=== PATIENT | female | born 1965 | race Caucasian/White ===

== ENCOUNTER 2024-04-26 13:48 | Outpatient (OUT) | payer BC, SELFPAY ==
--- NOTE | 2024-04-26 08:59 | VEINCLINIC_ITS ---
Vital Signs 04/26/24 14:26 Height 5 ft 5 in Weight 87.997 kg BMI 32.3 BP 120/58 BP Location Left Brachial BP Position Sitting BP Cuff Size Adult BP Source Manual Cuff Respiration 16 Pulse 58 L Pulse Source Monitor Pulse Oximetry (%) 99 Oxygen Delivery Method Room Air Comment The patient's blood pressure is elevated. Varicose Veins Patient is a 59 year old female in this day with c/o pain/achiness and edema. Achiness most notable to right leg and edema most noted to left leg. 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 . Brett Washington MD personally performed the services described in this docum entation, as scribed by Henri Higgins RN in my presence and it is both accurate and complete. I, Henri Higgins RN, am scribing for, and in the presence of, Dr. Brett Ocasio and in the presence of the patient. . knee: bilateral (most notable to right leg), calf: bilateral, ankle: bilateral and dobbs: bilateral aching, cramping and tender 7 10 years Worsened in recent months: Yes standing, sitting and walking analgesics (Ibuprofen), elevating extremities, compression stockings and exercise Reports fatigue, heaviness, limb pain and edema History of lower extremity trauma: No Superficial thrombophlebitis: No Family history of varicose veins: yes (mother) Has patient had previous lower extremity venous surgery: No Patient has previously received the following treatment(s) for lower extremity varicose veins: Reports none Does patient have a history of : yes Does patient intend to have future pregnancies: no Has patient had lower extremity venous scan with relux testing: No Support hose used: Yes Problems walking or doing physical activity: Yes How does it affect you: often has to sit and elevate bilateral legs/feet Do you walk much: Yes Do you stand much: No Review of Systems ROS Narrative Brett Washington MD personally performed the services described in this documentation, as scribed by Henri Higgins RN in my presence and it is both accurate and complete. Henri Washington RN, am scribing for, and in the presence of, Dr. Brett Ocasio and in the presence of the patient. Status of ROS 10 or more systems reviewed and unremark able except as noted in history and below Cardiovascular Reports: edema Integumentary/Breast Reports: redness, skin pain, skin tenderness and changes in skin color Hematologic/Lymphatic Reports: easy bruising and easy bleeding PFSH PFSH Medical History (Updated 04/26/24 @ 14:39 by Henri Higgins) Diverticulosis ?K57.90 - Diverticulosis of intestine, part unspecified, without perforation or abscess without bleeding (ICD-10) 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 - Primary osteoarthritis, unspecified hand (ICD-10) Varicose veins of bilateral lower extremities with pain ?I83.813 - Varicose veins of bilateral lower extremities with pain (ICD-10) Arthritis ?M19.90 - Unspecified osteoarthritis, unspecified site (ICD-10) Spinal stenosis ?M48.00 - Spinal stenosis, site unspecified (ICD-10) Atrial fibrillation ?I48.91 - Unspecified atrial fibrillation (ICD-10) Obesity ?E66.9 - Obesity, unspecified (ICD-10) Fibromyalgia ?M79.7 - Fibromyalgia (ICD-10) Surgical History (Updated 04/26/24 @ 14:39 by Henri Higgins) H/O colectomy ?Z90.49 - Acquired absence of other specified parts of digestive tract (ICD- 10) Hx of breast reduction, elective ?Z98.890 - Other specified postprocedural states (ICD-10) H/O abdominoplasty ?Z98.890 - Other specified postprocedural states (ICD-10) History of cholecystectomy ?Z90.49 - Acquired absence of other specified parts of digestive tract (ICD- 10) H/O: hysterectomy ?Z90.710 - Acquired absence of both cervix and uterus (ICD-10) Family History (Updated 04/26/24 @ 14:42 by Henri Higgins) Mother Varicose veins of bilateral lower extremities with pain Heart disease Age related osteoporosis Sister Age related osteoporosis Other Family history of cancer Family history of diabetes mellitus Family history of hypertension Pulmonary hypertension Social History (Updated 04/26/24 @ 14:43 by Henri Higgins) Within the past year, how often did you have six or more drinks on one occasion: less than monthly Smoking status: Never smoker Non-prescribed substance use: denies use Meds Home Medications and Allergies Home Medications ?Medication ?Instructions ?Recorded ?Confirmed ?Type aspirin 81 mg capsule 81 mg PO DAILY 04/26/24 04/26/24 History diltiazem HCl PO 04/26/24 History duloxetine PO 04/26/24 History montelukast 10 mg tablet 10 mg PO QPM 04/26/24 04/26/24 History (Singulair) pantoprazole 40 mg granules 40 mg PO DAILY 04/26/24 04/26/24 History delayed-release for susp in packet (Protonix) tramadol .ROUTE 04/26/24 History Allergies Allergy/AdvReac Type Severity Reaction Status Date / Time codeine Allergy Mild Agitated Verified 04/26/24 15:32 dermaplast glue Allergy Intermediate Rash Uncoded 04/26/24 15:32 Exam Narrative Exam Narrative: Brett Washington MD personally performed the services described in this documentation, as scribed by Henri Higgins RN in my presence and it is both accurate and complete. IHenri RN, am scribing for, and in the presence of, Dr. Brett Ocasio and in the presence of the patient. Results Additional Findings Additional findings: Bilateral leg reflux u/s reveals mild right and moderate left great saphenous vein and bilateral anterior accessory saphenous vein venous insufficiency with associated dilation along with bilateral leg branch saphenous truncal varicose veins and lastly bilateral leg perforating veins. Brett Washington MD personally performed the services described in this documentation, as scribed by Henri Higgins RN in my presence and it is both accurate and complete. IHenri RN, am scribing for, and in the presence of, Dr. Brett Ocasio and in the presence of the patient. Assessment and Plan Assessment and Plan (1) Varicose veins of bilateral lower extremities with pain: Plan Plan is for patient to return for EVLT of left GSV followed by right GSV followed by left AASV. Once EVLT's complete, move forward with microfoam chemical ablation bilateral leg branch saphenous truncal varicosities. Lastly, sclerotherapy bilateral leg pre-hemorrhagic reticular spider veins.
--- NOTE | 2024-04-26 13:26 | P.DS_ITS ---
Discharge Plan Discharge Disposition: Home, Self-Care Outpatient Diagnostics: VC Endovenous Ablation 1VeinLT (Routine) Timeframe: 2 Weeks Facility: [facility] - Location: [facility] Ordered By: Brett Ocasio VC Facility NEW Comprehensive (Routine) Timeframe: 2 Weeks Facility: [facility] - Location: Vein Center Ordered By: Brett Ocasio VC EXT Venous Reflux MYCHAL LMTD (Routine) Timeframe: 2 Weeks Facility: [facility] - Location: Vein Center Ordered By: Brett Ocasio Follow Up Appointments: patient to be notified once insurance approved Plan of Treatment: Patient to return for EVLT's of Print Language: Setswana Discharge Date/Time: 04/26/24 15:53
--- NOTE | 2024-04-26 14:06 | VEIN_ITS ---
Patient Name: JACQUES RIVERA MR#: [id number] : 1965 Exam Date: 04/26/2024 Ordering Doctor: DR BRETT PINEDO M.D. RADIOLOGY REPORT PROCEDURE: [facility] [place] - OFFICE VISIT INITIAL COMPARISON: None. PROGRESS NOTES: 59-year-old female who presents with a 10 year history of lower extremity pain swelling and varicose veins. The patient's symptoms have significantly progressed in the past year. 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 The patient rates the pain as a 7 on a scale of 1-10 with crampy achy and heaviness. The patient's symptoms are exacerbated by prolonged sitting and standing and are partially relieved by rest, leg elevation, exercise and compression stockings which she has worn for many years. The patient does take ibuprofen for the pain with partial relief. The patient denies any signs and symptoms to suggest arterial ischemia. The patient describes a family history significant for varicose veins in her mother. Osteoporosis in a mother and sister. Family history of cancer in diabetes and hypertension. Past medical history significant for diverticulosis, arthritis, spinal stenosis, atrial fibrillation in the past, obesity and fibromyalgia. Past surgical history significant for colectomy, breast reduction, abdominal plasty, cholecystectomy, hysterectomy. The patient has lost 112 pounds in the past 4 years secondary to obesity. Social alcohol. The patient has never smoked. No illicit drug use. No history of deep venous thrombus or pulmonary embolus. See separate history and physical for medication list. No prior treatment for varicose or spider veins. Nursing notes were reviewed. After history and physical exam I discussed at length the pathophysiology of venous hypertension and possible treatments, therapies and strategies available. We discussed at length the importance of elevating the lower extremities above the level of the heart, increased physical activity and compression stocking use. We discussed at length alternatives including compression stocking use for conservative therapy. Surgical interventions including ligation stripping and phlebectomy. We discussed intravenous laser ablation, micro foam chemical ablation and injection sclerotherapy lymph. Risk benefits and alternatives were discussed patient's questions were answered Ultrasound venous reflux study performed the same day was discussed at length with the patient. The report demonstrates mild right and moderate left great saphenous vein venous insufficiency. Moderate bilateral anterior accessory saphenous vein venous insufficiency. Bilateral incompetent varicose and perforating veins PHYSICAL EXAM: The right leg demonstrates mild scattered varicose reticular and spider veins. No subcutaneous edema, active ulceration or hemosiderin staining The left leg demonstrates moderate scattered varicose reticular and spider veins. Mild subcutaneous edema below the knee. No active ulceration or hemosiderin staining Both thighs, legs and feet were symmetrically warm to the touch. Good posterior tibial and dorsalis pedis pulses were present bilaterally. VEIN/VC Facility NEW Comprehensive IMPRESSION: 1. Mild right moderate left great saphenous, bilateral anterior accessory saphenous vein venous insufficiency with dilatation and saphenofemoral junction reflux 2. Bilateral lower extremity in com varicose veins 3. Mild left lower extremity subcutaneous edema 4. No definite flow significant arterial disease 5. CEAP: C3, Ep, As, Pr PLAN: 1. Endovenous laser ablation of the left great saphenous vein followed by right great saphenous vein followed by left anterior accessory saphenous vein 2. Micro foam chemical ablation bilateral incompetent varicose veins 3. Bilateral injection sclerotherapy reticular and spider veins 4. Long-term use of bilateral knee or thigh-high 20 30 mm compression stockings 5. Continue physical activity and weight loss for symptomatic relief Nurse notes, history and physical were reviewed and confirmed, see attached forms. The nurse was present throughout the physical exam and consultation Dictated by: Brett Pinedo MD on 04/26/2024 at 15:47 Approved by: Brett Pinedo MD on 04/26/2024 at 15:52
--- NOTE | 2024-04-26 14:06 | VEIN_ITS ---
Patient Name: JACQUES RIVERA MR#: [id number] : 1965 Exam Date: 04/26/2024 Ordering Doctor: DR BRETT PINEDO M.D. RADIOLOGY REPORT PROCEDURE: VC EXT VENOUS REFLUX MYCHAL LMTD COMPARISON: None. INDICATIONS: I83.813 Bilateral painful varicose veins TECHNIQUE: Duplex imaging of the lower extremity to assess the deep and superficial venous system for the presence of deep or superficial venous incompetence and to document the location and severity of disease. The study includes evaluation of the great saphenous vein (GSV), anterior accessory saphenous vein (AASV) and small saphenous vein (SSV). Patient scanned in reverse Trendelenburg and standing. FINDINGS: RIGHT LOWER EXTREMITY: Saphenofemoral Junction Reflux: Yes 12.1mm 3.9 sec GSV: Diam (mm) Reflux/ Time (sec) Proximal Thigh 6.6 Yes 0.6 Mid Thigh 4.7 No Distal Thigh 4.1 Yes 0.2 Prox Calf 4.0 Yes 0.6 Mid Calf 4.4 Yes 1.0 Saphenopopliteal Junction Reflux: 3.0mm No SSV: Proximal Calf 4.8 No Mid Calf 3.3 Yes 1.4 AASV: Proximal Thigh 6.4 Yes 1.9 Mid Thigh 4.4 Yes 2.0 Distal Thigh Thrombi: No acute or chronic thrombus. Compressibility: Normal. Flow: Mild deep venous reflux. Preforator: Prox medial lower leg 3.3 mm with 3.0s reflux. Distal medial lower leg 3.2 mm with 2.4s reflux. Tech Note: Incompetent varicose vein popliteal fossa measures 4.1 mm with 2.8s reflux. Varicose vein mid medial thigh measures 4.0 mm with 1.0s reflux. Varicose vein off of AASV distal lateral/anterior thigh measures 6.1 mm with 1.2s reflux. LEFT LOWER EXTREMITY: Saphenofemoral Junction Reflux: Yes 11.3 mm 1.1 sec GSV: Diam (mm) Reflux/Time (sec) Proximal Thigh 7.4 Yes 0.6 Mid Thigh 4.2 Yes 1.4 Distal Thigh 4.3 Yes 1.2 Prox Calf 5.1 Yes 4.0 Mid Calf 2.9 No Saphenopopliteal Junction Relux: 1.9 mm Yes 3.2 SSV: Proximal Calf 3.7 No Mid Calf 2.6 No AASV: Proximal Thigh 5.5 Yes 3.2 Mid Thigh 4.5 Yes 2.8 Distal Thigh Thrombi: No acute or chronic thrombus. Compressibility: Normal. Flow: Minimal deep venous reflux. Relations Mgr: Distal medial lower leg measures 3.4 mm with 1.1s reflux. Tech Note: Incompetent varicose vein mid medial thigh off of AASV 4.0 mm with 0.6s reflux. Varicose vein distal lateral thigh off AASV 4.0 mm with 2.6s reflux. CONCLUSION: 1. Mild right and moderate left great saphenous vein venous insufficiency with dilatation in saphenofemoral junction reflux 2. Moderate bilateral anterior accessory saphenous vein venous insufficiency with dilatation 3. Bilateral incompetent varicose veins 4. Bilateral incompetent perforating veins Dictated by: Brett Pinedo MD on 04/26/2024 at 15:25 Approved by: Brett Pinedo MD on 04/26/2024 at 15:27
[2024-04-26 14:26] VITALS: BP 120/58; PULSE 58; O2SAT 99; BMI 32.3
--- NOTE | 2024-04-26 15:10 | V.VEINS.HP ---
Vital Signs 04/26/24 14:26 Height 5 ft 5 in Weight 87.997 kg BMI 32.3 BP 120/58 BP Location Left Brachial BP Position Sitting BP Cuff Size Adult BP Source Manual Cuff Respiration 16 Pulse 58 L Pulse Source Monitor Pulse Oximetry (%) 99 Oxygen Delivery Method Room Air Comment The patient's blood pressure is elevated. [facility] Medical History (Updated 04/26/24 @ 14:39 by Henri Higgins) Diverticulosis ?K57.90 - Diverticulosis of intestine, part unspecified, without perforation or abscess without bleeding (ICD-10) 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 - Primary osteoarthritis, unspecified hand (ICD-10) Varicose veins of bilateral lower extremities with pain ?I83.813 - Varicose veins of bilateral lower extremities with pain (ICD-10) Arthritis ?M19.90 - Unspecified osteoarthritis, unspecified site (ICD-10) Spinal stenosis ?M48.00 - Spinal stenosis, site unspecified (ICD-10) Atrial fibrillation ?I48.91 - Unspecified atrial fibrillation (ICD-10) Obesity ?E66.9 - Obesity, unspecified (ICD-10) Fibromyalgia ?M79.7 - Fibromyalgia (ICD-10) Surgical History (Updated 04/26/24 @ 14:39 by Henri Higgins) H/O colectomy ?Z90.49 - Acquired absence of other specified parts of digestive tract (ICD-10) Hx of breast reduction, elective ?Z98.890 - Other specified postprocedural states (ICD-10) H/O abdominoplasty ?Z98.890 - Other specified postprocedural states (ICD-10) History of cholecystectomy ?Z90.49 - Acquired absence of other specified parts of digestive tract (ICD-10) H/O: hysterectomy ?Z90.710 - Acquired absence of both cervix and uterus (ICD-10) Family History (Updated 04/26/24 @ 14:42 by Henri Higgins) Mother Varicose veins of bilateral lower extremities with pain Heart disease Age related osteoporosis Sister Age related osteoporosis Other Family history of cancer Family history of diabetes mellitus Family history of hypertension Pulmonary hypertension Social History (Updated 04/26/24 @ 14:43 by Henri Higgins) Within the past year, how often did you have six or more drinks on one occasion: less than monthly Smoking status: Never smoker Non-prescribed substance use: denies use Meds Home Medications and Allergies Home Medications ?Medication ?Instructions ?Recorded ?Confirmed ?Type aspirin 81 mg capsule 81 mg PO DAILY 04/26/24 04/26/24 History diltiazem HCl PO 04/26/24 History duloxetine PO 04/26/24 History montelukast 10 mg tablet 10 mg PO QPM 04/26/24 04/26/24 History (Singulair) pantoprazole 40 mg granules 40 mg PO DAILY 04/26/24 04/26/24 History delayed-release for susp in packet (Protonix) tramadol .ROUTE 04/26/24 History Exam Constitutional Vital Signs, click to edit/add: Last Vital Signs Pulse 58 L 04/26/24 14:26 Resp 16 04/26/24 14:26 BP 120/58 04/26/24 14:26 Pulse Ox 99 04/26/24 14:26 Assessment and Plan Assessment and Plan (1) Varicose veins of bilateral lower extremities with pain:
--- NOTE | 2024-04-26 15:35 | W.VEIN ---
Discharge Plan Discharge Disposition: Home, Self-Care Plan of Treatment: Patient to return for EVLT's of Print Language: Polish
--- NOTE | 2024-04-26 15:58 | V.VEINS.HP ---
Vital Signs 04/26/24 14:26 Height 5 ft 5 in Weight 87.997 kg BMI 32.3 BP 120/58 BP Location Left Brachial BP Position Sitting BP Cuff Size Adult BP Source Manual Cuff Respiration 16 Pulse 58 L Pulse Source Monitor Pulse Oximetry (%) 99 Oxygen Delivery Method Room Air Comment The patient's blood pressure is elevated. [facility] Medical History (Updated 04/26/24 @ 14:39 by Henri Higgins) Diverticulosis ?K57.90 - Diverticulosis of intestine, part unspecified, without perforation or abscess without bleeding (ICD-10) 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 - Primary osteoarthritis, unspecified hand (ICD-10) Varicose veins of bilateral lower extremities with pain ?I83.813 - Varicose veins of bilateral lower extremities with pain (ICD-10) Arthritis ?M19.90 - Unspecified osteoarthritis, unspecified site (ICD-10) Spinal stenosis ?M48.00 - Spinal stenosis, site unspecified (ICD-10) Atrial fibrillation ?I48.91 - Unspecified atrial fibrillation (ICD-10) Obesity ?E66.9 - Obesity, unspecified (ICD-10) Fibromyalgia ?M79.7 - Fibromyalgia (ICD-10) Surgical History (Updated 04/26/24 @ 14:39 by Henri Higgins) H/O colectomy ?Z90.49 - Acquired absence of other specified parts of digestive tract (ICD-10) Hx of breast reduction, elective ?Z98.890 - Other specified postprocedural states (ICD-10) H/O abdominoplasty ?Z98.890 - Other specified postprocedural states (ICD-10) History of cholecystectomy ?Z90.49 - Acquired absence of other specified parts of digestive tract (ICD-10) H/O: hysterectomy ?Z90.710 - Acquired absence of both cervix and uterus (ICD-10) Family History (Updated 04/26/24 @ 14:42 by Henri Higgins) Mother Varicose veins of bilateral lower extremities with pain Heart disease Age related osteoporosis Sister Age related osteoporosis Other Family history of cancer Family history of diabetes mellitus Family history of hypertension Pulmonary hypertension Social History (Updated 04/26/24 @ 14:43 by Henri Higgins) Within the past year, how often did you have six or more drinks on one occasion: less than monthly Smoking status: Never smoker Non-prescribed substance use: denies use Meds Home Medications and Allergies Home Medications ?Medication ?Instructions ?Recorded ?Confirmed ?Type aspirin 81 mg capsule 81 mg PO DAILY 04/26/24 04/26/24 History diltiazem HCl PO 04/26/24 History duloxetine PO 04/26/24 History montelukast 10 mg tablet 10 mg PO QPM 04/26/24 04/26/24 History (Singulair) pantoprazole 40 mg granules 40 mg PO DAILY 04/26/24 04/26/24 History delayed-release for susp in packet (Protonix) tramadol .ROUTE 04/26/24 History Allergies Allergy/AdvReac Type Severity Reaction Status Date / Time codeine Allergy Mild Agitated Verified 04/26/24 15:32 dermaplast glue Allergy Intermediate Rash Uncoded 04/26/24 15:32 Exam Constitutional Vital Signs, click to edit/add: Last Vital Signs Pulse 58 L 04/26/24 14:26 Resp 16 04/26/24 14:26 BP 120/58 04/26/24 14:26 Pulse Ox 99 04/26/24 14:26 Assessment and Plan Assessment and Plan (1) Varicose veins of bilateral lower extremities with pain: Plan Plan is for patient to return for EVLT of left GSV followed by right GSV followed by left AASV. Once EVLT's complete, move forward with microfoam chemical ablation bilateral leg branch saphenous truncal varicosities. Lastly, sclerotherapy bilateral leg pre-hemorrhagic reticular spider veins.
== END 2024-04-26 15:53 | disposition home or self-care (01) ==
LOC: VC 13:48
PROVIDERS: PCP Radiology Diagnostic Radiology; Visit Provider Radiology Diagnostic Radiology
DX: I83.813 Varicose veins of bilateral lower extremities with pain (principal)
CPT/HCPCS: 93970; G0463

== ENCOUNTER 2024-05-22 13:55 | Outpatient (OUT) | payer BC, SELFPAY ==
--- NOTE | 2024-05-19 08:56 | VEINCLINIC_ITS ---
Vital Signs 05/22/24 14:16 BP 130/74 BP Location Right Brachial BP Position Sitting BP Cuff Size Adult BP Source Manual Cuff Respiration 16 Pulse 58 L Pulse Source Monitor Pulse Oximetry (%) 99 Oxygen Delivery Method Room Air Comment The patient's blood pressure is elevated. Varicose Veins Patient in this day for EVLT Mina Washington MD personally performed the services described in this documentation, as scribed by Henri Higgins RN in my presence and it is both accurate and complete. Henri Washington RN, am scribing for, and in the presence of, Dr. Mina Huffman and in the presence of the patient. knee: bilateral (most notable to right leg), calf: bilateral, ankle: bilateral and dobbs: bilateral aching, cramping and tender 7 10 years Worsened in recent months: Yes standing, sitting and walking analgesics (Ibuprofen), elevating extremities, compression stockings and exercise Reports fatigue, heaviness, limb pain and edema History of lower extremity trauma: No Superficial thrombophlebitis: No Family history of varicose veins: yes (mother) Has patient had previous lower extremity venous surgery: No Patient has previously received the following treatment(s) for lower extremity varicose veins: Reports none Does patient have a history of : yes Does patient intend to have future pregnancies: no Has patient had lower extremity venous scan with relux testing: No Support hose used: Yes Problems walking or doing physical activity: Yes How does it affect you: often has to sit and elevate bilateral legs/feet Do you walk much: Yes Do you stand much: No Review of Systems ROS Narrative Mina Washington MD personally performed the services described in this docum entation, as scribed by Henri Higgins RN in my presence and it is both accurate and complete. Henri Washington RN, am scribing for, and in the presence of, Dr. Mina Huffman and in the presence of the patient. 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 - Primary osteoarthritis, unspecified hand (ICD-10) Varicose veins of bilateral lower extremities with pain ?I83.813 - Varicose veins of bilateral lower extremities with pain (ICD-10) Arthritis ?M19.90 - Unspecified osteoarthritis, unspecified site (ICD-10) Spinal stenosis ?M48.00 - Spinal stenosis, site unspecified (ICD-10) Atrial fibrillation ?I48.91 - Unspecified atrial fibrillation (ICD-10) Obesity ?E66.9 - Obesity, unspecified (ICD-10) Fibromyalgia ?M79.7 - Fibromyalgia (ICD-10) Surgical History (Updated 04/26/24 @ 14:39 by Henri Higgins) H/O colectomy ?Z90.49 - Acquired absence of other specified parts of digestive tract (ICD- 10) Hx of breast reduction, elective ?Z98.890 - Other specified postprocedural states (ICD-10) H/O abdominoplasty ?Z98.890 - Other specified postprocedural states (ICD-10) History of cholecystectomy ?Z90.49 - Acquired absence of other specified parts of digestive tract (ICD- 10) H/O: hysterectomy ?Z90.710 - Acquired absence of both cervix and uterus (ICD-10) Family History (Updated 04/26/24 @ 14:42 by Henri Higgins) Mother Varicose veins of bilateral lower extremities with pain Heart disease Age related osteoporosis Sister Age related osteoporosis Other Family history of cancer Family history of diabetes mellitus Family history of hypertension Pulmonary hypertension Social History (Updated 04/26/24 @ 14:43 by Henri Higgins) Within the past year, how often did you have six or more drinks on one occasion: less than monthly Smoking status: Never smoker Non-prescribed substance use: denies use Meds Home Medications and Allergies Home Medications ?Medication ?Instructions ?Recorded ?Confirmed ?Type aspirin 81 mg capsule 81 mg PO DAILY 04/26/24 04/26/24 History diltiazem HCl PO 04/26/24 History duloxetine PO 04/26/24 History montelukast 10 mg tablet 10 mg PO QPM 04/26/24 04/26/24 History (Singulair) pantoprazole 40 mg granules 40 mg PO DAILY 04/26/24 04/26/24 History delayed-release for susp in packet (Protonix) tramadol .ROUTE 04/26/24 History Allergies Allergy/AdvReac Type Severity Reaction Status Date / Time codeine Allergy Mild Agitated Verified 04/26/24 15:32 dermaplast glue Allergy Intermediate Rash Uncoded 04/26/24 15:32 Exam Narrative Exam Narrative: Mina Washington MD personally performed the services described in this docum entation, as scribed by Henri Higgins RN in my presence and it is both accurate and complete. IHenri RN, am scribing for, and in the presence of, Dr. Mina Huffman and in the presence of the patient. Constitutional Vital Signs, click to edit/add: Last Vital Signs Pulse 58 L 04/26/24 14:26 Resp 16 04/26/24 14:26 BP 120/58 04/26/24 14:26 Pulse Ox 99 04/26/24 14:26 Assessment and Plan Assessment and Plan (1) Varicose veins of bilateral lower extremities with pain: Plan f/u evaluation with physician along with limited u/s Mina Washington MD personally performed the services described in this documentation, as scribed by Henri Higgins RN in my presence and it is both accurate and complete. Henri Washington RN, am scribing for, and in the presence of, Dr. Mina Huffman and in the presence of the patient. Procedures Procedure Instructions Procedures Plan of care: Risks and benefits of the procedure were discussed at length and informed written consent was obtained.? Time-out completed for verification of correct patient, procedure and site.? Staff present during time-out: Henri Higgins RN,? Mina Huffman MD, Lucia Larsen [facility],. Time Out Time__1447 Patient prepped and procedure performed in usual sterile fashion. Risk of injury related to use of Diode laser and/or laser devices? __CR___ ? Serial number of laser used :? [id number] Control panel self test performed, electrical cords in good condition, floor is dry, basin of water available, fire extinguisher in close proximity_CR__ Polycarbonate goggles available and Laser warning signs outside of doors___CR__ Eye protection provided to patient and staff in room_CR___ Use of laser retardant drapes and dull blackened instruments as directed__CR___ Use of nonflammable prep solutions and use of saline soaked sponges to protect tissues as indicated _CR___ Length __24__ cm Laser operated by __Dr. Huffman Physician verbal confirmation laser locked in place__CR__ Laser start time (date and time) __05/22/2024@__1456 Laser stop time(date and time) _05/22/2024@__1459 Lao _8.0___ Average laser use __1098 Joules Average laser use___137 seconds Pulse continuous ___CR_? Pulse intermittent ___ Amount of Tumescent used __125cc____ Evaluated patient for signs and symptoms of electrical injury __CR___ ? Skin clear at insertion site __CR___ Patient tolerated procedure well.? Left leg Coban dressing applied to access site.? Applied Left thigh high leg compression stocking. Will return on 05/29/2024 for Left leg limited venous ultrasound and exam. IMina MD personally performed the services described in this docu mentation, as scribed by Henri Higgins RN in my presence and it is both accurate and complete. IHenri RN, am scribing for, and in the presence of, Dr. Mina Huffman and in the presence of the patient.
--- NOTE | 2024-05-19 09:04 | P.DS_ITS ---
Discharge Plan Discharge Disposition: Home, Self-Care Outpatient Diagnostics: VC Facility EST LMTD (Routine) Timeframe: 2 Weeks Facility: [facility] - Location: [facility] Ordered By: Brett Ocasio VC EXT Venous LT Limited (Routine) Timeframe: 2 Weeks Facility: [facility] - Location: [facility] Center Ordered By: Brett Ocasio Follow Up Appointments: 05/29/2024 Plan of Treatment: f/u evaluation with physician along with limited u/s Patient Instructions: Endovenous Ablation (DC) Print Language: Slovak Discharge Date/Time: 05/22/24 15:46
[2024-05-22] MEDS: LIDOCAINE HCL 1% 100 MG/10 ML MDV INJ (14:07)
[2024-05-22] MEDS: 0.9 % SODIUM CHLORIDE 500 ML, LIDOCAINE HCL 20 ML, SODIUM BICARBONATE 10 MEQ INJ (14:08)
--- NOTE | 2024-05-22 14:08 | VEIN_ITS ---
[address] [address] Patient Name: JACQUES RIVERA MRN: [id number] date: 1965 Sex: F Assigned Patient Location: Current Patient Location: Accession/Order Number: [id number] Exam Date: 05/22/2024 14:12 Report Date: 05/22/2024 16:25 At the request of: BAO PINEDO Procedure: VC Endovenous Ablation 1VeinLT EXAMINATION: VC Endovenous Ablation 1Vein, left great saphenous vein HISTORY: I83.813 - Varicose veins of bilateral lower extremities w... COMPARISON: No relevant comparison available. TECHNIQUE: The risks and benefits of the procedure had been previously discussed, and were rediscussed at length. Informed written consent was obtained. Lucia Larsen and Henri Higgins assisted. Time out procedure was performed. The left lower extremity was prepared and draped in the usual sterile fashion to allow knee flexion in the sterile field. Duplex ultrasound probe was draped in a sterile cover, sterile transmission gel was used. Venous mapping was performed with the areas of dilation and large tributaries marked. The total length was 24 cm from the entry at the knee to 3 cm below the saphenofemoral junction. The diameter of the greater saphenous vein ranged from 4-8 mm. A 30 gauge needle and 1% buffered lidocaine was used to anesthetize the entry site. A 4 mm incision was made with a scalpel and the saphenous vein was entered percutaneously under direct ultrasound guidance with a micropuncture set, a single stick was successful in gaining access. A micro-guide wire was inserted and the needle removed. A micro-set including a dilator was inserted over the microwire and the needle and dilator were removed. A 0.018 guide wire was inserted through the micro-set and threaded through the saphenous vein to the saphenofemoral junction. The dilator was removed and an introducer sheath was inserted over the wire until the end of the sheath entered the saphenofemoral junction. The dilator and wire were removed and the 600 micron fiber was introduced and placed and positioned so that it extended beyond the sheath and was 3 cm peripheral to the saphenofemoral femoral junction. Final position of the fiber was determined by ultrasound guidance and duplex imaging. Jonocent anesthetic was delivered by ultrasound guidance. 125 cc of fluid was delivered along the entire course of the saphenous vein. The solution consisted of 1000 cc of normal saline with 40 mL of 1% lidocaine and 20 mL of sodium bicarbonate. A final positioning check was made. The energy source was turned on by means of the foot pedal and the fiber and sheath were withdrawn. The total number of Joules delivered was 1098. The laser was active for 137seconds under continuous pulse, average laser use of 8 J. Laser start time 2:56 PM 05/22/2024 . Laser stop time 2:59 PM 05/22/2024 . A duplex ultrasound revealed compressibility and flow at the saphenofemoral junction immediately after the procedure. Hemostasis at the access site was achieved. The skin incision of the saphenous vein was closed with a 4 x 4. A compression stocking was applied. Postop instructions were given. A follow up appointment was recommended and scheduled. The patient tolerated the procedure well and was discharged in good condition . VEIN/VC Endovenous Ablation 1VeinLT IMPRESSION: Technically successful endovenous laser ablation of the left great saphenous vein Electronically authenticated by: BAO PINEDO Date: 05/22/2024 16:25
--- OUTSIDE RECORDS SUMMARY | 2024-05-22 14:11 | XMS_ITS | CCD ---
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 Name Role Phone NONE, XXXX Primary Care Physician Unavailab Gregg Edwards Attending Unavailable AQUILES Perez Primary Care Provider MD Livan Silver Attending Provider Self, Referral Attending Provider Unavailable MD Herbie Vila Referring Provider AQUILES Perez Referring Provider MD Ventura German Attending Provider [phone] MD Herbie Vila Attending Provider AQUILES Perez Primary Care Provider MD Livan Silver Attending Provider Herbie Vila Admitting Unavailable Herbie Vila Attending Unavailable Tameka Perez Primary Care Unavailable Livan Silver Admitting Unavai labalem Silver, Livan Holder Attending Tameka Campos Primary Care Unavailable Herbie Vila Referring Unavailable Self, Referral Admitting Unavailable Self, Referral Attending Unavailable Tameka Perez Primary Care Unavailable Livan Silver Admitting Unavai lable Korkaz, Livan Holder Attending Tameka Campos Primary Care Unavailable Livan Silver Admitting Unavai lable Koromjason, Livan Holder Attending Tameka Campos Primary Care Unavailable Ventura German Attending Unavailable Tameka Perez Primary Care Unavailable Tameka Perez Referring Unavailable Ventura German Admitting Unavailable Herbie Vila Admitting Unavailable Herbie Vila Attending Unavailable Tameka Perez Primary Care Unavailable Allergies Allergy Classification Reported Allergen(s) Allergy Type Date of Onset Reaction(s) Facility Anti-Epileptic Agents (2 sources) gabapentin Drug Allergy 4 [facility] Nitrofurantoin (2 sources) Nitrofurantoin Drug Allergy 4 Chest Pain [facility] NSAIDs (2 sources) Ketorolac Drug Allergy 4 Anaphylaxis [facility] Opioid Agonists (2 sources) Codeine Drug Allergy 4 [facility] (10 sources) Codeine; Translations: [codeine] Drug Allergy 4 [facility] (10 sources) gabapentin; Translations: [gabapentin] Drug Allergy 4 [facility] (10 sources) Ketorolac; Translations: [ketorolac] Drug Allergy 4 Anaphylaxis [facility] (10 sources) Nitrofurantoin; Translations: [nitrofurantoin] Drug Allergy 4 Chest Pain [facility] (1 source) Codeine Drug Allergy 4 [facility] Repository Medications Current Medications Medication Drug Class(es) Dates Sig (Normalized) Sig (Original) Albuterol (Eqv-ProAir HFA) 90 mcg/inh inhalation aerosol (1 source) Start: 08-23-2023 End: 08-30-2023 take 2 puff(s) by inhalation every six hours Albuterol (Eqv-ProAir HFA) 90 mcg/inh inhalation aerosol 2 puff(s), Inhalation, q6hr for 7 day(s), 6.7 gm, Refill(s) 0, [facility]/pharmacy #[id number], 165, cm, 08/23/23 9:07:00 EST, Height/Length Dosing, 88, kg, 08/23/23 9:07:00 EST, Weight Dosing Start Date: 08/23/23 Stop Date: 08/30/23 Status: Ordered aspirin 81 mg delayed release oral tablet (20 sources) Platelet Aggregation Inhibitor, Nonsteroidal Anti-inflammatory Drug Start: 11-15-2023 End: 12-29-2023 take 1 tablet by mouth once daily Aspirin (Adult Aspirin Regimen) 81 mg tablet,delayed release (DR/EC) Active 81 MG PO Daily 90 90 December 29, 2023 3:02pm dexamethasone 6 mg oral tablet (1 source) Corticosteroid Start: 08-23-2023 End: 08-30-2023 take 1 tablet by mouth once daily dexamethasone 6 mg oral tablet 6 mg = 1 tab(s), Oral, Daily, X 7 day(s), # 7 tab(s), Refills(s) 0, Pharmacy: [facility]/pharmacy #[id number], 165, cm, 08/23/23 9:07:00 EST, Height/Length Dosing, 88, kg, 08/23/23 9:07:00 EST, Weight Dosing Start Date: 08/23/23 Stop Date: 08/30/23 Status: Ordered DULoxetine 60 mg delayed release oral capsule (11 sources) Serotonin and Norepinephrine Reuptake Inhibitor Start: 11-15-2023 take 1 capsule by mouth twice daily Duloxetine (Cymbalta) 60 mg capsule,delayed release(DR/EC) Active 60 MG PO Twice daily November 15, 2023 1:00am montelukast 10 mg oral tablet (20 sources) Leukotriene Receptor Antagonist Start: 11-15-2023 End: 12-16-2023 take 1 tablet by mouth once daily in the evening Montelukast (Singulair) 10 mg tablet Active 10 MG PO Every evening December 16, 2023 4:34pm pantoprazole 40 mg delayed release oral tablet (11 sources) Proton Pump Inhibitor Start: 11-15-2023 take 1 tablet by mouth once daily in the morning Pantoprazole (Protonix) 40 mg tablet,delayed release (DR/EC) Active 40 MG PO Daily November 15, 2023 1:00am in the morning rosuvastatin calcium 20 mg oral tablet (11 sources) HMG-CoA Reductase Inhibitor Start: 11-15-2023 take 1 tablet by mouth once daily at bedtime Rosuvastatin (Crestor) 20 mg tablet Active 20 MG PO Daily at bedtime November 15, 2023 1:00am at bedtime Semaglutide Base (5 sources) Start: 02-01-2024 inject 1 mL by subcutaneous injection every week Semaglutide Base Active 0.25 ML SUBCUT every week February 01, 2024 12:00am [facility] Pre-filled Syringes using Semaglutide Base. Dispense 1 mL = (Four 0.25 mL pre-filled syringes) traMADol hydrochloride 50 mg oral tablet (17 sources) Opioid Agonist Start: 01-19-2024 take 50 mg by mouth every eight hours Tramadol Active 50 MG PO Every 8 hours 90 30 January 19, 2024 5:55pm Start: 11-15-2023 End: 01-19-2024 take 50 mg by mouth every six hours for pain Tramadol Discontinued 50 MG PO Every 6 hours November 15, 2023 1:00am January 19, 2024 5:57pm for pain Completed/Discontinued Medications Medication Drug Class(es) Dates Sig (Normalized) Sig (Original) acetaminophen 325 mg / HYDROcodone bitartrate 5 mg oral tablet (3 sources) Opioid Agonist Start: 02-24-2024 End: 03-22-2024 take 2 tablets by mouth every six hours Hydrocodone-Acetam inophen Discontinued 2 TAB PO Q6H 40 7 February 24, 2024 March 22, 2024 4:46pm butorphanol tartrate 1 mg/actuat metered dose nasal spray (11 sources) Opioid Agonist/Antagoni st Start: 11-15-2023 End: 12-29-2023 take 1 spray(s) nasal route every six hours Butorphanol Discontinued 1 SPRAY INTRANASAL Every 6 hours November 15, 2023 1:00am December 29, 2023 2:23pm administer into one nostril (only) dilTIAZem hydrochloride 120 mg oral tablet (20 sources) Calcium Channel Chandrakant Start: 11-15-2023 End: 02-10-2024 take 1 tablet by mouth once daily in the morning Diltiazem Hcl (Cardizem) 120 mg tablet Discontinued 120 MG PO Once 90 90 December 29, 2023 3:01pm February 10, 2024 7:25am once daily in the morning 1.5 ml fremanezumab-vfrm 150 mg/ml prefilled syringe (8 sources) Start: 01-13-2024 End: 03-22-2024 Fremanezumab-Vfrm (Ajovy Autoinjector) 225 mg/1.5 mL auto-injector Discontinued 225 MG SUBCUT every month January 13, 2024 12:00am March 22, 2024 4:45pm Problems Active Problems Problem Classification Problem Date Documented Date Episodic/Chronic Abdominal hernia (20 sources) Hernia of anterior abdominal wall; Translations: [Ventral hernia without obstruction or gangrene] 11-15-2023 Episodic Cardiac dysrhythmias (20 sources) Atrial fibrillation; Translations: [Unspecified atrial fibrillation] Onset: 12-29-2023 11-15-2023 Chronic Cardiac dysrhythmias (1 source) Palpitations; Translations: [Palpitations] Onset: 08-23-2023 Episodic Diabetes mellitus without complication (7 sources) Prediabetes; Translations: [Prediabetes] 02-01-2024 Episodic Disorders of lipid metabolism (20 sources) Hyperlipidemia; Translations: [Hyperlipidemia, unspecified] Onset: 01-12-2024 11-15-2023 Chronic Diverticulosis and diverticulitis (20 sources) Diverticular disease; Translations: [Diverticulosis of intestine, part unspecified, without perforation or abscess without bleeding] 11-15-2023 Chronic Esophageal disorders (11 sources) Gastroesophageal reflux disease; Translations: [Gastro-esophageal reflux disease without esophagitis] 11-15-2023 Chronic Essential hypertension (14 sources) Hypertensive disorder; Translations: [Essential (primary) hypertension] Onset: 01-18-2024 12-29-2023 Chronic Hemorrhoids (11 sources) Internal hemorrhoids; Translations: [Other hemorrhoids] 11-15-2023 Episodic Nonmalignant breast conditions (12 sources) Large breast; Translations: [Hypertrophy of breast] Onset: 02-24-2024 11-15-2023 Episodic Osteoarthritis (20 sources) Arthritis of finger of left hand; Translations: [Primary osteoarthritis, left hand] 11-15-2023 Chronic Other connective tissue disease (11 sources) Fibromyalgia; Translations: [Fibromyalgia] 11-15-2023 Episodic Other diseases of kidney and ureters (11 sources) Cyst of kidney; Translations: [Cyst of kidney, acquired] 11-15-2023 Episodic Other diseases of kidney and ureters (11 sources) Kidney lesion; Translations: [Disorder of kidney and ureter, unspecified] 12-29-2023 Episodic Other nutritional; endocrine; and metabolic disorders (2 sources) Obese class I; Translations: [Obesity, unspecified] 03-22-2024 Chronic Other nutritional; endocrine; and metabolic disorders (2 sources) Obesity, unspecified; Translations: [Obesity, unspecified] 03-22-2024 Chronic Other nutritional; endocrine; and metabolic disorders (3 sources) Abnormal weight gain; Translations: [Abnormal weight gain] 02-01-2024 Episodic Other nutritional; endocrine; and metabolic disorders (1 source) Abnormal weight gain; Translations: [Abnormal weight gain] Onset: 02-03-2024 Episodic Other upper respiratory disease (11 sources) Seasonal allergy; Translations: [Other seasonal allergic rhinitis] 11-15-2023 Chronic Other upper respiratory disease (1 source) Bronchospasm; Translations: [Acute bronchospasm] Onset: 08-23-2023 Episodic Residual codes; unclassified (11 sources) History of colectomy; Translations: [Acquired absence of other specified parts of digestive tract] 11-15-2023 Episodic Residual codes; unclassified (11 sources) Family history of breast cancer; Translations: [Family history of malignant neoplasm of breast] 11-15-2023 Episodic Spondylosis; intervertebral disc disorders; other back problems (11 sources) Lumbar spondylosis; Translations: [Spondylosis without myelopathy or radiculopathy, lumbar region] 11-15-2023 Chronic Spondylosis; intervertebral disc disorders; other back problems (11 sources) Spinal stenosis; Translations: [Spinal stenosis, site unspecified] 11-15-2023 Episodic Unclassified (11 sources) Transformed migraine; Translations: [Chronic migraine] 11-15-2023 Past or Other Problems Problem Classification Problem Date Documented Da te Episodic/Chronic Other screening for suspected conditions (not mental disorders or infectious disease) (8 sources) Encounter for screening for other metabolic disorders; Translations: [Screening for other and unspecified endocrine, nutritional, metabolic, and immunity disorders] Onset: 01-01-2024 01-19-2024 Episodic Viral infection (1 source) Disease caused by 2019-nCoV; Translations: [COVID-19] Onset: 08-23-2023 Results Test Name Value Interpretation Reference Range Facility [facility] 02-24-2024 L Specimen: [id number] Received: 02/24/24 Status: RACHEL Carlson Num: [id number] Spec Type: Surgical Subm Dr: Herbie Vila MD Tissues: A Breast Reduction - Mammoplasty (SRT) B Breast Reduction - Mammoplasty (LT) Procedures: HE/6, Gross/Micro L4/2 Age/ Patient Sex Location Account Attending Physician Etelvina Luciano 58/F [place] [id number] Herbie Vila MD SPEC NUM: [id number] RECD: 02/24/24 STATUS: RACHEL RAMÍREZJessica NUM: [id number] JESSICA: 02/24/[address]: Herbie Vila MD ENTERED: 02/24/[address] [facility] [address]: SPEC TYPE: Surgical DEPT: S ORDERED: HE/6, Gross/Micro L4/2 ORDERED: HE/6, Gross/Micro L4/2 Pathological Diagnosis A, right breast tissue with skin, mammoplasty reduction (741.5 g): -Skin with hypertrophic benign breast glandular tissue without any significant or specific histopathological changes B, left breast tissue with skin, mammoplasty reduction (685.1 g): -Skin and hypertrophic benign breast glandular tissue without any significant or specific histopathological changes, except patchy mild fibrocystic change of the mildly proliferative type, including occasional mild ductal epithelial hyperplasia of the usual type (UDH), and incidental 1 large cluster of benign apocrine adenoma with the associated microcystic glandular dilatation without atypia Clinical Information Macromastia Gross Description A. Received in formalin, labeled with the patient's name, date of and right breast tissue is a 741.5 g, 21.3 x 18.6 x 3.6 cm aggregate of lobulated fibroadipose tissue with attached and detached adams unremarkable skin. Cut sections reveal unremarkable and lobulated parenchymal surfaces comprised of 50% fibrous tissue and 50% adipose tissue. No discrete masses or lesions are present. Ribbon Blocker sections are submitted in A1 (skin); A2-A3 (parenchyma). -------- Specimen: [id number] Received: 02/24/24 Status: RACHEL Robyn Num: [id number] Spec Type: Surgical Subm Dr: Herbie Vila MD Tissues: A Breast Reduction - Mammoplasty (SRT) B Breast Reduction - Mammoplasty (LT) Procedures: ELLEPriscila/Lily L4/2 -------- Patient: Etelvina Luciano [id number] (Continued) -------- Specimen: [id number] Received: 02/24/24 (Continued) Gross Description (Continued) Signed (signature on file) Jun Benavides MD 02/28/241955 -------- Specimen: [id number] Received: 02/24/24 Status: RACHEL Carlson Num: [id number] Spec Type: Surgical Subm Dr: Herbie Vila MD Tissues: A Breast Reduction - Mammoplasty (SRT) B Breast Reduction - Mammoplasty (LT) Procedures: Priscila/Micro L4/2 -------- Patient: Etelvina Luciano [id number] (Continued) -------- Specimen: [id number] Received: 02/24/24 (Continued) Gross Description (Continued) B. Received in formalin, labeled with the patient's name, date of and left breast tissue is a 685.1 g, 19.8 x 19.1 x 2.9 cm aggregate of lobulated fibroadipose tissue with attached and detached adams unremarkable skin. Cut sections reveal unremarkable lobulated parenchymal surfaces comprised of 50% fibrous tissue and 50% adipose tissue. No discrete masses or lesions are present. Ribbon Blocker sections are submitted in B1 (skin); B2?B3 (parenchyma). TW CPT Codes 23293R8 -------- -------- Specimen: [id number] Received: 02/24/24 Status: RACHEL Carlson Num: [id number] Spec Type: Surgical Subm Dr: Herbie Vila MD Tissues: A Breast Reduction - Mammoplasty (SRT) B Breast Reduction - Mammoplasty (LT) Procedures: HE/Priscila [place]/Lily L4/2 -------- Patient: Etelvina Luciano [id number] (Continued) -------- Signed (signature on file) Jun Benavides MD 02/28/241955 Normal [facility] Alanine aminotransferase [En zymatic activity/volume] in Serum or PlasmaOrdered By: Tameka Perez on 02-03-2024 ALT [Catalytic activity/Vol] 11 U/L Normal 7-52 [facility] Comment on above: Performed By: #### C MP wRFX A1C #### [facility] [address] Albumin [Mass/volume] in Ser um or Plasma by Bromocresol green (BCG) dye binding methoOrdered By: Tameka Perez on 02-03-2024 Albumin BCG dye [Mass/Vol] 3.9 g/dL 3.5-5.7 [facility] Alkaline phosphatase [Enzyma tic activity/volume] in Serum or PlasmaOrdered By: Tameka Perez on 02-03-2024 ALP [Catalytic activity/Vol] 80 U/L Normal 34-104 [facility] Comment on above: Result Comment: PERF ORMED BY: [place] [address] PATHOLOGIST WELT WHEELER FERMIN MARTINEZ M.D. Performed By: #### C MP wRFX A1C #### [address] Aspartate aminotransferase [ Enzymatic activity/volume] in Serum or PlasmaOrdered By: Tameka Perez on 02-03-2024 AST [Catalytic activity/Vol] 14 U/L Normal 13-39 [facility] Comment on above: Performed By: #### C MP wRFX A1C #### [address] Bilirubin.total [Mass/volume ] in Serum or PlasmaOrdered By: Tameka Perez on 02-03-2024 Bilirubin [Mass/Vol] 0.3 mg/dL Normal 0.3-1.0 [facility] Comment on above: Performed By: #### C MP wRFX A1C #### [address] CMP with reflex to A1Con Albumin [Mass/Vol] 3.9 g/dL Normal 3.5-5.7 [facility] Comment on above: Performed By: #### C MP wRFX A1C #### [place] [address] [place] GFR/1.73 sq M.predicted MDRD (S/P/Bld) [Vol rate/Area] mL/min/{1.73_m2} Normal [facility] Comment on above: Performed By: #### C MP wRFX A1C #### [place] [address] [place] Calcium [Mass/volume] in Ser um or PlasmaOrdered By: Tameka Perez on 02-03-2024 Calcium [Mass/Vol] 8.8 mg/dL Normal 8.6-10.3 [facility] Comment on above: Performed By: #### C MP wRFX A1C #### [place] [address] [place] Carbon dioxide, total [Moles /volume] in Serum or PlasmaOrdered By: Tameka Perez on 02-03-2024 CO2 [Moles/Vol] 28.7 mmol/L Normal 21.0-31.0 [facility] Comment on above: Performed By: #### C MP wRFX A1C #### [facility] [address] [place] [address] [place] Chloride [Moles/volume] in S sanjay or PlasmaOrdered By: Tameka Perez on 02-03-2024 Chloride [Moles/Vol] 110 mmol/L High 98-107 [facility] Comment on above: Performed By: #### C MP wRFX A1C #### [facility] [address] [place] [address] [place] Creatinine [Mass/volume] in Serum or PlasmaOrdered By: Tameka Perez on 02-03-2024 Creatinine [Mass/Vol] 0.61 mg/dL Normal 0.60-1.20 [facility] Comment on above: Performed By: #### C MP wRFX A1C #### [facility] [address] [place] [address] [place] Glucose [Mass/volume] in Ser um or PlasmaOrdered By: Tameka Perez on 02-03-2024 Glucose [Mass/Vol] 95 mg/dL Normal 70-100 [facility] Comment on above: Performed By: #### C MP wRFX A1C #### [facility] [address] [place] [address] [place] No Panel InformationOrdered By: Tameka Perez on 02-03-2024 Estimated GFR (CKD-EPI) > 60.0 mL/Min [facility] Creatinine Clearance (Chem N/A [facility] Potassium [Moles/volume] in Serum or PlasmaOrdered By: Tameka Perez on 02-03-2024 Potassium [Moles/Vol] 4.0 mmol/L Normal 3.5-5.1 [facility] Comment on above: Performed By: #### C MP wRFX A1C #### [facility] [address] [place] [address] [place] Protein [Mass/volume] in Ser um or PlasmaOrdered By: Tameka Perez on 02-03-2024 Protein [Mass/Vol] 5.9 g/dL Low 6.4-8.9 [facility] Comment on above: Performed By: #### C MP wRFX A1C #### [address] Serum globulin measurement b y calculation (mass/volume)Ordered By: Tameka Perez on 02-03-2024 Globulin (S) [Mass/Vol] 2.0 g/dL Normal F [facility] Comment on above: Performed By: #### C MP wRFX A1C #### [address] Serum or plasma albumin/glob ulin mass ratioOrdered By: Tameka Perez on 02-03-2024 Albumin/Globulin [Mass ratio] 2.0 {ratio} Normal [facility] Comment on above: Performed By: #### C MP wRFX A1C #### [address] Serum or plasma anion gap de terminationOrdered By: Tameka Perez on 02-03-2024 Anion gap [Moles/Vol] 9.3 mmol/L Normal 6.0-15.0 [facility] Comment on above: Performed By: #### C MP wRFX A1C #### [address] Sodium [Moles/volume] in Ser um or PlasmaOrdered By: Tameka Perez on 02-03-2024 Sodium [Moles/Vol] 144 mmol/L Normal 136-145 [facility] Comment on above: Performed By: #### C MP wRFX A1C #### [address] Thyrotropin [Units/volume] i n Serum or PlasmaOrdered By: Ventura German on 02-03-2024 TSH Qn 0.97 m[IU]/L Normal 0.45-5.33 [facility] Comment on above: Result Comment: PERF ORMED BY: [place] [address] PATHOLOGIST WELT WHEELER FERMIN MARTINEZ M.D. Performed By: #### T SH3 #### [facility] [address] [place] [address] Urea nitrogen [Mass/volume] in Serum or PlasmaOrdered By: Tameka Perez on 02-03-2024 Urea nitrogen [Mass/Vol] 16 mg/dL Normal 7-25 [facility] Comment on above: Performed By: #### C MP wRFX A1C #### [facility] [address] [place] [address] MM screening mammo BI w/CADo n 01-19-2024 MM screening mammo BI w/CAD [facility] [place] [address] [place] [address] Mammography Report Signed Patient: Etelvina Luciano MR#: [id number] 5 : 1965 Acct:[id number] Age/Sex: 58 / F ADM Date: 01/01/24 Loc: [place] Room: Type: [facility] Attending Dr: Referral Self Copies to: AQUILES James MD SELF,REFERRAL Ordering Provider: SELF,REFERRAL Date of Service: 01/01/24 MM/MM screening mammo BI w/CAD: SCREENING CLINICAL DATA: Screening for malignancy. SCREENING MAMMOGRAM - FULL FIELD DIGITAL WITH TOMOSYNTHESIS AND CAD COMPARISON:None available at time of dictation. Tomosynthesis craniocaudal and mediolateral oblique views of both breasts were obtained using low- dose digital technique. This examination was reviewed with the aid of CAD. FINDINGS: The breast tissue is composed of scattered fibroglandular densities. There are no dominant masses, typically malignant calcifications or architectural distortion. There has been no significant interval change. MM/MM screening mammo BI w/CAD IMPRESSION: NO MAMMOGRAPHIC EVIDENCE OF MALIGNANCY. ROUTINE FOLLOW-UP IS RECOMMENDED IN ONE YEAR. RESULT CODE: 1 Negative DENSITY CODE: 2 (approximately 25-50% glandular) FOLLOW UP: 1YR The false-negative rate of mammography is approximately 10-percent. Management of a palpable abnormality must be based on clinical grounds. Patient was entered into a reminder system with a target due date for the next mammogram. Impression dictated by: Low Ibarra Jr., D.OSteven01/19/2024 8:48 AM Dictation Location: [facility] Transcribed By: [facility] 01/19/24847 Dictated By: Low Ibarra Jr, DO 01/19/2447 Signed By: 01/19/24847 Normal [facility] echo transthoracicon [facility] echo transthoracic [facility] [place] [address] Echocardiogram Signed Patient: Etelvina Luciano MR#: [id number] 5 : 1965 Acct:[id number] Age/Sex: 58 / F ADM Date: 01/18/24 Loc: Room: Type: [facility] Attending Dr: Livan Silver MD Ordering Provider: Livan Silver MD Date of Service: 01/18/24 [facility] transthoracic: I48.0 - Paroxysmal atrial fibrillation Copies to: Livan Silver MD Weight: 185 lb Performed By: Deidra Hylton RDCS BSA: 1.9 m2 BP: 149/90 mmHg HR: 60 Reason For Study: Paroxysmal atrial fibrillation History: Afib. Family history: Mother-Valve Replacement. Sister-Afib. Interpretation Summary Ejection Fraction = 60-65%. The left ventricular size and thickness are normal. The left ventricular wall motion is normal. A variety of Doppler measurements indicate normal left ventricular diastolic function. The left atrium appears mildly dilated. Mildly dilated ascending aorta. There is mild tricuspid regurgitation. Right ventricular systolic pressure is elevated at 30-40mmHg. There is no comparison study available. Procedure/Quality: A two-dimensional transthoracic echocardiogram with color flow and Doppler was performed. The study was technically good in quality. Left Ventricle: The left ventricular size and thickness are normal. Ejection Fraction = 60-65%. A variety of Doppler measurements indicate normal left ventricular diastolic function. The left ventricular wall motion is normal. Left Atrium: The left atrium appears mildly dilated. Right Atrium: The right atrium appears normal in size. Right Ventricle: The right ventricle is not well visualized. The right ventricle is grossly normal size. Aortic Valve: The aortic valve is trileaflet. The aortic valve is normal in structure. No hemodynamically significant valvular aortic stenosis. No aortic regurgitation is present. Mitral Valve: The mitral valve is normal in structure. No significant mitral valve stenosis. There is no mitral regurgitation noted. Tricuspid Valve: The tricuspid valve is normal in structure. There is mild tricuspid regurgitation. Right ventricular systolic pressure is elevated at 30-40mmHg. Pulmonic Valve: The pulmonic valve is not well visualized. Trace pulmonic valvular regurgitation. Arteries: The aortic root is normal size. Mildly dilated ascending aorta. Pericardium/Pleura: No pericardial effusion seen. There is no pleural effusion. IVC/Hepatic Veins: The inferior vena cava is normal in size, with a normal collapsibility index. Measurements with Normals IVSd: 0.98 cm (0.7-1.1 cm)LVIDd: 5.1 cm (3.7-5.4 cm) LVPWd: 1.0 cm (0.7-1.1 cm)LVIDs: 3.2 cm (2.3-3.6 cm) LA dimension: 4.2 cm (2.3-4.0 cm)Ao root diam: 3.2 cm(2.0-3.6 cm) asc Aorta Diam: 4.0 cm(2.1-3.4cm) Doppler with Normals RVSP(TR): 29.0 mmHg (18-35mmHg) LV V1 max: 107.2 cm/sec (0.7-1.7m/s)MV E max micah: 75.5 cm/sec(0.8-1.3m/s) MV A max micah: 84.0 cm/sec(0.0-0.0m/s) MV E/A: 0.90 (<1.5) MMode/2D Measurements Calculations TAPSE: 2.1 cm FS: 38.1 % Ao root area: LVOT diam: 2.0 cm RV S Micah: EDV(Teich): 7.9 cm2 LVOT area: 3.3 cm2 17.1 cm/sec 126.2 ml ESV(Teich): 40.5 ml EF(Teich): 67.9 % __ LVLd ap4: 7.3 cm SV(MOD-sp4): LAV(MOD-sp4): LA A2 area: 14.5 cm2 EDV(MOD-sp4): 59.7 ml 45.7 ml 92.5 ml LAV(MOD-sp2): LA A4 area: 18.0 cm2 LVLs ap4: 6.8 cm 33.9 ml LA length (vol): ESV(MOD-sp4): 5.5 cm 32.8 ml LA vol: 40.4 ml EF(MOD-sp4): 64.5 % LA vol index: 21.1 ml/m2 Doppler Measurements Calculations MV dec time: MV max PG: E/E' lat: 7.1 MV dec slope: 0.21 sec 90.0 mmHg E/E' med: 9.6 358.3 cm/sec2 __ Ao V2 max: LV V1 max PG: MR max micah: TV max P.0 mmHg 136.7 cm/sec 4.6 mmHg 474.2 cm/sec Ao max P.5 mmHgLV V1 mean PG: MR max PG: Ao mean P.2 mmHg 90.3 mmHg 3.7 mmHg LV V1 mean: Ao V2 mean: 68.7 cm/sec 91.0 cm/sec LV V1 VTI: 22.0 cm Ao V2 VTI: 27.6 cm SOUTH(I,D): 2.6 cm2 SOUTH(V,D): 2.6 cm2 __ TR max micah: 254.9 cm/sec TR max P.0 mmHg RAP systole: 3.0 mmHg Transcribed By: SCV Performed At: 01/18/24 0647 Signed By: Livan Silver MD 01/18/24 4012 Normal [facility] Cholesterol [Mass/volume] in Serum or PlasmaOrdered By: Livan Silver on 01-12-2024 Cholesterol [Mass/Vol] 144 mg/dL Normal 140-200 [facility] Comment on above: Chol less than 200 m g/dl low riskChol 201-239 mg/dl borderline riskChol 240 mg/dl and greater high risk Result Comment: Chol less than 200 mg/dl low risk Chol 201-239 mg/dl borderline risk Chol 240 mg/dl and greater high risk Performed By: #### L IPID #### [facility] [address] [place] [address] [place] Cholesterol in LDL Calc [Mas s/Vol]Ordered By: Livan Silver on 01-12-2024 Cholesterol in LDL [Mass/Vol] 59 mg/dL 0-100 [facility] Comment on above: LDL ATP III CLASSIFI CATIONLDL less than 100 mg/dL OptimalLDL 100-129 mg/dL Near or above optimalLDL 130-159 mg/dL Borderline highLDL 160-189 mg/dL HighLDL greater than 189 mg/dL Very high Cholesterol in VLDL Calc [Ma ss/Vol]Ordered By: Livan Silver on 01-12-2024 Cholesterol in VLDL [Mass/Vol] 14 mg/dL [facility] Lipid Panelon 01-12-2024 LDL Cholesterol,Calculated 59 mg/dL Normal 0-100 [facility] Comment on above: Result Comment: LDL ATP III CLASSIFICATION LDL less than 100 mg/dL Optimal LDL 100-129 mg/dL Near or above optimal LDL 130-159 mg/dL Borderline high LDL 160-189 mg/dL High LDL greater than 189 mg/dL Very high Performed By: #### L IPID #### [facility] [address] [place] [address] [place] Triglyceride w/Reflex 70 mg/dL Normal 0-149 [facility] Comment on above: Result Comment: TRIG ATP III CLASSIFICATION TRIG less than 150 mg/dL Normal TRIG 150-199 mg/dL Borderline high TRIG 200-500 mg/dL High TRIG greater than 500 mg/dL Very high Standard traceable to the Center for Disease Conrtrol and Prevention (CDC) test method. Performed By: #### L IPID #### [facility] [address] [place] [address] [facility] VLDL CHOLESTEROL 14 mg/dL Normal [facility] Comment on above: Performed By: #### L IPID #### [facility] [address] [place] [address] Serum or plasma high density lipoprotein (HDL) cholesterol measurementOrdered By: Livan Silver on 01-12-2024 Cholesterol in HDL [Mass/Vol] 71 mg/dL Normal 23-92 [facility] Comment on above: HDL CHOL ATP-III CLA SSIFICATION Cardiovascular RiskHDL > or equal to 60 mg/dL LOWHDL < 40 mg/dL HIGH Result Comment: HDL CHOL ATP-III CLASSIFICATION Cardiovascular Risk HDL > or equal to 60 mg/dL LOW HDL < 40 mg/dL HIGH Performed By: #### L IPID #### [address] Serum or plasma total choles terol/high density lipoprotein (HDL) cholesterol mass ratOrdered By: Livan Silver on 01-12-2024 Cholesterol.total/Cristina sterol in HDL [Mass ratio] 2.0 {ratio} Normal <5.0 [facility] Comment on above: Result Comment: PERF ORMED BY: [place] [address] PATHOLOGIST WELT WHEELER FERMIN MARTINEZ M.D. Performed By: #### L IPID #### [address] Triglyceride [Mass/volume] i n Serum or PlasmaOrdered By: Livan Silver on 01-12-2024 Triglyceride [Mass/Vol] 70 mg/dL 0-149 [facility] Comment on above: TRIG ATP III CLASSIF ICATIONTRIG less than 150 mg/dL NormalTRIG 150-199 mg/dL Borderline highTRIG 200-500 mg/dL High TRIG greater than 500 mg/dL Very highStandard traceable to the Center for Disease Conrtrol and Prevention (CDC) test method. FPG ECG *OFFICE ONLY*on 12-03 FPG ECG *OFFICE ONLY* [facility] [address] [place] [address] [place] [address] Electrocardiograph Report Signed Patient: Etelvina Luciano MR#: [id number] 5 : 1965 Acct:[id number] Age/Sex: 58 / F ADM Date: 12/29/23 Loc: EKGCARDIO Room: Type: [facility] Attending Dr: Livan Silver MD Ordering Provider: Livan Silver MD Date of Service: 12/29/23 ECG/FPG ECG *OFFICE ONLY*: I48.91 - Unspecified atrial fibrillation Copies to: Test Reason : Blood Pressure : / mmHG Vent. Rate : 063 BPM Atrial Rate : 063 BPM P-R Int : 160 ms QRS Dur : 072 ms QT Int : 416 ms P-R-T Axes : 021 -09 -09 degrees QTc Int : 425 ms Normal sinus rhythm Minimal voltage criteria for LVH, may be normal variant ( R in aVL ) Inferior infarct , age undetermined Anterolateral infarct , age undetermined Abnormal ECG No previous ECGs available Confirmed by Livan Silver ([id number]) on 01/12/2024 5:44:25 PM Referred By: Electronically Signed By:Livan Silver Transcribed By: MUS Signed By Livan Silver MD 01/12/24 1744 Normal [facility] Auto Diffon 08-23-2023 Basophils/100 WBC (Bld) 0.7 % Normal 0.0-2.[address] [facility] Comment on above: Order Comment: Order Added by Discern Expert. Performed By: #### 2 050764, 67365579, 71501813, 19693244, 4730067, 29866994, 1348442 #### [facility] [address] [place] [address] Basophils/Leukocytes Auto (Bld) [Pure # fraction] 0.1 E9/L Normal 0.0-0.2 [facility] Comment on above: Order Comment: Order Added by Discern Expert. Performed By: #### 2 364181, 76705127, 86885661, 18579517, 8799965, 84879372, 3491660 #### [facility] [address] [place] [address] Eosinophils/100 WBC (Bld) 1.2 % Normal 0.0-8.0 [facility] Comment on above: Order Comment: Order Added by Discern Expert. Performed By: #### 2 304142, 61852712, 10685782, 23077311, 7931434, 03108689, 2578110 #### [facility] [address] [place] [address] Eosinophils/Leukocytes Auto (Bld) [Pure # fraction] 0.1 E9/L Normal 0.0-0.5 [facility] Comment on above: Order Comment: Order Added by Discern Expert. Performed By: #### 2 136858, 98743907, 07349901, 28517789, 5258471, 32082095, 9007025 #### [facility] [address] [place] [address] Lymphocytes/100 WBC (Bld) 18.3 % Normal 14.0-50.0 [facility] Comment on above: Order Comment: Order Added by Discern Expert. Performed By: #### 2 205358, 44546733, 04977258, 58572381, 6962417, 00121768, 8757893 #### [facility] [address] [place] [address] Lymphocytes/Leukocytes Auto (Bld) [Pure # fraction] 1.3 E9/L Normal 1.0-4.0 [facility] Comment on above: Order Comment: Order Added by Discern Expert. Performed By: #### 2 953084, 20740977, 74279963, 55415218, 7390535, 68711722, 7830947 #### [facility] [address] [place] [address] Monocytes/100 WBC (Bld) 11.9 % Normal 4.0-14.[address] [facility] Comment on above: Order Comment: Order Added by Discern Expert. Performed By: #### 2 146597, 76050061, 97241299, 29737031, 0353551, 18051058, 5291403 #### [facility] [address] [place] [address] Monocytes/Leukocytes Auto (Bld) [Pure # fraction] 0.9 E9/L Normal 0.2-1.0 [facility] Comment on above: Order Comment: Order Added by Discern Expert. Performed By: #### 2 251760, 14165292, 24776809, 28204981, 3588403, 49379056, 7396534 #### [facility] [address] [place] [address] Neutrophils/100 WBC (Bld) 67.9 % Normal 36.0-75.0 [facility] Comment on above: Order Comment: Order Added by Discern Expert. Performed By: #### 2 516037, 74990713, 56846896, 67632167, 1900530, 45262269, 0789170 #### [facility] [address] [place] [address] Neutrophils/Leukocytes Auto (Bld) [Pure # fraction] 4.9 E9/L Normal 2.0-7.5 [facility] Comment on above: Order Comment: Order Added by Discern Expert. Performed By: #### 2 996876, 56278624, 13577475, 62301767, 1507146, 66489446, 1924495 #### [facility] [address] [place] [address] BMPon 08-23-2023 Creatinine [Mass/Vol] 0.7 mg/dL Normal 0.5-1.3 [facility] Comment on above: Performed By: #### 2 022528, 48104576, 93496042, 62771680, 9040987, 67222555, 6993092 #### [facility] [address] [place] [address] Urea nitrogen [Mass/Vol] 12 mg/dL Normal 5-21 [facility] Comment on above: Performed By: #### 2 833799, 36638869, 22009630, 56641034, 5707846, 73272185, 9809937 #### [facility] [address] [place] [address] Urea nitrogen/Creatinine [Mass ratio] 17 No Units Normal 10-20 [facility] Comment on above: Performed By: #### 2 843224, 32715263, 62980890, 94630966, 0529766, 89980318, 5727206 #### [facility] [address] [place] [address] Anion gap [Moles/Vol] 12 mmol/L Normal 6-16 [facility] Comment on above: Performed By: #### 2 668736, 10905291, 54301297, 93081623, 3780264, 84539816, 6783605 #### [facility] [address] [place] [address] Calcium [Mass/Vol] 9.1 mg/dL Normal 8.9-11.1 [facility] Comment on above: Performed By: #### 2 406773, 90219493, 57527318, 87295152, 9990530, 82437253, 9661889 #### [facility] [address] [place] [address] Chloride [Moles/Vol] 108 mmol/L Normal 101-111 [facility] Comment on above: Performed By: #### 2 100721, 16969109, 56115536, 27143009, 3792470, 53016120, 7014209 #### [facility] [address] [place] [address] CO2 [Moles/Vol] 24 mmol/L Normal 21-31 [facility] Comment on above: Performed By: #### 2 637994, 50778256, 79516036, 36903878, 8290664, 03954455, 2737446 #### [facility] [address] [place] [address] Glucose [Mass/Vol] 103 mg/dL Normal 55-199 [facility] Comment on above: Result Comment: If t his glucose result represents a fasting glucose, interpretation should refer to the following reference range: 55-99 mg/dL Performed By: #### 2 808047, 19120335, 41094058, 04027214, 7678719, 05860903, 8358317 #### [facility] [address] [place] [address] Potassium [Moles/Vol] 3.6 mmol/L Normal 3.5-5.3 [facility] Comment on above: Performed By: #### 2 891941, 15338048, 75571220, 22088969, 6649950, 74649842, 6162434 #### [facility] [address] [place] [address] Sodium [Moles/Vol] 140 mmol/L Normal 135-145 [facility] Comment on above: Performed By: #### 2 699120, 57708846, 67951168, 69259512, 5074348, 06569580, 8952100 #### [facility] [address] [place] 1708357 BNPon 08-23-2023 Int Ctr BNP Pass Normal [facility] Comment on above: Performed By: #### 2 758904, 21680296, 15886227, 96113240, 7243239, 88523241, 0039110 #### [facility] [address] [place] [address]08357 Natriuretic peptide B (Bld) [Mass/Vol] 72 pg/mL Normal 5-80 [facility] Comment on above: Performed By: #### 2 191802, 26169055, 09498086, 24149412, 9047828, 88674908, 5005262 #### [facility] [address] [place] [address] CBC w/ Auto Diffon Erythrocyte distribution width (RBC) [Ratio] 13.0 % Normal 10.9-14.2 [facility] Comment on above: Performed By: #### 2 271023, 24036579, 54022738, 31489742, 5374794, 41813507, 5411572 #### [facility] [address] [place] [address] Hematocrit (Bld) [Volume fraction] 42.4 % Normal 34.0-46.0 [facility] Comment on above: Performed By: #### 2 206415, 87124577, 08436768, 71845889, 2258887, 72895944, 1210260 #### [facility] [address] [place] [address] Hemoglobin (Bld) [Mass/Vol] 14.3 g/dL Normal 12.0-16.0 [facility] Comment on above: Performed By: #### 2 577553, 49547893, 61917294, 24356926, 6466490, 91684109, 7703159 #### [facility] [address] [place] [address] MCH (RBC) [Entitic mass] 29.5 pg Normal 27.0-34.0 [facility] Comment on above: Performed By: #### 2 731513, 11395943, 41191603, 90725042, 0812549, 21268075, 5652745 #### [facility] [address] [place] [address] MCHC (RBC) [Mass/Vol] 33.6 g/dL Normal 31.4-36.0 [facility] Comment on above: Performed By: #### 2 092145, 11638251, 33052054, 12657379, 8989779, 01743890, 8496083 #### [facility] [address] [place] [address] MCV (RBC) [Entitic vol] 87.8 fL Normal 80.0-100.[address] [facility] Comment on above: Performed By: #### 2 564303, 59724047, 76616872, 05188183, 7410639, 76326977, 9687893 #### [facility] [address] [place] [address] Platelet mean volume (Bld) [Entitic vol] 8.5 fL Normal 6.4-10.8 [facility] Comment on above: Performed By: #### 2 141998, 10210178, 46667659, 70525384, 8050382, 10716231, 6433162 #### [facility] [address] [place] [address] Platelets (Bld) [#/Vol] 245.0 E9/L Normal 150.0-500.0 [facility] Comment on above: Performed By: #### 2 445861, 49859135, 82869695, 31011903, 9796211, 67069344, 2515913 #### [facility] [address] [place] [address] RBC (Bld) [#/Vol] 4.8 E12/L Normal 4.3-5.9 [facility] Comment on above: Performed By: #### 2 863418, 96183044, 59252894, 39939753, 2054978, 90202099, 4401867 #### [facility] [address] [place] [address] WBC corrected for nucl RBC Auto (Bld) [#/Vol] 7.2 E9/L Normal 4.0-11.0 [facility] Comment on above: Performed By: #### 2 526659, 71687684, 81756124, 05727724, 4517787, 24829226, 4027431 #### [facility] [address] [place] [address] CHEMISTRYOrdered By: SYSTEM SYSTEM on 08-23-2023 Anion gap [Moles/Vol] 12 mmol/L Normal 6 - 16 mEq/L F [facility] Remisol Calcium [Mass/Vol] 9.1 mg/dL Normal 8.9 - 11. 1 mg/dL [facility] Remisol Chloride [Moles/Vol] 108 mmol/L Normal 101 - 1 11 mmol/L [facility] Remisol CO2 [Moles/Vol] 24 mmol/L Normal 21 - 31 mmol/L [facility] Remisol Creatinine [Mass/Vol] 0.7 mg/dL Normal 0.5 - 1.3 mg/dL [facility] Remisol GFR/1.73 sq M.predicted among non-blacks MDRD (S/P/Bld) [Vol rate/Area] 100 mL/min/1.73 m2 Normal >=59mL/min/1 .73 m2 [facility] Chem S Comment on above: Interpretive Data: C hronic kidney disease could be indicated at eGFR's of less than 60 mL/min/1.73m2. Kidney failure is indicated at less than 15 mL/min/1.73m2. Glucose [Mass/Vol] 103 mg/dL Normal 55 - 199 mg/dL [facility] Remisol Comment on above: Interpretive Data: I f this glucose result represents a fasting glucose, interpretation should refer to the following reference range: 55-99 mg/dL Potassium [Moles/Vol] 3.6 mmol/L Normal 3.5 - 5.3 mmol/L [facility] Remisol Sodium [Moles/Vol] 140 mmol/L Normal 135 - 145 mmol/L [facility] Trop[facility] I.cardiac [Mass/Vol] 6.00 pg/mL Low 10.10 - 27.10 pg/mL [facility] Comment on above: Interpretive Data: T elle 95% CI (Confidence Interval) PPV (Positive Predictive Value) for myocardial infarction in females is 38 pg/mL, in males 51 pg/mL. The results should be used in conjunction with clinical conditions of myocardial infarction. (Access High Sensitivity Troponin I Instructions For Use, Julian [place], May 2018) Urea nitrogen [Mass/Vol] 12 mg/dL Normal 5 - 21 mg/dL [facility] Remisol Urea nitrogen/Creatinine [Mass ratio] 17 mg/mg Normal 10 - 20 [facility] Remisol CHEMISTRYOrdered By: Kerry shannon on 08-23-2023 Natriuretic peptide B (Bld) [Mass/Vol] 72 pg/mL Normal 5 - 80 pg/mL [facility] COAGULATIONOrdered By: Juana Aggarwal on 08-23-2023 aPTT Coag (PPP) [Time] 28.9 s Normal 25.1 - 36.5 second(s) [facility] Auto Coag Comment on above: Interpretive Data: Chrissy austin 15 days - 4 weeks 1 - 5 months 6 - 11 months 1 - 5 years 6 - 10 years 11 - 17 years PTT Mean: 35.4 (27.6-45.6) Mean: 33.5 (24.8-40.7) Mean: 32.4 (25.1-40.7) Mean: 31.6 (24.0-39.2) Mean: 31.6 (26.9-38.7) Mean: 31.0 (24.6-38.4) Pediatric Reference ranges were obtained from a study by deric Bonner al. prepared from 1437 samples obtained at 7 different centers using the same coagulation reagent and instrumentation as [facility]. Currently there are no coagulation studies available worldwide for children to 14 days, and no normal ranges. Heparin therapeutic range (represented by Anti-Factor Xa activity of 0.2 - 0.4 U/mL) corresponds to PTT of 56.6 - 109.0 sec. INR Coag (PPP) [Relative time] 1.2 {INR} Invalid Interpretation Code [facility] Auto Coag Comment on above: Interpretive Data: I NR results are specifically intended to assess patients stabilized on long-term Anticoagulation therapy suggested INR s Less Intensive Anticoagulation 2.0 3.0 Conventional Range 3.0 4.5 PT Coag (PPP) [Time] 12.8 s High 9.4 - 1 2.5 second(s) [facility] Auto Coag Comment on above: Interpretive Data: 1 5 days - 4 weeks 1 - 5 months 6 -11 months 1 5 years 6 10 years 11 -17 years Mean: 11.2 (9.5 12.6) Mean: 11.0 (9.7 12.8) Mean: 11.0 (9.8 13.0) Mean: 11.3 (9.9 13.4) Mean: 11.7 (10.0 14.6) Mean: 11.8 (10.0 - 14.1) Pediatric Reference ranges were obtained from a study by deric Bonner alSteven prepared from 1437 samples obtained at 7 different centers using the same coagulation reagent and instrumentation as [facility]. Currently there are no coagulation studies available worldwide for children to 14 days, and no normal ranges. Consent for Treatmenton 08-05 Consent for Treatment [id number] .00TIFF Normal [facility] Discharge Instructionson Discharge Instructions [id number] 1.00TIFF Normal [facility] ED Clinical Summaryon 2022 ED Clinical Summary [place] [address] ED Clinical Summary Person Information Name: ETELVINA LUCIANO [facility] Age: 58 Years : 1965 Sex: Female Language: Yi PCP: NONE, XXXX Marital Status: Phone: [phone] Visit Id: Visit Reason: Palpitations; Throat pain - Adult; Shortness of breath; AFIB, STUFFY NOSE, SORE THROAT Speciality: Acuity: 2 Enc Type: Emergency Med Service: Emergency Arrival: 08/23/2023 08:48:24 Discharge: 08/23/2023 10:42:50 LOS: 000 01:54 Checkin: 08/23/2023 08:48:24 Checkout: 08/23/2023 10:42:50 Dispo Type: Home (Routine DC) EVENTS: Event Name Event Status Request Date/Time Start Date/Time Complete Date/Time Arrive Complete 08/23/2023 08:48:24 08/23/2023 08:48:24 08/23/2023 08:48:24 Document Home Meds Request 08/23/2023 08:48:24 Triage Complete 08/23/2023 08:48:24 08/23/2023 09:07:11 08/23/2023 09:07:11 Registration Complete 08/23/2023 08:56:06 08/23/2023 08:56:06 08/23/2023 08:56:06 Reg Complete Request 08/23/2023 08:56:06 Reg Bed Request Complete 08/23/2023 08:56:06 08/23/2023 08:56:06 08/23/2023 08:56:06 Bed Assign Complete 08/23/2023 08:57:50 08/23/2023 08:57:50 08/23/2023 08:57:50 Dr Exam Complete 08/23/2023 08:57:50 08/23/2023 09:00:57 08/23/2023 09:00:57 RN Exam Complete 08/23/2023 08:57:50 08/23/2023 09:17:24 08/23/2023 09:17:24 Registration Request 08/23/2023 09:00:57 EKG Complete 08/23/2023 09:04:19 08/23/2023 09:15:55 Pending Labs Request 08/23/2023 09:06:25 Lab Complete 08/23/2023 09:06:25 08/23/2023 09:59:50 Patient Care Request 08/23/2023 09:06:25 RT Request 08/23/2023 09:06:25 X-Ray Complete 08/23/2023 09:06:25 08/23/2023 09:17:13 08/23/2023 09:38:11 Pending Labs Complete 08/23/2023 09:22:37 08/23/2023 09:22:37 08/23/2023 09:47:44 Lab Complete 08/23/2023 09:22:37 08/23/2023 09:22:37 08/23/2023 09:47:44 Pending Labs Complete 08/23/2023 09:22:59 08/23/2023 09:22:59 08/23/2023 09:22:59 Pending Labs Complete 08/23/2023 09:28:09 08/23/2023 09:28:09 08/23/2023 09:28:15 Lab Complete 08/23/2023 09:28:09 08/23/2023 09:28:09 08/23/2023 09:28:15 Wet Read Complete 08/23/2023 09:38:11 08/23/2023 09:51:20 08/23/2023 09:51:20 Meds Admin Complete 08/23/2023 09:45:09 08/23/2023 09:50:06 Discharge Complete 08/23/2023 10:33:07 08/23/2023 10:42:57 08/23/2023 10:42:57 Transfer Complete 08/23/2023 10:42:57 08/23/2023 10:42:57 08/23/2023 10:42:57 ADDRESS: [address] [place] [address] [address] [facility] [id number] PHYS DOC NOTES: MEDICAL INFORMATION: Prescriptions Given: New Medications [id number], [address] [place] [id number], [phone] albuterol (Albuterol (Eqv-ProAir HFA) 90 mcg/inh inhalation aerosol) 2 Puffs Inhalation every 6 hours for 7 Days. Refills: 0. dexamethasone (dexamethasone 6 mg oral tablet) 1 Tablets By Mouth every day for 7 Days. Refills: 0. PATIENT EDUCATION INFORMATION: Instructions: Follow up: With: Address: When: Jessica Carbajal [address] [place] [address] Business (1) In 3 days 08/26/2023 With: Address: When: XXXX NONE , [place] In 3 days DIAGNOSIS: Bronchospasm; COVID; Palpitations Normal [facility] ED Note-Physicianon 08-23-20 ED Note-Physician Basic Information Time Seen: Gregg Baxter DO 08/23/2023 09:00 History of Present Illness 58 female presents with COVID and shortness of breath. Patient states that she has been sick now for about the last week just yesterday she took a test that was positive for COVID. She does complain of rhinorrhea chest congestion and fevers with some difficulty breathing. Patient does state that she believes that she may have gone into atrial fibrillation because she has had this in the past for which she takes Cardizem. She is not on any blood thinners. She states that last night she felt some palpitations was not sure if she was just stressed or if this was related to the COVID or her A-fib. She denies any nausea vomiting diarrhea no urinary symptoms other than she is urinating less because she is not eating or drinking as much. No pain or swelling into her abdomen or legs. Patient states that she normally resides in sinus rhythm but she does occasionally go into what sounds like paroxysmal A-fib. She is not having any chest pain with this. She also stated incidentally that she has a swollen lymph node to the left upper neck region she just noticed this this morning. No other aggravating or relieving factors no other associated symptoms no other prior treatments or complaints. Family: Reviewed and noncontributory Social: lives at home Review of systems negative unless otherwise specified in the HPI. Physical Exam General: The patient appears well and in no apparent distress. Patient is resting comfortably on cart. Skin: Warm, dry, no pallor noted. Head: Normocephalic, atraumatic Neck: No JVD patient does have anterior cervical lymphadenopathy and lymph node on the left upper anterior chain is slightly enlarged and more tender to palpation Eye: PERRLA, EOMI ENT: Moist mucus membranes Cardiovascular: Regular rate normal peripheral perfusion Respiratory: No respiratory distress no accessory muscle use no obvious audible wheezing Chest Wall: no deformity Musculoskeletal: normal ROM, no deformity, no swelling negative bilateral Homans' sign GI: Soft no obvious distention. No rebound or rigidity. No guarding. No tenderness. Neurological: A&O moves all extremities equal strength and symmetry Psychiatric: Cooperative and appropriate Medical Decision Making Work-up in the ER has been reviewed and noted. Work-up here is essentially benign. There is no evidence of atrial fibrillation x-rays are benign vital signs are stable. Patient is discharged home to follow-up we will put her on albuterol and Decadron as she is likely experiencing some shortness of breath from her COVID-19. We did talk about the risks of the inhaler as this may increase her likelihood of flipping into atrial fibrillation so she is to use caution and to return if she does flip into atrial fibrillation and is having persistent symptoms. Assessment/Plan Bronchospasm (J98.01: Acute bronchospasm) COVID (U07.1: COVID-19) Palpitations (R00.2: Palpitations) Orders: albuterol, 2 puff(s), Inhalation, q6hr for 7 day(s), 6.7 gm, Refill(s) 0, [facility]/pharmacy #[id number], 165, cm, 08/23/23 9:07:00 EST, Height/Length Dosing, 88, kg, 08/23/23 9:07:00 EST, Weight Dosing dexamethasone, 6 mg = 1 tab(s), Oral, Daily, X 7 day(s), # 7 tab(s), Refills(s) 0, Pharmacy: [facility]/pharmacy #[id number], 165, cm, 08/23/23 9:07:00 EST, Height/Length Dosing, 88, kg, 08/23/23 9:07:00 EST, Weight Dosing ketorolac, 60 mg = 2 mL, Injection, IntraMuscular, Once, Stop date 08/23/23 9:44:00 EST, STAT, Start date 08/23/23 9:44:00 EST, 08/23/23 9:44:00 EST Automated Diff B-Type Natriuretic Peptide Basic Metabolic Panel CBC w/ Auto Diff ED Cardiac Monitoring eGFR Extra SST Tube Oxygen Saturation Oxygen Therapy PT & PTT Saline Lock Insert Troponin 0 Hr. Troponin 3 Hr. Troponin 6 Hr. Troponin 9 Hr. XR Chest Single View Medications Administered Given ketorolac 60 mg/2 mL Injection, 60 mg, IntraMuscular Disposition Plan Discharge Prescription List Prescriptions Albuterol (Eqv-ProAir HFA) 90 mcg/inh inhalation aerosol, 2 puff(s), Inhalation, q6hr dexamethasone 6 mg oral tablet, 6 mg= 1 tab(s), Oral, Daily Follow-up With When Contact Information Jessica Carbajal In 3 days 08/26/2023 EST [address] [place] [address]- [place] (1) Additional Instructions: XXXX NONE In 3 days [place] Additional Instructions: Problem List/Past Medical History Ongoing No qualifying data Historical No qualifying data Medications Inpatient No active inpatient medications Home No active home medications Allergies codeine (Hyper) Lab Results WBC: 7.2 E9/L (08/23/23 09:19:00) RBC: 4.8 E12/L (08/23/23 09:19:00) HGB: 14.3 gm/dL (08/23/23 09:19:00) Hct: 42.4 % (08/23/23 09:19:00) MCV: 87.8 fL (08/23/23 09:19:00) MCH: 29.5 pg (08/23/23 09:19:00) MCHC: 33.6 gm/dL (08/23/23 09:19:00) RDW: 13 % (08/23/23 09:19:00) Platelet: 245 E9/L (08/23/23 09:19:00) MPV: 8.5 fL (11 (more content not included)... Normal [facility] Comment on above: Result Comment: Elec tronically Signed By: Gregg Baxter DO\.br\Date and Time Signed: 08/23/23 10:37 EST ED Patient Education Noteon 08-23-2023 ED Patient Education Note Normal [facility] ED Patient Summaryon 023 ED Patient Summary [address] [address] Patient Discharge Instructions Person Information Name: ETELVINA LUCIANO Age: 58 Years Arrival Date: 08/23/2023 08:48:24 Discharge Diagnosis: Bronchospasm; COVID; Palpitations Primary Care Physician: NONE, XXXX Provider Information Primary Provider: Gregg Baxter DO Advanced Client Relations Representative:None The exam and treatment you received in the Emergency Department were for an urgent problem and are not intended as complete care. It is important that you follow up with a doctor, nurse practitioner, or physician?s diploma medical assistant for ongoing care. If your symptoms become worse or you do not improve as expected and you are unable to reach your usual health care provider, you should return to the Emergency Department. We are available 24 hours a day. ETELVINA LUCIANO has been given the following list of patient education materials, prescriptions and follow-up instructions: Follow-up Instructions: With: Address: When: Jessica Carbajal [address] [place] [address], [address] [address] [facility] () In 3 days 08/26/2023 With: Address: When: XXXX [facility] [place] In 3 days In the event that this physician does not participate in your insurance network, please consult with your insurance company to find a nearby participating provider. Patient Education Materials: A MESSAGE TO ALL PATIENTS REGARDING OPIOIDS PRESCRIPTION OPIOIDS: WHAT YOU NEED TO KNOW Prescription opioids can be used to help relieve qyyxhuip-zu-cufpgg pain and are often prescribed following a surgery or injury, or for certain health conditions. These medications can be an important part of the treatment but also come with serious risks. It is important to work with your healthcare provider to make sure you are getting the safest, most effective care. WHAT ARE THE RISKS AND SIDE EFFECTS OF OPIOID USE? Prescription opioids carry serious risks of addiction and overdose, especially with prolonged use. An opioid overdose, often marked by slowed breathing, can cause sudden . The use of prescription opioids can have a number of side effects as well, even when taken as directed: ? Tolerance?meaning you might need to take more of the medication for the same pain relief ? Physical dependence?meaning you have symptoms of withdrawal when a medication is stopped ? Increased sensitivity to pain ? Constipation ? Nausea, vomiting, and dry mouth ? Sleepiness and dizziness ? Confusion ? Depression ? Low levels of testosterone that can result in lower sex drive, energy, and strength ? Itching and sweating RISKS ARE GREATER WITH: ? History of drug misuse, substance use disorder, or overdose ? Mental health conditions (such as depression or anxiety) ? Sleep apnea ? Older age (65 years and older) ? Avoid alcohol while taking prescription opioids. Also, unless specifically advised by your health care provider, medications to avoid include: ? Benzodiazepines (such as Xanax or Valium) ? Muscle relaxants (such as Soma or Flexeril) ? Hypnotics (such as Ambien or Lunesta) ? Other prescription opioids KNOW YOUR OPTIONS Talk to your health care provider about ways to manage your pain that don?t involve prescription opioids. Some of these options may actually work better and have fewer risks and side effects. Options may include: ? Pain relievers such as acetaminophen, ibuprofen, and naproxen ? Some medication that are also used for depression or seizures ? Physical therapy and exercise ? Cognitive behavioral therapy, a psychological, goal-directed approach, in which patients learn how to modify physical, behavioral, and emotional triggers of pain and stress. IF YOU ARE PRESCRIBED OPIOIDS FOR PAIN: ? Never take opioids in greater amounts or more often than prescribed. ? Follow up with your primary health care provider. o Work together to create a plan on how to manage your pain. o Talk about ways to help manage your pain that don?t involve prescription opioids. o Talk about any and all concerns and side effects. ? Help prevent misuse and abuse o Never sell or share prescription opioids. o Never use another person?s prescription opioids. ? Store prescription opioids in a secure place and out of reach of others (this may include visitors, children, friends, and family). ? Safely dispose of unused prescription opioids: Find your community drug take-back program or your pharmacy mail-back program, or flush them down the toilet, following guidance from the Food and Drug Administration (www.fda.gov/Drugs/Re sourcesForYou). ? Visit www.cdc.gov/drugoverd ose to learn about the risks of opioids abuse and overdose. ? If you believe you may be struggling with addiction, tell your health healthcare insurance sales agent and ask for guidance or call SAMHSA?S National Helpline at 5-659-118-MUIT. (more content not included)... Normal [facility] HEMATOLOGYOrdered By: SYSTEM SYSTEM on 08-23-2023 Basophils/100 WBC (Bld) 0.7 % Normal 0.0 - 2.0 % [facility] Basophils/Leukocytes Auto (Bld) [Pure # fraction] 0.1 E9/L Normal 0.0 - 0.2 E9/L [facility] Eosinophils/100 WBC (Bld) 1.2 % Normal 0.0 - 8.0 % [facility] Eosinophils/Leukocytes Auto (Bld) [Pure # fraction] 0.1 E9/L Normal 0.0 - 0.5 E9/L [facility] Lymphocytes/100 WBC (Bld) 18.3 % Normal 14.0 - 50.0 % [facility] Lymphocytes/Leukocytes Auto (Bld) [Pure # fraction] 1.3 E9/L Normal 1.0 - 4.0 E9/L [facility] Monocytes/100 WBC (Bld) 11.9 % Normal 4.0 - 14.0 % [facility] Monocytes/Leukocytes Auto (Bld) [Pure # fraction] 0.9 E9/L Normal 0.2 - 1.0 E9/L [facility] Neutrophils/100 WBC (Bld) 67.9 % Normal 36.0 - 75.0 % [facility] Neutrophils/Leukocytes Auto (Bld) [Pure # fraction] 4.9 E9/L Normal 2.0 - 7.5 E9/L [facility] HEMATOLOGYOrdered By: Kerry norton on 08-23-2023 Erythrocyte distribution width (RBC) [Ratio] 13.0 % Normal 10.9 - 14.2 % [facility] Hematocrit (Bld) [Volume fraction] 42.4 % Normal 34.0 - 46.0 % [facility] Hemoglobin (Bld) [Mass/Vol] 14.3 g/dL Normal 12.0 - 16.0 gm/dL [facility] MCH (RBC) [Entitic mass] 29.5 pg Normal 27.0 - 34.0 pg [facility] MCHC (RBC) [Mass/Vol] 33.6 g/dL Normal 31.4 - 36.0 gm/dL [facility] MCV (RBC) [Entitic vol] 87.8 fL Normal 80.0 - 100.0 fL [facility] Platelet mean volume (Bld) [Entitic vol] 8.5 fL Normal 6.4 - 10.8 fL [facility] Platelets (Bld) [#/Vol] 245.0 E9/L Normal 150. 0 - 500.0 E9/L [facility] RBC (Bld) [#/Vol] 4.8 E12/L Normal 4.3 - 5.9 E12/L [facility] WBC corrected for nucl RBC Auto (Bld) [#/Vol] 7.2 E9/L Normal 4.0 - 11.0 E9/L [facility] Monitor Recordon 08-23-2023 Monitor Record [id number]# 1.00TIFF Normal [facility] PT & PTTon 08-23-2023 aPTT Coag (PPP) [Time] 28.9 second(s) Normal 25.1-36.5 [facility] Comment on above: Result Comment: Para meter 15 days - 4 weeks 1 - 5 months 6 - 11 months 1 - 5 years 6 - 10 years 11 - 17 years PTT Mean: 35.4 (27.6-45.6) Mean: 33.5 (24.8-40.7) Mean: 32.4 (25.1-40.7) Mean: 31.6 (24.0-39.2) Mean: 31.6 (26.9-38.7) Mean: 31.0 (24.6-38.4) Pediatric Reference ranges were obtained from a study by Irvin Amaya et al. prepared from 1437 samples obtained at 7 different centers using the same coagulation reagent and instrumentation as [facility]. Currently there are no coagulation studies available worldwide for children to 14 days, and no normal ranges. Heparin therapeutic range (represented by Anti-Factor Xa activity of 0.2 - 0.4 U/mL) corresponds to PTT of 56.6 - 109.0 sec. Performed By: #### 2 [id number], [id number], [id number], [id number], [id number], [id number] #### [facility] [address] [place] [address] INR Coag (PPP) [Relative time] 1.2 {INR} Invalid Interpretation Code [facility] Comment on above: Result Comment: INR results are specifically intended to assess patients stabilized on long-term Anticoagulation therapy suggested INR?s ?Less Intensive Anticoagulation? 2.0 ? 3.0 Conventional Range 3.0 ? 4.5 Performed By: #### 2 [id number], [id number], [id number], [id number], [id number] #### [facility] [address] [place] [address] PT Coag (PPP) [Time] 12.8 second(s) High 9.4-12.5 [facility] Comment on above: Result Comment: 15 d ays - 4 weeks 1 - 5 months 6 -11 months 1 ? 5 years 6 ? 10 years 11 -17 years Mean: 11.2 (9.5 ? 12.6) Mean: 11.0 (9.7 ? 12.8) Mean: 11.0 (9.8 ? 13.0) Mean: 11.3 (9.9 ? 13.4) Mean: 11.7 (10.0 ? 14.6) Mean: 11.8 (10.0 - 14.1) Pediatric Reference ranges were obtained from a study by Irvin Amaya et al. prepared from 1437 samples obtained at 7 different centers using the same coagulation reagent and instrumentation as [facility]. Currently there are no coagulation studies available worldwide for children to 14 days, and no normal ranges. Performed By: #### 2 [id number], [id number], [id number], [id number], [id number], [id number], [id number] #### [facility] [address] [place] [address] Troponin 0 Hr.on 08-23-2023 Troponin I.cardiac [Mass/Vol] 6.00 pg/mL Low 10.10-27.10 [facility] Comment on above: Result Comment: The 95% CI (Confidence Interval) PPV (Positive Predictive Value) for myocardial infarction in females is 38 pg/mL, in males 51 pg/mL. The results should be used in conjunction with clinical conditions of myocardial infarction. (Access High Sensitivity Troponin I Instructions For Use, Julian [place], May 2018) Performed By: #### 2 [id number], [id number], [id number], [id number], [id number], [id number], [id number] #### [facility] [address] [place] [address] XR Chest Single Viewon 08-23 XR Chest Single View Exam Date/Time: 08/23/2023 09:38 EST Reason for Exam: Chest pain Report IMPRESSION: NO ACUTE CARDIAC PULMONARY DISEASE. CLINICAL HISTORY: Chest pain COMPARISON: NONE. FINDINGS: Osseous structures intact. Cardiopericardial silhouette normal. Pulmonary vasculature normal. Lungs clear. Ordering Provider: Gregg Baxter FINAL REPORT Dictated: 08/23/2023 10:08 am Kalyan Anaya MD Signed (Electronic Signature): 08/23/2023 10:08 am Signed by: Kalyan Anaya MD Transcribed by: NORMA Technologist: NELSON Technical Comments Radiation Dose: Ka,r in mGy = na DAP = na Normal [facility] eGFRon 08-23-2023 GFR/1.73 sq M.predicted among non-blacks MDRD (S/P/Bld) [Vol rate/Area] 100 mL/min/1.73 m2 Normal >=59 [facility] Comment on above: Order Comment: Order added by Discern Expert. Result Comment: Mortgage Or Loan Underwriter crow kidney disease could be indicated at eGFR's of less than 60 mL/min/1.73m2. Kidney failure is indicated at less than 15 mL/min/1.73m2. Performed By: #### 2 [id number], [id number], [id number], [id number], [id number], [id number], [id number] #### [facility] [address] [place] [address] KNEE CMPLT, 4 OR MORE VIEWSo n 05-20-2020 KNEE CMPLT, 4 OR MORE VIEWS Patient Name: ETELVINA LUCIANO STUDY: KNEE; COMPLT, 4 OR MORE VIEWS; Left; 05/20/2020 6:33 pm INDICATION: pain, (L) anterior knee s/p plant and twist injury. COMPARISON: None. ACCESSION NUMBER(S): [id number] ORDERING CLINICIAN: CAMILA CHERRY FINDINGS: No displaced fracture or rosario dislocation. Mild degenerative change-left knee with mild medial compartment narrowing/mild chondromalacia patella and mild elongation tibial eminences. Suprapatellar effusion-present. IMPRESSION: Mild osseous degenerative changes with suprapatellar effusion. Electronically signed by: DALLIN MENDOZA [facility] RADIOLOGIST [facility] Provider Note - ED v2on 05-04 Provider Note - ED v2 Provider Note - ED v2: Chart Review HISTORY OF PRESENTING ILLNESS ETELVINA is a 55 year old Female and was seen by me at 20-May-2020 17:36 for a chief complaint of (Left knee pain). Other complaints include: Patient presents for evaluation and treatment of left knee pain. Patient states that 3 days ago while playing basketball, there was a plant and twist injury suffered by the left knee. Patient reports immediate pain and mild to moderate swelling. No trauma or fall reported. Patient denies any attempt at conservative management. Patient denies prior similar incidents. No other injuries reported. Pain is exacerbated by ambulation and alleviated by rest. No other complaints.. Triage Information: Most recent Vital Sign Value Date PAST MEDICAL HISTORY ATTESTATION: I have reviewed and confirmed nurse's/medic's notes for patient's medications, allergies, medical history, and surgical history ALLERGIES/INTOLERANCE S: Allergy Allergen: gabapentin Type: Drug Reaction: Rash Allergen: Toradol Type: Drug Reaction: Resp Distress HEALTH HISTORY: No documented data. OUTPATIENT MEDICATIONS: Home Medications Review Status for Reconciliation: Complete Med Status: Patient Currently Takes Medications Drug Name: Cymbalta 60 mg oral delayed release capsule Instructions: 1 cap(s) orally once a day Drug Name: Low Dose ASA 81 mg oral tablet Instructions: null Drug Name: traMADol 100 mg oral tablet Instructions: 1 tab(s) orally every 6 hours SIGNIFICANT EVENTS: Past Surgical History Description:Cholecyst ectomy Description:Hysterect carlotta BANDER AND CELLOPHANER MACHINE: Is : no Is : no REVIEW OF SYSTEMS REVIEW OF SYSTEMS: Comments Review of Systems Musculoskeletal: See HPI Integumentary: No rash. Neurologic: Alert and oriented X4, No numbness, No tingling. All other systems are negative PHYSICAL EXAM CONSTITUTIONAL: Well appearing, well nourished, awake, alert, oriented to person, place, time/situation and in no apparent distress. EYES: Clear bilaterally, pupils equal, round and reactive to light. MUSCULOSKELETAL: Left knee is tender to palpation anteriorly; there is mild to moderate grossly visible swelling; no erythema or ecchymosis; no warmth; pain with external and internal rotation; there is laxity noted on anterior drawer test which also caused pain NEUROLOGICAL: Alert and oriented, no focal deficits, no motor or sensory deficits. SKIN: Skin normal color for race, warm, dry and intact. No evidence of trauma. MEDICAL DECISION MAKING/ED COURSE MDM/ED COURSE: Nemesio is consistent with injury of the left knee. X-ray knee. Knee brace provided. Patient will obtain a cane and she declined crutches at this time. [place] of [place] and plans to return home in 2 days. Patient advised to obtain CD of the x-rays and follow-up with primary care orthopedics upon returning home. Ice and rest otherwise. Patient's clinical presentation is otherwise unremarkable at this time. Patient is discharged with instructions to follow-up with primary care or seek emergency medical attention for worsening symptoms or any new concerns. CLINICAL IMPRESSION Diagnosis/Annotation: ED Dx Name:Injury of left knee Code:S89.92XA Dispostion: discharged Type: home ATTESTATION CRITICAL CARE TIME Is this a critically ill patient: no Electronic Signatures for Addendum Section: Camila Cherry (RENETTA) (Signed Addendum 21-May-2020 09:26) XR showed some degeneration and effusion, bony structures intact. called pt with results and course recommendations. Electronic Signatures: Camila Cherry (RENETTA) (Signed 21-May-2020 09:23) Authored: Provider Note - ED v2 Last Updated: 21-May-2020 09:26 by Camila Cherry (RENETTA) Normal [facility] Vital Signs Date Time Vital Sign Value Performing Clinician Facility 04-05-2024 16:29-0400 Body height 165.1 cm AQUILES Perez Work Phone: [facility] 04-05-2024 16:29-0400 Body mass index (BMI) [Ratio] 32.4 kg/m2 AQUILES Jimenezsparks Work Phone: [facility] 04-05-2024 16:29-0400 Body temperature 97.4 [degF] SPECIAL EDUCATION TEACHER Tameka Easterwood Work Phone: [facility] 04-05-2024 16:29-0400 Body weight 88.45 kg SPECIAL EDUCATION TEACHER Tameka Easterwood Work Phone: [facility] 04-05-2024 16:29-0400 Diastolic blood pressure 82 mm[Hg] SPECIAL EDUCATION TEACHER Tameka Easterwood Work Phone: [facility] 04-05-2024 16:29-0400 Heart rate 71 /min SPECIAL EDUCATION TEACHER Tameka Easterwood Work Phone: [facility] 04-05-2024 16:29-0400 Respiratory rate 20 /min SPECIAL EDUCATION TEACHER Tameka Easterwood Work Phone: [facility] 04-05-2024 16:29-0400 SaO2% (BldA) [Mass fraction] 99 % SPECIAL EDUCATION TEACHER Tameka Easterwood Work Phone: [facility] 04-05-2024 16:29-0400 Systolic blood pressure 120 mm[Hg] SPECIAL EDUCATION TEACHER Tameka Easterwood Work Phone: [facility] 03-22-2024 16:40-0400 Body height 165.1 cm SPECIAL EDUCATION TEACHER Tameka Easterwood Work Phone: [facility] 03-22-2024 16:40-0400 Body mass index (BMI) [Ratio] 32.3 kg/m2 SPECIAL EDUCATION TEACHER Tameka Easterwood Work Phone: [facility] 03-22-2024 16:40-0400 Body weight 88.11 kg SPECIAL EDUCATION TEACHER Tameka Easterwood Work Phone: [facility] 03-22-2024 16:40-0400 Diastolic blood pressure 75 mm[Hg] SPECIAL EDUCATION TEACHER Tameka Easterwood Work Phone: [facility] 03-22-2024 16:40-0400 Heart rate 61 /min SPECIAL EDUCATION TEACHER Tameka Easterwood Work Phone: [facility] 03-22-2024 16:40-0400 Respiratory rate 18 /min SPECIAL EDUCATION TEACHER Tameka Easterwood Work Phone: [facility] 03-22-2024 16:40-0400 SaO2% (BldA) [Mass fraction] 93 % SPECIAL EDUCATION TEACHER Tameka Easterwood Work Phone: [facility] 03-22-2024 16:40-0400 Systolic blood pressure 134 mm[Hg] SPECIAL EDUCATION TEACHER Tameka Easterwood Work Phone: [facility] 02-24-2024 12:20-0400 Diastolic blood pressure 87 mm[Hg] SPECIAL EDUCATION TEACHER Tameka Easterwood Work Phone: [facility] 02-24-2024 12:20-0400 Heart rate 86 /min SPECIAL EDUCATION TEACHER Tameka Easterwood Work Phone: [facility] 02-24-2024 12:20-0400 Respiratory rate 16 /min SPECIAL EDUCATION TEACHER Tameka Easterwood Work Phone: [facility] 02-24-2024 12:20-0400 SaO2% (BldA) [Mass fraction] 94 % SPECIAL EDUCATION TEACHER Tameka Easterwood Work Phone: [facility] 02-24-2024 12:20-0400 Systolic blood pressure 144 mm[Hg] SPECIAL EDUCATION TEACHER Tameka Easterwood Work Phone: [facility] 02-24-2024 11:25-0400 Body temperature 97.4 [degF] SPECIAL EDUCATION TEACHER Tameka Easterwood Work Phone: [facility] 02-24-2024 10:55-0400 Inhaled oxygen flow rate 8 L/min SPECIAL EDUCATION TEACHER Tameka Easterwood Work Phone: [facility] 02-24-2024 09:26-0400 Body height 165.1 cm SPECIAL EDUCATION TEACHER Tameka Easterwood Work Phone: [facility] 02-24-2024 09:26-0400 Body mass index (BMI) [Ratio] 33 kg/m2 SPECIAL EDUCATION TEACHER Tameka Easterwood Work Phone: [facility] 02-24-2024 09:26-0400 Body weight 90 kg SPECIAL EDUCATION TEACHER Tameka Easterwood Work Phone: [facility] 02-01-2024 08:43-0400 Body height 165.1 cm SPECIAL EDUCATION TEACHER Tameka Easterwood Work Phone: [facility] 02-01-2024 08:43-0400 Body mass index (BMI) [Ratio] 32.8 kg/m2 SPECIAL EDUCATION TEACHER Tameka Easterwood Work Phone: [facility] 02-01-2024 08:43-0400 Body weight 89.55 kg SPECIAL EDUCATION TEACHER Tameka Easterirene Work Phone: [facility] 02-01-2024 08:43-0400 Diastolic blood pressure 71 mm[Hg] SPECIAL EDUCATION TEACHER Tameka Easterwood Work Phone: [facility] 02-01-2024 08:43-0400 Heart rate 57 /min SPECIAL EDUCATION TEACHER Tameka Easterwood Work Phone: [facility] 02-01-2024 08:43-0400 Respiratory rate 16 /min SPECIAL EDUCATION TEACHER Tameka Easterwood Work Phone: [facility] 02-01-2024 08:43-0400 SaO2% (BldA) [Mass fraction] 98 % SPECIAL EDUCATION TEACHER Tameka Easterwood Work Phone: [facility] 02-01-2024 08:43-0400 Systolic blood pressure 121 mm[Hg] SPECIAL EDUCATION TEACHER Tameka Easterwood Work Phone: [facility] 01-19-2024 16:37-0400 Body height 165.1 cm SPECIAL EDUCATION TEACHER Tameka Easterwood Work Phone: [facility] 01-19-2024 16:37-0400 Body mass index (BMI) [Ratio] 32.1 kg/m2 SPECIAL EDUCATION TEACHER Tameka Easterwood Work Phone: [facility] 01-19-2024 16:37-0400 Body temperature 97.9 [degF] SPECIAL EDUCATION TEACHER Tameka Easterwood Work Phone: [facility] 01-19-2024 16:37-0400 Body weight 87.54 kg SPECIAL EDUCATION TEACHER Tameka Easterwood Work Phone: [facility] 01-19-2024 16:37-0400 Diastolic blood pressure 88 mm[Hg] SPECIAL EDUCATION TEACHER Tameka Easterwood Work Phone: [facility] 01-19-2024 16:37-0400 Heart rate 72 /min SPECIAL EDUCATION TEACHER Tameka Easterwood Work Phone: [facility] 01-19-2024 16:37-0400 Respiratory rate 20 /min SPECIAL EDUCATION TEACHER Tameka Easterwood Work Phone: [facility] 01-19-2024 16:37-0400 SaO2% (BldA) [Mass fraction] 95 % SPECIAL EDUCATION TEACHER Tameka Easterwood Work Phone: [facility] 01-19-2024 16:37-0400 Systolic blood pressure 130 mm[Hg] SPECIAL EDUCATION TEACHER Tameka Easterwood Work Phone: [facility] 12-29-2023 14:33-0400 Body height 165.1 cm SPECIAL EDUCATION TEACHER Tameka Easterwood Work Phone: [facility] 12-29-2023 14:33-0400 Body mass index (BMI) [Ratio] 31.4 kg/m2 SPECIAL EDUCATION TEACHER Tameka Easterwood Work Phone: [facility] 12-29-2023 14:33-0400 Body weight 85.72 kg SPECIAL EDUCATION TEACHER Tameka Easterwood Work Phone: [facility] 12-29-2023 14:33-0400 Diastolic blood pressure 80 mm[Hg] AQUILES Sapperirene Work Phone: [facility] 12-29-2023 14:33-0400 Heart rate 63 /min SPECIAL EDUCATION TEACHERLive Sapperirene Work Phone: [facility] 12-29-2023 14:33-0400 Respiratory rate 18 /min SPECIAL EDUCATION TEACHERLive Perez Work Phone: [facility] 12-29-2023 14:33-0400 SaO2% (BldA) [Mass fraction] 96 % SPECIAL EDUCATION TEACHERLive Perez Work Phone: [facility] 12-29-2023 14:33-0400 Systolic blood pressure 124 mm[Hg] AQUILES Sapperirene Work Phone: [facility] 08-23-2023 10:00-0500 Diastolic blood pressure 80 mm[Hg] Gregg Baxter [facility] 08-23-2023 10:00-0500 Heart rate 69 /min Gregg Baxter [facility] 08-23-2023 10:00-0500 SaO2% (BldA) [Mass fraction] 95 % Gregg Baxter [facility] 08-23-2023 10:00-0500 Systolic blood pressure 136 mm[Hg] Gregg Turnere [facility] 08-23-2023 08:59-0500 Body temperature 98.06 [degF] Gregg Sahil [facility] 08-23-2023 08:59-0500 Diastolic blood pressure 74 mm[Hg] Gregg Sahil [facility] 08-23-2023 08:59-0500 Heart rate 71 /min Gregg Turnere [facility] 08-23-2023 08:59-0500 Respiratory rate 18 /min Gregg Baxter [facility] 08-23-2023 08:59-0500 SaO2% (BldA) [Mass fraction] 96 % Gregg Baxter [facility] 08-23-2023 08:59-0500 Systolic blood pressure 122 mm[Hg] Gregg Baxter [facility] Encounters Encounter Date Encounter Type Care Provider Facility Start: 04-05-2024 End: 04-05-2024 ambulatory SPECIAL EDUCATION TEACHERLive English Rosendo Sapperwood Work Phone: [facility] Work Phone: Start: 04-05-2024 End: 04-05-2024 Patient encounter procedure SPECIAL EDUCATION TEACHERLive English Sekouerwood Work Phone: [facility] Phys[facility] Work Phone: Start: 03-22-2024 End: 03-22-2024 ambulatory SPECIAL EDUCATION TEACHER Tameka Sapperwood Work Phone: [facility] Work Phone: Start: 03-22-2024 End: 03-22-2024 Patient encounter procedure SPECIAL EDUCATION TEACHER Tameka Sapperwood Work Phone: [facility] Physician [facility] Work Phone: Start: 02-24-2024 End: 02-24-2024 Admission to same day surgery center SPECIAL EDUCATION TEACHERLive Escamillaalexsandra Sapperwood Work Phone: [facility] [place] Start: 02-24-2024 End: 02-24-2024 ambulatory SPECIAL EDUCATION TEACHERLive Robbins Sekouerwood Work Phone: [facility] Work Phone: Start: 02-15-2024 End: 02-15-2024 Patient encounter procedure SPECIAL EDUCATION TEACHERLive English Sekouerwood Work Phone: [facility] Work Phone: Start: 02-10-2024 End: 02-10-2024 Departed Referred AQUILES Perez Work Phone: [facility] Work Phone: Start: 02-10-2024 End: 02-10-2024 Patient encounter procedure SPECIAL EDUCATION TEACHERLive Perez Work Phone: [facility] Work Phone: Start: 02-10-2024 End: 02-10-2024 ambulatory SPECIAL EDUCATION TEACHER Tameka Sapperwood Work Phone: [facility] Work Phone: Start: 02-03-2024 End: 02-03-2024 Patient encounter procedure SPECIAL EDUCATION TEACHERLive Sapperwood Work Phone: [facility] [place] Work Phone: Start: 02-03-2024 End: 02-03-2024 ambulatory SPECIAL EDUCATION TEACHERLive Sapperirene Work Phone: [facility] Work Phone: Start: 02-01-2024 End: 02-01-2024 ambulatory SPECIAL EDUCATION TEACHER Tameka Sapperirene Work Phone: [facility] Work Phone: Start: 02-01-2024 End: 02-01-2024 Patient encounter procedure AQUILES Perez Work Phone: [facility] Physician [facility] Work Phone: Start: 01-19-2024 End: 01-19-2024 ambulatory SPECIAL EDUCATION TEACHER Tameka Sapperwood Work Phone: [facility] Work Phone: Start: 01-19-2024 End: 01-19-2024 Encounter for general adult medical examination without abnormal findings SPECIAL EDUCATION TEACHERLive Sapperwood Work Phone: [facility] Start: 01-19-2024 End: 01-19-2024 Patient encounter procedure SPECIAL EDUCATION TEACHER Tameka Sapperwood Work Phone: [facility] Work Phone: Start: 01-18-2024 End: 01-18-2024 Patient encounter procedure SPECIAL EDUCATION TEACHER Tameka Sapperwood Work Phone: [facility] Work Phone: Start: 01-18-2024 End: 01-18-2024 ambulatory SPECIAL EDUCATION TEACHER Tameka Sapperwood Work Phone: [facility] Work Phone: Start: 01-18-2024 Non-patient / Non-visit SPECIAL EDUCATION TEACHER Chelsea Sapperirene Work Phone: [facility] Work Phone: Start: 01-13-2024 Non-patient / Non-visit SPECIAL EDUCATION TEACHER D tylor Sapperirene Work Phone: [facility] [place] Work Phone: Start: 01-12-2024 End: 01-12-2024 Patient encounter procedure SPECIAL EDUCATION TEACHER Tameka Sapperwood Work Phone: [facility] [place] Work Phone: Start: 01-12-2024 End: 01-12-2024 ambulatory SPECIAL EDUCATION TEACHER Tameka Sapperwood Work Phone: [facility] Work Phone: Start: 01-01-2024 End: 01-01-2024 Patient encounter procedure SPECIAL EDUCATION TEACHER Tameka Sapperwood Work Phone: [facility] Work Phone: Start: 01-01-2024 End: 01-01-2024 ambulatory SPECIAL EDUCATION TEACHER Tameka Robbins Easterwood Work Phone: [facility] Work Phone: Start: 12-29-2023 End: 12-29-2023 ambulatory SPECIAL EDUCATION TEACHERLive Perez Work Phone: [facility] Work Phone: Start: 12-29-2023 End: 12-29-2023 Patient encounter procedure AQUILES Perez Work Phone: [facility] Work Phone: Start: 12-16-2023 Non-patient / Non-visit SPECIAL EDUCATION TEACHER Chelsea Perez Work Phone: [facility] Physician [facility] Work Phone: Start: 11-29-2023 Non-patient / Non-visit SPECIAL EDUCATION TEACHER Chelsea Perez Work Phone: [facility] Physician [facility] Work Phone: Start: 11-04-2023 Patient encounter procedure AQUILES Perez Work Phone: [facility] Physician [facility]- Start: 08-23-2023 End: 08-23-2023 Emergency department patient visit Gregg Baxter Facility:[facility] Start: 08-23-2023 End: 08-23-2023 Emergency department patient visit Gregg Baxter [facility] Procedures Date Procedure Procedure Detail Performing Clinician Start: 02-24-2024 Reduction mammoplast y, bilateral AQUILES Perez Work Phone: Start: 01-01-2024 Screening mammograph y of bilateral breasts AQUILES Perez Work Phone: Plan of Treatment Date Care Activity Detail Author Start: 02-24-2024 [facility] Start: 02-24-2024 [facility] Start: 01-01-2024 MG Breast - bilatera l Screening [facility] Start: 01-01-2024 Screening mammograph y of bilateral breasts MM screening mammo BI w/CAD [facility] Start: 12-29-2023 [facility] Patient Education Know your Meds [facility] Work Phone: Patient referral [facility] Work Phone: [facility] Payers Date Payer Category Payer Self-pay 2023 Unknown [id number] 2023 Private Health Insurance [id number] 1965 Unknown [id number] [id number] Unknown [id number] [id number] [id number] Unknown [id number] 2.16.8 [id number] Unknown [id number] 2.16.8 [id number] Unknown [id number] 2.16.8 [id number] Unknown [id number] 2.16.8 [id number] Unknown [id number] 2.16.8 [id number] Unknown [id number] 2.16.8 [id number] Social History Date Type Detail Facility Tobacco smoking status [facility] Sex Assigned At Female [facility] Start: 12-29-2023 End: 04-05-2024 Tobacco smoking status NHIS Never smoked tobacco (finding) [facility] Start: 1965 Sex Assigned At Female F [facility] Goals Date Patient Goal Desired Activity /State Functional Status Date Assessment Result Facility 08-23-2023 Functional Status N/A [facility] Clinical Notes 08-23-2023 to 03-22-2024 Note Date & Type Note Facility 03-22-2024 Evaluation note Authored March 22, 2024 5:06pm Highest weight: 299+ lbs. Braydon shaw is down 10.4 lbs. Start weight: 197.7 lbs she is down 3.3 lbs. today with a weight of 194.4 lbs. last visit on . Starting Date: 02/01/2024. Semaglutide start date 02/01/2024. Semaglutide start weight 197.7 pounds. she is down 3.3 lbs. 1. Abnormal weight gain. She has a strong family history of obesity she notes her older sister and a younger sister required bariatric surgery. Her older sister was a type II diabetic. Also obesity and her aunts. 2. Obesity-Improved. Continue compounded semaglutide along with trying to avoid evening addictive foods such as cake and candy bars and eat more healthy Whole Foods. She will try not to skip breakfast and at least have a protein shake. She felt she was addicted to sweets. She has been successful in a 12-step program for alcoholism 17 years ago. She had been over 300 pounds at 1 time. She had been able to successfully lose a lot of weight down to about 187 pounds with avoiding added sugars, walking, not eating after supper. She lives alone. She moved back here recently from [place]. She had a remote history of paroxysmal A-fib so cannot consider phentermine. She is currently in sinus rhythm. She has taken Topamax in the past for migraines. She feels she is now addicted to sugar/sweets. She had taken fen-phen many years ago. After her significant weight loss of over 100 pounds she ended up having a skin removal and tummy tuck. She is hypercholesterolemia which is controlled with Crestor. She is chronic low back pain and does take tramadol so could not consider naltrexone. She does tend to have some diarrhea and constipation after a partial colectomy for diverticulitis. The patient has a number of weight related health issues Depression, Heart Burn, High Cholesterol,Atrial Fibrillation, Loud Snorer, Chronic low back pain that limits activity. Behavioral: The patient's previous eating habits prior to starting our program fair. Before starting the program the biggest reasons for weight struggles include Unhealthy snacks, Skip Breakfast, Depression, Stress Eating, Health issues, Poor Sleep, Family weight issues- sisters, aunts, Boredom eater. Exercise before starting the program: Walking. The patient will treat with long-term lifestyle changes of improved nutrition, increased exercise and activity, stress reduction, adequate sleep and behavioral modification versus short-term dieting.. 3. History of paroxysmal atrial fib-currently in normal sinus rhythm and followed by cardiology. Cannot consider phentermine. 4. History of depression-her PHQ-9 was 9 with starting the program. She did feel like she had many days of decreased interest and pleasure. Monitor with following a healthy lifestyle with our program. We could consider Wellbutrin. 5. Hypertension-Controlled. She will continue to treat with a low-salt diet, decreased processed and restaurant foods, healthy lifestyle changes and achieve long-term weight loss. Monitor outside the office. 6. Hypercholesterolemia-treat with decreasing the bad fats, added fats, increase activity and exercise and achieve long-term weight loss. LDL controlled at 59 on Crestor. 7. Chronic low back pain/spinal stenosis-is in chronic pain and does take tramadol. Continue to follow-up with her PCP and pain management. 8. Uwpfahwmszz-rtykj-jwdd treatment with long-term healthy lifestyle change, decreased simple sweets and refined starches, increased exercise and activity and long-term weight loss. Consider metformin. Treat with GLP-1 agonist. She needs close long-term follow-up for this condition to prevent diabetes. She had a past A1c of 5.7. Monitor with treatment. 9. Snorer/[place] of 3-doubt sleep apnea. Treat with good sleep hygiene and weight loss. 10. Remote history of alcoholism-sober for 17 years with 12-step program. She will continue to avoid alcohol. 11. GERD-now controlled with PPI. Treat with antireflux diet and weight loss. 12. Status post partial colectomy secondary to past bout of diverticulitis. She does get some constipation. Monitor with adding a GLP-1. Follow up with me in 6 weeks. New labs needed: Up-to-date with labs 02/2024. Continue regular metabolic blood work with her PCP. Author Ventura German [facility] Authored February 01, 2024 11: 04am Assessment: Highest weight: 299+ lbs Start weight: 197.7 lbs. Starting Date: 02/01/2024. Semaglutide start date 02/01/2024. Semaglutide start weight 197.7 pounds. 1. Abnormal weight gain. She has a strong family history of obesity she notes her older sister and a younger sister required bariatric surgery. Her older sister was a type II diabetic. Also obesity and her aunts. 2. Obesity-begin compounded semaglutide along with trying to avoid evening addictive foods such as cake and candy bars and eat more healthy Whole Foods. She feels she is addicted to sweets and will start reading the book food triggers. She is been successful in a 12-step program for alcoholism 17 years ago. She had been over 300 pounds at 1 time. She had been able to successfully lose a lot of weight down to about 187 pounds with avoiding added sugars, walking, not eating after supper. She lives alone. She moved back here recently from [place]. She had a remote history of paroxysmal A-fib so cannot consider phentermine. She is currently in sinus rhythm. She has taken Topamax in the past for migraines. She feels she is now addicted to sugar/sweets. She had taken fen-phen many years ago. After her significant weight loss of over 100 pounds she ended up having a skin removal and tummy tuck. She is hypercholesterolemia which is controlled with Crestor. She is chronic low back pain and does take tramadol so could not consider naltrexone. She does tend to have some diarrhea and constipation after a partial colectomy for diverticulitis. The patient has a number of weight related health issues Depression, Heart Burn, High Cholesterol,Atrial Fibrillation, Loud Snorer, Chronic low back pain that limits activity. Behavioral: The patient's previous eating habits prior to starting our program fair. Before starting the program the biggest reasons for weight struggles include Unhealthy snacks, Skip Breakfast, Depression, Stress Eating, Health issues, Poor Sleep, Family weight issues- sisters, aunts, Boredom eater. Exercise before starting the program: Walking. The patient will treat with long-term lifestyle changes of improved nutrition, increased exercise and activity, stress reduction, adequate sleep and behavioral modification versus short-term dieting. The patient has no contraindications to semaglutide. The patient does not feel that she can afford the branded version and not covered by insurance. She would like to try compounded semaglutide. The patient will begin compounded semaglutide to help with both glycemic control and satiety. The risks, benefits and side effects were discussed; including but not limited to the risk of nausea, vomiting, increased heartburn, abdominal discomfort, constipation diarrhea and risk of hypoglycemia. The patient was also counseled on the slight increase risk of acute pancreatitis and symptomatic choledocholithiasis. The patient denies any previous history of pancreatitis, gallbladder disease or personal or family history of medullary thyroid cancer or MEN syndrome. -Begin 0.3 mg weekly. The patient will stop compounded semaglutide any significant nausea, vomiting, abdominal pain or other side effects. 3. History of paroxysmal atrial fib-currently in normal sinus rhythm and followed by cardiology. Cannot consider phentermine. 4. History of depression-her PHQ-9 was 9 with starting the program. She did feel like she had many days of decreased interest and pleasure. Monitor with following a healthy lifestyle with our program. We could consider Wellbutrin. 5. Hypertension-treat with a low-salt diet, decreased processed and restaurant foods, healthy lifestyle changes and achieve long-term weight loss. Monitor outside the office. 6. Hypercholesterolemia-treat with decreasing the bad fats, added fats, increase activity and exercise and achieve long-term weight loss. LDL controlled at 59 on Crestor. 7. Chronic low back pain/spinal stenosis-is in chronic pain and does take tramadol. Continue to follow-up with her PCP and pain management. 8. Eakqrbgizkh-egxks-mxeq treatment with long-term healthy lifestyle change, decreased simple sweets and refined starches, increased exercise and activity and long-term weight loss. Consider metformin. Treat with GLP-1 agonist. She needs close long-term follow-up for this condition to prevent diabetes. She notes she had a past A1c of 5.7. Monitor with treatment. 9. Snorer/[place] of 3-doubt sleep apnea. Treat with good sleep hygiene and weight loss. 10. Remote history of alcoholism-sober for 17 years with 12-step program. She will continue to avoid alcohol. 11. GERD-now controlled with PPI. Treat with antireflux diet and weight loss. 12. Status post partial colectomy secondary to past bout of diverticulitis. She does get some constipation and diarrhea. Monitor with adding a GLP-1. Follow up with me in 6 weeks. New labs needed: Up-to-date. TSH and A1c ordered. Fasting CMP to be done soon by her PCP. The patient was instructed to consider logging all foods and caloric beverages. I highly recommended minimizing or stopping caloric beverages including alcohol. The importance of preplanning, shopping at the edge of the store, decreasing unhealthy food cues and environmental control stressed. I recommend packing snacks and meals when out of the home. Remove trigger/unhealthy foods if possible from the home. No macronutrient is completely restricted. We discussed the addictive nature and unhealthy biological changes that occur with ultra processed food. We discussed the brain and peripheral biological changes with obesity that make it a chronic disease. Importance of cooking most food items from scratch discussed. No skipping any meals. Avoid added sugar, refined starches, and added fats. I highly recommended preference for whole foods/real foods. Foods from the farm, not from the factory. The plate method discussed and handout given. Lean unprocessed protein with each meal and each snack to help control appetite, decrease cravings and lessen muscle loss with weight loss advised. Consider use of a protein shake or protein bar instead of missing a meal. The patient will try to get at least 5 or more servings of low carbohydrate veggies/salads daily. Recommend regular follow-up with our registered dietitian. Benefits of regular exercise including cardio and resistance training discussed and recommended as appropriate for the patient. Slowly increase activity. Our exercise program was recommended with our hearing care practitioner/obesity exercise group. Handout given. Our free weekly group support/food triggers program was highly recommended to help with long-term behavioral change and support. Handout given. The patient must start healthy behavioral changes. The patient was instructed on good sleep hygiene and on the importance of adequate sleep. Circadian rhythm and the importance of mealtime discussed. I recommended stress reduction. Medication addition and subtraction options discussed. Risks and benefits of prescribed meds discussed. Initial mjcp-se-oeyo interview/evaluation. The patient was counseled in detail on the options for weight loss in an individual setting. 55 minutes was spent caring for the patient, counseling/educating patient on the options for the treatment of obesity and related healthcare issues. The program's treatment goals were reviewed with the patient. Each aspect of the program was discussed with the patient. [facility] Work Phone: [phone]) 341-368204-30-2024 Evaluation note* Author Ventura German [facility] Authored February 01, 2024 11: 04am Assessment: Highest weight: 299+ lbs Start weight: 197.7 lbs. Starting Date: 02/01/2024. Semaglutide start date 02/01/2024. Semaglutide start weight 197.7 pounds. 1. Abnormal weight gain. She has a strong family history of obesity she notes her older sister and a younger sister required bariatric surgery. Her older sister was a type II diabetic. Also obesity and her aunts. 2. Obesity-begin compounded semaglutide along with trying to avoid evening addictive foods such as cake and candy bars and eat more healthy Whole Foods. She feels she is addicted to sweets and will start reading the book food triggers. She is been successful in a 12-step program for alcoholism 17 years ago. She had been over 300 pounds at 1 time. She had been able to successfully lose a lot of weight down to about 187 pounds with avoiding added sugars, walking, not eating after supper. She lives alone. She moved back here recently from [place]. She had a remote history of paroxysmal A-fib so cannot consider phentermine. She is currently in sinus rhythm. She has taken Topamax in the past for migraines. She feels she is now addicted to sugar/sweets. She had taken fen-phen many years ago. After her significant weight loss of over 100 pounds she ended up having a skin removal and tummy tuck. She is hypercholesterolemia which is controlled with Crestor. She is chronic low back pain and does take tramadol so could not consider naltrexone. She does tend to have some diarrhea and constipation after a partial colectomy for diverticulitis. The patient has a number of weight related health issues Depression, Heart Burn, High Cholesterol,Atrial Fibrillation, Loud Snorer, Chronic low back pain that limits activity. Behavioral: The patient's previous eating habits prior to starting our program fair. Before starting the program the biggest reasons for weight struggles include Unhealthy snacks, Skip Breakfast, Depression, Stress Eating, Health issues, Poor Sleep, Family weight issues- sisters, aunts, Boredom eater. Exercise before starting the program: Walking. The patient will treat with long-term lifestyle changes of improved nutrition, increased exercise and activity, stress reduction, adequate sleep and behavioral modification versus short-term dieting. The patient has no contraindications to semaglutide. The patient does not feel that she can afford the branded version and not covered by insurance. She would like to try compounded semaglutide. The patient will begin compounded semaglutide to help with both glycemic control and satiety. The risks, benefits and side effects were discussed; including but not limited to the risk of nausea, vomiting, increased heartburn, abdominal discomfort, constipation diarrhea and risk of hypoglycemia. The patient was also counseled on the slight increase risk of acute pancreatitis and symptomatic choledocholithiasis. The patient denies any previous history of pancreatitis, gallbladder disease or personal or family history of medullary thyroid cancer or MEN syndrome. -Begin 0.3 mg weekly. The patient will stop compounded semaglutide any significant nausea, vomiting, abdominal pain or other side effects. 3. History of paroxysmal atrial fib-currently in normal sinus rhythm and followed by cardiology. Cannot consider phentermine. 4. History of depression-her PHQ-9 was 9 with starting the program. She did feel like she had many days of decreased interest and pleasure. Monitor with following a healthy lifestyle with our program. We could consider Wellbutrin. 5. Hypertension-treat with a low-salt diet, decreased processed and restaurant foods, healthy lifestyle changes and achieve long-term weight loss. Monitor outside the office. 6. Hypercholesterolemia-treat with decreasing the bad fats, added fats, increase activity and exercise and achieve long-term weight loss. LDL controlled at 58 on Crestor. 7. Chronic low back pain/spinal stenosis-is in chronic pain and does take tramadol. Continue to follow-up with her PCP and pain management. 8. Efxrcuflfoe-gsdup-qtwz treatment with long-term healthy lifestyle change, decreased simple sweets and refined starches, increased exercise and activity and long-term weight loss. Consider metformin. Treat with GLP-1 agonist. She needs close long-term follow-up for this condition to prevent diabetes. She notes she had a past A1c of 5.7. Monitor with treatment. 9. Snorer/[place] of 3-doubt sleep apnea. Treat with good sleep hygiene and weight loss. 10. Remote history of alcoholism-sober for 17 years with 12-step program. She will continue to avoid alcohol. 11. GERD-now controlled with PPI. Treat with antireflux diet and weight loss. 12. Status post partial colectomy secondary to past bout of diverticulitis. She does get some constipation and diarrhea. Monitor with adding a GLP-1. Follow up with me in 6 weeks. New labs needed: Up-to-date. TSH and A1c ordered. Fasting CMP to be done soon by her PCP. The patient was instructed to consider logging all foods and caloric beverages. I highly recommended minimizing or stopping caloric beverages including alcohol. The importance of preplanning, shopping at the edge of the store, decreasing unhealthy food cues and environmental control stressed. I recommend packing snacks and meals when out of the home. Remove trigger/unhealthy foods if possible from the home. No macronutrient is completely restricted. We discussed the addictive nature and unhealthy biological changes that occur with ultra processed food. We discussed the brain and peripheral biological changes with obesity that make it a chronic disease. Importance of cooking most food items from scratch discussed. No skipping any meals. Avoid added sugar, refined starches, and added fats. I highly recommended preference for whole foods/real foods. Foods from the farm, not from the factory. The plate method discussed and handout given. Lean unprocessed protein with each meal and each snack to help control appetite, decrease cravings and lessen muscle loss with weight loss advised. Consider use of a protein shake or protein bar instead of missing a meal. The patient will try to get at least 5 or more servings of low carbohydrate veggies/salads daily. Recommend regular follow-up with our registered dietitian. Benefits of regular exercise including cardio and resistance training discussed and recommended as appropriate for the patient. Slowly increase activity. Our exercise program was recommended with our hearing care practitioner/obesity exercise group. Handout given. Our free weekly group support/food triggers program was highly recommended to help with long-term behavioral change and support. Handout given. The patient must start healthy behavioral changes. The patient was instructed on good sleep hygiene and on the importance of adequate sleep. Circadian rhythm and the importance of mealtime discussed. I recommended stress reduction. Medication addition and subtraction options discussed. Risks and benefits of prescribed meds discussed. Initial bzvk-xa-bonq interview/evaluation. The patient was counseled in detail on the options for weight loss in an individual setting. 55 minutes was spent caring for the patient, counseling/educating patient on the options for the treatment of obesity and related healthcare issues. The program's treatment goals were reviewed with the patient. Each aspect of the program was discussed with the patient. [facility] Work Phone: [phone]) 613-207211-20-2023 Evaluation + Plan noteExtracted from: Title:ED Note Author:SahilGregg shaw DO Date: Bronchospasm (J98.01: Acute bronchospasm) COVID (U07.1: COVID-19) Palpitations (R00.2: Palpitations) Orders: albuterol, 2 puff(s), Inhalation, q6hr for 7 day(s), 6.7 gm, Refill(s) 0, [id number], 165, cm, 08/23/23 9:07:00 EST, Height/Length Dosing, 88, kg, 08/23/23 9:07:00 EST, Weight Dosing dexamethasone, 6 mg = 1 tab(s), Oral, Daily, X 7 day(s), # 7 tab(s), Refills(s) 0, Pharmacy: [id number], 165, cm, 08/23/23 9:07:00 EST, Height/Length Dosing, 88, kg, 08/23/23 9:07:00 EST, Weight Dosing ketorolac, 60 mg = 2 mL, Injection, IntraMuscular, Once, Stop date 08/23/23 9:44:00 EST, STAT, Start date 08/23/23 9:44:00 EST, 08/23/23 9:44:00 EST Automated Diff B-Type Natriuretic Peptide Basic Metabolic Panel CBC w/ Auto Diff ED Cardiac Monitoring eGFR Extra SST Tube Oxygen Saturation Oxygen Therapy PT & PTT Saline Lock Insert Troponin 0 Hr. Troponin 3 Hr. Troponin 6 Hr. Troponin 9 Hr. XR Chest Single View [facility]11[facility]2023 Hospital Discharge instructions Follow Up Care 08/23/2023 08:50:48 With:Jessica Carbajal Address: [address] [place] [address]- Business (1) When:08/26/2023 10:33:24 With:XXXX NONE Address: [place] When:Within 3 Day(s) [facility]Reason for visit Narrative* Chief Complaint Amb Documentation Amb Documentation chronic a-fib medication management, no acute Reason for Visit HLD (hyperlipidemia) Paroxysmal atrial fibrillation [facility] Work Phone: chief complaint+Reason for visit Narrative* Chief Complaint Amb Documentation Amb Documentation chronic a-fib medication management, no acute Screening Reason for Visit HLD (hyperlipidemia) Paroxysmal atrial fibrillation [facility] Work Phone: chief complaint+Reason for visit Narrative* Chief Complaint Amb Documentation Amb Documentation chronic a-fib medication management, no acute Screening E78.5 I48.0 Reason for Visit HLD (hyperlipidemia) Paroxysmal atrial fibrillation [facility] Work Phone: chief complaint+Reason for visit Narrative* Chief Complaint Amb Documentation Amb Documentation chronic a-fib medication management, no acute Screening E78.5 I48.0 Amb Documentation I48.0 Reason for Visit HLD (hyperlipidemia) Paroxysmal atrial fibrillation [facility] Work Phone: chief complaint+Reason for visit Narrative* Chief Complaint Amb Documentation Amb Documentation chronic a-fib medication management, no acute Screening E78.5 I48.0 Amb Documentation I48.0 Wellness visit Reason for Visit HLD (hyperlipidemia) Paroxysmal atrial fibrillation Screening for metabolic disorder Well adult exam [facility] Work Phone: chief complaint+Reason for visit Narrative* Chief Complaint Amb Documentation Amb Documentation chronic a-fib medication management, no acute Screening E78.5 I48.0 Amb Documentation I48.0 Wellness visit [facility] Reason for Visit HLD (hyperlipidemia) Paroxysmal atrial fibrillation Screening for metabolic disorder Well adult exam [facility] Work Phone: chief complaint+Reason for visit Narrative* Chief Complaint Amb Documentation Amb Documentation chronic a-fib medication management, no acute Screening E78.5 I48.0 Amb Documentation I48.0 Wellness visit [facility] R73.03;R63.5 Reason for Visit HLD (hyperlipidemia) Paroxysmal atrial fibrillation Screening for metabolic disorder Well adult exam [facility] Work Phone: chief complaint+Reason for visit Narrative* Chief Complaint Amb Documentation Amb Documentation chronic a-fib medication management, no acute Screening E78.5 I48.0 Amb Documentation I48.0 Wellness visit [facility] R73.03;R63.5 Macromastia Reason for Visit HLD (hyperlipidemia) Paroxysmal atrial fibrillation Screening for metabolic disorder Well adult exam [facility] Work Phone: Chief complaint+Reason for visit Narrative* Chief Complaint Amb Documentation Amb Documentation chronic a-fib medication management, no acute Screening E78.5 I48.0 Amb Documentation I48.0 Wellness visit [facility] R73.03;R63.5 Macromastia Macromastia Reason for Visit HLD (hyperlipidemia) Paroxysmal atrial fibrillation Screening for metabolic disorder Well adult exam [facility] Work Phone: Chifw complaint+Reason for visit Narrative* Chief Complaint chronic a-fib medica tion management, no acute Screening E78.5 I48.0 Amb Documentation I48.0 Wellness visit [facility] R73.03;R63.5 Macromastia Macromastia Reason for Visit HLD (hyperlipidemia) Paroxysmal atrial fibrillation Screening for metabolic disorder Well adult exam HLD (hyperlipidemia) HTN (hypertension) Obesity (BMI 30.0-34.9) Pre-diabetes [facility] Work Phone: Evaluation note* Diagnosis Onset Date Resolution Status HLD (hyperlipidemia) acute Paroxysmal atrial fibrillation acute [facility] Work Phone: Evaluation note* Diagnosis Onset Date Resolution Status HLD (hyperlipidemia) acute Paroxysmal atrial fibrillation acute Screening for metabolic disorder noneactive Well adult exam noneactive [facility] Work Phone: Evaluation note* Author Katelyn Can [facility] Authored February 01, 2024 9:1 8am Assessment: Highest weight: 299+ lbs Start weight: 197.7 lbs. Starting Date: 02/01/2024. 1. Abnormal weight gain 2. Obesity-the patient will treat with long-term lifestyle changes of improved nutrition, increased exercise and activity, stress reduction, adequate sleep and behavioral modification versus short-term dieting. [ ] 3. [ ] 4. [ ] 5. [ ] 6. [ ] 7. [ ] 8. [ ] 9. [ ] 10. [ ] 11. [ ] Follow up with me in 6 weeks. New labs needed: [TSH, cholesterol profile, and CMP] The patient was instructed to consider logging all foods and caloric beverages. I highly recommended minimizing or stopping caloric beverages including alcohol. The importance of preplanning, shopping at the edge of the store, decreasing unhealthy food cues and environmental control stressed. I recommend packing snacks and meals when out of the home. Remove trigger/unhealthy foods if possible from the home. No macronutrient is completely restricted. We discussed the addictive nature and unhealthy biological changes that occur with ultra processed food. We discussed the brain and peripheral biological changes with obesity that make it a chronic disease. Importance of cooking most food items from scratch discussed. No skipping any meals. Avoid added sugar, refined starches, and added fats. I highly recommended preference for whole foods/real foods. Foods from the farm, not from the factory. The plate method discussed and handout given. Lean unprocessed protein with each meal and each snack to help control appetite, decrease cravings and lessen muscle loss with weight loss advised. Consider use of a protein shake or protein bar instead of missing a meal. The patient will try to get at least 5 or more servings of low carbohydrate veggies/salads daily. Recommend regular follow-up with our registered dietitian. Benefits of regular exercise including cardio and resistance training discussed and recommended as appropriate for the patient. Slowly increase activity. Our exercise program was recommended with our hearing care practitioner/obesity exercise group. Handout given. Our free weekly group support/food triggers program was highly recommended to help with long-term behavioral change and support. Handout given. The patient must start healthy behavioral changes. The patient was instructed on good sleep hygiene and on the importance of adequate sleep. Circadian rhythm and the importance of mealtime discussed. I recommended stress reduction. Medication addition and subtraction options discussed. Risks and benefits of prescribed meds discussed. Initial uuyb-lx-spbe interview/evaluation. The patient was counseled in detail on the options for weight loss in an individual setting. [ ] minutes was spent caring for the patient, counseling/educating patient on the options for the treatment of obesity and related healthcare issues. The program's treatment goals were reviewed with the patient. Each aspect of the program was discussed with the patient. [facility] Work Phone: Hospital course Narrative No data available for this section [facility] Additional Instructions DISCHARGE INSTRUCTIONS FOR PLASTIC/RECONSTRUCTIVE SURGERY YOUR ACTIVITY MAY INCLUDE -Going up and down stairs slowly. -Walking around the house or outside if the weather is satisfactory. -No driving until you are seen in our office and cleared for driving. -No lifting more than 10 pounds for 2 weeks from the date of surgery. WOUND CARE -NO smoking as it may compromise your wound healing. -Do not remove dressing until your post-operative appointment. -Keep your incision dry for 48 hours then, you may shower (no tub baths) and allow water to flow over your incision. -It is common to feel pulling or sharp sticking sensations in the area of the incision. PLEASE NOTIFY OUR OFFICE at [phone] if you: -Develop a fever of 101 degrees Fahrenheit, or higher. -Have increasing pain. -See redness or swelling around the incision. MEDICATION -Medications per Medication Reconciliation List. -Over the counter medications such as Acetaminophen and others may be used as directed for pain unless prescription was provided. Do NOT exceed 4 grams of Acetaminophen in a 24 hour period. -DO NOT use ibuprofen or NSAIDs unless directed by physician, as they may increase risk of bleeding. OTHER INSTRUCTIONS -No smoking as this increases post-operative complication rate. FOLLOW UP -Call the office at [phone] for a follow up appointment 1 week. * AFTER HOURS PHONE NUMBER [phone] *[facility] Work Phone: Progress note No data available for this section [facility] Summary Purpose Family History No Family History Records Found Relationship Condition Age at Onset Recorded Date/T alexandro family member Family history of other condition Unknow n Not Specified Myocardial infarction Unknown father Non-Hodgkin's lymphoma Unknown brother Heart disease Unknown sister Pulmonary hypertension Unknown Relationship Condition Age at Onset Recorded Date/T alexandro Not Specified Myocardial infarction Unknown father Non-Hodgkin's lymphoma Unknown brother Heart disease Unknown sister Pulmonary hypertension Unknown Leaky heart valve Unknown Relationship Condition Age at Onset Recorded Date/T alexandro Not Specified Malignant neoplasm of breast Unknown Not Specified Myocardial infarction Unknown father Non-Hodgkin's lymphoma Unknown brother Heart disease Unknown sister Pulmonary hypertension Unknown Leaky heart valve Unknown Relationship Condition Age at Onset Recorded Date/T alexandro Not Specified Malignant neoplasm of breast Unknown mother Myocardial infarction Unknown father Non-Hodgkin's lymphoma Unknown brother Heart disease Unknown sister Pulmonary hypertension Unknown Leaky heart valve Unknown Advance Directives No Advanced Directives Records Found Advance Directive Response Recorded Date/ Time Advance Directives No November 03, 2023 4:39pm Chief Complaint and Reason for Visit Chief Complaint E78.5 I48.0 Amb Documentation I48.0 Wellness visit [place] R73.03;R63.5 Macromastia Macromastia left ankle and foot swelling Reason for Visit Screening for metabo lic disorder Well adult exam HLD (hyperlipidemia) HTN (hypertension) Obesity (BMI 30.0-34.9) Pre-diabetes Additional Source Comments INFORMATION SOURCE (unrecogn ized section and content) DATE CREATED AUTHOR 05/27/2020 [facility] DATE CREATED AUTHOR AUTHOR'S ORGANIZ ATION 08/24/2023 [facility] DATE CREATED AUTHOR AUTHOR'S ORGANIZ ATION 04/10/2024 [facility] Care Teams (unrecognized sec tion and content) Team Status: Active Member Role Status Dates Nathan Mahmood DO Specialist Active Livan Silver MD Specialist Active Tameka Perez APRN Primary Care Provider Active Team Status: Active Member Role Status Dates Provider Conversion Attending Provider Active St art: November 04, 2023 Team Status: Active Member Role Status Dates Tameka Perez APRN Primary Care Provider Active Start: November 29, 2023 NEVIN Gifford Attending Provider Active St art: November 29, 2023 Team Status: Active Member Role Status Dates Tameka Perez APRN Primary Care Provider Active Start: December 16, 2023 Heather Mccann LPN Attending Provider Active S tart: December 16, 2023 Team Status: Inactive Member Role Status Dates Tameka Perez APRN Primary Care Provider Active Start: December 29, 2023 End: December 29, 2023 Livan Silver MD Attending Provider Activ e Start: December 29, 2023 End: December 29, 2023 Team Status: Inactive Member Role Status Dates Tameka Perez APRN Primary Care Provider Active Start: January 01, 2024 End: January 01, 2024 Referral Self Attending Provider Active Start: Fernando loja 2023 End: January 01, 2024 Herbie Vila MD Referring Provider Active Start: January 01, 2024 End: January 01, 2024 Team Status: Inactive Member Role Status Dates Tameka Perez APRN Primary Care Provider Active Start: January 12, 2024 End: January 12, 2024 Livan Silver MD Attending Provider Activ e Start: January 12, 2024 End: January 12, 2024 Team Status: Active Member Role Status Dates Tameka Perez APRN Primary Care Pr ovider, Attending Provider Active Start: January 13, 2024 Team Status: Inactive Member Role Status Dates Tameka Perez APRN Primary Care Provider Active Start: January 18, 2024 End: January 18, 2024 Livan Silver MD Attending Provider Activ e Start: January 18, 2024 End: January 18, 2024 Team Status: Active Member Role Status Dates Tameka Perez APRN Primary Care Provider Active Team Status: Active Member Role Status Dates Provider Conversion Attending Provider Active St art: November 04, 2023 Team Status: Active Member Role Status Dates Tameka Perez APRN Primary Care Provider Active Start: November 29, 2023 NEVIN Gifford Attending Provider Active St art: November 29, 2023 Team Status: Active Member Role Status Dates Tameka Perez APRN Primary Care Provider Active Start: December 16, 2023 Heather Mccann LPN Attending Provider Active S tart: December 16, 2023 Team Status: Inactive Member Role Status Dates Tameka Perez APRN Primary Care Provider Active Start: December 29, 2023 End: December 29, 2023 Livan Silver MD Attending Provider Activ e Start: December 29, 2023 End: December 29, 2023 Goals (unrecognized section and content) Goals may be documented in a n alternate section FOR RECORDS PERTAINING TO PATIENTS WHO ARE OR HAVE BEEN ENROLLED IN A CHEMICAL DEPENDENCY/SUBSTANCEABUSE PROGRAM, SOME INFORMATION MAY BE OMITTED. This clinical summary was aggregated from multiple sources. Caution should be exercised in using it in the provision of clinical care. This summary normalizes information from multiple sources, and as a consequence, information in this document may materially change the coding, format and clinical context of patient data. In addition, data may be omitted in some cases. CLINICAL DECISIONS SHOULD BE BASED ON THE PRIMARY CLINICAL RECORDS. [facility] [facility]. provides no warranty or guarantee of the accuracy or completeness of information in this document.
[2024-05-22 14:16] VITALS: BP 130/74; PULSE 58; O2SAT 99
== END 2024-05-22 15:46 | disposition home or self-care (01) ==
LOC: VC 13:55
PROVIDERS: PCP Radiology Diagnostic Radiology; Visit Provider Radiology Diagnostic Radiology
DX: I83.813 Varicose veins of bilateral lower extremities with pain (principal)
CPT/HCPCS: 36478

== ENCOUNTER 2024-05-29 07:28 | Outpatient (OUT) | payer BC, SELFPAY ==
--- NOTE | 2024-05-29 07:29 | VEIN_ITS ---
Patient Name: JACQUES RIVERA MR#: [id number] : 1965 Exam Date: 05/29/2024 Ordering Doctor: DR BRETT PINEDO M.D. RADIOLOGY REPORT PROCEDURE: [facility] EST [facility] VEIN CENTER - OFFICE VISIT FOLLOW UP COMPARISON: None. PROGRESS NOTES: The patient reports no significant problems following intravenous laser ablation of the left great saphenous vein. The patient has worn compression stocking as directed per the patient's exercise daily per the patient require oral analgesics. Physical exam demonstrates 2 small areas of mild bruising in the medial left thigh likely related to tumescence injection measuring 4 cm in diameter. The incision is sealed. No erythema warmth or ulceration to suggest cellulitis or thrombophlebitis . A thrombosed left great vein cannot be palpated. Review of the ultrasound performed the same day demonstrates occlusive thrombus extending throughout the treated left great saphenous vein with heat induced thrombus 2.0 cm from the saphenofemoral junction. No deep vein thrombus. The patient expressed a desire to proceed with treatment of incompetent right great saphenous vein. VEIN/[facility] EST TD IMPRESSION: 1. Successful ablation of the left great saphenous vein. 2. Persistent incompetent right great saphenous vein. PLAN: Intravenous laser ablation right great saphenous vein Nurse notes, history and physical were reviewed and confirmed, see attached forms. The nurse was present throughout the physical exam and consultation Dictated by: Brett Pinedo MD on 05/29/2024 at 08:53 Approved by: Brett Pinedo MD on 05/29/2024 at 08:55
--- NOTE | 2024-05-29 07:29 | VEIN_ITS ---
Patient Name: JACQUES RIVERA MR#: [id number] : 1965 Exam Date: 05/29/2024 Ordering Doctor: DR BRETT PINEDO M.D. RADIOLOGY REPORT PROCEDURE: VC EXT VENOUS LT LIMITED COMPARISON: None. INDICATIONS: I80.02 - Phlebitis and thrombophlebitis of superficial veins left leg TECHNIQUE: Lower extremity vargas scale and Duplex Doppler evaluation of the deep venous system from the inguinal ligament through the calf veins. FINDINGS: REGION: Left lower extremity. THROMBI: Negative for DVT. Heat induced thrombus in left GSV 2.0 cm from SFJ and extends to distal thigh. COMPRESSIBILITY: Non-compressible segments corresponding to thrombus FLOW: Areas of no flow corresponding to thrombus CONCLUSION: Post ablation occlusion of the left great saphenous vein with heat induced thrombus 2 point cm from the saphenofemoral junction Dictated by: Brett Pinedo MD on 05/29/2024 at 08:52 Approved by: Brett Pinedo MD on 05/29/2024 at 08:53
--- OUTSIDE RECORDS SUMMARY | 2024-05-29 07:30 | XMS_ITS | CCD ---
Author Organization [facility] Care Team Providers Care Publicity Consultant Name Role Phone NONE, XXXX Primary Care Physician Unavailab Gregg Edwards Attending Unavailable AQUILES Perez Primary Care Provider MD Livan Silver Attending Provider Self, Referral Attending Provider Unavailable MD Herbie Vila Referring Provider AQUILES Perez Referring Provider MD Ventura German Attending Provider MD Herbie Vila Attending Provider [phone] AQUILES Perez Primary Care Provider [phone] MD Livan Silver Attending Provider Herbie Vila [...] Agents (2 sources) gabapentin Drug Allergy 4 [facility] Nitrofurantoin (2 sources) Nitrofurantoin Drug Allergy 4 Chest Pain [facility] NSAIDs (2 sources) Ketorolac Drug Allergy 4 Anaphylaxis [facility] Opioid Agonists (2 sources) Codeine Drug Allergy 4 [facility] (10 sources) Codeine; Translations: [codeine] Drug Allergy 4 [facility] (10 sources) gabapentin; Translations: [gabapentin] Drug Allergy 4 [facility] (10 sources) Ketorolac; Translations: [ketorolac] Drug Allergy 4 Anaphylaxis [facility] (10 sources) Nitrofurantoin; Translations: [nitrofurantoin] Drug Allergy 4 Chest Pain [facility] (1 source) Codeine Drug Allergy 4 [facility] Repository Medications Current Medications Medication Drug Class(es) Dates Sig (Normalized) Sig (Original) Albuterol (Eqv-ProAir HFA) 90 mcg/inh inhalation aerosol (1 source) Start: 08-23-2023 End: 08-30-2023 take 2 puff(s) by inhalation every six hours Albuterol (Eqv-ProAir HFA) 90 mcg/inh inhalation aerosol 2 puff(s), Inhalation, q6hr for 7 day(s), 6.7 gm, Refill(s) 0, [facility]/pharmacy #[id number], 165, cm, 08/23/23 9:07:00 EST, Height/Length [...] day(s), # 7 tab(s), Refills(s) 0, Pharmacy: [facility]/pharmacy #[id number], 165, cm, 08/23/23 9:07:00 EST, Height/Length [...] Test Name Value Interpretation Reference Range Facility [facility] 02-24-2024 L Specimen: [id number] Received: 02/24/24 Status: RACHEL Carlson Num: [id number] Spec Type: Surgical Subm Dr: Herbie Vila MD Tissues: A Breast Reduction - Mammoplasty (SRT) B Breast Reduction - Mammoplasty (LT) Procedures: HE/6, Gross/Micro L4/2 Age/ Patient Sex Location Account Attending Physician Etelvina Luciano 58/F [place] [id number] Herbie Vila MD SPEC NUM: [id number] RECD: 02/24/24 STATUS: RACHEL RAMÍREZJessica NUM: [id number] JESSICA: 02/24/[address]: Herbie Vila MD ENTERED: 02/24/[address] [facility] [address]: SPEC TYPE: Surgical DEPT: S [...] No discrete masses or lesions are present. [employer] [place] sections are submitted in A1 (skin); A2-A3 (parenchyma). -------- Specimen: [id number] Received: 02/24/24 Status: RACHEL Robyn Num: [id number] Spec Type: Surgical Subm Dr: Herbie Vila MD Tissues: A Breast Reduction - Mammoplasty (SRT) B Breast Reduction - Mammoplasty (LT) Procedures: ELLEPriscila/Lily L4/2 -------- Patient: Etelvina Luciano [id number] (Continued) -------- Specimen: [id number] Received: 02/24/24 (Continued) Gross Description (Continued) Signed (signature on file) Jun Benavides MD 02/28/241955 -------- Specimen: [id number] Received: 02/24/24 Status: RACHEL Carlson Num: [id number] Spec Type: Surgical Subm Dr: Herbie Vila MD Tissues: A Breast Reduction - Mammoplasty (SRT) B Breast Reduction - Mammoplasty (LT) Procedures: Priscila/Micro L4/2 -------- Patient: Etelvina Luciano [id number] (Continued) -------- Specimen: [id number] Received: 02/24/24 (Continued) Gross Description (Continued) B. [...] No discrete masses or lesions are present. [employer] [place] sections are submitted in B1 (skin); B2?B3 (parenchyma). TW CPT Codes 10284R0 -------- -------- Specimen: [id number] Received: 02/24/24 Status: RACHEL Carlson Num: [id number] Spec Type: Surgical Subm Dr: Herbie Vila MD Tissues: A Breast Reduction - Mammoplasty (SRT) B Breast Reduction - Mammoplasty (LT) Procedures: HE/Priscila [place]/Lily L4/2 -------- Patient: Etelvina Luciano [id number] (Continued) -------- Signed (signature on file) Jun Benavides MD 02/28/241955 Normal [facility] Alanine aminotransferase [En zymatic activity/volume] in Serum or PlasmaOrdered By: Tameka Perez on 02-03-2024 ALT [Catalytic activity/Vol] 11 U/L Normal 7-52 [facility] Comment on above: Performed By: #### C MP wRFX A1C #### [facility] [address] Albumin [Mass/volume] in Ser um or Plasma by Bromocresol green (BCG) dye binding methoOrdered By: Tameka Perez on 02-03-2024 Albumin BCG dye [Mass/Vol] 3.9 g/dL 3.5-5.7 [facility] Alkaline phosphatase [Enzyma tic activity/volume] in Serum or PlasmaOrdered By: Tameka Perez on 02-03-2024 ALP [Catalytic activity/Vol] 80 U/L Normal 34-104 [facility] Comment on above: Result Comment: PERF ORMED BY: [place] [address] PATHOLOGIST SURVEILLANCE SENSOR OPERATOR FERMIN MARTINEZ M.D. Performed By: #### C MP wRFX A1C #### [address] Aspartate aminotransferase [ Enzymatic activity/volume] in Serum or PlasmaOrdered By: Tameka Perez on 02-03-2024 AST [Catalytic activity/Vol] 14 U/L Normal 13-39 [facility] Comment on above: Performed By: #### C MP wRFX A1C #### [address] Bilirubin.total [Mass/volume ] in Serum or PlasmaOrdered By: Tameka Perez on 02-03-2024 Bilirubin [Mass/Vol] 0.3 mg/dL Normal 0.3-1.0 [facility] Comment on above: Performed By: #### C MP wRFX A1C #### [address] CMP with reflex to A1Con Albumin [Mass/Vol] 3.9 g/dL Normal 3.5-5.7 [facility] Comment on above: Performed By: #### C MP wRFX A1C #### [place] [address] [place] GFR/1.73 sq M.predicted MDRD (S/P/Bld) [Vol rate/Area] mL/min/{1.73_m2} Normal [facility] Comment on above: Performed By: #### C MP wRFX A1C #### [place] [address] [place] Calcium [Mass/volume] in Ser um or PlasmaOrdered By: Tameka Perez on 02-03-2024 Calcium [Mass/Vol] 8.8 mg/dL Normal 8.6-10.3 [facility] Comment on above: Performed By: #### C MP wRFX A1C #### [place] [address] [place] Carbon dioxide, total [Moles /volume] in Serum or PlasmaOrdered By: Tameka Perez on 02-03-2024 CO2 [Moles/Vol] 28.7 mmol/L Normal 21.0-31.0 [facility] Comment on above: Performed By: #### C MP wRFX A1C #### [facility] [address] [place] [address] [place] Chloride [Moles/volume] in S sanjay or PlasmaOrdered By: Tameka Perez on 02-03-2024 Chloride [Moles/Vol] 110 mmol/L High 98-107 [facility] Comment on above: Performed By: #### C MP wRFX A1C #### [facility] [address] [place] [address] [place] Creatinine [Mass/volume] in Serum or PlasmaOrdered By: Tameka Perez on 02-03-2024 Creatinine [Mass/Vol] 0.61 mg/dL Normal 0.60-1.20 [facility] Comment on above: Performed By: #### C MP wRFX A1C #### [facility] [address] [place] [address] [place] Glucose [Mass/volume] in Ser um or PlasmaOrdered By: Tameka Perez on 02-03-2024 Glucose [Mass/Vol] 95 mg/dL Normal 70-100 [facility] Comment on above: Performed By: #### C MP wRFX A1C #### [facility] [address] [place] [address] [place] No Panel InformationOrdered By: Tameka Perez on 02-03-2024 Estimated GFR (CKD-EPI) > 60.0 mL/Min [facility] Creatinine Clearance (Chem N/A [facility] Potassium [Moles/volume] in Serum or PlasmaOrdered By: Tameka Perez on 02-03-2024 Potassium [Moles/Vol] 4.0 mmol/L Normal 3.5-5.1 [facility] Comment on above: Performed By: #### C MP wRFX A1C #### [facility] [address] [place] [address] [place] Protein [Mass/volume] in Ser um or PlasmaOrdered By: Tameka Perez on 02-03-2024 Protein [Mass/Vol] 5.9 g/dL Low 6.4-8.9 [facility] Comment on above: Performed By: #### C MP wRFX A1C #### [address] Serum globulin measurement b y calculation (mass/volume)Ordered By: Tameka Perez on 02-03-2024 Globulin (S) [Mass/Vol] 2.0 g/dL Normal F [facility] Comment on above: Performed By: #### C MP wRFX A1C #### [address] Serum or plasma albumin/glob ulin mass ratioOrdered By: Tameka Perez on 02-03-2024 Albumin/Globulin [Mass ratio] 2.0 {ratio} Normal [facility] Comment on above: Performed By: #### C MP wRFX A1C #### [address] Serum or plasma anion gap de terminationOrdered By: Tameka Perez on 02-03-2024 Anion gap [Moles/Vol] 9.3 mmol/L Normal 6.0-15.0 [facility] Comment on above: Performed By: #### C MP wRFX A1C #### [address] Sodium [Moles/volume] in Ser um or PlasmaOrdered By: Tameka Perez on 02-03-2024 Sodium [Moles/Vol] 144 mmol/L Normal 136-145 [facility] Comment on above: Performed By: #### C MP wRFX A1C #### [address] Thyrotropin [Units/volume] i n Serum or PlasmaOrdered By: Ventura German on 02-03-2024 TSH Qn 0.97 m[IU]/L Normal 0.45-5.33 [facility] Comment on above: Result Comment: PERF ORMED BY: [place] [address] PATHOLOGIST SURVEILLANCE SENSOR OPERATOR FERMIN MARTINEZ M.D. Performed By: #### T SH3 #### [facility] [address] [place] [address] Urea nitrogen [Mass/volume] in Serum or PlasmaOrdered By: Tameka Perez on 02-03-2024 Urea nitrogen [Mass/Vol] 16 mg/dL Normal 7-25 [facility] Comment on above: Performed By: #### C MP wRFX A1C #### [facility] [address] [place] [address] MM screening mammo BI w/CADo n 01-19-2024 MM screening mammo BI w/CAD [facility] [place] [address] [place] [address] Mammography Report Signed Patient: Etelvina Luciano MR#: [id number] 5 : 1965 Acct:[id number] Age/Sex: 58 / F ADM Date: 01/01/24 Loc: IN Room: Type: [facility] Attending Dr: Referral Self Copies to: [...] Ibarra Jr., D.OSteven01/19/2024 8:48 AM Dictation Location: [facility] Transcribed By: [facility] 01/19/24847 Dictated By: Low Ibarra Jr, DO 01/19/2447 Signed By: 01/19/24847 Normal [facility] echo transthoracicon [facility] echo transthoracic [facility] [place] [address] Echocardiogram Signed Patient: Etelvina Luciano MR#: [id number] 5 : 1965 Acct:[id number] Age/Sex: 58 / F ADM Date: 01/18/24 Loc: Room: Type: [facility] Attending Dr: Livan Silver MD Ordering Provider: Livan Silver MD Date of Service: 01/18/24 [facility] transthoracic: I48.0 - Paroxysmal atrial [...] mmHg Transcribed By: SCV Performed At: 01/18/24 1347 Signed By: Livan Silver MD 01/18/24 6097 Normal [facility] Cholesterol [Mass/volume] in Serum or PlasmaOrdered By: Livan Silver on 01-12-2024 Cholesterol [Mass/Vol] 144 mg/dL Normal 140-200 [facility] Comment on above: Chol less than 200 m g/dl low riskChol 201-239 mg/dl borderline riskChol 240 mg/dl and greater high risk Result Comment: Chol less than 200 mg/dl low risk Chol 201-239 mg/dl borderline risk Chol 240 mg/dl and greater high risk Performed By: #### L IPID #### [facility] [address] [place] [address] [place] Cholesterol in LDL Calc [Mas s/Vol]Ordered By: Livan Silver on 01-12-2024 Cholesterol in LDL [Mass/Vol] 59 mg/dL 0-100 [facility] Comment on above: LDL ATP III CLASSIFI CATIONLDL less than 100 mg/dL OptimalLDL 100-129 mg/dL Near or above optimalLDL 130-159 mg/dL Borderline highLDL 160-189 mg/dL HighLDL greater than 189 mg/dL Very high Cholesterol in VLDL Calc [Ma ss/Vol]Ordered By: Livan Silver on 01-12-2024 Cholesterol in VLDL [Mass/Vol] 14 mg/dL [facility] Lipid Panelon 01-12-2024 LDL Cholesterol,Calculated 59 mg/dL Normal 0-100 [facility] Comment on above: Result Comment: LDL ATP III CLASSIFICATION LDL less than 100 mg/dL Optimal LDL 100-129 mg/dL Near or above optimal LDL 130-159 mg/dL Borderline high LDL 160-189 mg/dL High LDL greater than 189 mg/dL Very high Performed By: #### L IPID #### [facility] [address] [place] [address] [place] Triglyceride w/Reflex 70 mg/dL Normal 0-149 [facility] Comment on above: Result Comment: TRIG ATP III CLASSIFICATION TRIG less than 150 mg/dL Normal TRIG 150-199 mg/dL Borderline high TRIG 200-500 mg/dL High TRIG greater than 500 mg/dL Very high Standard traceable to the Center for Disease Conrtrol and Prevention (CDC) test method. Performed By: #### L IPID #### [facility] [address] [place] [address] [facility] VLDL CHOLESTEROL 14 mg/dL Normal [facility] Comment on above: Performed By: #### L IPID #### [facility] [address] [place] [address] Serum or plasma high density lipoprotein (HDL) cholesterol measurementOrdered By: Livan Silver on 01-12-2024 Cholesterol in HDL [Mass/Vol] 71 mg/dL Normal 23-92 [facility] Comment on above: HDL CHOL ATP-III CLA SSIFICATION Cardiovascular RiskHDL > or equal to 60 mg/dL LOWHDL < 40 mg/dL HIGH Result Comment: HDL CHOL ATP-III CLASSIFICATION Cardiovascular Risk HDL > or equal to 60 mg/dL LOW HDL < 40 mg/dL HIGH Performed By: #### L IPID #### [address] Serum or plasma total choles terol/high density lipoprotein (HDL) cholesterol mass ratOrdered By: Livan Silver on 01-12-2024 Cholesterol.total/Cristina sterol in HDL [Mass ratio] 2.0 {ratio} Normal <5.0 [facility] Comment on above: Result Comment: PERF ORMED BY: [place] [address] PATHOLOGIST SURVEILLANCE SENSOR OPERATOR FERMIN MARTINEZ M.D. Performed By: #### L IPID #### [address] Triglyceride [Mass/volume] i n Serum or PlasmaOrdered By: Livan Silver on 01-12-2024 Triglyceride [Mass/Vol] 70 mg/dL 0-149 [facility] Comment on above: TRIG ATP III CLASSIF ICATIONTRIG less than 150 mg/dL NormalTRIG 150-199 mg/dL Borderline highTRIG 200-500 mg/dL High TRIG greater than 500 mg/dL Very highStandard traceable to the Center for Disease Conrtrol and Prevention (CDC) test method. [facility] ECG *OFFICE ONLY*on 12-03 [facility] ECG *OFFICE ONLY* [facility] [place] [address] [place] [address] Electrocardiograph Report Signed Patient: Etelvina Luciano MR#: [id number] 5 : 1965 Acct:[id number] Age/Sex: 58 / F ADM Date: 12/29/23 Loc: EKGCARDIO Room: Type: [facility] Attending Dr: Livan Silver MD Ordering [...] previous ECGs available Confirmed by Livan Silver ([id number]) on 01/12/2024 5:44:25 PM Referred By: Electronically Signed By:Livan Silver Transcribed By: MUS Signed By Livan Silver MD 01/12/24 1744 Normal [facility] Auto Diffon 08-23-2023 Basophils/100 WBC (Bld) 0.7 % Normal 0.0-2.0 [facility] Comment on above: Order Comment: Order Added by Discern Expert. Performed By: #### 2 892813, 17608585, 73529858, 84797460, 7915077, 98361950, 3609353 #### [facility] [address] [place] [address] Basophils/Leukocytes Auto (Bld) [Pure # fraction] 0.1 E9/L Normal 0.0-0.2 [facility] Comment on above: Order Comment: Order Added by Discern Expert. Performed By: #### 2 061037, 66226948, 51875153, 28664938, 9752589, 06165619, 4708099 #### [facility] [address] [place] [address] Eosinophils/100 WBC (Bld) 1.2 % Normal 0.0-8.0 [facility] Comment on above: Order Comment: Order Added by Discern Expert. Performed By: #### 2 054005, 78024069, 00813135, 23445813, 9337459, 09704690, 5611941 #### [facility] [address] [place] [address] Eosinophils/Leukocytes Auto (Bld) [Pure # fraction] 0.1 E9/L Normal 0.0-0.5 [facility] Comment on above: Order Comment: Order Added by Discern Expert. Performed By: #### 2 908499, 49257682, 22763183, 85863571, 6007851, 89483894, 9878431 #### [facility] [address] [place] [address] Lymphocytes/100 WBC (Bld) 18.3 % Normal 14.0-50.0 [facility] Comment on above: Order Comment: Order Added by Discern Expert. Performed By: #### 2 974098, 50762028, 24778346, 70535035, 2296860, 56248953, 2575056 #### [facility] [address] [place] [address] Lymphocytes/Leukocytes Auto (Bld) [Pure # fraction] 1.3 E9/L Normal 1.0-4.0 [facility] Comment on above: Order Comment: Order Added by Discern Expert. Performed By: #### 2 768065, 33349276, 31516260, 65392890, 7325103, 91207542, 0281721 #### [facility] [address] [place] [address] Monocytes/100 WBC (Bld) 11.9 % Normal 4.0-14.0 [facility] Comment on above: Order Comment: Order Added by Discern Expert. Performed By: #### 2 887931, 94197112, 81587225, 79734393, 9366271, 58359324, 7522119 #### [facility] [address] [place] [address] Monocytes/Leukocytes Auto (Bld) [Pure # fraction] 0.9 E9/L Normal 0.2-1.0 [facility] Comment on above: Order Comment: Order Added by Discern Expert. Performed By: #### 2 307679, 14832498, 62998221, 31762528, 3818649, 52885600, 8217162 #### [facility] [address] [place] [address] Neutrophils/100 WBC (Bld) 67.9 % Normal 36.0-75.0 [facility] Comment on above: Order Comment: Order Added by Discern Expert. Performed By: #### 2 334065, 73458085, 07094949, 10677000, 0852673, 45579226, 1865427 #### [facility] [address] [place] [address] Neutrophils/Leukocytes Auto (Bld) [Pure # fraction] 4.9 E9/L Normal 2.0-7.5 [facility] Comment on above: Order Comment: Order Added by Discern Expert. Performed By: #### 2 924921, 58878440, 45042080, 70170524, 5779105, 06682041, 5547838 #### [facility] [address] [place] [address] BMPon 08-23-2023 Creatinine [Mass/Vol] 0.7 mg/dL Normal 0.5-1.3 [facility] Comment on above: Performed By: #### 2 430728, 08928471, 85637709, 00591071, 2607673, 60338365, 8280499 #### [facility] [address] [place] [address] Urea nitrogen [Mass/Vol] 12 mg/dL Normal 5-21 [facility] Comment on above: Performed By: #### 2 093683, 84077783, 13242008, 98509772, 6150472, 97690914, 1477041 #### [facility] [address] [place] [address] Urea nitrogen/Creatinine [Mass ratio] 17 No Units Normal 10-20 [facility] Comment on above: Performed By: #### 2 409919, 34126018, 15826423, 89250615, 4120085, 11038761, 4411541 #### [facility] [address] [place] [address] Anion gap [Moles/Vol] 12 mmol/L Normal 6-16 [facility] Comment on above: Performed By: #### 2 147459, 80968454, 46190564, 16892670, 8807608, 18768110, 3126516 #### [facility] [address] [place] [address] Calcium [Mass/Vol] 9.1 mg/dL Normal 8.9-11.1 [facility] Comment on above: Performed By: #### 2 330299, 78128303, 57252645, 04517798, 1883979, 91666541, 5390963 #### [facility] [address] [place] [address] Chloride [Moles/Vol] 108 mmol/L Normal 101-111 [facility] Comment on above: Performed By: #### 2 524799, 93376138, 03261801, 62644805, 6372187, 36779537, 7585097 #### [facility] [address] [place] [address] CO2 [Moles/Vol] 24 mmol/L Normal 21-31 [facility] Comment on above: Performed By: #### 2 782960, 86737424, 42459753, 31332102, 7120732, 53853756, 5401991 #### [facility] [address] [place] [address] Glucose [Mass/Vol] 103 mg/dL Normal 55-199 [facility] Comment on above: Result Comment: If t his glucose result represents a fasting glucose, interpretation should refer to the following reference range: 55-99 mg/dL Performed By: #### 2 282795, 79441301, 56880684, 37489805, 6871352, 72580998, 5717473 #### [facility] [address] [place] [address] Potassium [Moles/Vol] 3.6 mmol/L Normal 3.5-5.3 [facility] Comment on above: Performed By: #### 2 292083, 62730281, 18909585, 80462096, 5404576, 15726953, 2469633 #### [facility] [address] [place] [address] Sodium [Moles/Vol] 140 mmol/L Normal 135-145 [facility] Comment on above: Performed By: #### 2 992641, 35921618, 34247472, 97499912, 6496132, 71647941, 0396170 #### [facility] [address] [place] [id number] BNPon 08-23-2023 Int Ctr BNP Pass Normal [facility] Comment on above: Performed By: #### 2 996821, 40661286, 79463701, 23481974, 5710142, 94453986, 4802713 #### [facility] [address] [place] [id number] Natriuretic peptide B (Bld) [Mass/Vol] 72 pg/mL Normal 5-80 [facility] Comment on above: Performed By: #### 2 218310, 56605089, 24010970, 93758333, 5406008, 45994908, 1192891 #### [facility] [address] [place] [address] CBC w/ Auto Diffon Erythrocyte distribution width (RBC) [Ratio] 13.0 % Normal 10.9-14.2 [facility] Comment on above: Performed By: #### 2 967961, 55303774, 06302405, 13078406, 5457971, 58489008, 1894899 #### [facility] [address] [place] [address] Hematocrit (Bld) [Volume fraction] 42.4 % Normal 34.0-46.0 [facility] Comment on above: Performed By: #### 2 563940, 97154724, 79045231, 72409666, 6224626, 69295135, 8513570 #### [facility] [address] [place] [address] Hemoglobin (Bld) [Mass/Vol] 14.3 g/dL Normal 12.0-16.0 [facility] Comment on above: Performed By: #### 2 734618, 43897395, 04177013, 35366479, 7555246, 64174166, 3653431 #### [facility] [address] [place] [address] MCH (RBC) [Entitic mass] 29.5 pg Normal 27.0-34.0 [facility] Comment on above: Performed By: #### 2 689037, 60875233, 42663869, 23277939, 2560408, 57991167, 8641583 #### [facility] [address] [place] [address] MCHC (RBC) [Mass/Vol] 33.6 g/dL Normal 31.4-36.0 [facility] Comment on above: Performed By: #### 2 136600, 31850519, 53377427, 38441686, 0688614, 99026167, 3900340 #### [facility] [address] [place] [address] MCV (RBC) [Entitic vol] 87.8 fL Normal 80.0-100.0 [facility] Comment on above: Performed By: #### 2 500773, 61740698, 10533929, 00420472, 4939671, 32988718, 5483044 #### [facility] [address] [place] [address] Platelet mean volume (Bld) [Entitic vol] 8.5 fL Normal 6.4-10.8 [facility] Comment on above: Performed By: #### 2 426239, 21799317, 62148669, 83703811, 5258978, 21892492, 6213976 #### [facility] [address] [place] [address] Platelets (Bld) [#/Vol] 245.0 E9/L Normal 150.0-500.0 [facility] Comment on above: Performed By: #### 2 071466, 09106137, 27878813, 62071183, 4806762, 18131688, 1699951 #### [facility] [address] [place] [address] RBC (Bld) [#/Vol] 4.8 E12/L Normal 4.3-5.9 [facility] Comment on above: Performed By: #### 2 875177, [id number], [id number], [id number], [id number], [id number], [id number] #### [facility] [address] [place] [address] WBC corrected for nucl RBC Auto (Bld) [#/Vol] 7.2 E9/L Normal 4.0-11.0 [facility] Comment on above: Performed By: #### 2 [id number], [id number], [id number], [id number], [id number], [id number], [id number] #### [facility] [address] [place] [address] CHEMISTRYOrdered By: SYSTEM SYSTEM on 08-23-2023 Anion gap [Moles/Vol] 12 mmol/L Normal 6 - 16 mEq/L [facility] Remisol Calcium [Mass/Vol] 9.1 mg/dL Normal 8.9 - 11. 1 mg/dL [facility] Remisol Chloride [Moles/Vol] 108 mmol/L Normal 101 - 1 11 mmol/L [facility] Remisol CO2 [Moles/Vol] 24 mmol/L Normal 21 - 31 mmol/L [facility] Remisol Creatinine [Mass/Vol] 0.7 mg/dL Normal 0.5 - 1.3 mg/dL [facility] Remisol GFR/1.73 sq M.predicted among non-blacks MDRD (S/P/Bld) [Vol rate/Area] 100 mL/min/1.73 m2 Normal >=59mL/min/1 .73 m2 [facility] Chem S Comment on above: Interpretive Data: C hronic kidney disease could be indicated at eGFR's of less than 60 mL/min/1.73m2. Kidney failure is indicated at less than 15 mL/min/1.73m2. Glucose [Mass/Vol] 103 mg/dL Normal 55 - 199 mg/dL [facility] Remisol Comment on above: Interpretive Data: I f this glucose result represents a fasting glucose, interpretation should refer to the following reference range: 55-99 mg/dL Potassium [Moles/Vol] 3.6 mmol/L Normal 3.5 - 5.3 mmol/L [facility] Remisol Sodium [Moles/Vol] 140 mmol/L Normal 135 - 145 mmol/L [facility] I.cardiac [Mass/Vol] 6.00 pg/mL Low 10.10 - 27.10 pg/mL [facility] Comment on above: Interpretive Data: T elle 95% CI (Confidence Interval) PPV (Positive Predictive Value) for myocardial infarction in females is 38 pg/mL, in males 51 pg/mL. The results should be used in conjunction with clinical conditions of myocardial infarction. (Access High Sensitivity Troponin I Instructions For Use, [place], May 2018) Urea nitrogen [Mass/Vol] 12 mg/dL Normal 5 - 21 mg/dL [facility] Remisol Urea nitrogen/Creatinine [Mass ratio] 17 mg/mg Normal 10 - 20 [facility] Remisol CHEMISTRYOrdered By: Kerry shannon on 08-23-2023 Natriuretic peptide B (Bld) [Mass/Vol] 72 pg/mL Normal 5 - 80 pg/mL [facility] COAGULATIONOrdered By: Juana Aggarwal on 08-23-2023 aPTT Coag (PPP) [Time] 28.9 s Normal 25.1 - 36.5 second(s) [facility] Auto Coag Comment on above: Interpretive Data: [...] the same coagulation reagent and instrumentation as [facility]. Currently there are no coagulation studies available worldwide for children to 14 days, and no normal ranges. Heparin therapeutic range (represented by Anti-Factor Xa activity of 0.2 - 0.4 U/mL) corresponds to PTT of 56.6 - 109.0 sec. INR Coag (PPP) [Relative time] 1.2 {INR} Invalid Interpretation Code [facility] Auto Coag Comment on above: Interpretive Data: I NR results are specifically intended to assess patients stabilized on long-term Anticoagulation therapy suggested INR s Less Intensive Anticoagulation 2.0 3.0 Conventional Range 3.0 4.5 PT Coag (PPP) [Time] 12.8 s High 9.4 - 1 2.5 second(s) [facility] Auto Coag Comment on above: Interpretive Data: [...] the same coagulation reagent and instrumentation as [facility]. Currently there are no coagulation studies available worldwide for children to 14 days, and no normal ranges. Consent for Treatmenton 08-05 Consent for Treatment [id number] .00TIFF Normal [facility] Discharge Instructionson Discharge Instructions [id number]# 1.00TIFF Normal [facility] ED Clinical Summaryon 2022 ED Clinical Summary [place] [address] ED Clinical Summary Person Information Name: ETELVINA LUCIANO [facility] Age: 58 Years : 1965 Sex: Female Language: Portuguese PCP: NONE, XXXX Marital Status: Phone: [phone] Visit Id: Visit Reason: Palpitations; Throat pain [...] 08/23/2023 10:42:57 08/23/2023 10:42:57 08/23/2023 10:42:57 ADDRESS: [address] [place] [address] [address] [facility] [id number] PHYS DOC NOTES: MEDICAL INFORMATION: Prescriptions Given: New Medications [id number], [address] [place] [id number], [phone] albuterol (Albuterol (Eqv-ProAir HFA) 90 mcg/inh inhalation aerosol) 2 Puffs Inhalation every 6 hours for 7 Days. Refills: 0. dexamethasone (dexamethasone 6 mg oral tablet) 1 Tablets By Mouth every day for 7 Days. Refills: 0. PATIENT EDUCATION INFORMATION: Instructions: Follow up: With: Address: When: Jessica Carbajal [address] [place] [address] Business (1) In 3 days 08/26/2023 With: Address: When: XXXX NONE , [place] In 3 days DIAGNOSIS: Bronchospasm; COVID; Palpitations Normal [facility] ED Note-Physicianon 08-23-20 ED Note-Physician Basic Information [...] for 7 day(s), 6.7 gm, Refill(s) 0, [id number], 165, cm, 08/23/23 9:07:00 EST, Height/Length Dosing, 88, kg, 08/23/23 9:07:00 EST, Weight Dosing dexamethasone, 6 mg = 1 tab(s), Oral, Daily, X 7 day(s), # 7 tab(s), Refills(s) 0, Pharmacy: [facility]/pharmacy #[id number], 165, cm, 08/23/23 9:07:00 EST, Height/Length [...] [address] [place] [address]- [employer] (1) Additional Instructions: XXXX NONE In 3 [...] fL (11 (more content not included)... Normal [facility] Comment on above: Result Comment: Elec tronically Signed By: Gregg Baxter DO\.br\Date and Time Signed: 08/23/23 10:37 EST ED Patient Education Noteon 08-23-2023 ED Patient Education Note Normal [facility] ED Patient Summaryon 023 ED Patient Summary [address] [address] Patient Discharge Instructions Person Information Name: ETELVINA LUCIANO Age: 58 Years Arrival Date: 08/23/2023 08:48:24 Discharge Diagnosis: Bronchospasm; COVID; Palpitations Primary Care Physician: NONE, XXXX Provider Information Primary Provider: Gregg Baxter DO Advanced Deboner:None The exam and treatment you received in the Emergency Department were for an urgent problem and are not intended as complete care. It is important that you follow up with a doctor, nurse practitioner, or physician?s metal forger's assistant for ongoing care. If your symptoms [...] Follow-up Instructions: With: Address: When: Jessica Carbajal [address] [place] [address], [address] [address] [facility] () In 3 days 08/26/2023 With: Address: When: XXXX [facility] [place] [facility] [place] In 3 days In the event that this physician does not participate in your insurance network, please consult with your insurance company to find a nearby participating provider. Patient Education Materials: A MESSAGE TO ALL PATIENTS REGARDING OPIOIDS PRESCRIPTION OPIOIDS: WHAT YOU NEED TO KNOW Prescription opioids can be used to help relieve zjrtdgaq-nr-jtmxye pain and are often prescribed following a [...] be struggling with addiction, tell your health furnace caretaker and ask for guidance or call [employer]?S National Helpline at [phone]-QQFB. (more content not included)... Normal [facility] HEMATOLOGYOrdered By: SYSTEM SYSTEM on 08-23-2023 Basophils/100 [...] 33.6 g/dL Normal 31.4 - 36.0 gm/dL [facility] HemeAutoSS MCV (RBC) [Entitic vol] 87.8 fL Normal 80.0 - 100.0 fL [facility] HemeAutoSS Platelet mean volume (Bld) [Entitic vol] 8.5 fL Normal 6.4 - 10.8 fL [facility] HemeAutoSS Platelets (Bld) [#/Vol] 245.0 E9/L Normal 150. 0 - 500.0 E9/L [facility] HemeAutoSS RBC (Bld) [#/Vol] 4.8 E12/L Normal 4.3 - 5.9 E12/L [facility] HemeAutoSS WBC corrected for nucl RBC Auto (Bld) [#/Vol] 7.2 E9/L Normal 4.0 - 11.0 E9/L [facility] HemeAutoSS Monitor Recordon 08-23-2023 Monitor Record [id number]# 1.00TIFF Normal [facility] PT & PTTon 08-23-2023 aPTT Coag (PPP) [Time] 28.9 second(s) Normal 25.1-36.5 [facility] Comment on above: Result Comment: Para meter [...] the same coagulation reagent and instrumentation as [facility]. Currently there are no coagulation studies available worldwide for children to 14 days, and no normal ranges. Heparin therapeutic range (represented by Anti-Factor Xa activity of 0.2 - 0.4 U/mL) corresponds to PTT of 56.6 - 109.0 sec. Performed By: #### 2 [id number], [id number], [id number], [id number], [id number], [id number], [id number] #### [facility] [address] [place] [address] INR Coag (PPP) [Relative time] 1.2 {INR} Invalid Interpretation Code [facility] Comment on above: Result Comment: INR results are specifically intended to assess patients stabilized on long-term Anticoagulation therapy suggested INR?s ?Less Intensive Anticoagulation? 2.0 ? 3.0 Conventional Range 3.0 ? 4.5 Performed By: #### 2 [id number], [id number], [id number], [id number], [id number], [id number], [id number] #### [facility] [address] [place] [address] PT Coag (PPP) [Time] 12.8 second(s) High 9.4-12.5 [facility] Comment on above: Result Comment: 15 d [...] the same coagulation reagent and instrumentation as [facility]. Currently there are no coagulation studies available worldwide for children to 14 days, and no normal ranges. Performed By: #### 2 [id number], [id number], [id number], [id number], [id number], [id number], [id number] #### [facility] [address] [place] [address] Troponin 0 Hr.on 08-23-2023 Troponin I.cardiac [Mass/Vol] 6.00 pg/mL Low 10.10-27.10 [facility] Comment on above: Result Comment: The 95% CI (Confidence Interval) PPV (Positive Predictive Value) for myocardial infarction in females is 38 pg/mL, in males 51 pg/mL. The results should be used in conjunction with clinical conditions of myocardial infarction. (Access High Sensitivity Troponin I Instructions For Use, [place], May 2018) Performed By: #### 2 [id number], [id number], [id number], [id number], [id number], [id number], [id number] #### [facility] [address] [place] [address] XR Chest Single Viewon 08-23 XR Chest [...] mGy = na DAP = na Normal [facility] eGFRon 08-23-2023 GFR/1.73 sq M.predicted among non-blacks MDRD (S/P/Bld) [Vol rate/Area] 100 mL/min/1.73 m2 Normal >=59 [facility] Comment on above: Order Comment: Order added by Discern Expert. Result Comment: Produce Manager crow kidney disease could be indicated at eGFR's of less than 60 mL/min/1.73m2. Kidney failure is indicated at less than 15 mL/min/1.73m2. Performed By: #### 2 [id number], [id number], [id number], [id number], [id number], [id number], [id number] #### [facility] [address] [place] [address] KNEE CMPLT, 4 OR MORE VIEWSo n 05-20-2020 KNEE CMPLT, 4 OR MORE VIEWS Patient Name: ETELVINA LUCIANO STUDY: KNEE; COMPLT, 4 OR MORE VIEWS; Left; 05/20/2020 6:33 pm INDICATION: pain, (L) anterior knee s/p plant and twist injury. COMPARISON: None. ACCESSION NUMBER(S): [id number] ORDERING CLINICIAN: CAMILA CHERRY FINDINGS: No displaced fracture or rosario dislocation. Mild degenerative change-left knee with mild medial compartment narrowing/mild chondromalacia patella and mild elongation tibial eminences. Suprapatellar effusion-present. IMPRESSION: Mild osseous degenerative changes with suprapatellar effusion. 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 ATTACHER: Is : no Is : no REVIEW [...] 21-May-2020 09:26 by Camila Cherry (RENETTA) Normal [facility] Vital Signs Date Time Vital Sign Value Performing Clinician Facility 04-05-2024 16:29-0400 Body height 165.1 cm AQUILES Perez Work Phone: [facility] 04-05-2024 16:29-0400 Body mass index (BMI) [Ratio] 32.4 kg/m2 AQUILES Jimenezluning Work Phone: [facility] 04-05-2024 16:29-0400 Body temperature 97.4 [degF] INTERNET RESEARCHER Tameka Easterwood Work Phone: [facility] 04-05-2024 16:29-0400 Body weight 88.45 kg INTERNET RESEARCHER Tameka Easterwood Work Phone: [facility] 04-05-2024 16:29-0400 Diastolic blood pressure 82 mm[Hg] INTERNET RESEARCHER Tameka Easterwood Work Phone: [facility] 04-05-2024 16:29-0400 Heart rate 71 /min INTERNET RESEARCHER Tameka Easterwood Work Phone: [facility] 04-05-2024 16:29-0400 Respiratory rate 20 /min INTERNET RESEARCHER Tameka Easterwood Work Phone: [facility] 04-05-2024 16:29-0400 SaO2% (BldA) [Mass fraction] 99 % INTERNET RESEARCHER Tameka Easterwood Work Phone: [facility] 04-05-2024 16:29-0400 Systolic blood pressure 120 mm[Hg] INTERNET RESEARCHER Tameka Easterwood Work Phone: [facility] 03-22-2024 16:40-0400 Body height 165.1 cm INTERNET RESEARCHER Tameka Easterwood Work Phone: [facility] 03-22-2024 16:40-0400 Body mass index (BMI) [Ratio] 32.3 kg/m2 INTERNET RESEARCHER Tameka Easterwood Work Phone: [facility] 03-22-2024 16:40-0400 Body weight 88.11 kg INTERNET RESEARCHER Tameka Easterwood Work Phone: [facility] 03-22-2024 16:40-0400 Diastolic blood pressure 75 mm[Hg] INTERNET RESEARCHER Tameka Easterwood Work Phone: [facility] 03-22-2024 16:40-0400 Heart rate 61 /min INTERNET RESEARCHER Tameka Easterwood Work Phone: [facility] 03-22-2024 16:40-0400 Respiratory rate 18 /min INTERNET RESEARCHER Tameka Easterwood Work Phone: [facility] 03-22-2024 16:40-0400 SaO2% (BldA) [Mass fraction] 93 % INTERNET RESEARCHER Tameka Easterwood Work Phone: [facility] 03-22-2024 16:40-0400 Systolic blood pressure 134 mm[Hg] INTERNET RESEARCHER Tameka Easterwood Work Phone: [facility] 02-24-2024 12:20-0400 Diastolic blood pressure 87 mm[Hg] INTERNET RESEARCHER Tameka Easterwood Work Phone: [facility] 02-24-2024 12:20-0400 Heart rate 86 /min INTERNET RESEARCHER Tameka Easterwood Work Phone: [facility] 02-24-2024 12:20-0400 Respiratory rate 16 /min INTERNET RESEARCHER Tameka Easterwood Work Phone: [facility] 02-24-2024 12:20-0400 SaO2% (BldA) [Mass fraction] 94 % INTERNET RESEARCHER Tameka Easterwood Work Phone: [facility] 02-24-2024 12:20-0400 Systolic blood pressure 144 mm[Hg] INTERNET RESEARCHER Tameka Easterwood Work Phone: [facility] 02-24-2024 11:25-0400 Body temperature 97.4 [degF] INTERNET RESEARCHER Tameka Easterwood Work Phone: [facility] 02-24-2024 10:55-0400 Inhaled oxygen flow rate 8 L/min INTERNET RESEARCHER Tameka Easterwood Work Phone: [facility] 02-24-2024 09:26-0400 Body height 165.1 cm INTERNET RESEARCHER Tameka Easterwood Work Phone: [facility] 02-24-2024 09:26-0400 Body mass index (BMI) [Ratio] 33 kg/m2 INTERNET RESEARCHER Tameka Easterwood Work Phone: [facility] 02-24-2024 09:26-0400 Body weight 90 kg INTERNET RESEARCHER Tameka Easterwood Work Phone: [facility] 02-01-2024 08:43-0400 Body height 165.1 cm INTERNET RESEARCHER Tameka Easterwood Work Phone: [facility] 02-01-2024 08:43-0400 Body mass index (BMI) [Ratio] 32.8 kg/m2 INTERNET RESEARCHER Tameka Easterwood Work Phone: [facility] 02-01-2024 08:43-0400 Body weight 89.55 kg INTERNET RESEARCHER Tameka Easterirene Work Phone: [facility] 02-01-2024 08:43-0400 Diastolic blood pressure 71 mm[Hg] INTERNET RESEARCHER Tameka Easterwood Work Phone: [facility] 02-01-2024 08:43-0400 Heart rate 57 /min INTERNET RESEARCHER Tameka Easterwood Work Phone: [facility] 02-01-2024 08:43-0400 Respiratory rate 16 /min INTERNET RESEARCHER Tameka Easterwood Work Phone: [facility] 02-01-2024 08:43-0400 SaO2% (BldA) [Mass fraction] 98 % INTERNET RESEARCHER Tameka Easterwood Work Phone: [facility] 02-01-2024 08:43-0400 Systolic blood pressure 121 mm[Hg] INTERNET RESEARCHER Tameka Easterwood Work Phone: [facility] 01-19-2024 16:37-0400 Body height 165.1 cm INTERNET RESEARCHER Tameka Easterwood Work Phone: [facility] 01-19-2024 16:37-0400 Body mass index (BMI) [Ratio] 32.1 kg/m2 INTERNET RESEARCHER Tameka Easterwood Work Phone: [facility] 01-19-2024 16:37-0400 Body temperature 97.9 [degF] INTERNET RESEARCHER Tameka Easterwood Work Phone: [facility] 01-19-2024 16:37-0400 Body weight 87.54 kg INTERNET RESEARCHER Tameka Easterwood Work Phone: [facility] 01-19-2024 16:37-0400 Diastolic blood pressure 88 mm[Hg] INTERNET RESEARCHER Tameka Easterwood Work Phone: [facility] 01-19-2024 16:37-0400 Heart rate 72 /min INTERNET RESEARCHER Tameka Easterwood Work Phone: [facility] 01-19-2024 16:37-0400 Respiratory rate 20 /min INTERNET RESEARCHER Tameka Easterwood Work Phone: [facility] 01-19-2024 16:37-0400 SaO2% (BldA) [Mass fraction] 95 % INTERNET RESEARCHER Tameka Easterwood Work Phone: [facility] 01-19-2024 16:37-0400 Systolic blood pressure 130 mm[Hg] INTERNET RESEARCHER Tameka Easterwood Work Phone: [facility] 12-29-2023 14:33-0400 Body height 165.1 cm INTERNET RESEARCHER Tameka Easterwood Work Phone: [facility] 12-29-2023 14:33-0400 Body mass index (BMI) [Ratio] 31.4 kg/m2 INTERNET RESEARCHER Tameka Easterwood Work Phone: [facility] 12-29-2023 14:33-0400 Body weight 85.72 kg INTERNET RESEARCHER Tameka Easterwood Work Phone: [facility] 12-29-2023 14:33-0400 Diastolic blood pressure 80 mm[Hg] AQUILES Sapperirene Work Phone: [facility] 12-29-2023 14:33-0400 Heart rate 63 /min INTERNET RESEARCHERLive Sapperirene Work Phone: [facility] 12-29-2023 14:33-0400 Respiratory rate 18 /min INTERNET RESEARCHERLive Perez Work Phone: [facility] 12-29-2023 14:33-0400 SaO2% (BldA) [Mass fraction] 96 % INTERNET RESEARCHERLive Perez Work Phone: [facility] 12-29-2023 14:33-0400 Systolic blood pressure 124 mm[Hg] AQUILES Sapperirene Work Phone: [facility] 08-23-2023 10:00-0500 Diastolic blood pressure 80 mm[Hg] Gregg Baxter [facility] 08-23-2023 10:00-0500 Heart rate 69 /min Gregg Baxter [facility] 08-23-2023 10:00-0500 SaO2% (BldA) [Mass fraction] 95 % Gregg Baxter [facility] 08-23-2023 10:00-0500 Systolic blood pressure 136 mm[Hg] Gregg Turnere [facility] 08-23-2023 08:59-0500 Body temperature 98.06 [degF] Gregg Sahil [facility] 08-23-2023 08:59-0500 Diastolic blood pressure 74 mm[Hg] Gregg Sahil [facility] 08-23-2023 08:59-0500 Heart rate 71 /min Gregg Turnere [facility] 08-23-2023 08:59-0500 Respiratory rate 18 /min Gregg Baxter [facility] 08-23-2023 08:59-0500 SaO2% (BldA) [Mass fraction] 96 % Gregg Baxter [facility] 08-23-2023 08:59-0500 Systolic blood pressure 122 mm[Hg] Gregg Baxter [facility] Encounters Encounter Date Encounter Type Care Provider Facility Start: 04-05-2024 End: 04-05-2024 ambulatory INTERNET RESEARCHERLive English Rosendo Sapperwood Work Phone: [facility] Work Phone: Start: 04-05-2024 End: 04-05-2024 Patient encounter procedure INTERNET RESEARCHERLive English Sekouerwood Work Phone: [facility] Physician [facility] Work Phone: Start: 03-22-2024 End: 03-22-2024 ambulatory INTERNET RESEARCHER Tameka Sapperwood Work Phone: [facility] Work Phone: Start: 03-22-2024 End: 03-22-2024 Patient encounter procedure INTERNET RESEARCHER Tameka Sapperwood Work Phone: [facility] Physician [facility] Work Phone: Start: 02-24-2024 End: 02-24-2024 Admission to same day surgery center INTERNET RESEARCHERLvie Escamillaalexsandra Sapperwood Work Phone: [facility] [place] Start: 02-24-2024 End: 02-24-2024 ambulatory INTERNET RESEARCHERLive Robbins Sekouerwood Work Phone: [facility] Work Phone: Start: 02-15-2024 End: 02-15-2024 Patient encounter procedure INTERNET RESEARCHERLive English Sekouerwood Work Phone: [facility] Work Phone: Start: 02-10-2024 End: 02-10-2024 Departed Referred AQUILES Perez Work Phone: [facility] Work Phone: Start: 02-10-2024 End: 02-10-2024 Patient encounter procedure INTERNET RESEARCHERLive Perez Work Phone: [facility] Work Phone: Start: 02-10-2024 End: 02-10-2024 ambulatory INTERNET RESEARCHER Tameka Sapperwood Work Phone: [facility] Work Phone: Start: 02-03-2024 End: 02-03-2024 Patient encounter procedure INTERNET RESEARCHERLive Sapperwood Work Phone: [facility] [place] Work Phone: Start: 02-03-2024 End: 02-03-2024 ambulatory INTERNET RESEARCHERLive Sapperirene Work Phone: [facility] Work Phone: Start: 02-01-2024 End: 02-01-2024 ambulatory INTERNET RESEARCHER Tameka Sapperirene Work Phone: [facility] Work Phone: Start: 02-01-2024 End: 02-01-2024 Patient encounter procedure AQUILES Perez Work Phone: [facility] Physician [facility] Work Phone: Start: 01-19-2024 End: 01-19-2024 ambulatory INTERNET RESEARCHER Tameka Sapperwood Work Phone: [facility] Work Phone: Start: 01-19-2024 End: 01-19-2024 Encounter for general adult medical examination without abnormal findings INTERNET RESEARCHERLive Sapperwood Work Phone: [facility] Start: 01-19-2024 End: 01-19-2024 Patient encounter procedure INTERNET RESEARCHER Tameka Sapperwood Work Phone: [facility] [place] Work Phone: Start: 01-18-2024 End: 01-18-2024 Patient encounter procedure INTERNET RESEARCHER Tameka Sapperwood Work Phone: [facility]-Electrodiagnostics Work Phone: Start: 01-18-2024 End: 01-18-2024 ambulatory INTERNET RESEARCHER Tameka Sapperwood Work Phone: [facility] Work Phone: Start: 01-18-2024 Non-patient / Non-visit INTERNET RESEARCHER Chelsea Sapperirene Work Phone: [facility]ician [facility] Work Phone: Start: 01-13-2024 Non-patient / Non-visit INTERNET RESEARCHER D tylor Sapperirene Work Phone: [facility] [place] Work Phone: Start: 01-12-2024 End: 01-12-2024 Patient encounter procedure INTERNET RESEARCHER Tameka Sapperwood Work Phone: [facility] [place] Work Phone: Start: 01-12-2024 End: 01-12-2024 ambulatory INTERNET RESEARCHER Tameka Sapperwood Work Phone: [facility] Work Phone: Start: 01-01-2024 End: 01-01-2024 Patient encounter procedure INTERNET RESEARCHER Tameka Sapperwood Work Phone: [facility] Work Phone: Start: 01-01-2024 End: 01-01-2024 ambulatory INTERNET RESEARCHER Tameka Robbins [place] Work Phone: [facility] Work Phone: Start: 12-29-2023 End: 12-29-2023 ambulatory INTERNET RESEARCHERLive Perez Work Phone: [facility] Work Phone: Start: 12-29-2023 End: 12-29-2023 Patient encounter procedure AQUILES Perez Work Phone: [facility] Work Phone: Start: 12-16-2023 Non-patient / Non-visit INTERNET RESEARCHER Chelsea Perez Work Phone: [facility] Work Phone: Start: 11-29-2023 Non-patient / Non-visit INTERNET RESEARCHER Chelsea Perez Work Phone: [facility] Work Phone: Start: 11-04-2023 Patient encounter procedure AQUILES Perez Work Phone: [facility] Physician [facility]- Start: 08-23-2023 End: 08-23-2023 Emergency department patient visit Gregg Baxter Facility:[facility] Start: 08-23-2023 End: 08-23-2023 Emergency department patient visit Gregg Baxter [facility] Procedures Date Procedure Procedure Detail Performing Clinician Start: 02-24-2024 Reduction mammoplast y, bilateral AQUILES Perez Work Phone: Start: 01-01-2024 Screening mammograph y of bilateral breasts AQUILES Perez Work Phone: Plan of Treatment Date Care Activity Detail Author Start: 02-24-2024 [facility] Start: 02-24-2024 [facility] Start: 01-01-2024 MG Breast - bilatera l Screening [facility] Start: 01-01-2024 Screening mammograph y of bilateral breasts MM screening mammo BI w/CAD [facility] Start: 12-29-2023 [facility] Patient Education Know your Meds [facility] Work Phone: Patient referral [facility] Work Phone: [facility] Payers Date Payer Category Payer Self-pay 2023 Unknown [id number] 2023 Private Health Insurance [id number] 1965 Unknown [id number] 2.16.8 [id number] Unknown [id number] 2.16.8 [id number] Unknown [id number] 2.16.8 [id number] Unknown [id number] 2.16.8 [id number] Unknown [id number] 2.16.8 [id number] Unknown [id number] 2.16.8 [id number] Unknown [id number] 2.16.8 [id number] Unknown [id number] 2.16.8 [id number] Social History Date Type Detail Facility Tobacco smoking status [facility] Sex Assigned At Female [facility] Start: 12-29-2023 End: 04-05-2024 Tobacco smoking status NHIS Never smoked tobacco (finding) [facility] Start: 1965 Sex Assigned At Female F [facility] Goals Date Patient Goal Desired Activity /State Functional Status Date Assessment Result Facility 08-23-2023 Functional Status N/A [facility] Clinical Notes 08-23-2023 to 03-22-2024 [...] alone. She moved back here recently from [place]. She had a remote history of paroxysmal [...] with her PCP and pain management. 8. Uhxlyhycaap-ymygq-nbqf treatment with long-term healthy lifestyle change, decreased simple sweets and refined starches, increased exercise and activity and long-term weight loss. Consider metformin. Treat with GLP-1 agonist. She needs close long-term follow-up for this condition to prevent diabetes. She had a past A1c of 5.7. Monitor with treatment. 9. Snorer/[place] of 3-doubt sleep apnea. Treat with good [...] work with her PCP. Author Ventura German [facility] Authored February 01, 2024 11: 04am [...] alone. She moved back here recently from [place]. She had a remote history of paroxysmal [...] with her PCP and pain management. 8. Kqxujmbgvrp-jyrhj-vopa treatment with long-term healthy lifestyle change, decreased simple sweets and refined starches, increased exercise and activity and long-term weight loss. Consider metformin. Treat with GLP-1 agonist. She needs close long-term follow-up for this condition to prevent diabetes. She notes she had a past A1c of 5.7. Monitor with treatment. 9. Snorer/[place] of 3-doubt sleep apnea. Treat with good [...] Our exercise program was recommended with our housecleaner/obesity exercise group. Handout given. Our free weekly [...] and benefits of prescribed meds discussed. Initial bwqe-az-xpmz interview/evaluation. The patient was counseled in detail on the options for weight loss in an individual setting. 55 minutes was spent caring for the patient, counseling/educating patient on the options for the treatment of obesity and related healthcare issues. The program's treatment goals were reviewed with the patient. Each aspect of the program was discussed with the patient. [facility] Work Phone: 1(773) 737-254804-30-2024 Evaluation note* Author Ventura German [facility] Authored February 01, 2024 11: 04am [...] alone. She moved back here recently from [place]. She had a remote history of paroxysmal [...] with her PCP and pain management. 8. Rbwsomahndo-lreph-piud treatment with long-term healthy lifestyle change, decreased simple sweets and refined starches, increased exercise and activity and long-term weight loss. Consider metformin. Treat with GLP-1 agonist. She needs close long-term follow-up for this condition to prevent diabetes. She notes she had a past A1c of 5.7. Monitor with treatment. 9. Snorer/[place] of 3-doubt sleep apnea. Treat with good [...] Our exercise program was recommended with our housecleaner/obesity exercise group. Handout given. Our free weekly [...] and benefits of prescribed meds discussed. Initial ewia-ph-mswe interview/evaluation. The patient was counseled in detail on the options for weight loss in an individual setting. 55 minutes was spent caring for the patient, counseling/educating patient on the options for the treatment of obesity and related healthcare issues. The program's treatment goals were reviewed with the patient. Each aspect of the program was discussed with the patient. [facility] Work Phone: 1(846) 525-758511-20-2023 Evaluation + Plan noteExtracted from: Title:ED Note [...] Troponin 9 Hr. XR Chest Single View [facility]11-20-2023 Hospital Discharge instructions Follow Up Care 08/23/2023 08:50:48 With:Jessica Carbajal Address: [address] [place] [address]- Business (1) When:08/26/2023 10:33:24 With:XXXX NONE Address: [place] When:Within 3 Day(s) [facility]Reason for visit Narrative* Chief Complaint Amb Documentation Amb Documentation chronic a-fib medication management, no acute Reason for Visit HLD (hyperlipidemia) Paroxysmal atrial fibrillation [facility] Work Phone: chief complaint+Reason for visit Narrative* Chief Complaint Amb Documentation Amb Documentation chronic a-fib medication management, no acute Screening Reason for Visit HLD (hyperlipidemia) Paroxysmal atrial fibrillation [facility] Work Phone: chief complaint+Reason for visit Narrative* Chief Complaint Amb Documentation Amb Documentation chronic a-fib medication management, no acute Screening E78.5 I48.0 Reason for Visit HLD (hyperlipidemia) Paroxysmal atrial fibrillation [facility] Work Phone: chief complaint+Reason for visit Narrative* Chief Complaint Amb Documentation Amb Documentation chronic a-fib medication management, no acute Screening E78.5 I48.0 Amb Documentation I48.0 Reason for Visit HLD (hyperlipidemia) Paroxysmal atrial fibrillation [facility] Work Phone: chief complaint+Reason for visit Narrative* Chief Complaint Amb Documentation Amb Documentation chronic a-fib medication management, no acute Screening E78.5 I48.0 Amb Documentation I48.0 Wellness visit Reason for Visit HLD (hyperlipidemia) Paroxysmal atrial fibrillation Screening for metabolic disorder Well adult exam [facility] Work Phone: chief complaint+Reason for visit Narrative* Chief Complaint Amb Documentation Amb Documentation chronic a-fib medication management, no acute Screening E78.5 I48.0 Amb Documentation I48.0 Wellness visit [facility] Reason for Visit HLD (hyperlipidemia) Paroxysmal atrial fibrillation Screening for metabolic disorder Well adult exam [facility] Work Phone: chief complaint+Reason for visit Narrative* Chief Complaint Amb Documentation Amb Documentation chronic a-fib medication management, no acute Screening E78.5 I48.0 Amb Documentation I48.0 Wellness visit [facility] R73.03;R63.5 Reason for Visit HLD (hyperlipidemia) Paroxysmal atrial fibrillation Screening for metabolic disorder Well adult exam [facility] Work Phone: chief complaint+Reason for visit Narrative* Chief Complaint Amb Documentation Amb Documentation chronic a-fib medication management, no acute Screening E78.5 I48.0 Amb Documentation I48.0 Wellness visit [facility] R73.03;R63.5 Macromastia Reason for Visit HLD (hyperlipidemia) Paroxysmal atrial fibrillation Screening for metabolic disorder Well adult exam [facility] Work Phone: Chief complaint+Reason for visit Narrative* Chief Complaint Amb Documentation Amb Documentation chronic a-fib medication management, no acute Screening E78.5 I48.0 Amb Documentation I48.0 Wellness visit [facility] R73.03;R63.5 Macromastia Macromastia Reason for Visit HLD (hyperlipidemia) Paroxysmal atrial fibrillation Screening for metabolic disorder Well adult exam [facility] Work Phone: Chirr complaint+Reason for visit Narrative* Chief Complaint chronic a-fib medica tion management, no acute Screening E78.5 I48.0 Amb Documentation I48.0 Wellness visit [facility] R73.03;R63.5 Macromastia Macromastia Reason for Visit HLD (hyperlipidemia) Paroxysmal atrial fibrillation Screening for metabolic disorder Well adult exam HLD (hyperlipidemia) HTN (hypertension) Obesity (BMI 30.0-34.9) Pre-diabetes [facility] Work Phone: Evaluation note* Diagnosis Onset Date Resolution Status HLD (hyperlipidemia) acute Paroxysmal atrial fibrillation acute [facility] Work Phone: Evaluation note* Diagnosis Onset Date Resolution Status HLD (hyperlipidemia) acute Paroxysmal atrial fibrillation acute Screening for metabolic disorder noneactive Well adult exam noneactive [facility] Work Phone: Evaluation note* Author Katleyn Can [facility] Authored February 01, 2024 9:1 8am [...] Our exercise program was recommended with our housecleaner/obesity exercise group. Handout given. Our free weekly [...] and benefits of prescribed meds discussed. Initial ptgf-bq-kubf interview/evaluation. The patient was counseled in detail on the options for weight loss in an individual setting. [ ] minutes was spent caring for the patient, counseling/educating patient on the options for the treatment of obesity and related healthcare issues. The program's treatment goals were reviewed with the patient. Each aspect of the program was discussed with the patient. [facility] Work Phone: Hospital course Narrative No data available for this section [facility] Additional Instructions DISCHARGE INSTRUCTIONS FOR [...] the incision. PLEASE NOTIFY OUR OFFICE at [phone] if you: -Develop a fever of 101 [...] rate. FOLLOW UP -Call the office at [phone] for a follow up appointment 1 week. * AFTER HOURS PHONE NUMBER [phone] *[facility] Work Phone: Progress note No data available for this section [facility] Summary Purpose Family History No Family History [...] I48.0 Amb Documentation I48.0 Wellness visit [place] R73.03;R63.5 Macromastia Macromastia left ankle and foot swelling Reason for Visit Screening for metabo lic disorder Well adult exam HLD (hyperlipidemia) HTN (hypertension) Obesity (BMI 30.0-34.9) Pre-diabetes Additional Source Comments INFORMATION SOURCE (unrecogn ized section and content) DATE CREATED AUTHOR 05/27/2020 [facility] DATE CREATED AUTHOR AUTHOR'S ORGANIZ ATION 08/24/2023 [facility] DATE CREATED AUTHOR AUTHOR'S ORGANIZ ATION 04/10/2024 [facility] ysician Group Care Teams (unrecognized sec tion [...] Team Status: Active Member Role Status Dates Tmaeka Perez APRN Primary Care Provider Active Start: [...] BE BASED ON THE PRIMARY CLINICAL RECORDS. [employer] [facility]. provides no warranty or guarantee of the accuracy or completeness of information in this document.
[2024-05-29 07:56] VITALS: BMI 32.3
--- NOTE | 2024-05-29 07:56 | V.VEINS.HP ---
Vital Signs 05/29/24 07:56 Height 5 ft 5 in Weight 88 kg BMI 32.3 Varicose Veins Patient in today for follow up ultrasound of left lower extremity following EVLT of left GSV completed on 05/22/24. Brett Washington MD personally performed the services described in this documentation, as scribed by Lucia Larsen RDMS in my presence and it is both accurate and complete. Lucia Washington RDMS, am scribing for, and in the presence of, Dr. Brett Ocasio and in the presence of the patient. knee: bilateral (most notable to right leg), calf: bilateral, ankle: bilateral and dobbs: bilateral aching, cramping and tender 7 10 years Worsened in recent months: Yes standing, sitting and walking analgesics (Ibuprofen), elevating extremities, compression stockings and exercise Reports fatigue, heaviness, limb pain and edema History of lower extremity trauma: No Superficial thrombophlebitis: No Family history of varicose veins: yes (mother) Has patient had previous lower extremity venous surgery: No Patient has previously received the following treatment(s) for lower extremity varicose veins: Reports none Does patient have a history of : yes Does patient intend to have future pregnancies: no Has patient had lower extremity venous scan with relux testing: No Support hose used: Yes Problems walking or doing physical activity: Yes How does it affect you: often has to sit and elevate bilateral legs/feet Do you walk much: Yes Do you stand much: No Review of Systems ROS Narrative Brett Washington MD personally performed the services described in this documentation, as scribed by Lucia Larsen RDMS in my presence and it is both accurate and complete. Lucia Washington RDMS, am scribing for, and in the presence of, Dr. Brett Ocasio and in the presence of the patient. Status of ROS 10 or more systems reviewed and unremarkable except as noted in history and below Cardiovascular Reports: edema Integumentary/Breast Reports: redness, skin pain, skin tenderness and changes in skin color Hematologic/Lymphatic Reports: easy bruising and easy bleeding [facility] Medical History (Updated 05/29/24 @ 07:57 by Lucia Larsen) Phlebitis and thrombophlebitis of superficial vessels of left lower extremity ?I80.02 - Phlebitis and thrombophlebitis of superficial vessels of left lower extremity (ICD-10) Diverticulosis ?K57.90 - Diverticulosis of intestine, part unspecified, without perforation or abscess without bleeding (ICD-10) 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 - Primary osteoarthritis, unspecified hand (ICD-10) Varicose veins of bilateral lower extremities with pain ?I83.813 - Varicose veins of bilateral lower extremities with pain (ICD-10) Arthritis ?M19.90 - Unspecified osteoarthritis, unspecified site (ICD-10) Spinal stenosis ?M48.00 - Spinal stenosis, site unspecified (ICD-10) Atrial fibrillation ?I48.91 - Unspecified atrial fibrillation (ICD-10) Obesity ?E66.9 - Obesity, unspecified (ICD-10) Fibromyalgia ?M79.7 - Fibromyalgia (ICD-10) Surgical History (Updated 04/26/24 @ 14:39 by Henri Higgins) H/O colectomy ?Z90.49 - Acquired absence of other specified parts of digestive tract (ICD-10) Hx of breast reduction, elective ?Z98.890 - Other specified postprocedural states (ICD-10) H/O abdominoplasty ?Z98.890 - Other specified postprocedural states (ICD-10) History of cholecystectomy ?Z90.49 - Acquired absence of other specified parts of digestive tract (ICD-10) H/O: hysterectomy ?Z90.710 - Acquired absence of both cervix and uterus (ICD-10) Family History (Updated 04/26/24 @ 14:42 by Henri Higgins) Mother Varicose veins of bilateral lower extremities with pain Heart disease Age related osteoporosis Sister Age related osteoporosis Other Family history of cancer Family history of diabetes mellitus Family history of hypertension Pulmonary hypertension Social History (Updated 04/26/24 @ 14:43 by Henri Higgins) Within the past year, how often did you have six or more drinks on one occasion: less than monthly Smoking status: Never smoker Non-prescribed substance use: denies use Meds Home Medications and Allergies Home Medications ?Medication ?Instructions ?Recorded ?Confirmed ?Type aspirin 81 mg capsule 81 mg PO DAILY 04/26/24 04/26/24 History diltiazem HCl PO 04/26/24 History duloxetine PO 04/26/24 History montelukast 10 mg tablet 10 mg PO QPM 04/26/24 04/26/24 History (Singulair) pantoprazole 40 mg granules 40 mg PO DAILY 04/26/24 04/26/24 History delayed-release for susp in packet (Protonix) tramadol .ROUTE 04/26/24 History Allergies Allergy/AdvReac Type Severity Reaction Status Date / Time codeine Allergy Mild Agitated Verified 04/26/24 15:32 dermaplast glue Allergy Intermediate Rash Uncoded 04/26/24 15:32 Exam Narrative Exam Narrative: Patient has no complaints today. Brett Washington MD personally performed the services described in this documentation, as scribed by Lucia Larsen RDMS in my presence and it is both accurate and complete. Lucia Washington RDMS, am scribing for, and in the presence of, Dr. Brett Ocasio and in the presence of the patient. Constitutional Vital Signs, click to edit/add: Last Vital Signs Pulse 58 L 04/26/24 14:26 Resp 16 04/26/24 14:26 BP 120/58 04/26/24 14:26 Pulse Ox 99 04/26/24 14:26 Results Imaging Venous US: Radiologist's impression: Heat induced thrombus in left GSV 2.0 cm from SFJ and extends to distal thigh. Brett Washington MD personally performed the services described in this documentation, as scribed by Lucia Larsen RDMS in my presence and it is both accurate and complete. Lucia Washington RDMS am scribing for, and in the presence of, Dr. Brett Ocasio and in the presence of the patient. Assessment and Plan Assessment and Plan (1) Phlebitis and thrombophlebitis of superficial vessels of left lower extremity: Plan Plan is for patient to return for EVLT of right GSV on 06/20/24. Brett Washington MD personally performed the services described in this documentation, as scribed by Lucia Larsen RDMS in my presence and it is both accurate and complete. Lucia Washington RDMS, am scribing for, and in the presence of, Dr. Brett Ocasio and in the presence of the patient.
--- NOTE | 2024-05-29 08:00 | P.DS_ITS ---
Discharge Plan Discharge Disposition: Home, Self-Care Outpatient Diagnostics: VC Endovenous Ablation 1VeinRT (Routine) Timeframe: 2 Weeks Facility: [facility] - Location: [facility] Ordered By: Brett Ocasio Follow Up Appointments: 06/20/24 Plan of Treatment: EVLT right GSV EVLT Tumescent Anesthesia: 500 mL 0.9% NS with 20 mL 1% Lidocaine and 10 mL 8.4% NAHCO3 Buffered Local Anesthesia: 10 mL of 1% Lidocaine Buffered Print Language: Portuguese Discharge Date/Time: 05/29/24 08:03
== END 2024-05-29 08:03 | disposition home or self-care (01) ==
PROVIDERS: PCP Radiology Diagnostic Radiology; Visit Provider Radiology Diagnostic Radiology
DX: I80.02 Phlebitis and thrombophlebitis of superficial vessels of left lower extremity (principal)
CPT/HCPCS: 93971; G0463

== ENCOUNTER 2024-06-20 13:52 | Outpatient (OUT) | payer BC, SELFPAY ==
--- NOTE | 2024-06-19 09:11 | V.VEINS.HP ---
Vital Signs 06/20/24 14:05 06/20/24 14:51 Height 5 ft 5 in Weight 87 kg BP 148/78 H BP Location Left Brachial BP Position Standing BP Cuff Size Adult BP Source Manual Cuff Respiration 18 Pulse 63 Pulse Source Monitor Pulse Oximetry (%) 97 Oxygen Delivery Method Room Air Comment The patient's blood pressure is elevated. Varicose Veins Patient in today for EVLT of right GSV Brett Washington MD personally performed the services described in this documentation, as scribed by Henri Higgins RN in my presence and it is both accurate and complete. IHenri RN, am scribing for, and in the presence of, Dr. Brett Ocasio and in the presence of the patient. knee: bilateral (most notable to right leg), calf: bilateral, ankle: bilateral and dobbs: bilateral aching, cramping and tender 7 10 years Worsened in recent months: Yes standing, sitting and walking analgesics (Ibuprofen), elevating extremities, compression stockings and exercise Reports fatigue, heaviness, limb pain and edema History of lower extremity trauma: No Superficial thrombophlebitis: No Family history of varicose veins: yes (mother) Has patient had previous lower extremity venous surgery: No Patient has previously received the following treatment(s) for lower extremity varicose veins: Reports none Does patient have a history of : yes Does patient intend to have future pregnancies: no Has patient had lower extremity venous scan with relux testing: No Support hose used: Yes Problems walking or doing physical activity: Yes How does it affect you: often has to sit and elevate bilateral legs/feet Do you walk much: Yes Do you stand much: No Review of Systems ROS Narrative Brett Washington MD personally performed the services described in this documentation, as scribed by Henri Higgins RN in my presence and it is both accurate and complete. Henri Washington RN, am scribing for, and in the presence of, Dr. Brett Ocasio and in the presence of the patient. Status of ROS 10 or more systems reviewed and unremarkable except as noted in history and below Cardiovascular Reports: edema Integumentary/Breast Reports: redness, skin pain, skin tenderness and changes in skin color Hematologic/Lymphatic Reports: easy bruising and easy bleeding [facility] Medical History (Updated 06/20/24 @ 14:52 by Henri Higgins) Phlebitis of superficial vein of right lower extremity ?I80.01 - Phlebitis and thrombophlebitis of superficial vessels of right lower extremity (ICD-10) Phlebitis and thrombophlebitis of superficial vessels of left lower extremity ?I80.02 - Phlebitis and thrombophlebitis of superficial vessels of left lower extremity (ICD-10) Diverticulosis ?K57.90 - Diverticulosis of intestine, part unspecified, without perforation or abscess without bleeding (ICD-10) 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 - Primary osteoarthritis, unspecified hand (ICD-10) Varicose veins of bilateral lower extremities with pain ?I83.813 - Varicose veins of bilateral lower extremities with pain (ICD-10) Arthritis ?M19.90 - Unspecified osteoarthritis, unspecified site (ICD-10) Spinal stenosis ?M48.00 - Spinal stenosis, site unspecified (ICD-10) Atrial fibrillation ?I48.91 - Unspecified atrial fibrillation (ICD-10) Obesity ?E66.9 - Obesity, unspecified (ICD-10) Fibromyalgia ?M79.7 - Fibromyalgia (ICD-10) Surgical History (Updated 06/20/24 @ 15:07 by Henri Higgins) Status post laser ablation of incompetent vein ?Z98.890 - Other specified postprocedural states (ICD-10) H/O colectomy ?Z90.49 - Acquired absence of other specified parts of digestive tract (ICD-10) Hx of breast reduction, elective ?Z98.890 - Other specified postprocedural states (ICD-10) H/O abdominoplasty ?Z98.890 - Other specified postprocedural states (ICD-10) History of cholecystectomy ?Z90.49 - Acquired absence of other specified parts of digestive tract (ICD-10) H/O: hysterectomy ?Z90.710 - Acquired absence of both cervix and uterus (ICD-10) Family History (Updated 04/26/24 @ 14:42 by Henri Higgins) Mother Varicose veins of bilateral lower extremities with pain Heart disease Age related osteoporosis Sister Age related osteoporosis Other Family history of cancer Family history of diabetes mellitus Family history of hypertension Pulmonary hypertension Social History (Updated 04/26/24 @ 14:43 by Henri Higgins) Within the past year, how often did you have six or more drinks on one occasion: less than monthly Smoking status: Never smoker Non-prescribed substance use: denies use Meds Home Medications and Allergies Home Medications ?Medication ?Instructions ?Recorded ?Confirmed ?Type aspirin 81 mg capsule 81 mg PO DAILY 04/26/24 04/26/24 History diltiazem HCl PO 04/26/24 History duloxetine PO 04/26/24 History montelukast 10 mg tablet 10 mg PO QPM 04/26/24 04/26/24 History (Singulair) pantoprazole 40 mg granules 40 mg PO DAILY 04/26/24 04/26/24 History delayed-release for susp in packet (Protonix) tramadol .ROUTE 04/26/24 History Allergies Allergy/AdvReac Type Severity Reaction Status Date / Time codeine Allergy Mild Agitated Verified 04/26/24 15:32 dermaplast glue Allergy Intermediate Rash Uncoded 04/26/24 15:32 Exam Narrative Exam Narrative: Brett Washington MD personally performed the services described in this documentation, as scribed by Henri Higgins RN in my presence and it is both accurate and complete. IHenri RN, am scribing for, and in the presence of, Dr. Brett Ocasio and in the presence of the patient. Constitutional Vital Signs, click to edit/add: Last Vital Signs Pulse 58 L 04/26/24 14:26 Resp 16 04/26/24 14:26 BP 120/58 04/26/24 14:26 Pulse Ox 99 04/26/24 14:26 Assessment and Plan Assessment and Plan (1) Varicose veins of bilateral lower extremities with pain: Plan f/u evaluation with physician along with right leg limited u/s Brett Washington MD personally performed the services described in this documentation, as scribed by Henri Higgins RN in my presence and it is both accurate and complete. Henri Washington RN, am scribing for, and in the presence of, Dr. Brett Ocasio and in the presence of the patient. Procedures Procedure Instructions Procedures Plan of care: Risks and benefits of the procedure were discussed at length and informed written consent was obtained.? Time-out completed for verification of correct patient, procedure and site.? Staff present during time-out: Henri Higgins RN,? Brett Ocasio MD, [facility] EATONNV,RVT. Time Out Time__1443 Patient prepped and procedure performed in usual sterile fashion. Risk of injury related to use of Diode laser and/or laser devices__CR___ ? Serial number of laser used :? [id number] Control panel self test performed, electrical cords in good condition, floor is dry, basin of water available, fire extinguisher in close proximity_CR__ Polycarbonate goggles available and Laser warning signs outside of doors___CR__ Eye protection provided to patient and staff in room_CR___ Use of laser retardant drapes and dull blackened instruments as directed__CR___ Use of nonflammable prep solutions and use of saline soaked sponges to protect tissues as indicated _CR___ Length __27 cm Laser operated by _Dr. Ocasio Physician verbal confirmation laser locked in place__CR__ Laser start time (date and time) __06/19/2024@_1455 Laser stop time(date and time) __06/19/2024@_1457 Lao _8.0___ Average laser use ___796____Joules Average laser use____99____seconds Pulse continuous ___CR_? Pulse intermittent ___ Amount of Tumescent used _200cc Evaluated patient for signs and symptoms of electrical injury __CR___ ? Skin clear at insertion site __CR___ Patient tolerated procedure well.? Left leg Coban dressing applied to access site.? Applied Left thigh high leg compression stocking. Will return on 06/28/2024 for Left leg limited venous ultrasound and exam. IBrett MD personally performed the services described in this documentation, as scribed by Henri Higgins RN in my presence and it is both accurate and complete. I, Henri Higgins RN, am scribing for, and in the presence of, Dr. Brett Ocasio and in the presence of the patient.
--- NOTE | 2024-06-19 09:14 | W.VEIN ---
Discharge Plan Discharge Disposition: Home, Self-Care Outpatient Diagnostics: VC Facility EST LMTD (Routine) Timeframe: 2 Weeks Facility: [facility] - Location: Vein Center Ordered By: Brett Ocasio VC EXT Venous Reflux RT LMTD (Routine) Timeframe: 2 Weeks Facility: [facility] - Location: Vein Center Ordered By: Brett Ocasio Follow Up Appointments: 06/28/2024 Plan of Treatment: fu/ evaluation with physician along with left leg limited u/s Patient Instructions: Endovenous Ablation (DC) Print Language: Armenian Discharge Date/Time: 06/20/24 14:53
[2024-06-20] MEDS: LIDOCAINE HCL 1% 100 MG/10 ML MDV INJ (13:52)
[2024-06-20] MEDS: 0.9 % SODIUM CHLORIDE 500 ML, LIDOCAINE HCL 20 ML, SODIUM BICARBONATE 10 MEQ INJ (13:53)
--- NOTE | 2024-06-20 13:55 | VEIN_ITS ---
[address] [address] Patient Name: JACQUES RIVERA MRN: [id number] date: 1965 Sex: F Assigned Patient Location: Current Patient Location: Accession/Order Number: [id number] Exam Date: 06/20/2024 13:58 Report Date: 06/20/2024 15:26 At the request of: BAO PINEDO Procedure: VC Endovenous Ablation 1VeinRT EXAMINATION: VC Endovenous Ablation 1VeinRT HISTORY: I83.813 Bilateral leg painful varicose veins COMPARISON: No relevant comparison available. TECHNIQUE: The risks and benefits of the procedure had been previously discussed, and were rediscussed at length. Informed written consent was obtained. Kristi Bragg and Henri Higgins assisted. Time out procedure was performed. The right lower extremity was prepared and draped in the usual sterile fashion to allow knee flexion in the sterile field. Duplex ultrasound probe was draped in a sterile cover, sterile transmission gel was used. Venous mapping was performed with the areas of dilation and large tributaries marked. The total length was 27 cm from the entry upper calf to 3 cm below the saphenofemoral junction. The diameter of the greater saphenous vein ranged from 5-7 mm. A 30 gauge needle and 1% buffered lidocaine was used to anesthetize the entry site. A 4 mm incision was made with a scalpel and the saphenous vein was entered percutaneously under direct ultrasound guidance with a micropuncture set, a single stick was successful in gaining access. A micro-guide wire was inserted and the needle removed. A micro-set including a dilator was inserted over the microwire and the needle and dilator were removed. A 0.018 guide wire was inserted through the micro-set and threaded through the saphenous vein to the saphenofemoral junction. The dilator was removed and an introducer sheath was inserted over the wire until the end of the sheath entered the saphenofemoral junction. The dilator and wire were removed and the 600 micron fiber was introduced and placed and positioned so that it extended beyond the sheath and was 3 cm peripheral to the saphenofemoral femoral junction. Final position of the fiber was determined by ultrasound guidance and duplex imaging. Tumescent anesthetic was delivered by ultrasound guidance. 200 cc of fluid was delivered along the entire course of the saphenous vein. The solution consisted of 1000 cc of normal saline with 40 mL of 1% lidocaine and 20 mL of sodium bicarbonate. A final positioning check was made. The energy source was turned on by means of the foot pedal and the fiber and sheath were withdrawn. The total number of Joules delivered was 796. The laser was active for 99seconds under continuous pulse, average laser use of 8 J. Laser start time 1455, 06/20/2024 . Laser stop time 1457, 06/20/2024 . A duplex ultrasound revealed compressibility and flow at the saphenofemoral junction immediately after the procedure. Hemostasis at the access site was achieved. The skin incision of the saphenous vein was closed with a 4 x 4. A compression stocking was applied. Postop instructions were given. A follow up appointment was recommended and scheduled. The patient tolerated the procedure well and was discharged in good condition . VEIN/VC Endovenous Ablation 1VeinRT IMPRESSION: Technically successful endovenous laser ablation of the right great saphenous vein Electronically authenticated by: BAO PINEDO Date: 06/20/2024 15:26
[2024-06-20 14:05] VITALS: BP 148/78; PULSE 63; O2SAT 97
== END 2024-06-20 14:53 | disposition home or self-care (01) ==
LOC: VC 13:52
PROVIDERS: PCP Radiology Diagnostic Radiology; Visit Provider Radiology Diagnostic Radiology
DX: I83.813 Varicose veins of bilateral lower extremities with pain (principal)
CPT/HCPCS: 36478

== ENCOUNTER 2024-06-28 14:25 | Outpatient (OUT) | payer BC, SELFPAY ==
--- NOTE | 2024-06-28 14:08 | VEINCLINIC_ITS ---
Vital Signs 06/28/24 14:50 Height 5 ft 5 in Weight 87 kg BMI 31.9 Varicose Veins Patient in today for follow up ultrasound of right lower extremity following EVLT of right GSV completed on 06/20/24. Mina Washington MD personally performed the services described in this documentation, as scribed by Lucia Larsen RDMS in my presence and it is both accurate and complete. Lucia Washington RDMS, am scribing for, and in the presence of, Dr. Stephanie Huffman and in the presence of the patient. knee: bilateral (most notable to right leg), calf: bilateral, ankle: bilateral and dobbs: bilateral aching, cramping and tender 7 10 years Worsened in recent months: Yes standing, sitting and walking analgesics (Ibuprofen), elevating extremities, compression stockings and exercise Reports fatigue, heaviness, limb pain and edema History of lower extremity trauma: No Superficial thrombophlebitis: No Family history of varicose veins: yes (mother) Has patient had previous lower extremity venous surgery: No Patient has previously received the following treatment(s) for lower extremity varicose veins: Reports none Does patient have a history of : yes Does patient intend to have future pregnancies: no Has patient had lower extremity venous scan with relux testing: No Support hose used: Yes Problems walking or doing physical activity: Yes How does it affect you: often has to sit and elevate bilateral legs/feet Do you walk much: Yes Do you stand much: No Review of Systems ROS Narrative Mina Washington MD personally performed the services described in this documentation, as scribed by Lucia Larsen RDMS in my presence and it is both accurate and complete. Lucia Washington RDMS, am scribing for, and in the presence of, Dr. Stephanie Huffman and in the presence of the patient. Status of ROS 10 or more systems reviewed and unremark able except as noted in history and below Cardiovascular Reports: edema Integumentary/Breast Reports: redness, skin pain, skin tenderness and changes in skin color Hematologic/Lymphatic Reports: easy bruising and easy bleeding [facility] Medical History (Updated 06/28/24 @ 14:09 by Lucia Larsen) Phlebitis and thrombophlebitis of superficial vessels of right lower extremity ?I80.01 - Phlebitis and thrombophlebitis of superficial vessels of right lower extremity (ICD-10) Phlebitis of superficial vein of right lower extremity ?I80.01 - Phlebitis and thrombophlebitis of superficial vessels of right lower extremity (ICD-10) Phlebitis and thrombophlebitis of superficial vessels of left lower extremity ?I80.02 - Phlebitis and thrombophlebitis of superficial vessels of left lower extremity (ICD-10) Diverticulosis ?K57.90 - Diverticulosis of intestine, part unspecified, without perforation or abscess without bleeding (ICD-10) 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 - Primary osteoarthritis, unspecified hand (ICD-10) Varicose veins of bilateral lower extremities with pain ?I83.813 - Varicose veins of bilateral lower extremities with pain (ICD-10) Arthritis ?M19.90 - Unspecified osteoarthritis, unspecified site (ICD-10) Spinal stenosis ?M48.00 - Spinal stenosis, site unspecified (ICD-10) Atrial fibrillation ?I48.91 - Unspecified atrial fibrillation (ICD-10) Obesity ?E66.9 - Obesity, unspecified (ICD-10) Fibromyalgia ?M79.7 - Fibromyalgia (ICD-10) Surgical History (Updated 06/20/24 @ 15:07 by Henri Higgins) Status post laser ablation of incompetent vein ?Z98.890 - Other specified postprocedural states (ICD-10) H/O colectomy ?Z90.49 - Acquired absence of other specified parts of digestive tract (ICD- 10) Hx of breast reduction, elective ?Z98.890 - Other specified postprocedural states (ICD-10) H/O abdominoplasty ?Z98.890 - Other specified postprocedural states (ICD-10) History of cholecystectomy ?Z90.49 - Acquired absence of other specified parts of digestive tract (ICD- 10) H/O: hysterectomy ?Z90.710 - Acquired absence of both cervix and uterus (ICD-10) Family History (Updated 04/26/24 @ 14:42 by Henri Higgins) Mother Varicose veins of bilateral lower extremities with pain Heart disease Age related osteoporosis Sister Age related osteoporosis Other Family history of cancer Family history of diabetes mellitus Family history of hypertension Pulmonary hypertension Social History (Updated 04/26/24 @ 14:43 by Henri Higgins) Within the past year, how often did you have six or more drinks on one occasion: less than monthly Smoking status: Never smoker Non-prescribed substance use: denies use Meds Home Medications and Allergies Home Medications ?Medication ?Instructions ?Recorded ?Confirmed ?Type aspirin 81 mg capsule 81 mg PO DAILY 04/26/24 04/26/24 History diltiazem HCl PO 04/26/24 History duloxetine PO 04/26/24 History montelukast 10 mg tablet 10 mg PO QPM 04/26/24 04/26/24 History (Singulair) pantoprazole 40 mg granules 40 mg PO DAILY 04/26/24 04/26/24 History delayed-release for susp in packet (Protonix) tramadol .ROUTE 04/26/24 History Allergies Allergy/AdvReac Type Severity Reaction Status Date / Time codeine Allergy Mild Agitated Verified 04/26/24 15:32 dermaplast glue Allergy Intermediate Rash Uncoded 04/26/24 15:32 Exam Narrative Exam Narrative: Patient has mild tenderness medial right thigh. Mina Washington MD personally performed the services described in this documentation, as scribed by Lucia Larsen RDMS in my presence and it is both accurate and complete. Lucia Washington RDMS, am scribing for, and in the presence of, Dr. Stephanie Huffman and in the presence of the patient. Results Imaging Venous US: Radiologist's impression: Heat induced thrombus in right GSV 2.8 cm from SFJ and extends to mid thigh. Mina Washington MD personally performed the services described in this documentation, as scribed by Lucia Larsen RDMS in my presence and it is both accurate and complete. Lucia Washington RDMS, am scribing for, and in the presence of, Dr. Stephanie Huffman and in the presence of the patient. Assessment and Plan Assessment and Plan (1) Phlebitis and thrombophlebitis of superficial vessels of right lower extremity: Plan Plan is for patient to return for EVLT of left leg AASV on 07/13/24. Mina Washington MD personally performed the services described in this documentation, as scribed by Lucia Larsen RDMS in my presence and it is both accurate and complete. I, Lucia Larsen RDMS, am scribing for, and in the presence of, Dr. Stephanie Huffman and in the presence of the patient.
--- NOTE | 2024-06-28 14:11 | P.DS_ITS ---
Discharge Plan Discharge Disposition: Home, Self-Care Outpatient Diagnostics: VC Endovenous Ablation 1VeinLT (Routine) Timeframe: 1 Month Facility: [facility] - Location: Vein Center Ordered By: Mina Huffman Follow Up Appointments: 07/13/24 Print Language: Slovak
--- NOTE | 2024-06-28 14:26 | VEIN_ITS ---
Patient Name: JACQUES RIVERA MR#: [id number] : 1965 Exam Date: 06/28/2024 Ordering Doctor: DR BAO PINEDO M.D. RADIOLOGY REPORT PROCEDURE: [facility] EST LMTD VEIN CENTER - OFFICE VISIT FOLLOW [facility] PROGRESS NOTES: The patient reports improvement in leg symptoms. There has been interval reduction in varicosities. The patient has followed our recommendations to walk 20-30 minutes once or twice per day since the procedure. Physical exam demonstrates decrease in varicosities of the leg. Persistent varicosities are identified along the legs bilaterally. Review of the ultrasound performed the same day demonstrates occlusive thrombus extending throughout the treated vein(s), see separate report, consistent with a successful ablation. No thrombus extending into or beyond the saphenofemoral junction. The patient expressed a desire to proceed with treatment of remaining incompetent varicosities. The patient was informed that treatment was a process and would require several procedures/sessions. VEIN/[facility] EST LMTD IMPRESSION: 1. Successful ablation of the right great saphenous vein(s). 2. Persistent varicose veins and lower extremity symptoms. PLAN: 1. Endovenous laser ablation of the left anterior accessory saphenous vein. Nurse notes, history and physical were reviewed and confirmed, see attached forms. The nurse was present throughout the physical exam and consultation Dictated by: Mina Huffman M.D. on 06/28/2024 at 14:55 Approved by: Mina Huffman M.D. on 06/28/2024 at 15:01
--- NOTE | 2024-06-28 14:28 | VEIN_ITS ---
Patient Name: JACQUES RIVERA MR#: [id number] : 1965 Exam Date: 06/28/2024 Ordering Doctor: DR BAO PINEDO M.D. RADIOLOGY REPORT PROCEDURE: VC EXT VENOUS RT LMTD COMPARISON: None. INDICATIONS: I80.01 Phlebitis of superficial veins of rt lower extremity TECHNIQUE: Lower extremity vargas scale and Duplex Doppler evaluation of the deep venous system from the inguinal ligament through the calf veins. FINDINGS: REGION: Right lower extremity. THROMBI: Negative for DVT. Heat induced thrombus in right GSV 2.8 cm from SFJ and extends to mid thigh. COMPRESSIBILITY: Non-compressible segments corresponding to thrombus FLOW: Areas of no flow corresponding to thrombus OTHER: CONCLUSION: 1. Successful post ablation occlusion of right great saphenous vein. Dictated by: Mina Huffman M.D. on 06/28/2024 at 14:51 Approved by: Mina Huffman M.D. on 06/28/2024 at 14:54
--- OUTSIDE RECORDS SUMMARY | 2024-06-28 14:40 | XMS_ITS | CCD ---
Author Organization [facility] Care Team Providers Care Machine Gunner Name Role Phone NONE, XXXX Primary Care Physician Unavailab Gregg Edwards Attending Unavailable AQUILES Perez Primary Care Provider [phone]( [phone] MD Livan Silver Attending Provider Self, Referral Attending Provider Unavailable MD Herbie Vila Referring Provider AQUILES Perez Referring Provider MD Ventura German Attending Provider MD Herbie Vila Attending Provider AQUILES Perez Primary Care Provider [phone]( [phone] MD Livan Silver Attending Provider Hrebie Vila Admitting Unavailable Herbie Vlia Attending Unavailable Tameka Perez Primary Care Unavailable Livan Silver Admitting Unavai labalem Silver, Livan Holder Attending Tameka Campos Primary Care Unavailable Herbie Vila Referring Unavailable Self, Referral Admitting Unavailable Self, Referral Attending Unavailable Tameka Perez Primary Care Unavailable Livan Silver Admitting Unavai lable Korkaz, Livan Holder Attending Tameka Campos Primary Care Unavailable Livan Silver Admitting Unavai lable Koromjason, Livan Holder Attending Taemka Campos Primary Care Unavailable Ventura German Attending Unavailable Tameka Perez Primary Care Unavailable Tameka Perez Referring Unavailable Ventura German Admitting Unavailable Herbie Vila Admitting Unavailable Herbie Vila Attending Unavailable Tameka Perez Primary Care Unavailable Allergies Allergy Classification Reported Allergen(s) Allergy Type Date of Onset Reaction(s) Facility Anti-Epileptic Agents (2 sources) gabapentin Drug Allergy 4 [facility] Nitrofurantoin (2 sources) Nitrofurantoin Drug Allergy 4 Chest Pain [facility] NSAIDs (2 sources) Ketorolac Drug Allergy 4 Anaphylaxis [facility] Opioid Agonists (2 sources) Codeine Drug Allergy 4 [facility] (10 sources) Codeine; Translations: [codeine] Drug Allergy 4 [facility] (10 sources) gabapentin; Translations: [gabapentin] Drug Allergy 4 [facility] (10 sources) Ketorolac; Translations: [ketorolac] Drug Allergy 4 Anaphylaxis [facility] (10 sources) Nitrofurantoin; Translations: [nitrofurantoin] Drug Allergy 4 Chest Pain [facility] (1 source) Codeine Drug Allergy 4 [facility] Repository Medications Current Medications Medication Drug Class(es) Dates Sig (Normalized) Sig (Original) Albuterol (Eqv-ProAir HFA) 90 mcg/inh inhalation aerosol (1 source) Start: 08-23-2023 End: 08-30-2023 take 2 puff(s) by inhalation every six hours Albuterol (Eqv-ProAir HFA) 90 mcg/inh inhalation aerosol 2 puff(s), Inhalation, q6hr for 7 day(s), 6.7 gm, Refill(s) 0, [facility]/pharmacy #[id number], 165, cm, 08/23/23 9:07:00 EST, Height/Length [...] day(s), # 7 tab(s), Refills(s) 0, Pharmacy: [facility]/pharmacy #[id number], 165, cm, 08/23/23 9:07:00 EST, Height/Length [...] Test Name Value Interpretation Reference Range Facility [facility] 02-24-2024 L Specimen: [id number] Received: 02/24/24 Status: RACHEL Carlson Num: [id number] Spec Type: Surgical Subm Dr: Herbie Vila MD Tissues: A Breast Reduction - Mammoplasty (SRT) B Breast Reduction - Mammoplasty (LT) Procedures: HE/6, Gross/Micro L4/2 Age/ Patient Sex Location Account Attending Physician Etelvina Luciano 58/F [place] [id number] Herbie Vila MD SPEC NUM: [id number] RECD: 02/24/24 STATUS: RACHEL RAMÍREZJessica NUM: [id number] JESSICA: 02/24/[address]: Herbie Vila MD ENTERED: 02/24/[address] [facility] [address]: SPEC TYPE: Surgical DEPT: S [...] No discrete masses or lesions are present. [place] Barrel Ribs sections are submitted in A1 (skin); A2-A3 (parenchyma). -------- Specimen: [id number] Received: 02/24/24 Status: RACHEL Robyn Num: [id number] Spec Type: Surgical Subm Dr: Herbie Vila MD Tissues: A Breast Reduction - Mammoplasty (SRT) B Breast Reduction - Mammoplasty (LT) Procedures: ELLEPriscila/Lily L4/2 -------- Patient: Etelvina Luciano [id number] (Continued) -------- Specimen: [id number] Received: 02/24/24 (Continued) Gross Description (Continued) Signed (signature on file) Jun Benavides MD 02/28/241955 -------- Specimen: [id number] Received: 02/24/24 Status: RACHEL Carlson Num: [id number] Spec Type: Surgical Subm Dr: Herbie Vila MD Tissues: A Breast Reduction - Mammoplasty (SRT) B Breast Reduction - Mammoplasty (LT) Procedures: Priscila/Micro L4/2 -------- Patient: Etelvina Luciano [id number] (Continued) -------- Specimen: [id number] Received: 02/24/24 (Continued) Gross Description (Continued) B. [...] No discrete masses or lesions are present. [place] Barrel Ribs sections are submitted in B1 (skin); B2?B3 (parenchyma). TW CPT Codes 32620O0 -------- -------- Specimen: [id number] Received: 02/24/24 Status: RACHEL Carlson Num: [id number] Spec Type: Surgical Subm Dr: Herbie Vila MD Tissues: A Breast Reduction - Mammoplasty (SRT) B Breast Reduction - Mammoplasty (LT) Procedures: HE/Priscila [place]/Lily L4/2 -------- Patient: Etelvina Luciano [id number] (Continued) -------- Signed (signature on file) Jun Benavides MD 02/28/241955 Normal [facility] Alanine aminotransferase [En zymatic activity/volume] in Serum or PlasmaOrdered By: Tameka Perez on 02-03-2024 ALT [Catalytic activity/Vol] 11 U/L Normal 7-52 [facility] Comment on above: Performed By: #### C MP wRFX A1C #### [facility] [address] Albumin [Mass/volume] in Ser um or Plasma by Bromocresol green (BCG) dye binding methoOrdered By: Tameka Perez on 02-03-2024 Albumin BCG dye [Mass/Vol] 3.9 g/dL 3.5-5.7 [facility] Alkaline phosphatase [Enzyma tic activity/volume] in Serum or PlasmaOrdered By: Tameka Perez on 02-03-2024 ALP [Catalytic activity/Vol] 80 U/L Normal 34-104 [facility] Comment on above: Result Comment: PERF ORMED BY: [place] [address] PATHOLOGIST CARRY ALL DRIVER FERMIN MARTINEZ M.D. Performed By: #### C MP wRFX A1C #### [address] Aspartate aminotransferase [ Enzymatic activity/volume] in Serum or PlasmaOrdered By: Tameka Perez on 02-03-2024 AST [Catalytic activity/Vol] 14 U/L Normal 13-39 [facility] Comment on above: Performed By: #### C MP wRFX A1C #### [address] Bilirubin.total [Mass/volume ] in Serum or PlasmaOrdered By: Tameka Perez on 02-03-2024 Bilirubin [Mass/Vol] 0.3 mg/dL Normal 0.3-1.0 [facility] Comment on above: Performed By: #### C MP wRFX A1C #### [address] CMP with reflex to A1Con Albumin [Mass/Vol] 3.9 g/dL Normal 3.5-5.7 [facility] Comment on above: Performed By: #### C MP wRFX A1C #### [place] [address] [place] GFR/1.73 sq M.predicted MDRD (S/P/Bld) [Vol rate/Area] mL/min/{1.73_m2} Normal [facility] Comment on above: Performed By: #### C MP wRFX A1C #### [place] [address] [place] Calcium [Mass/volume] in Ser um or PlasmaOrdered By: Tameka Perez on 02-03-2024 Calcium [Mass/Vol] 8.8 mg/dL Normal 8.6-10.[address] [facility] Comment on above: Performed By: #### C MP wRFX A1C #### [place] [address] [place] Carbon dioxide, total [Moles /volume] in Serum or PlasmaOrdered By: Tameka Perez on 02-03-2024 CO2 [Moles/Vol] 28.7 mmol/L Normal 21.0-31.0 [facility] Comment on above: Performed By: #### C MP wRFX A1C #### [facility] [address] [place] [address] [place] Chloride [Moles/volume] in S sanjay or PlasmaOrdered By: Tameka Perez on 02-03-2024 Chloride [Moles/Vol] 110 mmol/L High 98-107 [facility] Comment on above: Performed By: #### C MP wRFX A1C #### [facility] [address] [place] [address] [place] Creatinine [Mass/volume] in Serum or PlasmaOrdered By: Tameka Perez on 02-03-2024 Creatinine [Mass/Vol] 0.61 mg/dL Normal 0.60-1.20 [facility] Comment on above: Performed By: #### C MP wRFX A1C #### [facility] [address] [place] [address] [place] Glucose [Mass/volume] in Ser um or PlasmaOrdered By: Tameka Perez on 02-03-2024 Glucose [Mass/Vol] 95 mg/dL Normal 70-[address] [facility] Comment on above: Performed By: #### C MP wRFX A1C #### [facility] [address] [place] [address] [place] No Panel InformationOrdered By: Tameka Perez on 02-03-2024 Estimated GFR (CKD-EPI) > 60.0 mL/Min [facility] Creatinine Clearance (Chem N/A [facility] Potassium [Moles/volume] in Serum or PlasmaOrdered By: Tameka Perez on 02-03-2024 Potassium [Moles/Vol] 4.0 mmol/L Normal 3.5-5.1 [facility] Comment on above: Performed By: #### C MP wRFX A1C #### [facility] [address] [place] [address] [place] Protein [Mass/volume] in Ser um or PlasmaOrdered By: Tameka Perez on 02-03-2024 Protein [Mass/Vol] 5.9 g/dL Low 6.4-8.[address] [facility] Comment on above: Performed By: #### C MP wRFX A1C #### [address] Serum globulin measurement b y calculation (mass/volume)Ordered By: Tameka Perez on 02-03-2024 Globulin (S) [Mass/Vol] 2.0 g/dL Normal [facility] Comment on above: Performed By: #### C MP wRFX A1C #### [address] Serum or plasma albumin/glob ulin mass ratioOrdered By: Tameka Perez on 02-03-2024 Albumin/Globulin [Mass ratio] 2.0 {ratio} Normal [facility] Comment on above: Performed By: #### C MP wRFX A1C #### [address] Serum or plasma anion gap de terminationOrdered By: Tameka Perez on 02-03-2024 Anion gap [Moles/Vol] 9.3 mmol/L Normal 6.0-15.0 [facility] Comment on above: Performed By: #### C MP wRFX A1C #### [address] Sodium [Moles/volume] in Ser um or PlasmaOrdered By: Tameka Perez on 02-03-2024 Sodium [Moles/Vol] 144 mmol/L Normal 136-[address] [facility] Comment on above: Performed By: #### C MP wRFX A1C #### [address] Thyrotropin [Units/volume] i n Serum or PlasmaOrdered By: Ventura German on 02-03-2024 TSH Qn 0.97 m[IU]/L Normal 0.45-5.33 [facility] Comment on above: Result Comment: PERF ORMED BY: [place] [address] PATHOLOGIST CARRY [employer] DRIVER FERMIN MARTINEZ M.D. Performed By: #### T SH3 #### [facility] [address] [place] [address] Urea nitrogen [Mass/volume] in Serum or PlasmaOrdered By: Tameka Perez on 02-03-2024 Urea nitrogen [Mass/Vol] 16 mg/dL Normal 7-25 [facility] Comment on above: Performed By: #### C MP wRFX A1C #### [facility] [address] [place] [address] MM screening mammo BI w/CADo n 01-19-2024 MM screening mammo BI w/CAD [facility] [place] [address] [place] [address] Mammography Report Signed Patient: Etelvina Luciano MR#: [id number] 5 : 1965 Acct:[id number] Age/Sex: 58 / F ADM Date: 01/01/24 Loc: [place] Room: Type: [facility] Attending Dr: Referral Self Copies to: AQUILES [...] Ibarra Jr., D.OSteven01/19/2024 8:48 AM Dictation Location: [facility] Transcribed By: [facility] 01/19/24847 Dictated By: Low Ibarra Jr, DO 01/19/2447 Signed By: 01/19/24847 Normal [facility] echo transthoracicon [facility] echo transthoracic [facility] [place] [address] Echocardiogram Signed Patient: Etelvina Luciano MR#: [id number] 5 : 1965 Acct:[id number] Age/Sex: 58 / F ADM Date: 01/18/24 Loc: Room: Type: [facility] Attending Dr: Livan Silver MD Ordering Provider: Livan Silver MD Date of Service: 01/18/24 [facility] echo transthoracic: I48.0 - Paroxysmal atrial fibrillation [...] mmHg Transcribed By: SCV Performed At: 01/18/24 0157 Signed By: Livan Silver MD 01/18/24 0313 Normal [facility] Cholesterol [Mass/volume] in Serum or PlasmaOrdered By: Livan Silver on 01-12-2024 Cholesterol [Mass/Vol] 144 mg/dL Normal 140-200 [facility] Comment on above: Chol less than 200 m g/dl low riskChol 201-239 mg/dl borderline riskChol 240 mg/dl and greater high risk Result Comment: Chol less than 200 mg/dl low risk Chol 201-239 mg/dl borderline risk Chol 240 mg/dl and greater high risk Performed By: #### L IPID #### [facility] [address] [place] [address] [place] Cholesterol in LDL Calc [Mas s/Vol]Ordered By: Livan Silver on 01-12-2024 Cholesterol in LDL [Mass/Vol] 59 mg/dL 0-100 [facility] Comment on above: LDL ATP III CLASSIFI CATIONLDL less than 100 mg/dL OptimalLDL 100-129 mg/dL Near or above optimalLDL 130-159 mg/dL Borderline highLDL 160-189 mg/dL HighLDL greater than 189 mg/dL Very high Cholesterol in VLDL Calc [Ma ss/Vol]Ordered By: Livan Silver on 01-12-2024 Cholesterol in VLDL [Mass/Vol] 14 mg/dL [facility] Lipid Panelon 01-12-2024 LDL Cholesterol,Calculated 59 mg/dL Normal 0-100 [facility] Comment on above: Result Comment: LDL ATP III CLASSIFICATION LDL less than 100 mg/dL Optimal LDL 100-129 mg/dL Near or above optimal LDL 130-159 mg/dL Borderline high LDL 160-189 mg/dL High LDL greater than 189 mg/dL Very high Performed By: #### L IPID #### [facility] [address] [place] [address] [place] Triglyceride w/Reflex 70 mg/dL Normal 0-149 [facility] Comment on above: Result Comment: TRIG ATP III CLASSIFICATION TRIG less than 150 mg/dL Normal TRIG 150-199 mg/dL Borderline high TRIG 200-500 mg/dL High TRIG greater than 500 mg/dL Very high Standard traceable to the Center for Disease Conrtrol and Prevention (CDC) test method. Performed By: #### L IPID #### [facility] [address] [place] [address] [facility] VLDL CHOLESTEROL 14 mg/dL Normal [facility] Comment on above: Performed By: #### L IPID #### [facility] [address] [place] [address] Serum or plasma high density lipoprotein (HDL) cholesterol measurementOrdered By: Livan Silver on 01-12-2024 Cholesterol in HDL [Mass/Vol] 71 mg/dL Normal 23-92 [facility] Comment on above: HDL CHOL ATP-III CLA SSIFICATION Cardiovascular RiskHDL > or equal to 60 mg/dL LOWHDL < 40 mg/dL HIGH Result Comment: HDL CHOL ATP-III CLASSIFICATION Cardiovascular Risk HDL > or equal to 60 mg/dL LOW HDL < 40 mg/dL HIGH Performed By: #### L IPID #### [address] Serum or plasma total choles terol/high density lipoprotein (HDL) cholesterol mass ratOrdered By: Livan Silver on 01-12-2024 Cholesterol.total/Cristina sterol in HDL [Mass ratio] 2.0 {ratio} Normal <5.0 [facility] Comment on above: Result Comment: PERF ORMED BY: [place] [address] PATHOLOGIST CARRY ALL DRIVER FERMIN MARTINEZ M.D. Performed By: #### L IPID #### [address] Triglyceride [Mass/volume] i n Serum or PlasmaOrdered By: Livan Silver on 01-12-2024 Triglyceride [Mass/Vol] 70 mg/dL 0-149 [facility] Comment on above: TRIG ATP III CLASSIF ICATIONTRIG less than 150 mg/dL NormalTRIG 150-199 mg/dL Borderline highTRIG 200-500 mg/dL High TRIG greater than 500 mg/dL Very highStandard traceable to the Center for Disease Conrtrol and Prevention (CDC) test method. [facility] ECG *OFFICE ONLY*on 12-03 [facility] ECG *OFFICE ONLY* [facility] [place] [address] [place] [address] Electrocardiograph Report Signed Patient: Etelvina Luciano MR#: [id number] 5 : 1965 Acct:[id number] Age/Sex: 58 / F ADM Date: 12/29/23 Loc: [facility]KGCARDIO Room: Type: [facility] Attending Dr: Livan Silver MD Ordering Provider: [...] previous ECGs available Confirmed by Livan Silver ([id number]) on 01/12/2024 5:44:25 PM Referred By: Electronically Signed By:Livan Silver Transcribed By: MUS Signed By Livan Silver MD 01/12/24 1744 Normal [facility] Auto Diffon 08-23-2023 Basophils/100 WBC (Bld) 0.7 % Normal 0.0-2.0 [facility] Comment on above: Order Comment: Order Added by Discern Expert. Performed By: #### 2 283327, 12660084, 82717636, 65581021, 6762695, 77822085, 2462255 #### [facility] [address] [place] [address] Basophils/Leukocytes Auto (Bld) [Pure # fraction] 0.1 E9/L Normal 0.0-0.2 [facility] Comment on above: Order Comment: Order Added by Discern Expert. Performed By: #### 2 060030, 59570518, 02414255, 74143154, 8448148, 12557928, 4239567 #### [facility] [address] [place] [address] Eosinophils/100 WBC (Bld) 1.2 % Normal 0.0-8.0 [facility] Comment on above: Order Comment: Order Added by Discern Expert. Performed By: #### 2 798365, 75639194, 21838059, 05620246, 2936276, 90006787, 6284563 #### [facility] [address] [place] [address] Eosinophils/Leukocytes Auto (Bld) [Pure # fraction] 0.1 E9/L Normal 0.0-0.5 [facility] Comment on above: Order Comment: Order Added by Discern Expert. Performed By: #### 2 380011, 00100492, 64206647, 32449665, 9287613, 84040042, 4246897 #### [facility] [address] [place] [address] Lymphocytes/100 WBC (Bld) 18.3 % Normal 14.0-50.0 [facility] Comment on above: Order Comment: Order Added by Discern Expert. Performed By: #### 2 453233, 42529202, 04438197, 16923636, 5328569, 59957631, 8362950 #### [facility] [address] [place] [address] Lymphocytes/Leukocytes Auto (Bld) [Pure # fraction] 1.3 E9/L Normal 1.0-4.0 [facility] Comment on above: Order Comment: Order Added by Discern Expert. Performed By: #### 2 853842, 03392152, 10854262, 91131459, 4055940, 56522865, 3550799 #### [facility] [address] [place] [address] Monocytes/100 WBC (Bld) 11.9 % Normal 4.0-14.0 [facility] Comment on above: Order Comment: Order Added by Discern Expert. Performed By: #### 2 260196, 10186081, 14116159, 18998915, 8920658, 79525479, 6801347 #### [facility] [address] [place] [address] Monocytes/Leukocytes Auto (Bld) [Pure # fraction] 0.9 E9/L Normal 0.2-1.0 [facility] Comment on above: Order Comment: Order Added by Discern Expert. Performed By: #### 2 209075, 81191562, 23866515, 89291113, 4728875, 60539860, 0691639 #### [facility] [address] [place] [address] Neutrophils/100 WBC (Bld) 67.9 % Normal 36.0-75.0 [facility] Comment on above: Order Comment: Order Added by Discern Expert. Performed By: #### 2 952315, 31012060, 21245855, 63496853, 6728049, 57327185, 6135157 #### [facility] [address] [place] [address] Neutrophils/Leukocytes Auto (Bld) [Pure # fraction] 4.9 E9/L Normal 2.0-7.5 [facility] Comment on above: Order Comment: Order Added by Discern Expert. Performed By: #### 2 453602, 02266162, 82453835, 04240913, 0804689, 47651574, 1760837 #### [facility] [address] [place] [address] BMPon 08-23-2023 Creatinine [Mass/Vol] 0.7 mg/dL Normal 0.5-1.3 [facility] Comment on above: Performed By: #### 2 380938, 59694188, 75459006, 77888381, 0223047, 55731853, 4025105 #### [facility] [address] [place] [address] Urea nitrogen [Mass/Vol] 12 mg/dL Normal 5-21 [facility] Comment on above: Performed By: #### 2 332164, 68989066, 09123509, 90176367, 6902881, 80431078, 2981417 #### [facility] [address] [place] [address] Urea nitrogen/Creatinine [Mass ratio] 17 No Units Normal 10-20 [facility] Comment on above: Performed By: #### 2 829655, 18443094, 76542829, 03904697, 3394035, 53568698, 7575238 #### [facility] [address] [place] [address] Anion gap [Moles/Vol] 12 mmol/L Normal 6-16 [facility] Comment on above: Performed By: #### 2 938991, 57002970, 02895775, 75629331, 0973053, 77292011, 7120913 #### [facility] [address] [place] [address] Calcium [Mass/Vol] 9.1 mg/dL Normal 8.9-11.1 [facility] Comment on above: Performed By: #### 2 563529, 96149305, 90232138, 28850943, 4887261, 79749521, 8605434 #### [facility] [address] [place] [address] Chloride [Moles/Vol] 108 mmol/L Normal 101-111 [facility] Comment on above: Performed By: #### 2 752016, 83970285, 11467121, 20221679, 0598838, 86741875, 1032324 #### [facility] [address] [place] [address] CO2 [Moles/Vol] 24 mmol/L Normal 21-31 [facility] Comment on above: Performed By: #### 2 041855, 11279356, 50291975, 54075705, 1280524, 75076760, 5677998 #### [facility] [address] [place] [address] Glucose [Mass/Vol] 103 mg/dL Normal 55-199 [facility] Comment on above: Result Comment: If t his glucose result represents a fasting glucose, interpretation should refer to the following reference range: 55-99 mg/dL Performed By: #### 2 251900, 55453951, 65361083, 81432238, 5739843, 64292993, 0746475 #### [facility] [address] [place] [address] Potassium [Moles/Vol] 3.6 mmol/L Normal 3.5-5.3 [facility] Comment on above: Performed By: #### 2 716197, 53664811, 79289371, 39445610, 7788033, 84531676, 9759705 #### [facility] [address] [place] [address] Sodium [Moles/Vol] 140 mmol/L Normal 135-145 [facility] Comment on above: Performed By: #### 2 864206, 89968453, 83365401, 97367932, 9249770, 37926877, 1885226 #### [facility] [address] [place] [id number] BNPon 08-23-2023 Int Ctr BNP Pass Normal [facility] Comment on above: Performed By: #### 2 018449, 85988273, 02507589, 87833142, 0759277, 00792419, 0388291 #### [facility] [address] [place] [id number] Natriuretic peptide B (Bld) [Mass/Vol] 72 pg/mL Normal 5-80 [facility] Comment on above: Performed By: #### 2 558413, 64920166, 02777205, 59837455, 7123860, 03444720, 3780515 #### [facility] [address] [place] [address] CBC w/ Auto Diffon Erythrocyte distribution width (RBC) [Ratio] 13.0 % Normal 10.9-14.2 [facility] Comment on above: Performed By: #### 2 919548, 62783569, 13610555, 73391101, 4413358, 31436509, 6022788 #### [facility] [address] [place] [address] Hematocrit (Bld) [Volume fraction] 42.4 % Normal 34.0-46.0 [facility] Comment on above: Performed By: #### 2 648770, 14152893, 28612966, 03702813, 4790370, 57059300, 6313149 #### [facility] [address] [place] [address] Hemoglobin (Bld) [Mass/Vol] 14.3 g/dL Normal 12.0-16.0 [facility] Comment on above: Performed By: #### 2 162605, 42193003, 83234796, 94644331, 5132354, 01818901, 0544308 #### [facility] [address] [place] [address] MCH (RBC) [Entitic mass] 29.5 pg Normal 27.0-34.0 [facility] Comment on above: Performed By: #### 2 702121, 42264632, 61580039, 71007434, 5653734, 64418172, 5222098 #### [facility] [address] [place] [address] MCHC (RBC) [Mass/Vol] 33.6 g/dL Normal 31.4-36.0 [facility] Comment on above: Performed By: #### 2 250075, 53557341, 91977218, 14343284, 4286372, 00923863, 8825590 #### [facility] [address] [place] [address] MCV (RBC) [Entitic vol] 87.8 fL Normal 80.0-100.0 [facility] Comment on above: Performed By: #### 2 503119, 48487013, 40668665, 56294960, 3603160, [id number], [id number] #### [facility] [address] [place] [address] Platelet mean volume (Bld) [Entitic vol] 8.5 fL Normal 6.4-10.8 [facility] Comment on above: Performed By: #### 2 [id number], [id number], [id number], [id number], [id number], [id number], [id number] #### [facility] [address] [place] [address] Platelets (Bld) [#/Vol] 245.0 E9/L Normal 150.0-500.0 [facility] Comment on above: Performed By: #### 2 [id number], [id number], [id number], [id number], [id number], [id number], [id number] #### [facility] [address] [place] [address] RBC (Bld) [#/Vol] 4.8 E12/L Normal 4.3-5.9 [facility] Comment on above: Performed By: #### 2 [id number], [id number], [id number], [id number], [id number], [id number], [id number] #### [facility] [address] [place] [address] WBC corrected for nucl RBC Auto (Bld) [#/Vol] 7.2 E9/L Normal 4.0-11.0 [facility] Comment on above: Performed By: #### 2 [id number], [id number], 84124527, 87846844, [id number], [id number], [id number] #### [facility] [address] [place] [address] CHEMISTRYOrdered By: SYSTEM SYSTEM on 08-23-2023 Anion gap [Moles/Vol] 12 mmol/L Normal 6 - 16 mEq/L F [facility] Remisol Calcium [Mass/Vol] 9.1 mg/dL Normal 8.9 - 11. 1 mg/dL [facility] Remisol Chloride [Moles/Vol] 108 mmol/L Normal 101 - 1 11 mmol/L [facility] Remisol CO2 [Moles/Vol] 24 mmol/L Normal 21 - 31 mmol/L [facility] Remisol Creatinine [Mass/Vol] 0.7 mg/dL Normal 0.5 - 1.3 mg/dL [facility] Remisol GFR/1.73 sq M.predicted among non-blacks MDRD (S/P/Bld) [Vol rate/Area] 100 mL/min/1.73 m2 Normal >=59mL/min/1 .73 m2 [facility] Chem S Comment on above: Interpretive Data: C hronic kidney disease could be indicated at eGFR's of less than 60 mL/min/1.73m2. Kidney failure is indicated at less than 15 mL/min/1.73m2. Glucose [Mass/Vol] 103 mg/dL Normal 55 - 199 mg/dL [facility] Remisol Comment on above: Interpretive Data: I f this glucose result represents a fasting glucose, interpretation should refer to the following reference range: 55-99 mg/dL Potassium [Moles/Vol] 3.6 mmol/L Normal 3.5 - 5.3 mmol/L [facility] Remisol Sodium [Moles/Vol] 140 mmol/L Normal 135 - 145 mmol/L [facility] Troponin I.cardiac [Mass/Vol] 6.00 pg/mL Low 10.10 - 27.10 pg/mL [facility] Comment on above: Interpretive Data: T elle 95% CI (Confidence Interval) PPV (Positive Predictive Value) for myocardial infarction in females is 38 pg/mL, in males 51 pg/mL. The results should be used in conjunction with clinical conditions of myocardial infarction. (Access High Sensitivity Troponin I Instructions For Use, Julian Sotero, May 2018) Urea nitrogen [Mass/Vol] 12 mg/dL Normal 5 - 21 mg/dL [facility] Remisol Urea nitrogen/Creatinine [Mass ratio] 17 mg/mg Normal 10 - 20 [facility] Remisol CHEMISTRYOrdered By: Kerry shannon on 08-23-2023 Natriuretic peptide B (Bld) [Mass/Vol] 72 pg/mL Normal 5 - 80 pg/mL [facility] COAGULATIONOrdered By: Juana Aggarwal on 08-23-2023 aPTT Coag (PPP) [Time] 28.9 s Normal 25.1 - 36.5 second(s) [facility] Auto Coag Comment on above: Interpretive Data: [...] the same coagulation reagent and instrumentation as [facility]. Currently there are no coagulation studies available worldwide for children to 14 days, and no normal ranges. Heparin therapeutic range (represented by Anti-Factor Xa activity of 0.2 - 0.4 U/mL) corresponds to PTT of 56.6 - 109.0 sec. INR Coag (PPP) [Relative time] 1.2 {INR} Invalid Interpretation Code [facility] Auto Coag Comment on above: Interpretive Data: I NR results are specifically intended to assess patients stabilized on long-term Anticoagulation therapy suggested INR s Less Intensive Anticoagulation 2.0 3.0 Conventional Range 3.0 4.5 PT Coag (PPP) [Time] 12.8 s High 9.4 - 1 2.5 second(s) [facility] Auto Coag Comment on above: Interpretive Data: [...] the same coagulation reagent and instrumentation as [facility]. Currently there are no coagulation studies available worldwide for children to 14 days, and no normal ranges. Consent for Treatmenton 08-05 Consent for Treatment [id number] .00TIFF Normal [facility] Discharge Instructionson Discharge Instructions [id number]# 1.00TIFF Normal [facility] ED Clinical Summaryon 2022 ED Clinical Summary [place] [address] ED Clinical Summary Person Information Name: ETELVINA LUCIANO [facility] Age: 58 Years : 1965 Sex: Female Language: Swedish PCP: NONE, XXXX Marital Status: Phone: [phone] Visit Id: Visit Reason: Palpitations; Throat pain [...] 08/23/2023 10:42:57 08/23/2023 10:42:57 08/23/2023 10:42:57 ADDRESS: [address] [place] [address] [address] [facility] [id number] PHYS DOC NOTES: MEDICAL INFORMATION: Prescriptions Given: New Medications [id number], [address] [place] [id number], [phone] albuterol (Albuterol (Eqv-ProAir HFA) 90 mcg/inh inhalation aerosol) 2 Puffs Inhalation every 6 hours for 7 Days. Refills: 0. dexamethasone (dexamethasone 6 mg oral tablet) 1 Tablets By Mouth every day for 7 Days. Refills: 0. PATIENT EDUCATION INFORMATION: Instructions: Follow up: With: Address: When: Jessica Carbajal [address] [place] [address] Business (1) In 3 days 08/26/2023 With: Address: When: XXXX NONE , [place] In 3 days DIAGNOSIS: Bronchospasm; COVID; Palpitations Normal [facility] ED Note-Physicianon 08-23-20 ED Note-Physician Basic Information [...] for 7 day(s), 6.7 gm, Refill(s) 0, [id number], 165, cm, 08/23/23 9:07:00 EST, Height/Length Dosing, 88, kg, 08/23/23 9:07:00 EST, Weight Dosing dexamethasone, 6 mg = 1 tab(s), Oral, Daily, X 7 day(s), # 7 tab(s), Refills(s) 0, Pharmacy: [facility]/pharmacy #[id number], 165, cm, 08/23/23 9:07:00 EST, Height/Length [...] [address] [place] [address]- [employer] (1) Additional Instructions: XXXX NONE In 3 [...] fL (11 (more content not included)... Normal [facility] Comment on above: Result Comment: Elec tronically Signed By: Gregg Baxter DO\.br\Date and Time Signed: 08/23/23 10:37 EST ED Patient Education Noteon 08-23-2023 ED Patient Education Note Normal [facility] ED Patient Summaryon 023 ED Patient Summary [address] [address] Patient Discharge Instructions Person Information Name: ETELVINA LUCIANO Age: 58 Years Arrival Date: 08/23/2023 08:48:24 Discharge Diagnosis: Bronchospasm; COVID; Palpitations Primary Care Physician: NONE, XXXX Provider Information Primary Provider: Gregg Baxter DO [employer] Intern:None The exam and treatment you received in the Emergency Department were for an urgent problem and are not intended as complete care. It is important that you follow up with a doctor, nurse practitioner, or physician?s surgical first assistant for ongoing care. If your symptoms [...] Follow-up Instructions: With: Address: When: Jessica Carbajal [address] [place] [address], [address] [address] [facility] () In 3 days 08/26/2023 With: Address: When: XXXX [facility] , [place] In 3 days In the event that this physician does not participate in your insurance network, please consult with your insurance company to find a nearby participating provider. Patient Education Materials: A MESSAGE TO ALL PATIENTS REGARDING OPIOIDS PRESCRIPTION OPIOIDS: WHAT YOU NEED TO KNOW Prescription opioids can be used to help relieve bknewltv-pw-jfodij pain and are often prescribed following a [...] be struggling with addiction, tell your health managed care liaison and ask for guidance or call [employer]?S National Helpline at [phone]. (more content not included)... Normal [facility] HEMATOLOGYOrdered By: SYSTEM SYSTEM on 08-23-2023 Basophils/100 [...] 33.6 g/dL Normal 31.4 - 36.0 gm/dL [facility] HemeAutoSS MCV (RBC) [Entitic vol] 87.8 fL Normal 80.0 - 100.0 fL [facility] HemeAutoSS Platelet mean volume (Bld) [Entitic vol] 8.5 fL Normal 6.4 - 10.8 fL [facility] HemeAutoSS Platelets (Bld) [#/Vol] 245.0 E9/L Normal 150. 0 - 500.0 E9/L [facility] HemeAutoSS RBC (Bld) [#/Vol] 4.8 E12/L Normal 4.3 - 5.9 E12/L [facility] HemeAutoSS WBC corrected for nucl RBC Auto (Bld) [#/Vol] 7.2 E9/L Normal 4.0 - 11.0 E9/L [facility] HemeAutoSS Monitor Recordon 08-23-2023 Monitor Record [id number]# 1.00TIFF Normal [facility] PT & PTTon 08-23-2023 aPTT Coag (PPP) [Time] 28.9 second(s) Normal 25.1-36.5 [facility] Comment on above: Result Comment: Para meter [...] the same coagulation reagent and instrumentation as [facility]. Currently there are no coagulation studies available worldwide for children to 14 days, and no normal ranges. Heparin therapeutic range (represented by Anti-Factor Xa activity of 0.2 - 0.4 U/mL) corresponds to PTT of 56.6 - 109.0 sec. Performed By: #### 2 [id number], [id number], [id number], [id number], 9978187, 49036020, [id number] #### [facility] [address] [place] [address] INR Coag (PPP) [Relative time] 1.2 {INR} Invalid Interpretation Code [facility] Comment on above: Result Comment: INR results are specifically intended to assess patients stabilized on long-term Anticoagulation therapy suggested INR?s ?Less Intensive Anticoagulation? 2.0 ? 3.0 Conventional Range 3.0 ? 4.5 Performed By: #### 2 [id number], [id number], 93632852, 21464828, 2001402, 98595415, 4402608 #### [facility] [address] [place] [address] PT Coag (PPP) [Time] 12.8 second(s) High 9.4-12.5 [facility] Comment on above: Result Comment: 15 d [...] the same coagulation reagent and instrumentation as [facility]. Currently there are no coagulation studies available worldwide for children to 14 days, and no normal ranges. Performed By: #### 2 674641, 99349602, 72982809, 89828530, 3274063, 87455695, 6247120 #### [facility] [address] [place] [address] Troponin 0 Hr.on 08-23-2023 Troponin I.cardiac [Mass/Vol] 6.00 pg/mL Low 10.10-27.10 [facility] Comment on above: Result Comment: The 95% CI (Confidence Interval) PPV (Positive Predictive Value) for myocardial infarction in females is 38 pg/mL, in males 51 pg/mL. The results should be used in conjunction with clinical conditions of myocardial infarction. (Access High Sensitivity Troponin I Instructions For Use, Julian Sotero, May 2018) Performed By: #### 2 [id number], [id number], [id number], 22788154, 6502204, 96836186, 5754025 #### [facility] [address] [place] [address] XR Chest Single Viewon 08-23 XR Chest [...] mGy = na DAP = na Normal [facility] eGFRon 08-23-2023 GFR/1.73 sq M.predicted among non-blacks MDRD (S/P/Bld) [Vol rate/Area] 100 mL/min/1.73 m2 Normal >=59 [facility] Comment on above: Order Comment: Order added by Discern Expert. Result Comment: Analytic Manager crow kidney disease could be indicated at eGFR's of less than 60 mL/min/1.73m2. Kidney failure is indicated at less than 15 mL/min/1.73m2. Performed By: #### 2 583949, [id number], 87539351, 84176081, 9166864, [id number], [id number] #### [facility] [address] [place] [address] KNEE CMPLT, 4 OR MORE VIEWSo n 05-20-2020 KNEE CMPLT, 4 OR MORE VIEWS Patient Name: ETELVINA LUCIANO STUDY: KNEE; COMPLT, 4 OR MORE VIEWS; Left; 05/20/2020 6:33 pm INDICATION: pain, (L) anterior knee s/p plant and twist injury. COMPARISON: None. ACCESSION NUMBER(S): [id number] ORDERING CLINICIAN: CAMILA CHERRY FINDINGS: No displaced fracture or rosario dislocation. Mild degenerative change-left knee with mild medial compartment narrowing/mild chondromalacia patella and mild elongation tibial eminences. Suprapatellar effusion-present. IMPRESSION: Mild osseous degenerative changes with suprapatellar effusion. 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: Is : no Is : no REVIEW [...] 21-May-2020 09:26 by Camila Cherry (RENETTA) Normal [facility] Vital Signs Date Time Vital Sign Value Performing Clinician Facility 04-05-2024 16:29-0400 Body height 165.1 cm AQUILES Perez Work Phone: [facility] 04-05-2024 16:29-0400 Body mass index (BMI) [Ratio] 32.4 kg/m2 [place] Work Phone: [facility] 04-05-2024 16:29-0400 Body temperature 97.4 [degF] POT WASHER Tameka Easterwood Work Phone: [facility] 04-05-2024 16:29-0400 Body weight 88.45 kg POT WASHER Tameka Easterwood Work Phone: [facility] 04-05-2024 16:29-0400 Diastolic blood pressure 82 mm[Hg] POT WASHER Tameka Easterwood Work Phone: [facility] 04-05-2024 16:29-0400 Heart rate 71 /min POT WASHER Tameka Easterwood Work Phone: [facility] 04-05-2024 16:29-0400 Respiratory rate 20 /min POT WASHER Tameka Easterwood Work Phone: [facility] 04-05-2024 16:29-0400 SaO2% (BldA) [Mass fraction] 99 % POT WASHER Tameka Easterwood Work Phone: [facility] 04-05-2024 16:29-0400 Systolic blood pressure 120 mm[Hg] POT WASHER Tameka Easterwood Work Phone: [facility] 03-22-2024 16:40-0400 Body height 165.1 cm POT WASHER Tameka Easterwood Work Phone: [facility] 03-22-2024 16:40-0400 Body mass index (BMI) [Ratio] 32.3 kg/m2 POT WASHER Tameka Easterwood Work Phone: [facility] 03-22-2024 16:40-0400 Body weight 88.11 kg POT WASHER Tameka Easterwood Work Phone: [facility] 03-22-2024 16:40-0400 Diastolic blood pressure 75 mm[Hg] POT WASHER Tameka Easterwood Work Phone: [facility] 03-22-2024 16:40-0400 Heart rate 61 /min POT WASHER Tameka Easterwood Work Phone: [facility] 03-22-2024 16:40-0400 Respiratory rate 18 /min POT WASHER Tameka Easterwood Work Phone: [facility] 03-22-2024 16:40-0400 SaO2% (BldA) [Mass fraction] 93 % POT WASHER Tameka Easterwood Work Phone: [facility] 03-22-2024 16:40-0400 Systolic blood pressure 134 mm[Hg] POT WASHER Tameka Easterwood Work Phone: [facility] 02-24-2024 12:20-0400 Diastolic blood pressure 87 mm[Hg] POT WASHER Tameka Easterwood Work Phone: [facility] 02-24-2024 12:20-0400 Heart rate 86 /min POT WASHER Tameka Easterwood Work Phone: [facility] 02-24-2024 12:20-0400 Respiratory rate 16 /min POT WASHER Tameka Easterwood Work Phone: [facility] 02-24-2024 12:20-0400 SaO2% (BldA) [Mass fraction] 94 % POT WASHER Tameka Easterwood Work Phone: [facility] 02-24-2024 12:20-0400 Systolic blood pressure 144 mm[Hg] POT WASHER Tameka Easterwood Work Phone: [facility] 02-24-2024 11:25-0400 Body temperature 97.4 [degF] POT WASHER Tameka Easterwood Work Phone: [facility] 02-24-2024 10:55-0400 Inhaled oxygen flow rate 8 L/min POT WASHER Tameka Easterwood Work Phone: [facility] 02-24-2024 09:26-0400 Body height 165.1 cm POT WASHER Tameka Easterwood Work Phone: [facility] 02-24-2024 09:26-0400 Body mass index (BMI) [Ratio] 33 kg/m2 POT WASHER Tameka Easterwood Work Phone: [facility] 02-24-2024 09:26-0400 Body weight 90 kg POT WASHER Tameka Easterwood Work Phone: [facility] 02-01-2024 08:43-0400 Body height 165.1 cm POT WASHER Tameka Easterwood Work Phone: [facility] 02-01-2024 08:43-0400 Body mass index (BMI) [Ratio] 32.8 kg/m2 POT WASHER Tameka Easterwood Work Phone: [facility] 02-01-2024 08:43-0400 Body weight 89.55 kg POT WASHER Tameka Easterirene Work Phone: [facility] 02-01-2024 08:43-0400 Diastolic blood pressure 71 mm[Hg] POT WASHER Tameka Easterwood Work Phone: [facility] 02-01-2024 08:43-0400 Heart rate 57 /min POT WASHER Tameka Easterwood Work Phone: [facility] 02-01-2024 08:43-0400 Respiratory rate 16 /min POT WASHER Tameka Easterwood Work Phone: [facility] 02-01-2024 08:43-0400 SaO2% (BldA) [Mass fraction] 98 % POT WASHER Tameka Easterwood Work Phone: [facility] 02-01-2024 08:43-0400 Systolic blood pressure 121 mm[Hg] POT WASHER Tameka Easterwood Work Phone: [facility] 01-19-2024 16:37-0400 Body height 165.1 cm POT WASHER Tameka Easterwood Work Phone: [facility] 01-19-2024 16:37-0400 Body mass index (BMI) [Ratio] 32.1 kg/m2 POT WASHER Tameka Easterwood Work Phone: [facility] 01-19-2024 16:37-0400 Body temperature 97.9 [degF] POT WASHER Tameka Easterwood Work Phone: [facility] 01-19-2024 16:37-0400 Body weight 87.54 kg POT WASHER Tameka Easterwood Work Phone: [facility] 01-19-2024 16:37-0400 Diastolic blood pressure 88 mm[Hg] POT WASHER Tameka Easterwood Work Phone: [facility] 01-19-2024 16:37-0400 Heart rate 72 /min POT WASHER Tameka Easterwood Work Phone: [facility] 01-19-2024 16:37-0400 Respiratory rate 20 /min POT WASHER Tameka Easterwood Work Phone: [facility] 01-19-2024 16:37-0400 SaO2% (BldA) [Mass fraction] 95 % POT WASHER Tameka Easterwood Work Phone: [facility] 01-19-2024 16:37-0400 Systolic blood pressure 130 mm[Hg] POT WASHER Tameka Easterwood Work Phone: [facility] 12-29-2023 14:33-0400 Body height 165.1 cm POT WASHER Tameka Easterwood Work Phone: [facility] 12-29-2023 14:33-0400 Body mass index (BMI) [Ratio] 31.4 kg/m2 POT WASHER Tameka Easterwood Work Phone: [facility] 12-29-2023 14:33-0400 Body weight 85.72 kg POT WASHER Tameka Easterwood Work Phone: [facility] 12-29-2023 14:33-0400 Diastolic blood pressure 80 mm[Hg] AQUILES Sapperirene Work Phone: [facility] 12-29-2023 14:33-0400 Heart rate 63 /min POT WASHERLive Sapperirene Work Phone: [facility] 12-29-2023 14:33-0400 Respiratory rate 18 /min POT WASHERLive Perez Work Phone: [facility] 12-29-2023 14:33-0400 SaO2% (BldA) [Mass fraction] 96 % POT WASHERLive Perez Work Phone: [facility] 12-29-2023 14:33-0400 Systolic blood pressure 124 mm[Hg] AQUILES Sapperirene Work Phone: [facility] 08-23-2023 10:00-0500 Diastolic blood pressure 80 mm[Hg] Gregg Baxter [facility] 08-23-2023 10:00-0500 Heart rate 69 /min Gregg Baxter [facility] 08-23-2023 10:00-0500 SaO2% (BldA) [Mass fraction] 95 % Gregg Baxter [facility] 08-23-2023 10:00-0500 Systolic blood pressure 136 mm[Hg] Gregg Turnere [facility] 08-23-2023 08:59-0500 Body temperature 98.06 [degF] Gregg Sahil [facility] 08-23-2023 08:59-0500 Diastolic blood pressure 74 mm[Hg] Gregg Sahil [facility] 08-23-2023 08:59-0500 Heart rate 71 /min Gregg Turnere [facility] 08-23-2023 08:59-0500 Respiratory rate 18 /min Gregg Baxter [facility] 08-23-2023 08:59-0500 SaO2% (BldA) [Mass fraction] 96 % Gregg Baxter [facility] 08-23-2023 08:59-0500 Systolic blood pressure 122 mm[Hg] Gregg Baxter [facility] Encounters Encounter Date Encounter Type Care Provider Facility Start: 04-05-2024 End: 04-05-2024 ambulatory POT WASHERLive English Rosendo Sapperwood Work Phone: [facility] Work Phone: Start: 04-05-2024 End: 04-05-2024 Patient encounter procedure POT WASHERLive English Se[place]ou[place] Work Phone: [facility] Work Phone: Start: 03-22-2024 End: 03-22-2024 ambulatory POT WASHER Tameka Sapperwood Work Phone: [facility] Work Phone: Start: 03-22-2024 End: 03-22-2024 Patient encounter procedure POT WASHER Tameka Sapperwood Work Phone: [facility] Work Phone: Start: 02-24-2024 End: 02-24-2024 Admission to same day surgery center POT WASHERLive Escamillaalexsandra [place] Work Phone: [facility] [place] Start: 02-24-2024 End: 02-24-2024 ambulatory POT WASHERLive Robbins [place] Work Phone: [facility] Work Phone: Start: 02-15-2024 End: 02-15-2024 Patient encounter procedure POT WASHERLive English [place] [facility] Work Phone: Start: 02-10-2024 End: 02-10-2024 Departed Referred AQUILES Perez Work Phone: [facility] Work Phone: Start: 02-10-2024 End: 02-10-2024 Patient encounter procedure POT WASHERLive Perez Work Phone: [facility] Koy[facility] Work Phone: Start: 02-10-2024 End: 02-10-2024 ambulatory POT WASHER Tameka Sapperwood Work Phone: [facility] Work Phone: Start: 02-03-2024 End: 02-03-2024 Patient encounter procedure POT WASHERLive [place] Work Phone: [facility] [place] Work Phone: Start: 02-03-2024 End: 02-03-2024 ambulatory POT WASHERLive Sapperirene Work Phone: [facility] Work Phone: Start: 02-01-2024 End: 02-01-2024 ambulatory POT WASHER Tameka Sapperirene Work Phone: [facility] Work Phone: Start: 02-01-2024 End: 02-01-2024 Patient encounter procedure AQUILES Perez Work Phone: [facility] Work Phone: Start: 01-19-2024 End: 01-19-2024 ambulatory POT WASHER Tameka Sapperwood Work Phone: [facility] Work Phone: Start: 01-19-2024 End: 01-19-2024 Encounter for general adult medical examination without abnormal findings POT WASHERLive [place] Work Phone: [facility] Start: 01-19-2024 End: 01-19-2024 Patient encounter procedure POT WASHER Tameka Sapperwood Work Phone: [facility] [place] Work Phone: Start: 01-18-2024 End: 01-18-2024 Patient encounter procedure POT WASHER Tameka Sapperwood Work Phone: [facility]Electro[facility] Work Phone: Start: 01-18-2024 End: 01-18-2024 ambulatory POT WASHER Tameka Sapperwood Work Phone: [facility] Work Phone: Start: 01-18-2024 Non-patient / Non-visit POT WASHER Chelsea Sapperirene Work Phone: [facility] Work Phone: Start: 01-13-2024 Non-patient / Non-visit POT WASHER D tylor Sapperirene Work Phone: [facility] [facility] Work Phone: Start: 01-12-2024 End: 01-12-2024 Patient encounter procedure POT WASHER Tameka Sapperwood Work Phone: [facility] [place] Work Phone: Start: 01-12-2024 End: 01-12-2024 ambulatory POT WASHER Tameka Sapperwood Work Phone: [facility] Work Phone: Start: 01-01-2024 End: 01-01-2024 Patient encounter procedure POT WASHER Tameka Sapperwood Work Phone: [facility] Work Phone: Start: 01-01-2024 End: 01-01-2024 ambulatory POT WASHER Tameka Robbins Easter[place] Work Phone: [facility] Work Phone: Start: 12-29-2023 End: 12-29-2023 ambulatory POT WASHERLive Perez Work Phone: [facility] Work Phone: Start: 12-29-2023 End: 12-29-2023 Patient encounter procedure AQUILES Perez Work Phone: [facility] Card[facility] Work Phone: Start: 12-16-2023 Non-patient / Non-visit POT WASHER Chelsea Perez Work Phone: [facility] Work Phone: Start: 11-29-2023 Non-patient / Non-visit POT WASHER Chelsea Perez Work Phone: [facility] Work Phone: Start: 11-04-2023 Patient encounter procedure AQUILES Perez Work Phone: [facility] Start: 08-23-2023 End: 08-23-2023 Emergency department patient visit Gregg Baxter Facility:[facility] Start: 08-23-2023 End: 08-23-2023 Emergency department patient visit Gregg Baxter [facility] Procedures Date Procedure Procedure Detail Performing Clinician Start: 02-24-2024 Reduction mammoplast y, bilateral AQUILES Perez Work Phone: Start: 01-01-2024 Screening mammograph y of bilateral breasts AQUILES Perez Work Phone: Plan of Treatment Date Care Activity Detail Author Start: 02-24-2024 [facility] Start: 02-24-2024 [facility] Start: 01-01-2024 MG Breast - bilatera l Screening [facility] Start: 01-01-2024 Screening mammograph y of bilateral breasts MM screening mammo BI w/CAD [facility] Start: 12-29-2023 [facility] Patient Education Know your Meds [facility] Work Phone: Patient referral [facility] Work Phone: [facility] Payers Date Payer Category Payer Self-pay 2023 Unknown [id number] 2023 Private Health Insurance [id number] 1965 Unknown [id number] 2.16.8 [id number] Unknown [id number] 2.16.8 [id number] Unknown [id number] 2.16.8 [id number] Unknown [id number] 2.16.8 [id number] Unknown [id number] 2.16.8 [id number] Unknown [id number] 2.16.8 [id number] Unknown [id number] 2.16.8 [id number] Unknown [id number] 2.16.8 [id number] Social History Date Type Detail Facility Tobacco smoking status [facility] Sex Assigned At Female [facility] Start: 12-29-2023 End: 04-05-2024 Tobacco smoking status NHIS Never smoked tobacco (finding) [facility] Start: 1965 Sex Assigned At Female F [facility] Goals Date Patient Goal Desired Activity /State Functional Status Date Assessment Result Facility 08-23-2023 Functional Status N/A [facility] Clinical Notes 08-23-2023 to 03-22-2024 Note Date [...] alone. She moved back here recently from [place]. She had a remote history of paroxysmal [...] with her PCP and pain management. 8. Wrpqfyidjip-otuwb-trub treatment with long-term healthy lifestyle change, decreased simple sweets and refined starches, increased exercise and activity and long-term weight loss. Consider metformin. Treat with GLP-1 agonist. She needs close long-term follow-up for this condition to prevent diabetes. She had a past A1c of 5.7. Monitor with treatment. 9. Snorer/[place] of 3-doubt sleep apnea. Treat with good [...] work with her PCP. Author Ventura German [facility] Authored February 01, 2024 11: 04am [...] alone. She moved back here recently from [place]. She had a remote history of paroxysmal [...] with her PCP and pain management. 8. Ibyevdosnxm-mhypo-nqsu treatment with long-term healthy lifestyle change, decreased simple sweets and refined starches, increased exercise and activity and long-term weight loss. Consider metformin. Treat with GLP-1 agonist. She needs close long-term follow-up for this condition to prevent diabetes. She notes she had a past A1c of 5.7. Monitor with treatment. 9. Snorer/[place] of 3-doubt sleep apnea. Treat with good [...] Our exercise program was recommended with our medical information officer/obesity exercise group. Handout given. Our free weekly [...] and benefits of prescribed meds discussed. Initial ilik-jo-tdbz interview/evaluation. The patient was counseled in detail on the options for weight loss in an individual setting. 55 minutes was spent caring for the patient, counseling/educating patient on the options for the treatment of obesity and related healthcare issues. The program's treatment goals were reviewed with the patient. Each aspect of the program was discussed with the patient. [facility] Work Phone: 1(564) 954-909604-30-2024 Evaluation note* Author Ventura German [facility] Authored February 01, 2024 11: 04am [...] alone. She moved back here recently from [place]. She had a remote history of paroxysmal [...] with her PCP and pain management. 8. Jlcpqfxjhwf-pobkz-ogbs treatment with long-term healthy lifestyle change, decreased simple sweets and refined starches, increased exercise and activity and long-term weight loss. Consider metformin. Treat with GLP-1 agonist. She needs close long-term follow-up for this condition to prevent diabetes. She notes she had a past A1c of 5.7. Monitor with treatment. 9. Snorer/[place] of 3-doubt sleep apnea. Treat with good [...] Our exercise program was recommended with our medical information officer/obesity exercise group. Handout given. Our free weekly [...] and benefits of prescribed meds discussed. Initial bvwi-mu-sgnq interview/evaluation. The patient was counseled in detail on the options for weight loss in an individual setting. 55 minutes was spent caring for the patient, counseling/educating patient on the options for the treatment of obesity and related healthcare issues. The program's treatment goals were reviewed with the patient. Each aspect of the program was discussed with the patient. [facility] Work Phone: 1(255) 509-303911-20-2023 Evaluation + Plan noteExtracted from: Title:ED Note [...] Troponin 9 Hr. XR Chest Single View [facility]11-20-2023 Hospital Discharge instructions Follow Up Care 08/23/2023 08:50:48 With:Jessica Carbajal Address: [address] [place] [address]- Business (1) When:08/26/2023 10:33:24 With:XXXX NONE Address: [place] When:Within 3 Day(s) [facility] Narrative* Chief Complaint Amb Documentation Amb Documentation chronic a-fib medication management, no acute Reason for Visit HLD (hyperlipidemia) Paroxysmal atrial fibrillation [facility] Work Phone: chief complaint+Reason for visit Narrative* Chief Complaint Amb Documentation Amb Documentation chronic a-fib medication management, no acute Screening Reason for Visit HLD (hyperlipidemia) Paroxysmal atrial fibrillation [facility] Work Phone: chief complaint+Reason for visit Narrative* Chief Complaint Amb Documentation Amb Documentation chronic a-fib medication management, no acute Screening E78.5 I48.0 Reason for Visit HLD (hyperlipidemia) Paroxysmal atrial fibrillation [facility] Work Phone: chief complaint+Reason for visit Narrative* Chief Complaint Amb Documentation Amb Documentation chronic a-fib medication management, no acute Screening E78.5 I48.0 Amb Documentation I48.0 Reason for Visit HLD (hyperlipidemia) Paroxysmal atrial fibrillation [facility] Work Phone: chief complaint+Reason for visit Narrative* Chief Complaint Amb Documentation Amb Documentation chronic a-fib medication management, no acute Screening E78.5 I48.0 Amb Documentation I48.0 Wellness visit Reason for Visit HLD (hyperlipidemia) Paroxysmal atrial fibrillation Screening for metabolic disorder Well adult exam [facility] Work Phone: chief complaint+Reason for visit Narrative* Chief Complaint Amb Documentation Amb Documentation chronic a-fib medication management, no acute Screening E78.5 I48.0 Amb Documentation I48.0 Wellness visit [facility] Reason for Visit HLD (hyperlipidemia) Paroxysmal atrial fibrillation Screening for metabolic disorder Well adult exam [facility] Work Phone: chief complaint+Reason for visit Narrative* Chief Complaint Amb Documentation Amb Documentation chronic a-fib medication management, no acute Screening E78.5 I48.0 Amb Documentation I48.0 Wellness visit [facility] R73.03;R63.5 Reason for Visit HLD (hyperlipidemia) Paroxysmal atrial fibrillation Screening for metabolic disorder Well adult exam [facility] Work Phone: chief complaint+Reason for visit Narrative* Chief Complaint Amb Documentation Amb Documentation chronic a-fib medication management, no acute Screening E78.5 I48.0 Amb Documentation I48.0 Wellness visit [facility] R73.03;R63.5 Macromastia Reason for Visit HLD (hyperlipidemia) Paroxysmal atrial fibrillation Screening for metabolic disorder Well adult exam [facility] Work Phone: Chief complaint+Reason for visit Narrative* Chief Complaint Amb Documentation Amb Documentation chronic a-fib medication management, no acute Screening E78.5 I48.0 Amb Documentation I48.0 Wellness visit [facility] R73.03;R63.5 Macromastia Macromastia Reason for Visit HLD (hyperlipidemia) Paroxysmal atrial fibrillation Screening for metabolic disorder Well adult exam [facility] Work Phone: Chisj complaint+Reason for visit Narrative* Chief Complaint chronic a-fib medica tion management, no acute Screening E78.5 I48.0 Amb Documentation I48.0 Wellness visit [facility] R73.03;R63.5 Macromastia Macromastia Reason for Visit HLD (hyperlipidemia) Paroxysmal atrial fibrillation Screening for metabolic disorder Well adult exam HLD (hyperlipidemia) HTN (hypertension) Obesity (BMI 30.0-34.9) Pre-diabetes [facility] Work Phone: Evaluation note* Diagnosis Onset Date Resolution Status HLD (hyperlipidemia) acute Paroxysmal atrial fibrillation acute [facility] Work Phone: Evaluation note* Diagnosis Onset Date Resolution Status HLD (hyperlipidemia) acute Paroxysmal atrial fibrillation acute Screening for metabolic disorder noneactive Well adult exam noneactive [facility] Work Phone: Evaluation note* Author Katelyn Can [facility] Authored February 01, 2024 9:1 8am [...] Our exercise program was recommended with our medical information officer/obesity exercise group. Handout given. Our free weekly [...] and benefits of prescribed meds discussed. Initial mxrd-rh-lhpn interview/evaluation. The patient was counseled in detail on the options for weight loss in an individual setting. [ ] minutes was spent caring for the patient, counseling/educating patient on the options for the treatment of obesity and related healthcare issues. The program's treatment goals were reviewed with the patient. Each aspect of the program was discussed with the patient. [facility] Work Phone: Hospital course Narrative No data available for this section [facility] Additional Instructions DISCHARGE INSTRUCTIONS FOR [...] the incision. PLEASE NOTIFY OUR OFFICE at [phone] if you: -Develop a fever of 101 [...] rate. FOLLOW UP -Call the office at [phone] for a follow up appointment 1 week. * AFTER HOURS PHONE NUMBER [phone] *[facility] Work Phone: Progress note No data available for this section [facility] Summary Purpose Family History No Family History [...] I48.0 Amb Documentation I48.0 Wellness visit [place] R73.03;R63.5 Macromastia Macromastia left ankle and foot swelling Reason for Visit Screening for metabo lic disorder Well adult exam HLD (hyperlipidemia) HTN (hypertension) Obesity (BMI 30.0-34.9) Pre-diabetes Additional Source Comments INFORMATION SOURCE (unrecogn ized section and content) DATE CREATED AUTHOR 05/27/2020 [facility] DATE CREATED AUTHOR AUTHOR'S ORGANIZ ATION 08/24/[address] [facility] DATE CREATED AUTHOR AUTHOR'S ORGANIZ ATION 04/10/2024 [facility] Care Teams (unrecognized sec [...] BE BASED ON THE PRIMARY CLINICAL RECORDS. [employer] [facility]. provides no warranty or guarantee of the accuracy or completeness of information in this document.
[2024-06-28 14:50] VITALS: BMI 31.9
== END 2024-06-28 14:53 | disposition home or self-care (01) ==
LOC: VC 14:25
PROVIDERS: PCP Radiology Diagnostic Radiology; Visit Provider Radiology Diagnostic Radiology
DX: I80.01 Phlebitis and thrombophlebitis of superficial vessels of right lower extremity (principal)
CPT/HCPCS: 93971; G0463

== ENCOUNTER 2024-07-13 14:52 | Outpatient (OUT) | payer BC, SELFPAY ==
--- NOTE | 2024-07-13 12:06 | VEINCLINIC_ITS ---
Vital Signs 07/13/24 15:05 BP 106/54 BP Location Left Brachial BP Position Sitting BP Cuff Size Adult BP Source Manual Cuff Respiration 18 Pulse 62 Pulse Source Monitor Pulse Oximetry (%) 96 Oxygen Delivery Method Room Air Varicose Veins Patient in today for EVLT of left AASV. Mina Washington MD personally performed the services described in this documentation, as scribed by Elena Hinton RN in my presence and it is both accurate and complete. Elena Washington RN, am scribing for, and in the presence of, Dr. Mina Huffman and in the presence of the patient. knee: bilateral (most notable to right leg), calf: bilateral, ankle: bilateral and dobbs: bilateral aching, cramping and tender 7 10 years Worsened in recent months: Yes standing, sitting and walking analgesics (Ibuprofen), elevating extremities, compression stockings and exercise Reports fatigue, heaviness, limb pain and edema History of lower extremity trauma: No Superficial thrombophlebitis: No Family history of varicose veins: yes (mother) Has patient had previous lower extremity venous surgery: No Patient has previously received the following treatment(s) for lower extremity varicose veins: Reports none Does patient have a history of : yes Does patient intend to have future pregnancies: no Has patient had lower extremity venous scan with relux testing: No Support hose used: Yes Problems walking or doing physical activity: Yes How does it affect you: often has to sit and elevate bilateral legs/feet Do you walk much: Yes Do you stand much: No Review of Systems ROS Narrative Mina Washington MD personally performed the services described in this documentation, as scribed by Elena Hinton RN in my presence and it is both accurate and complete. Elena Washington RN, am scribing for, and in the presence of, Dr. Mina Huffman and in the presence of the patient. Status of ROS 10 or more systems reviewed and unremark able except as noted in history and below Cardiovascular Reports: edema Integumentary/Breast Reports: redness, skin pain, skin tenderness and changes in skin color Hematologic/Lymphatic Reports: easy bruising and easy bleeding [facility] Medical History (Updated 06/28/24 @ 14:09 by Lucia Larsen) Phlebitis and thrombophlebitis of superficial vessels of right lower extremity ?I80.01 - Phlebitis and thrombophlebitis of superficial vessels of right lower extremity (ICD-10) Phlebitis of superficial vein of right lower extremity ?I80.01 - Phlebitis and thrombophlebitis of superficial vessels of right lower extremity (ICD-10) Phlebitis and thrombophlebitis of superficial vessels of left lower extremity ?I80.02 - Phlebitis and thrombophlebitis of superficial vessels of left lower extremity (ICD-10) Diverticulosis ?K57.90 - Diverticulosis of intestine, part unspecified, without perforation or abscess without bleeding (ICD-10) 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 - Primary osteoarthritis, unspecified hand (ICD-10) Varicose veins of bilateral lower extremities with pain ?I83.813 - Varicose veins of bilateral lower extremities with pain (ICD-10) Arthritis ?M19.90 - Unspecified osteoarthritis, unspecified site (ICD-10) Spinal stenosis ?M48.00 - Spinal stenosis, site unspecified (ICD-10) Atrial fibrillation ?I48.91 - Unspecified atrial fibrillation (ICD-10) Obesity ?E66.9 - Obesity, unspecified (ICD-10) Fibromyalgia ?M79.7 - Fibromyalgia (ICD-10) Surgical History (Updated 06/20/24 @ 15:07 by Henri Higgins) Status post laser ablation of incompetent vein ?Z98.890 - Other specified postprocedural states (ICD-10) H/O colectomy ?Z90.49 - Acquired absence of other specified parts of digestive tract (ICD- 10) Hx of breast reduction, elective ?Z98.890 - Other specified postprocedural states (ICD-10) H/O abdominoplasty ?Z98.890 - Other specified postprocedural states (ICD-10) History of cholecystectomy ?Z90.49 - Acquired absence of other specified parts of digestive tract (ICD- 10) H/O: hysterectomy ?Z90.710 - Acquired absence of both cervix and uterus (ICD-10) Family History (Updated 04/26/24 @ 14:42 by Henri Higgins) Mother Varicose veins of bilateral lower extremities with pain Heart disease Age related osteoporosis Sister Age related osteoporosis Other Family history of cancer Family history of diabetes mellitus Family history of hypertension Pulmonary hypertension Social History (Updated 04/26/24 @ 14:43 by Henri Higgins) Within the past year, how often did you have six or more drinks on one occasion: less than monthly Smoking status: Never smoker Non-prescribed substance use: denies use Meds Home Medications and Allergies Home Medications ?Medication ?Instructions ?Recorded ?Confirmed ?Type aspirin 81 mg capsule 81 mg PO DAILY 04/26/24 04/26/24 History diltiazem HCl PO 04/26/24 History duloxetine PO 04/26/24 History montelukast 10 mg tablet 10 mg PO QPM 04/26/24 04/26/24 History (Singulair) pantoprazole 40 mg granules 40 mg PO DAILY 04/26/24 04/26/24 History delayed-release for susp in packet (Protonix) tramadol .ROUTE 04/26/24 History Allergies Allergy/AdvReac Type Severity Reaction Status Date / Time codeine Allergy Mild Agitated Verified 04/26/24 15:32 dermaplast glue Allergy Intermediate Rash Uncoded 04/26/24 15:32 Exam Narrative Exam Narrative: IMina MD personally performed the services described in this documentation, as scribed by Elena Hinton RN in my presence and it is both accurate and complete. I, Elena Hinton RN, am scribing for, and in the presence of, Dr. Mina Huffman and in the presence of the patient. Assessment and Plan Assessment and Plan (1) Varicose veins of bilateral lower extremities with pain: Plan Plan of care: Risks and benefits of the procedure were discussed at length and informed written consent was obtained.? Time-out completed for verification of correct patient, procedure and site.? Staff present during time-out: Elena Hinton RN,? Mina Huffman MD, Lucia Larsen RDMS. Time Out Time___1519____ Patient prepped and procedure performed in usual sterile fashion. Risk of injury related to use of Diode laser and/or laser devices? __AG___ ? Serial number of laser used :? [id number] Control panel self test performed, electrical cords in good condition, floor is dry, basin of water available, fire extinguisher in close proximity_AG__ Polycarbonate goggles available and Laser warning signs outside of doors___AG___ Eye protection provided to patient and staff in room_AG___ Use of laser retardant drapes and dull blackened instruments as directed__AG___ Use of nonflammable prep solutions and use of saline soaked sponges to protect tissues as indicated _AG___ Length ____9____ cm Laser operated by ___Dr. Huffman Physician verbal confirmation laser locked in place__AG__ Laser start time (date and time) __07/13/24@1531 Laser stop time(date and time) __07/13/24@1532 Lao _8.0___ Average laser use ____428___Joules Average laser use____53____seconds Pulse continuous ___AG_? Pulse intermittent ___ Amount of Tumescent used _100 Evaluated patient for signs and symptoms of electrical injury __AG___ ? Skin clear at insertion site __AG___ Patient tolerated procedure well.? Left leg Coban dressing applied to access site.? Applied Left thigh high leg compression stocking. Will return on 07/18/24 for Left leg limited venous ultrasound and exam. IMina MD personally performed the services described in this documentation, as scribed by Elena Hinton RN in my presence and it is both accurate and complete. I, Elena Hinton RN, am scribing for, and in the presence of, Dr. Mina Huffman and in the presence of the patient.
--- NOTE | 2024-07-13 12:09 | P.DS_ITS ---
Discharge Plan Discharge Disposition: Home, Self-Care Outpatient Diagnostics: VC Facility EST LMTD (Routine) Timeframe: 2 Weeks Facility: [facility] - Location: [facility] Ordered By: Mina Huffman VC EXT Venous LT Limited (Routine) Timeframe: 2 Weeks Facility: [facility] - Location: Vein Center Ordered By: Mina Huffman Follow Up Appointments: 07/18/24 Plan of Treatment: U/S f/u from evlt of left AASV Patient Instructions: Endovenous Ablation (DC) Print Language: Arabic Discharge Date/Time: 07/13/24 15:40
--- NOTE | 2024-07-13 14:59 | VEIN_ITS ---
[address] [address] Patient Name: JACQUES RIVERA MRN: [id number] date: 1965 Sex: F Assigned Patient Location: Current Patient Location: Accession/Order Number: [id number] Exam Date: 07/13/2024 15:05 Report Date: 07/14/2024 04:26 At the request of: ALYSIA COOL Procedure: VC Endovenous Ablation 1VeinLT EXAMINATION: VC Endovenous Ablation 1VeinLT HISTORY: I83.813 - Varicose veins of bilateral lower extremities w... The risks and benefits of the procedure had been previously discussed, and were rediscussed at length. Informed written consent was obtained. Elena Hinton RN and Lucia Florian RDMS assisted. Time out procedure was performed. The left lower extremity was prepared and draped in the usual sterile fashion to allow knee flexion in the sterile field. Duplex ultrasound probe was draped in a sterile cover, sterile transmission gel was used. Venous mapping was performed with the areas of dilation and large tributaries marked. The total length was 9 cm from the entry mid upper left thigh to 3 cm below the Saphenofemoral junction. The diameter of the left anterior accessory saphenous vein ranged from 5.5 mm. A 30 gauge needle and 1% buffered lidocaine was used to anesthetize the entry site. A 4 mm incision was made with a scalpel and the saphenous vein was entered percutaneously under direct ultrasound guidance with a micropuncture set, a single stick was successful in gaining access. A micro-guide wire was inserted and the needle removed. A micro-set including a dilator was inserted over the microwire and the needle and dilator were removed. A guide wire was inserted through the micro-set and guided through the saphenous vein to the saphenofemoral junction. The dilator was removed and an introducer sheath was inserted over the wire until the end of the sheath entered the saphenofemoral junction. The dilator and wire were removed and the 600 micron fiber was introduced and placed and positioned so that it extended beyond the sheath and was 3 cm distal to the saphenofemoral or saphenopopliteal junction. Final position of the fiber was determined by ultrasound guidance and duplex imaging. Tumescent anesthetic was delivered by ultrasound guidance. 100 cc of fluid was delivered along the entire course of the saphenous vein. The solution consisted of 1000 cc of normal saline with 40 mL of 1% lidocaine and 20 mL of sodium bicarbonate. A final positioning check was made. The energy source was turned on by means of the foot pedal and the fiber and sheath were withdrawn. The total number of Joules delivered was 428. The laser was active for 53 seconds under continuous pulse, average laser use of 8 J. Laser start time: 3:31 PM Laser stop time: 3:32 PM Date: 07/13/2024. A duplex ultrasound revealed compressibility and flow at the saphenofemoral junction immediately after the procedure. Hemostasis at the access site was achieved. The skin incision of the saphenous vein was closed with a 4 x 4. A compression stocking was applied. Postop instructions were given. A follow up appointment was recommended and scheduled. The patient tolerated the procedure well. Electronically authenticated by: ALYSIA COOL Date: 07/14/2024 04:26
[2024-07-13] MEDS: LIDOCAINE HCL 1% 100 MG/10 ML MDV INJ (15:04)
[2024-07-13 15:05] VITALS: BP 106/54; PULSE 62; O2SAT 96
[2024-07-13] MEDS: 0.9 % SODIUM CHLORIDE 500 ML, LIDOCAINE HCL 20 ML, SODIUM BICARBONATE 10 MEQ INJ (15:05)
--- OUTSIDE RECORDS SUMMARY | 2024-07-13 15:20 | XMS_ITS | CCD ---
Author Organization [facility] Care Team Providers Care Hr Director Name Role Phone NONE, XXXX Primary Care Physician Unavailab Gregg Edwards Attending Unavailable AQUILES Perez Primary Care Provider MD Livan Silver Attending Provider Self, Referral Attending Provider Unavailable MD Herbie Vila Referring Provider AQUILES Perez Referring Provider [phone] MD Ventura German Attending Provider MD Herbie Vila Attending Provider AQUILES Perez Primary Care Provider [phone] MD Livan Silver Attending Provider Herbie Vila [...] Agents (2 sources) gabapentin Drug Allergy 4 [facility] Nitrofurantoin (2 sources) Nitrofurantoin Drug Allergy 4 Chest Pain NSAIDs (2 sources) Ketorolac Drug Allergy 4 Anaphylaxis Opioid Agonists (2 sources) Codeine Drug Allergy 4 [facility] (12 sources) Codeine; Translations: [codeine] Drug Allergy 4 [facility] (12 sources) gabapentin; Translations: [gabapentin] Drug Allergy 4 [facility] (12 sources) Ketorolac; Translations: [ketorolac] Drug Allergy 4 Anaphylaxis (12 sources) Nitrofurantoin; Translations: [nitrofurantoin] Drug Allergy 4 Chest Pain (1 source) Codeine Drug Allergy 4 Repository Medications Current Medications Medication Drug Class(es) Dates Sig (Normalized) Sig (Original) Albuterol (Eqv-ProAir HFA) 90 mcg/inh inhalation aerosol (1 source) Start: 08-23-2023 End: 08-30-2023 take 2 puff(s) by inhalation every six hours Albuterol (Eqv-ProAir HFA) 90 mcg/inh inhalation aerosol 2 puff(s), Inhalation, q6hr for 7 day(s), 6.7 gm, Refill(s) 0, [facility]/pharmacy #[id number], 165, cm, 08/23/23 9:07:00 EST, Height/Length [...] (DR/EC) Active 81 MG PO Daily 90 December 29, 2023 3:02pm butorphanol tartrate 1 mg/actuat metered dose nasal spray (14 sources) Opioid Agonist/Antagonist Start: 06-29-2024 take 1 spray(s) nasal route every six hours Butorphanol Active 1 SPRAY INTRANASAL Every 6 hours 2.5 5 June 29, 2024 12:00am administer into one nostril (only) Start: 11-15-2023 End: 12-29-2023 take 1 spray(s) nasal route every six hours Butorphanol Discontinued 1 SPRAY INTRANASAL Every 6 hours November 15, 2023 1:00am December 29, 2023 2:23pm administer into one nostril (only) dexamethasone 6 mg oral tablet (1 source) Corticosteroid Start: 08-23-2023 End: 08-30-2023 take 1 tablet by mouth once daily dexamethasone 6 mg oral tablet 6 mg = 1 tab(s), Oral, Daily, X 7 day(s), # 7 tab(s), Refills(s) 0, Pharmacy: [facility]/pharmacy #[id number], 165, cm, 08/23/23 9:07:00 EST, Height/Length Dosing, 88, kg, 08/23/23 9:07:00 EST, Weight Dosing Start Date: 08/23/23 Stop Date: 08/30/23 Status: Ordered DULoxetine 60 mg delayed release oral capsule (13 sources) Serotonin and Norepinephrine Reuptake Inhibitor Start: 11-15-2023 take 1 capsule by mouth twice daily Duloxetine (Cymbalta) 60 mg capsule,delayed release(DR/EC) Active 60 MG PO Twice daily November 15, 2023 1:00am pantoprazole 40 mg delayed release oral tablet (15 sources) Proton Pump Inhibitor Start: 11-15-2023 End: 06-12-2024 take 1 tablet by mouth once daily in the morning Pantoprazole (Protonix) 40 mg tablet,delayed release (DR/EC) Active 40 MG PO Daily 90 June 12, 2024 8:25am in the morning pregabalin 50 mg oral capsule (1 source) Start: 06-29-2024 take 1 capsule by mouth twice daily Pregabalin (Lyrica) 50 mg capsule Active 50 MG PO Twice daily 28 June 29, 2024 12:00am rosuvastatin calcium 20 mg oral tablet (15 sources) HMG-CoA Reductase Inhibitor Start: 11-15-2023 End: 05-11-2024 take 20 mg by mouth once daily at bedtime Rosuvastatin Active 20 MG PO Daily at bedtime 90 90 May 11, 2024 5:22pm at bedtime traMADol hydrochloride 50 mg oral tablet (20 sources) Opioid Agonist Start: 01-19-2024 End: 06-27-2024 take 50 mg by mouth every eight hours Tramadol Active 50 MG PO Every 8 hours 90 30 June 27, 2024 9:22am Start: 11-15-2023 End: 01-19-2024 take 50 mg by mouth every six hours for pain Tramadol Discontinued 50 MG PO Every 6 hours November 15, 2023 1:00am January 19, 2024 5:57pm for pain Completed/Discontinued Medications Medication Drug Class(es) Dates Sig (Normalized) Sig (Original) acetaminophen 325 mg / HYDROcodone bitartrate 5 mg oral tablet (5 sources) Opioid Agonist Start: 02-24-2024 End: 03-22-2024 take 2 tablets by mouth every six hours Hydrocodone-Acetam inophen Discontinued 2 TAB PO Q6H 40 7 February 24, 2024 March 22, 2024 4:46pm dilTIAZem hydrochloride 120 mg oral tablet (20 sources) Calcium Channel Chandrakant Start: 11-15-2023 End: 04-21-2024 take 1 tablet by mouth once daily in the morning Diltiazem Hcl (Cardizem) 120 mg tablet Discontinued 120 MG PO Once 90 December 29, 2023 3:01pm February 10, 2024 7:25am once daily in the morning 1.5 ml fremanezumab-vfrm 150 mg/ml prefilled syringe (10 sources) Start: 01-13-2024 End: 03-22-2024 Fremanezumab-Vfrm (Ajovy Autoinjector) 225 mg/1.5 mL auto-injector Discontinued 225 MG SUBCUT every month January 13, 2024 12:00am March 22, 2024 4:45pm montelukast 10 mg oral tablet (20 sources) Leukotriene Receptor Antagonist Start: 11-15-2023 End: 06-27-2024 take 1 tablet by mouth once daily in the evening Montelukast (Singulair) 10 mg tablet Discontinued 10 MG PO Every evening 90 90 December 16, 2023 4:34pm June 27, 2024 9:21am Semaglutide Base (7 sources) Start: 02-01-2024 End: 06-29-2024 inject 1 mL by subcutaneous injection every week Semaglutide Base Discontinued 0.25 ML SUBCUT every week February 01, 2024 12:00am June 29, 2024 4:34pm [facility] Pre-filled Syringes using Semaglutide Base. Dispense 1 mL = (Four 0.25 mL pre-filled syringes) Start: 02-01-2024 inject 1 mL by subcu taneous injection every week Semaglutide Base Active 0.25 ML SUBCUT every week February 01, 2024 12:00am [facility] Pre-filled Syringes using Semaglutide Base. Dispense 1 mL = (Four 0.25 mL pre-filled syringes) Problems Active Problems Problem Classification Problem Date Documented Date Episodic/Chronic Abdominal hernia (20 sources) Hernia of anterior abdominal wall; Translations: [Ventral hernia without obstruction or gangrene] 11-15-2023 Episodic Cardiac dysrhythmias (20 sources) Atrial fibrillation; Translations: [Unspecified atrial fibrillation] Onset: 12-29-2023 11-15-2023 Chronic Cardiac dysrhythmias (1 source) Palpitations; Translations: [Palpitations] Onset: 08-23-2023 Episodic Diabetes mellitus without complication (9 sources) Prediabetes; Translations: [Prediabetes] 02-01-2024 Episodic Disorders of lipid metabolism (20 sources) Hyperlipidemia; Translations: [Hyperlipidemia, unspecified] Onset: 01-12-2024 11-15-2023 Chronic Diverticulosis and diverticulitis (20 sources) Diverticular disease; Translations: [Diverticulosis of intestine, part unspecified, without perforation or abscess without bleeding] 11-15-2023 Chronic Esophageal disorders (13 sources) Gastroesophageal reflux disease; Translations: [Gastro-esophageal reflux disease without esophagitis] 11-15-2023 Chronic Essential hypertension (16 sources) Hypertensive disorder; Translations: [Essential (primary) hypertension] Onset: 01-18-2024 12-29-2023 Chronic Headache; including migraine (1 source) Transformed migraine; 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] 06-29-2024 Chronic Hemorrhoids (13 sources) Internal hemorrhoids; Translations: [Other hemorrhoids] 11-15-2023 Episodic Nonmalignant breast conditions (14 sources) Large breast; Translations: [Hypertrophy of breast] Onset: 02-24-2024 11-15-2023 Episodic Osteoarthritis (20 sources) Arthritis of finger of left hand; Translations: [Primary osteoarthritis, left hand] 11-15-2023 Chronic Other connective tissue disease (13 sources) Fibromyalgia; Translations: [Fibromyalgia] 11-15-2023 Episodic Other connective tissue disease (1 source) Fibromyalgia; Translations: [Myalgia and myositis, unspecified] 06-29-2024 Episodic Other diseases of kidney and ureters (13 sources) Cyst of kidney; Translations: [Cyst of kidney, acquired] 11-15-2023 Episodic Other diseases of kidney and ureters (13 sources) Kidney lesion; Translations: [Disorder of kidney and ureter, unspecified] 12-29-2023 Episodic Other non-traumatic joint disorders (2 sources) Ankle edema; Translations: [Effusion, left ankle] 04-10-2024 Episodic Other non-traumatic joint disorders (2 sources) Swelling of ankle joint; Translations: [Effusion, left ankle] 04-10-2024 Episodic Other non-traumatic joint disorders (2 sources) Effusion, left ankle; Translations: [Effusion of joint, ankle and foot] 04-05-2024 Episodic Other nutritional; endocrine; and metabolic disorders (4 sources) Obese class I; Translations: [Obesity, unspecified] 03-22-2024 Chronic Other nutritional; endocrine; and metabolic disorders (2 sources) Obesity, unspecified; Translations: [Obesity, unspecified] 03-22-2024 Chronic Other nutritional; endocrine; and metabolic disorders (3 sources) Abnormal weight gain; Translations: [Abnormal weight gain] 02-01-2024 Episodic Other nutritional; endocrine; and metabolic disorders (1 source) Abnormal weight gain; Translations: [Abnormal weight gain] Onset: 02-03-2024 Episodic Other upper respiratory disease (13 sources) Seasonal allergy; Translations: [Other seasonal allergic rhinitis] 11-15-2023 Chronic Other upper respiratory disease (1 source) Bronchospasm; Translations: [Acute bronchospasm] Onset: 08-23-2023 Episodic Residual codes; unclassified (13 sources) History of colectomy; Translations: [Acquired absence of other specified parts of digestive tract] 11-15-2023 Episodic Residual codes; unclassified (13 sources) Family history of breast cancer; Translations: [Family history of malignant neoplasm of breast] 11-15-2023 Episodic Spondylosis; intervertebral disc disorders; other back problems (13 sources) Lumbar spondylosis; Translations: [Spondylosis without myelopathy or radiculopathy, lumbar region] 11-15-2023 Chronic Spondylosis; intervertebral disc disorders; other back problems (13 sources) Spinal stenosis; Translations: [Spinal stenosis, site unspecified] 11-15-2023 Episodic Unclassified (14 sources) Transformed migraine; Translations: [Chronic migraine] 11-15-2023 Varicose veins of lower extremity (4 sources) Varicose veins of lower extremity; Translations: [Asymptomatic varicose veins of unspecified lower extremity] 04-10-2024 Episodic Past or Other Problems Problem Classification Problem Date Documented Da te Episodic/Chronic Other screening for suspected conditions (not mental disorders or infectious disease) (8 sources) Encounter for screening for other metabolic disorders; Translations: [Screening for other and unspecified endocrine, nutritional, metabolic, and immunity disorders] Onset: 01-01-2024 01-19-2024 Episodic Unclassified (2 sources) *Progress note was completed with the assistance of voice recognition software for dictation purposes. Please excuse any grammatical errors that were not corrected during review process. 04-10-2024 Viral infection (1 source) Disease caused by 2019-nCoV; Translations: [COVID-19] Onset: 08-23-2023 Results Test Name Value Interpretation Reference Range Facility [facility] 02-24-2024 L Specimen: [id number] Received: 02/24/24 Status: SOU Re Num: [id number] Spec Type: Surgical Subm Dr: Herbie Vila MD Tissues: A Breast Reduction - Mammoplasty (SRT) B Breast Reduction - Mammoplasty (LT) Procedures: HE/6, Gross/Micro L4/2 Age/ Patient Sex Location Account Attending Physician Etelvina Luciano 58/F [place] [id number] Herbie Vila MD SPEC NUM: [id number] RECD: 02/24/24 STATUS: RACHEL RAMÍREZJessica NUM: [id number] JESSICA: 02/24/[address]: Herbie Vila MD ENTERED: 02/24/24 [facility] DR: SPEC TYPE: Surgical [...] No discrete masses or lesions are present. Administrative Director sections are submitted in A1 (skin); A2-A3 (parenchyma). -------- Specimen: [id number] Received: 02/24/24 Status: PAOLABeti Carlson Num: [id number] Spec Type: Surgical Subm Dr: Herbie Vila MD Tissues: A Breast Reduction - Mammoplasty (SRT) B Breast Reduction - Mammoplasty (LT) Procedures: HE/6, Gross/Micro L4/2 -------- Patient: Etelvina Luciano [id number] (Continued) -------- Specimen: [id number] Received: 02/24/24 (Continued) Gross Description (Continued) Signed (signature on file) Jun Benavides MD 02/28/241955 -------- Specimen: [id number] Received: 02/24/24 Status: RACHEL Carlson Num: [id number] Spec Type: Surgical Subm Dr: Herbie Vila MD Tissues: A Breast Reduction - Mammoplasty (SRT) B Breast Reduction - Mammoplasty (LT) Procedures: ELLE/Priscila [place]/Lily L4/2 -------- Patient: Etelvina Luciano [id number] (Continued) -------- Specimen: [id number] Received: 02/24/24 (Continued) Gross Description (Continued) B. [...] No discrete masses or lesions are present. Administrative Director sections are submitted in B1 (skin); B2?B3 (parenchyma). CPT Codes 93269H9 -------- -------- Specimen: [id number] Received: 02/24/24 Status: RACHEL Carlson Num: [id number] Spec Type: Surgical Subm Dr: Herbie Vila MD Tissues: A Breast Reduction - Mammoplasty (SRT) B Breast Reduction - Mammoplasty (LT) Procedures: HE/6, Gross/Micro L4/2 -------- Patient: Etelvina Luciano [id number] (Continued) -------- Signed (signature on file) Chin-Audi Benavides MD 02/28/241955 Normal [facility] Alanine aminotransferase [En zymatic activity/volume] in Serum or PlasmaOrdered By: Tameka Perez on 02-03-2024 ALT [Catalytic activity/Vol] 11 U/L Normal 7-52 Comment on above: Performed By: #### C MP wRFX A1C #### [facility] [address] Albumin [Mass/volume] in Ser um or Plasma by Bromocresol green (BCG) dye binding methoOrdered By: Tameka Perez on 02-03-2024 Albumin BCG dye [Mass/Vol] 3.9 g/dL 3.5-5.7 Alkaline phosphatase [Enzyma tic activity/volume] in Serum or PlasmaOrdered By: Tameka Perez on 02-03-2024 ALP [Catalytic activity/Vol] 80 U/L Normal 34-104 Comment on above: Result Comment: PERF ORMED BY: [facility] [address] [place] [id number] PATHOLOGIST OVERSEER KOSHER KITCHEN FERMIN MARTINEZ M.D. Performed By: #### C MP wRFX A1C #### [address] Aspartate aminotransferase [ Enzymatic activity/volume] in Serum or PlasmaOrdered By: Tameka Perez on 02-03-2024 AST [Catalytic activity/Vol] 14 U/L Normal 13-39 Comment on above: Performed By: #### C MP wRFX A1C #### [address] Bilirubin.total [Mass/volume ] in Serum or PlasmaOrdered By: Tameka Perez on 02-03-2024 Bilirubin [Mass/Vol] 0.3 mg/dL Normal 0.3-1.[address] [facility] Comment on above: Performed By: #### C MP wRFX A1C #### [address] CMP with reflex to A1Con Albumin [Mass/Vol] 3.9 g/dL Normal 3.5-5.7 [facility] Comment on above: Performed By: #### C MP wRFX A1C #### [address] GFR/1.73 sq M.predicted MDRD (S/P/Bld) [Vol rate/Area] mL/min/{1.73_m2} Normal [facility] Comment on above: Performed By: #### C MP wRFX A1C #### [address] Calcium [Mass/volume] in Ser um or PlasmaOrdered By: Tameka Perez on 02-03-2024 Calcium [Mass/Vol] 8.8 mg/dL Normal 8.6-10.3 [facility] Comment on above: Performed By: #### C MP wRFX A1C #### [address] Carbon dioxide, total [Moles /volume] in Serum or PlasmaOrdered By: Tameka Perez on 02-03-2024 CO2 [Moles/Vol] 28.7 mmol/L Normal 21.0-31.0 [facility] Comment on above: Performed By: #### C MP wRFX A1C #### [facility] [address] [place] [address] [place] Chloride [Moles/volume] in S sanjay or PlasmaOrdered By: Tameka Perez on 02-03-2024 Chloride [Moles/Vol] 110 mmol/L High 98-[address] [facility] Comment on above: Performed By: #### C MP wRFX A1C #### [facility] [address] Creatinine [Mass/volume] in Serum or PlasmaOrdered By: Tameka Perez on 02-03-2024 Creatinine [Mass/Vol] 0.61 mg/dL Normal 0.60-1.20 [facility] Comment on above: Performed By: #### C MP wRFX A1C #### [facility] [address] [place] [address] [place] Glucose [Mass/volume] in Ser um or PlasmaOrdered By: Tameka Perez on 02-03-2024 Glucose [Mass/Vol] 95 mg/dL Normal 70-100 [facility] Comment on above: Performed By: #### C MP wRFX A1C #### [facility] [address] No Panel InformationOrdered By: Tameka Perez on 02-03-2024 Estimated GFR (CKD-EPI) > 60.0 mL/Min Pharmacy Creatinine Clearance (Chem N/A Potassium [Moles/volume] in Serum or PlasmaOrdered By: Tameka Perez on 02-03-2024 Potassium [Moles/Vol] 4.0 mmol/L Normal 3.5-5.1 [facility] Comment on above: Performed By: #### C MP wRFX A1C #### [facility] [address] [place] [address] [place] Protein [Mass/volume] in Ser um or PlasmaOrdered By: Tameka Perez on 02-03-2024 Protein [Mass/Vol] 5.9 g/dL Low 6.4-8.9 [facility] Comment on above: Performed By: #### C MP wRFX A1C #### [address] Serum globulin measurement b y calculation (mass/volume)Ordered By: Tameka Perez on 02-03-2024 Globulin (S) [Mass/Vol] 2.0 g/dL Normal [facility] Comment on above: Performed By: #### C MP wRFX A1C #### [address] Serum or plasma albumin/glob ulin mass ratioOrdered By: Tameka Perez on 02-03-2024 Albumin/Globulin [Mass ratio] 2.0 {ratio} Normal Comment on above: Performed By: #### C MP wRFX A1C #### [address] Serum or plasma anion gap de terminationOrdered By: Tameka Perez on 02-03-2024 Anion gap [Moles/Vol] 9.3 mmol/L Normal 6.0-15.0 [facility] Comment on above: Performed By: #### C MP wRFX A1C #### [address] Sodium [Moles/volume] in Ser um or PlasmaOrdered By: Tameka Perez on 02-03-2024 Sodium [Moles/Vol] 144 mmol/L Normal 136-145 [facility] Comment on above: Performed By: #### C MP wRFX A1C #### [address] Thyrotropin [Units/volume] i n Serum or PlasmaOrdered By: Ventura German on 02-03-2024 TSH Qn 0.97 m[IU]/L Normal 0.45-5.33 Comment on above: Result Comment: PERF ORMED BY: [address] [place] [address] PATHOLOGIST OVERSEER KOSHER KITCHEN FERMIN MARTINEZ M.D. Performed By: #### T SH3 #### [facility] [address] [place] [address] Urea nitrogen [Mass/volume] in Serum or PlasmaOrdered By: Tameka Perez on 02-03-2024 Urea nitrogen [Mass/Vol] 16 mg/dL Normal 7-25 Comment on above: Performed By: #### C MP wRFX A1C #### [facility] [address] [place] [id number] [facility] MM screening mammo BI w/CADo n 01-19-2024 MM screening mammo BI w/CAD [facility] [address] [place] [address] [place] [address] Mammography Report Signed Patient: Etelvina Luciano MR#: [id number] 5 : 1965 Acct:[id number] Age/Sex: 58 / F ADM Date: 01/01/24 Loc: [place] Room: Type: [facility] Attending Dr: Referral Self Copies to: [...] for the next mammogram. Impression dictated by: Chelsea Chinchilla Jr.StevenOSteven01/19/2024 8:48 AM Dictation Location: [facility] Transcribed By: [facility] 01/19/2448 Dictated By: Low Ibarra Jr, DO 01/19/2447 Signed By: 01/19/2448 Normal [facility] echo transthoracicon [facility] echo transthoracic [facility] [address] [place] [address] [place] [address] Echocardiogram Signed Patient: Etelvina Luciano MR#: [id number] 5 : 1965 Acct:[id number] Age/Sex: 58 / F ADM Date: 01/18/24 Loc: Room: Type: [facility] Attending Dr: Livan Silver MD Ordering Provider: Lvian Silver MD Date of Service: 01/18/24 [facility] transthor[facility]: I48.0 - Paroxysmal atrial [...] mmHg Transcribed By: SCV Performed At: 01/18/24 1537 Signed By: Livan Silver MD 01/18/24 1708 Normal [facility] Cholesterol [Mass/volume] in Serum or PlasmaOrdered By: Livan Silver on 01-12-2024 Cholesterol [Mass/Vol] 144 mg/dL Normal 140-200 [facility] Comment on above: Chol less than 200 m g/dl low riskChol 201-239 mg/dl borderline riskChol 240 mg/dl and greater high risk Result Comment: Chol less than 200 mg/dl low risk Chol 201-239 mg/dl borderline risk Chol 240 mg/dl and greater high risk Performed By: #### L IPID #### [facility] [address] [place] [id number] [place] Cholesterol in LDL Calc [Mas s/Vol]Ordered By: Livan Silver on 01-12-2024 Cholesterol in LDL [Mass/Vol] 59 mg/dL 0-100 Comment on above: LDL ATP III CLASSIFI CATIONLDL less than 100 mg/dL OptimalLDL 100-129 mg/dL Near or above optimalLDL 130-159 mg/dL Borderline highLDL 160-189 mg/dL HighLDL greater than 189 mg/dL Very high Cholesterol in VLDL Calc [Ma ss/Vol]Ordered By: Livan Silver on 01-12-2024 Cholesterol in VLDL [Mass/Vol] 14 mg/dL Lipid Panelon 01-12-2024 LDL Cholesterol,Calculated 59 mg/dL Normal 0-100 [facility] Comment on above: Result Comment: LDL ATP III CLASSIFICATION LDL less than 100 mg/dL Optimal LDL 100-129 mg/dL Near or above optimal LDL 130-159 mg/dL Borderline high LDL 160-189 mg/dL High LDL greater than 189 mg/dL Very high Performed By: #### L IPID #### [facility] [address] [place] [id number] [place] Triglyceride w/Reflex 70 mg/dL Normal 0-149 [facility] Comment on above: Result Comment: TRIG ATP III CLASSIFICATION TRIG less than 150 mg/dL Normal TRIG 150-199 mg/dL Borderline high TRIG 200-500 mg/dL High TRIG greater than 500 mg/dL Very high Standard traceable to the Center for Disease Conrtrol and Prevention (CDC) test method. Performed By: #### L IPID #### [facility] [address] [place] [id number] [place] VLDL CHOLESTEROL 14 mg/dL Normal [facility] Comment on above: Performed By: #### L IPID #### [facility] [address] [place] [id number] [place] Serum or plasma high density lipoprotein (HDL) cholesterol measurementOrdered By: Livan Silver on 01-12-2024 Cholesterol in HDL [Mass/Vol] 71 mg/dL Normal 23-92 Comment on above: HDL CHOL ATP-III CLA SSIFICATION Cardiovascular RiskHDL > or equal to 60 mg/dL LOWHDL < 40 mg/dL HIGH Result Comment: HDL CHOL ATP-III CLASSIFICATION Cardiovascular Risk HDL > or equal to 60 mg/dL LOW HDL < 40 mg/dL HIGH Performed By: #### L IPID #### [facility] [address] Serum or plasma total choles terol/high density lipoprotein (HDL) cholesterol mass ratOrdered By: Livan Silver on 01-12-2024 Cholesterol.total/Cristina sterol in HDL [Mass ratio] 2.0 {ratio} Normal <5.0 Comment on above: Result Comment: PERF ORMED BY: [place] [address] PATHOLOGIST OVERSE[employer] KOSHER KITCHEN FERMIN MARTINEZ M.D. Performed By: #### L IPID #### [facility] [address] [place] [address] Triglyceride [Mass/volume] i n Serum or PlasmaOrdered By: Livan Silver on 01-12-2024 Triglyceride [Mass/Vol] 70 mg/dL 0-149 [facility] Comment on above: TRIG ATP III CLASSIF ICATIONTRIG less than 150 mg/dL NormalTRIG 150-199 mg/dL Borderline highTRIG 200-500 mg/dL High TRIG greater than 500 mg/dL Very highStandard traceable to the Center for Disease Conrtrol and Prevention (CDC) test method. [facility] *OFFICE ONLY*on 12-03 [facility] ECG *OFFICE ONLY* [facility] [address] [place] [address] [place] [address] Electrocardiograph Report Signed Patient: Etelvina Luciano MR#: [id number] 5 : 1965 Acct:[id number] Age/Sex: 58 / F ADM Date: 12/29/23 Loc: EKGCARDIO Room: Type: [facility] CLI Attending Dr: Livan Silver MD Ordering Provider: [...] previous ECGs available Confirmed by Livan Silver ([id number]) on 01/12/2024 5:44:25 PM Referred By: Electronically Signed By:Livan Silver Transcribed By: MUS Signed By Livan Silver MD 01/12/24 5550 Normal [facility] Auto Diffon 08-23-2023 Basophils/100 WBC (Bld) 0.7 % Normal 0.0-2.0 [facility] Comment on above: Order Comment: Order Added by Discern Expert. Performed By: #### 2 145999, 48674704, 04350902, 37402006, 3441720, 00277944, 0734025 #### [facility] [address] [place] [address] Basophils/Leukocytes Auto (Bld) [Pure # fraction] 0.1 E9/L Normal 0.0-0.2 [facility] Comment on above: Order Comment: Order Added by Discern Expert. Performed By: #### 2 450751, 42699883, 88385537, 10058614, 3892748, 39009610, 1518319 #### [facility] [address] [place] [address] Eosinophils/100 WBC (Bld) 1.2 % Normal 0.0-8.0 [facility] Comment on above: Order Comment: Order Added by Discern Expert. Performed By: #### 2 233725, 96742605, 13940315, 27899991, 8211792, 45495691, 4397834 #### [facility] [address] [place] [address] Eosinophils/Leukocytes Auto (Bld) [Pure # fraction] 0.1 E9/L Normal 0.0-0.5 [facility] Comment on above: Order Comment: Order Added by Discern Expert. Performed By: #### 2 950707, 16224645, 93208687, 72380537, 6583511, 60817757, 3901281 #### [facility] [address] [place] [address] Lymphocytes/100 WBC (Bld) 18.3 % Normal 14.0-50.0 [facility] Comment on above: Order Comment: Order Added by Discern Expert. Performed By: #### 2 694429, 18975516, 75506018, 20441041, 7678561, 40530916, 9706928 #### [facility] [address] [place] [address] Lymphocytes/Leukocytes Auto (Bld) [Pure # fraction] 1.3 E9/L Normal 1.0-4.0 [facility] Comment on above: Order Comment: Order Added by Discern Expert. Performed By: #### 2 591474, 30919808, 83998788, 43660561, 7392570, 82639577, 1382750 #### [facility] [address] [place] [address] Monocytes/100 WBC (Bld) 11.9 % Normal 4.0-14.0 [facility] Comment on above: Order Comment: Order Added by Discern Expert. Performed By: #### 2 257117, 82145669, 11649177, 81928298, 1071833, 62414134, 8522733 #### [facility] [address] [place] [address] Monocytes/Leukocytes Auto (Bld) [Pure # fraction] 0.9 E9/L Normal 0.2-1.0 [facility] Comment on above: Order Comment: Order Added by Discern Expert. Performed By: #### 2 630496, 20010707, 46645619, 48043209, 9050980, 46202868, 1438709 #### [facility] [address] [place] [address] Neutrophils/100 WBC (Bld) 67.9 % Normal 36.0-75.0 [facility] Comment on above: Order Comment: Order Added by Discern Expert. Performed By: #### 2 673550, 88540831, 70772326, 57148294, 4858515, 81695471, 9247695 #### [facility] [address] [place] [address] Neutrophils/Leukocytes Auto (Bld) [Pure # fraction] 4.9 E9/L Normal 2.0-7.5 [facility] Comment on above: Order Comment: Order Added by Discern Expert. Performed By: #### 2 909803, 93417829, 46467365, 82534257, 7326485, 02252725, 8740627 #### [facility] [address] [place] [address] [facility] 08-23-2023 Creatinine [Mass/Vol] 0.7 mg/dL Normal 0.5-1.3 [facility] Comment on above: Performed By: #### 2 049289, 05029852, 75091501, 64363332, 5460090, 73914280, 5848099 #### [facility] [address] [place] [address] Urea nitrogen [Mass/Vol] 12 mg/dL Normal 5- [facility] Comment on above: Performed By: #### 2 037573, 11458042, 09321174, 10475675, 5578667, 40127285, 6760015 #### [facility] [address] [place] [address] Urea nitrogen/Creatinine [Mass ratio] 17 No Units Normal - [facility] Comment on above: Performed By: #### 2 729626, 22627505, 39996824, 67146009, 0660856, 47726967, 4397928 #### [facility] [address] [place] [address] Anion gap [Moles/Vol] 12 mmol/L Normal 6-16 [facility] Comment on above: Performed By: #### 2 171013, 59872306, 53875574, 29907924, 9482751, 37364988, 5311802 #### [facility] [address] [place] [address] Calcium [Mass/Vol] 9.1 mg/dL Normal 8.9-11.1 [facility] Comment on above: Performed By: #### 2 999195, 41529863, 82785243, 52608837, 2655065, 10750299, 5130785 #### [facility] [address] [place] [address] Chloride [Moles/Vol] 108 mmol/L Normal 101-111 [facility] Comment on above: Performed By: #### 2 475603, 71557669, 10038422, 57712197, 3229489, 92172491, 8631581 #### [facility] [address] [place] [address] CO2 [Moles/Vol] 24 mmol/L Normal 21-31 [facility] Comment on above: Performed By: #### 2 694237, 33622915, 72566995, 38196743, 2369294, 38943875, 4631156 #### [facility] [address] [place] [address] Glucose [Mass/Vol] 103 mg/dL Normal 55-199 [facility] Comment on above: Result Comment: If t his glucose result represents a fasting glucose, interpretation should refer to the following reference range: 55-99 mg/dL Performed By: #### 2 197818, 44975619, 50115941, 78174808, 6099956, 17159722, 3676101 #### [facility] [address] [place] [address] Potassium [Moles/Vol] 3.6 mmol/L Normal 3.5-5.3 [facility] Comment on above: Performed By: #### 2 378436, 95686883, 46411594, 27897812, 0876234, 36088510, 2634670 #### [facility] [address] [place] [address] Sodium [Moles/Vol] 140 mmol/L Normal 135-145 [facility] Comment on above: Performed By: #### 2 340349, 14785422, 88507779, 12387110, 5783737, 74930967, 3315131 #### [facility] [address] [place] [address] BNPon 08-23-2023 Int Ctr BNP Pass Normal [facility] Comment on above: Performed By: #### 2 706129, 28991134, 36823838, 87716183, 9569538, 04633993, 6554627 #### [facility] [address] [place] [address] Natriuretic peptide B (Bld) [Mass/Vol] 72 pg/mL Normal 5-80 [facility] Comment on above: Performed By: #### 2 865648, 52494181, 77032919, 60607232, 8363123, 58385331, 4150929 #### [facility] [address] [place] [address] CBC w/ Auto Diffon 3 Erythrocyte distribution width (RBC) [Ratio] 13.0 % Normal 10.9-14.2 [facility] Comment on above: Performed By: #### 2 386861, 44085137, 11839295, 24431322, 8422485, 02093588, 6711706 #### [facility] [address] [place] [address] Hematocrit (Bld) [Volume fraction] 42.4 % Normal 34.0-46.0 [facility] Comment on above: Performed By: #### 2 999644, 61782835, 73175443, 47410947, 6041405, 78761140, 4863662 #### [facility] [address] [place] [address] Hemoglobin (Bld) [Mass/Vol] 14.3 g/dL Normal 12.0-16.0 [facility] Comment on above: Performed By: #### 2 902843, 02359307, 84189738, 66440569, 9672022, 83528343, 1155388 #### [facility] [address] [place] [address] MCH (RBC) [Entitic mass] 29.5 pg Normal 27.0-34.0 [facility] Comment on above: Performed By: #### 2 029574, 60192507, 57079429, 45316874, 4649763, 26184846, 6452923 #### [facility] [address] [place] [address] MCHC (RBC) [Mass/Vol] 33.6 g/dL Normal 31.4-36.0 [facility] Comment on above: Performed By: #### 2 764238, 89212793, 29836515, 95122650, 5523806, 56093290, 7354042 #### [facility] [address] [place] [address] MCV (RBC) [Entitic vol] 87.8 fL Normal 80.0-100.0 [facility] Comment on above: Performed By: #### 2 691621, 79599094, 48155805, 72007309, 3087857, 50064935, 9839724 #### [facility] [address] [place] [address] Platelet mean volume (Bld) [Entitic vol] 8.5 fL Normal 6.4-10.8 [facility] Comment on above: Performed By: #### 2 176899, 14615975, 36712174, 52763182, 9938077, 92642242, 8329663 #### [facility] [address] [place] [address] Platelets (Bld) [#/Vol] 245.0 E9/L Normal 150.0-500.0 [facility] Comment on above: Performed By: #### 2 612119, 87751128, 62008320, 90309828, 1790471, 84066170, 4251334 #### [facility] [address] [place] [address] RBC (Bld) [#/Vol] 4.8 E12/L Normal 4.3-5.9 [facility] Comment on above: Performed By: #### 2 267531, 41873443, 43550106, 91489346, 0657295, 16304708, 0148646 #### [facility] [address] [place] [address] WBC corrected for nucl RBC Auto (Bld) [#/Vol] 7.2 E9/L Normal 4.0-11.0 [facility] Comment on above: Performed By: #### 2 991979, 69481503, 58775192, 30852484, 5092731, 49205712, 7721596 #### [facility] [address] [place] [address] CHEMISTRYOrdered By: SYSTEM SYSTEM on 08-23-2023 Anion gap [Moles/Vol] 12 mmol/L Normal 6 - 16 mEq/L [facility] Remisol Calcium [Mass/Vol] 9.1 mg/dL Normal 8.9 - 11. 1 mg/dL [facility] Remisol Chloride [Moles/Vol] 108 mmol/L Normal 101 - 1 11 mmol/L [facility] Remisol CO2 [Moles/Vol] 24 mmol/L Normal 21 - 31 mmol/L [facility] Remisol Creatinine [Mass/Vol] 0.7 mg/dL Normal 0.5 - 1.3 mg/dL [facility] Remisol GFR/1.73 sq M.predicted among non-blacks MDRD (S/P/Bld) [Vol rate/Area] 100 mL/min/1.73 m2 Normal >=59mL/min/1 .73 m2 [facility] S Comment on above: Interpretive Data: C hronic kidney disease could be indicated at eGFR's of less than 60 mL/min/1.73m2. Kidney failure is indicated at less than 15 mL/min/1.73m2. Glucose [Mass/Vol] 103 mg/dL Normal 55 - 199 mg/dL [facility] Comment on above: Interpretive Data: I f this glucose result represents a fasting glucose, interpretation should refer to the following reference range: 55-99 mg/dL Potassium [Moles/Vol] 3.6 mmol/L Normal 3.5 - 5.3 mmol/L [facility] Remisol Sodium [Moles/Vol] 140 mmol/L Normal 135 - 145 mmol/L [facility] Troponin I.cardiac [Mass/Vol] 6.00 pg/mL Low 10.10 - 27.10 pg/mL [facility] Comment on above: Interpretive Data: T he 95% CI (Confidence Interval) PPV (Positive Predictive Value) for myocardial infarction in females is 38 pg/mL, in males 51 pg/mL. The results should be used in conjunction with clinical conditions of myocardial infarction. (Access High Sensitivity Troponin I Instructions For Use, Julian [place], May 2018) Urea nitrogen [Mass/Vol] 12 mg/dL Normal 5 - 21 mg/dL [facility] Urea nitrogen/Creatinine [Mass ratio] 17 mg/mg Normal 10 - 20 [facility] CHEMISTRYOrdered By: Kerry shannon on 08-23-2023 Natriuretic peptide B (Bld) [Mass/Vol] 72 pg/mL Normal 5 - 80 pg/mL [facility] [employer] COAGULATIONOrdered By: Juana Aggarwal on 08-23-2023 aPTT Coag (PPP) [Time] 28.9 s Normal 25.1 - 36.5 second(s) [facility] Auto Coag Comment on above: Interpretive Data: [...] the same coagulation reagent and instrumentation as [facility]. Currently there are no coagulation studies available worldwide for children to 14 days, and no normal ranges. Heparin therapeutic range (represented by Anti-Factor Xa activity of 0.2 - 0.4 U/mL) corresponds to PTT of 56.6 - 109.0 sec. INR Coag (PPP) [Relative time] 1.2 {INR} Invalid Interpretation Code [facility] Auto Co[facility] Comment on above: Interpretive Data: I NR results are specifically intended to assess patients stabilized on long-term Anticoagulation therapy suggested INR s Less Intensive Anticoagulation 2.0 3.0 Conventional Range 3.0 4.5 PT Coag (PPP) [Time] 12.8 s High 9.4 - 1 2.5 second(s) [facility] Comment on above: Interpretive Data: 1 5 days - 4 weeks 1 - 5 months 6 -11 months 1 5 years 6 10 years 11 -17 years Mean: 11.2 (9.5 12.6) Mean: 11.0 (9.7 12.8) Mean: 11.0 (9.8 13.0) Mean: 11.3 (9.9 13.4) Mean: 11.7 (10.0 14.6) Mean: 11.8 (10.0 - 14.1) Pediatric Reference ranges were obtained from a study by aubree Bonner prepared from 1437 samples obtained at 7 different centers using the same coagulation reagent and instrumentation as [facility]. Currently there are no coagulation studies available worldwide for children to 14 days, and no normal ranges. Consent for Treatmenton 08-05 Consent for Treatment [id number]#[address] [facility] Discharge Instructionson Discharge Instructions [id number]# 1.00TIFF Normal [facility] ED Clinical Summaryon 2022 ED Clinical Summary [address] [address] ED Clinical Summary Person Information Name: ETELVINA LUCIANO/[facility] Age: 58 Years : 1965 Sex: Female Language: British PCP: NONE, XXXX Marital Status: Phone: [phone] Visit Id: Visit Reason: Palpitations; Throat pain [...] 08/23/2023 10:42:57 08/23/2023 10:42:57 08/23/2023 10:42:57 ADDRESS: [address] [place] [address] [facility] [id number] PHYS DOC NOTES: MEDICAL INFORMATION: Prescriptions Given: New Medications [id number], [address] [place] [phone], [phone] albuterol (Albuterol (Eqv-ProAir HFA) 90 mcg/inh inhalation aerosol) 2 Puffs Inhalation every 6 hours for 7 Days. Refills: 0. dexamethasone (dexamethasone 6 mg oral tablet) 1 Tablets By Mouth every day for 7 Days. Refills: 0. PATIENT EDUCATION INFORMATION: Instructions: Follow up: With: Address: When: Jessica Carbajal [address] [place] [address] Business (1) In 3 days 08/26/2023 With: Address: When: XXXX NONE , [place] In 3 days DIAGNOSIS: Bronchospasm; COVID; Palpitations Normal [facility] ED Note-Physicianon 08-23-20 ED Note-Physician Basic Information [...] day(s), # 7 tab(s), Refills(s) 0, Pharmacy: [id number], 165, cm, 08/23/23 9:07:00 EST, Height/Length [...] Carbajal In 3 days 08/26/2023 EST [address] [place] [place] [address]- Business (1) Additional Instructions: XXXX NONE In 3 [...] fL (11 (more content not included)... Normal [facility] Comment on above: Result Comment: Elec tronically Signed By: Gregg Baxter DO\.br\Date and Time Signed: 08/23/23 10:37 EST ED Patient Education Noteon 08-23-2023 ED Patient Education Note Normal [facility] ED Patient Summaryon 023 ED Patient Summary [address] [address] Patient Discharge Instructions Person Information Name: ETELVINA LUCIANO Age: 58 Years Arrival Date: 08/23/2023 08:48:24 Discharge Diagnosis: Bronchospasm; COVID; Palpitations Primary Care Physician: NONE, XXXX Provider Information Primary Provider: Gregg Baxter DO Advanced Spice Room Worker:None The exam and treatment you received in the Emergency Department were for an urgent problem and are not intended as complete care. It is important that you follow up with a doctor, nurse practitioner, or physician?s equity sales assistant for ongoing care. If your symptoms [...] Follow-up Instructions: With: Address: When: Jessica Carbajal [address] [place] [address], [facility], [facility] [address] [place] [address] [facility] () In 3 days 08/26/2023 With: Address: When: XXXX [facility] , [place] In 3 days In the event that this physician does not participate in your insurance network, please consult with your insurance company to find a nearby participating provider. Patient Education Materials: A MESSAGE TO ALL PATIENTS REGARDING OPIOIDS PRESCRIPTION OPIOIDS: WHAT YOU NEED TO KNOW Prescription opioids can be used to help relieve ecjukape-wv-fztiyv pain and are often prescribed following a [...] be struggling with addiction, tell your health child care counselor and ask for guidance or call [employer]?S National Helpline at [phone]-QLQE. (more content not included)... [facility] HEMATOLOGYOrdered By: SYSTEM SYSTEM on [...] 33.6 g/dL Normal 31.4 - 36.0 gm/dL [facility] MCV (RBC) [Entitic vol] 87.8 fL Normal 80.0 - 100.0 fL [facility] Platelet mean volume (Bld) [Entitic vol] 8.5 fL Normal 6.4 - 10.8 fL [facility] Platelets (Bld) [#/Vol] 245.0 E9/L Normal 150. 0 - 500.0 E9/L [facility] RBC (Bld) [#/Vol] 4.8 E12/L Normal 4.3 - 5.9 E12/L [facility] WBC corrected for nucl RBC Auto (Bld) [#/Vol] 7.2 E9/L Normal 4.0 - 11.0 E9/L [facility] Monitor Recordon 08-23-2023 Monitor Record [id number]# 1.00TIFF Normal [facility] PT & PTTon 08-23-2023 aPTT Coag (PPP) [Time] 28.9 second(s) Normal 25.1-36.5 [facility] Comment on above: Result Comment: Para meter [...] the same coagulation reagent and instrumentation as [facility]. Currently there are no coagulation studies available worldwide for children to 14 days, and no normal ranges. Heparin therapeutic range (represented by Anti-Factor Xa activity of 0.2 - 0.4 U/mL) corresponds to PTT of 56.6 - 109.0 sec. Performed By: #### 2 597861, 22976116, 77291609, 37313896, 7996850, 31249861, 1244343 #### [facility] [address] [place] [address] INR Coag (PPP) [Relative time] 1.2 {INR} Invalid Interpretation Code [facility] Comment on above: Result Comment: INR results are specifically intended to assess patients stabilized on long-term Anticoagulation therapy suggested INR?s ?Less Intensive Anticoagulation? 2.0 ? 3.0 Conventional Range 3.0 ? 4.5 Performed By: #### 2 218970, 92099981, 92828877, 27606123, 3060220, 62414051, 9030250 #### [facility] [address] [place] [address] PT Coag (PPP) [Time] 12.8 second(s) High 9.4-12.5 [facility] Comment on above: Result Comment: 15 d [...] the same coagulation reagent and instrumentation as [facility]. Currently there are no coagulation studies available worldwide for children to 14 days, and no normal ranges. Performed By: #### 2 775077, 33093641, 09515212, 09361921, 2414030, 88520929, 8312582 #### [facility] [address] [place] [address] Troponin 0 Hr.on 08-23-2023 Troponin I.cardiac [Mass/Vol] 6.00 pg/mL Low 10.10-27.10 [facility] Comment on above: Result Comment: The 95% CI (Confidence Interval) PPV (Positive Predictive Value) for myocardial infarction in females is 38 pg/mL, in males 51 pg/mL. The results should be used in conjunction with clinical conditions of myocardial infarction. (Access High Sensitivity Troponin I Instructions For Use, Julian [place], May 2018) Performed By: #### 2 123556, 60196216, 63553288, 71331987, 1259567, 52569285, 3574139 #### [facility] [address] [place] [address] XR Chest Single Viewon 08-23 XR Chest [...] mGy = na DAP = na Normal [facility] eGFRon 08-23-2023 GFR/1.73 sq M.predicted among non-blacks MDRD (S/P/Bld) [Vol rate/Area] 100 mL/min/1.73 m2 Normal >=59 [facility] Comment on above: Order Comment: Order added by Discern Expert. Result Comment: Cable Weaver crow kidney disease could be indicated at eGFR's of less than 60 mL/min/1.73m2. Kidney failure is indicated at less than 15 mL/min/1.73m2. Performed By: #### 2 658737, 43847566, 36254306, 26925466, 8391831, 26573808, 8076308 #### [facility] [address] [place] [address] KNEE CMPLT, 4 OR MORE VIEWSo n 05-20-2020 KNEE CMPLT, 4 OR MORE VIEWS Patient Name: ETELVINA LUCIANO STUDY: KNEE; COMPLT, 4 OR MORE VIEWS; Left; 05/20/2020 6:33 pm INDICATION: pain, (L) anterior knee s/p plant and twist injury. COMPARISON: None. ACCESSION NUMBER(S): [id number] ORDERING CLINICIAN: CAMILA CHERRY FINDINGS: No displaced fracture or rosario dislocation. Mild degenerative change-left knee with mild medial compartment narrowing/mild chondromalacia patella and mild elongation tibial eminences. Suprapatellar effusion-present. IMPRESSION: Mild osseous degenerative changes with suprapatellar effusion. Electronically signed by: DALLIN MENDOZA [facility] RADIOLOGIST [facility] Provider Note - ED v2on 05-04 Provider [...] Past Surgical History Description:Cholecyst ectomy Description:Hysterect carlotta STEEL TESTER: Is : no Is : no REVIEW [...] Note - ED v2 Last Updated: 21-May-2020 09: by Camila Cherry (RENETTA) [facility] Vital Signs Date Time Vital Sign Value Performing Clinician Facility 06-29-2024 16:30-0400 Body height 165.1 cm [facility] 06-29-2024 16:30-0400 Body mass index (BMI) [Ratio] 32.4 kg/m2 06-29-2024 16:30-0400 Body temperature 97.8 [degF] [facility] 06-29-2024 16:30-0400 Body weight 88.45 kg [facility] 06-29-2024 16:30-0400 Diastolic blood pressure 76 mm[Hg] 06-29-2024 16:30-0400 Heart rate 60 /min [facility] 06-29-2024 16:30-0400 Respiratory rate 20 /min [facility] 06-29-2024 16:30-0400 SaO2% (BldA) [Mass fraction] 94 % 06-29-2024 16:30-0400 Systolic blood pressure 124 mm[Hg] 04-05-2024 16:29-0400 Body height 165.1 cm PRESS OPERATOR HELPER Tameka Easterwood Work Phone: 04-05-2024 16:29-0400 Body mass index (BMI) [Ratio] 32.4 kg/m2 PRESS OPERATOR HELPER Tameka Easterwood Work Phone: 04-05-2024 16:29-0400 Body temperature 97.4 [degF] PRESS OPERATOR HELPER Tameka Easterwood Work Phone: 04-05-2024 16:29-0400 Body weight 88.45 kg PRESS OPERATOR HELPER Tameka Easterwood Work Phone: 04-05-2024 16:29-0400 Diastolic blood pressure 82 mm[Hg] PRESS OPERATOR HELPER Tameka Easterwood Work Phone: 04-05-2024 16:29-0400 Heart rate 71 /min PRESS OPERATOR HELPER Tameka Easterwood Work Phone: 04-05-2024 16:29-0400 Respiratory rate 20 /min PRESS OPERATOR HELPER Tameka Easterwood Work Phone: 04-05-2024 16:29-0400 SaO2% (BldA) [Mass fraction] 99 % PRESS OPERATOR HELPER Tameka Easterwood Work Phone: 04-05-2024 16:29-0400 Systolic blood pressure 120 mm[Hg] PRESS OPERATOR HELPER Tameka Easterwood Work Phone: 03-22-2024 16:40-0400 Body height 165.1 cm PRESS OPERATOR HELPER Tameka Easterwood Work Phone: 03-22-2024 16:40-0400 Body mass index (BMI) [Ratio] 32.3 kg/m2 PRESS OPERATOR HELPER Tameka Easterwood Work Phone: 03-22-2024 16:40-0400 Body weight 88.11 kg PRESS OPERATOR HELPER Tameka Easterwood Work Phone: 03-22-2024 16:40-0400 Diastolic blood pressure 75 mm[Hg] PRESS OPERATOR HELPER Tameka Easterwood Work Phone: 03-22-2024 16:40-0400 Heart rate 61 /min PRESS OPERATOR HELPER Tameka Easterwood Work Phone: 03-22-2024 16:40-0400 Respiratory rate 18 /min PRESS OPERATOR HELPER Tameka Easterwood Work Phone: 03-22-2024 16:40-0400 SaO2% (BldA) [Mass fraction] 93 % PRESS OPERATOR HELPER Tameka Easterwood Work Phone: 03-22-2024 16:40-0400 Systolic blood pressure 134 mm[Hg] PRESS OPERATOR HELPER Tameka Easterwood Work Phone: 02-24-2024 12:20-0400 Diastolic blood pressure 87 mm[Hg] PRESS OPERATOR HELPER Tameka Easterwood Work Phone: 02-24-2024 12:20-0400 Heart rate 86 /min PRESS OPERATOR HELPER Tameka Easterwood Work Phone: 02-24-2024 12:20-0400 Respiratory rate 16 /min PRESS OPERATOR HELPER Tameka Easterwood Work Phone: 02-24-2024 12:20-0400 SaO2% (BldA) [Mass fraction] 94 % PRESS OPERATOR HELPER Tameka Easterwood Work Phone: 02-24-2024 12:20-0400 Systolic blood pressure 144 mm[Hg] PRESS OPERATOR HELPER Tameka Easterwood Work Phone: 02-24-2024 11:25-0400 Body temperature 97.4 [degF] PRESS OPERATOR HELPER Tameka Easterwood Work Phone: 02-24-2024 10:55-0400 Inhaled oxygen flow rate 8 L/min PRESS OPERATOR HELPER Tameka Easterwood Work Phone: 02-24-2024 09:26-0400 Body height 165.1 cm PRESS OPERATOR HELPER Tameka Easterwood Work Phone: 02-24-2024 09:26-0400 Body mass index (BMI) [Ratio] 33 kg/m2 PRESS OPERATOR HELPER Tameka Easterwood Work Phone: 02-24-2024 09:26-0400 Body weight 90 kg PRESS OPERATOR HELPER Tameka Easterwood Work Phone: 02-01-2024 08:43-0400 Body height 165.1 cm PRESS OPERATOR HELPER Tameka Easterwood Work Phone: 02-01-2024 08:43-0400 Body mass index (BMI) [Ratio] 32.8 kg/m2 PRESS OPERATOR HELPER Tameka Easterwood Work Phone: 02-01-2024 08:43-0400 Body weight 89.55 kg PRESS OPERATOR HELPER Tameka Easterwood Work Phone: 02-01-2024 08:43-0400 Diastolic blood pressure 71 mm[Hg] PRESS OPERATOR HELPER Tameka Easterwood Work Phone: 02-01-2024 08:43-0400 Heart rate 57 /min PRESS OPERATOR HELPERLive English Easterwood Work Phone: 02-01-2024 08:43-0400 Respiratory rate 16 /min PRESS OPERATOR HELPERLive Sapperirene Work Phone: 02-01-2024 08:43-0400 SaO2% (BldA) [Mass fraction] 98 % PRESS OPERATOR HELPERLive Sapperirene Work Phone: 02-01-2024 08:43-0400 Systolic blood pressure 121 mm[Hg] PRESS OPERATOR HELPER Tameka Easterwood Work Phone: 01-19-2024 16:37-0400 Body height 165.1 cm PRESS OPERATOR HELPERLive Sapperirene Work Phone: 01-19-2024 16:37-0400 Body mass index (BMI) [Ratio] 32.1 kg/m2 PRESS OPERATOR HELPERLive Sapperirene Work Phone: 01-19-2024 16:37-0400 Body temperature 97.9 [degF] PRESS OPERATOR HELPERLive Sapperirene Work Phone: 01-19-2024 16:37-0400 Body weight 87.54 kg PRESS OPERATOR HELPERLive Sapperirene Work Phone: 01-19-2024 16:37-0400 Diastolic blood pressure 88 mm[Hg] PRESS OPERATOR HELPER Tameka Easterwood Work Phone: 01-19-2024 16:37-0400 Heart rate 72 /min PRESS OPERATOR HELPER Tameka Easterirene Work Phone: 01-19-2024 16:37-0400 Respiratory rate 20 /min PRESS OPERATOR HELPERLive Escamillaa Easterwood Work Phone: 01-19-2024 16:37-0400 SaO2% (BldA) [Mass fraction] 95 % PRESS OPERATOR HELPERLive Escamillaa Easterwood Work Phone: 01-19-2024 16:37-0400 Systolic blood pressure 130 mm[Hg] PRESS OPERATOR HELPER Tameka Easterwood Work Phone: 12-29-2023 14:33-0400 Body height 165.1 cm PRESS OPERATOR HELPER Tameka Easterwood Work Phone: 12-29-2023 14:33-0400 Body mass index (BMI) [Ratio] 31.4 kg/m2 PRESS OPERATOR HELPER Tameka Easterwood Work Phone: 12-29-2023 14:33-0400 Body weight 85.72 kg PRESS OPERATOR HELPER Tameka Easterirene Work Phone: 12-29-2023 14:33-0400 Diastolic blood pressure 80 mm[Hg] PRESS OPERATOR HELPER Tameka Easterwood Work Phone: 12-29-2023 14:33-0400 Heart rate 63 /min PRESS OPERATOR HELPER Tameka Easterwood Work Phone: 12-29-2023 14:33-0400 Respiratory rate 18 /min PRESS OPERATOR HELPER Tameka Easterwood Work Phone: 12-29-2023 14:33-0400 SaO2% (BldA) [Mass fraction] 96 % PRESS OPERATOR HELPER Tameka Easterwood Work Phone: 12-29-2023 14:33-0400 Systolic blood pressure 124 mm[Hg] PRESS OPERATOR HELPER Tameka Easterwood Work Phone: 08-23-2023 10:00-0500 Diastolic blood pressure 80 mm[Hg] Gregg Sahil [facility] 08-23-2023 10:00-0500 Heart rate 69 /min Gregg Baxter [facility] 08-23-2023 10:00-0500 SaO2% (BldA) [Mass fraction] 95 % Gregg Baxter [facility] 08-23-2023 10:00-0500 Systolic blood pressure 136 mm[Hg] Gregg Baxter [facility] 08-23-2023 08:59-0500 Body temperature 98.06 [degF] Gregg Baxter [facility] 08-23-2023 08:59-0500 Diastolic blood pressure 74 mm[Hg] Gregg Baxter [facility] 08-23-2023 08:59-0500 Heart rate 71 /min Gregg Baxter [facility] 08-23-2023 08:59-0500 Respiratory rate 18 /min Gregg Baxter [facility] 08-23-2023 08:59-0500 SaO2% (BldA) [Mass fraction] 96 % Gregg Baxter [facility] 08-23-2023 08:59-0500 Systolic blood pressure 122 mm[Hg] Gregg Baxter [facility] Encounters Encounter Date Encounter Type Care Provider Facility Start: 06-29-2024 End: 06-29-2024 ambulatory [facility] Work Phone: Start: 06-29-2024 End: 06-29-2024 [facility] [place] Work Phone: Start: 04-05-2024 End: 04-05-2024 ambulatory PRESS OPERATOR HELPER Tameka Perez Work Phone: [facility] Work Phone: Start: 04-05-2024 End: 04-05-2024 Patient encounter procedure [facility]ES [facility] Work [facility] Start: 03-22-2024 End: 03-22-2024 ambulatory PRESS OPERATOR HELPER Tameka Sapperirene Work Phone: [facility] Work Phone: Start: 03-22-2024 End: 03-22-2024 Patient encounter procedure PRESS OPERATOR HELPER Tameka Jimenezwood Work Phone: [facility] Work Phone: Start: 02-24-2024 End: 02-24-2024 Admission to same day surgery center PRESS OPERATOR HELPERLive Perez Work Phone: [facility] [place] Start: 02-24-2024 End: 02-24-2024 ambulatory PRESS OPERATOR HELPER Tameka Sapperwood Work Phone: [facility] Work Phone: Start: 02-15-2024 End: 02-15-2024 Patient encounter procedure PRESS OPERATOR HELPER Tameka Jimenezwood Work Phone: [facility] Work Phone: Start: 02-10-2024 End: 02-10-2024 Departed Referred AQUILES Jimenezwood Work Phone: [facility] Work Phone: Start: 02-10-2024 End: 02-10-2024 Patient encounter procedure PRESS OPERATOR HELPER Tameka Perez Work Phone: [facility] Work Phone: Start: 02-10-2024 End: 02-10-2024 ambulatory PRESS OPERATOR HELPER Tameka Sapperwood Work Phone: [facility] Work Phone: Start: 02-03-2024 End: 02-03-2024 Patient encounter procedure PRESS OPERATOR HELPER Tameka Sapperwood Work Phone: [facility] Ctr-[facility] [place] Work Phone: Start: 02-03-2024 End: 02-03-2024 ambulatory PRESS OPERATOR HELPERLive Sapperirene Work Phone: [facility] Work Phone: Start: 02-01-2024 End: 02-01-2024 ambulatory PRESS OPERATOR HELPER Tameka Sapperwood Work Phone: [facility] Work Phone: Start: 02-01-2024 End: 02-01-2024 Patient encounter procedure [facility]QUILES Jimenezwood [facility] Work Phone: Start: 01-19-2024 End: 01-19-2024 ambulatory PRESS OPERATOR HELPER Tameka Sapper[place] Work Phone: [facility] Work Phone: Start: 01-19-2024 End: 01-19-2024 Encounter for general adult medical examination without abnormal findings PRESS OPERATOR HELPER Tameka Perez Work Phone: Start: 01-19-2024 End: 01-19-2024 Patient encounter procedure AQUILES Perez Work Phone: [facility] Work Phone: Start: 01-18-2024 End: 01-18-2024 Patient encounter procedure AQUILES Perez Work Phone: [facility] Ctr-Electrodiagnostics Work Phone: Start: 01-18-2024 End: 01-18-2024 ambulatory PRESS OPERATOR HELPER Tameka Sapperirene Work Phone: [facility] Work Phone: Start: 01-18-2024 Non-patient / Non-visit AQUILES snider Chris Work Phone: [facility] Cardiology Work Phone: Start: 01-13-2024 Non-patient / Non-visit PRESS OPERATOR HELPER D tylor Sapperwood Work Phone: [facility] [place] Work Phone: Start: 01-12-2024 End: 01-12-2024 Patient encounter procedure PRESS OPERATOR HELPER Tameka Sapperwood Work Phone: [facility] C[facility] [place] Work Phone: Start: 01-12-2024 End: 01-12-2024 ambulatory PRESS OPERATOR HELPER Tameka Robbins Easterwood Work Phone: [facility] Ctr Work Phone: Start: 01-01-2024 End: 01-01-2024 Patient encounter procedure PRESS OPERATOR HELPER Tameka Easterwood Work Phone: [facility] Work Phone: Start: 01-01-2024 End: 01-01-2024 ambulatory PRESS OPERATOR HELPER Tameka Robbins Easterwood Work Phone: [facility] Ctr Work Phone: Start: 12-29-2023 End: 12-29-2023 ambulatory PRESS OPERATOR HELPER Tameka Robbins Easterwood Work Phone: [facility] C[facility] Work Phone: Start: 12-29-2023 End: 12-29-2023 Patient encounter procedure PRESS OPERATOR HELPER Tameka Sapperwood Work Phone: [facility] Cardiology Work Phone: Start: 12-16-2023 Non-patient / Non-visit PRESS OPERATOR HELPER Chelsea tylor Sapperwood Work Phone: [facility] Work Phone: Start: 11-29-2023 Non-patient / Non-visit PRESS OPERATOR HELPER D tylor Sekouerwood Work Phone: [facility] Work Phone: Start: 11-04-2023 Patient encounter procedure AQUILES Perez Work Phone: [facility]- Start: 08-23-2023 End: 08-23-2023 Emergency department patient visit Gregg Baxter [place] [place] Start: 08-23-2023 End: 08-23-2023 Emergency department patient visit Gregg Baxter [facility] Procedures Date Procedure Procedure Detail Performing Clinician Start: 02-24-2024 Reduction mammoplast y, bilateral AQUILES Perez Work Phone: Start: 01-01-2024 Screening mammograph y of bilateral breasts AQUILES Perez Work Phone: Plan of Treatment Date Care Activity Detail Author Start: 06-30-2024 Patient referral [facility] Work Phone: Start: 02-24-2024 Start: 02-24-2024 Start: 01-01-2024 MG Breast - bilatera l Screening Start: 01-01-2024 Screening mammograph y of bilateral breasts MM screening mammo BI w/CAD Start: 12-29-2023 Patient Education Know your Meds [facility] Work Phone: Patient referral [facility] Work Phone: [facility] Payers Date Payer Category Payer Self-pay 2023 Unknown [id number] 2023 Private Health Insurance [id number] 1965 Unknown [id number] 2.16.8 [id number] Unknown [id number] 2.16.8 [id number] Unknown [id number] 2.16.8 [id number] Unknown [id number] 2.16.8 [id number] Unknown [id number] 2.16.8 [id number] Unknown [id number] 2.16.8 [id number] Unknown [id number] 2.16.8 [id number] Unknown [id number] 2.16.8 [id number] Social History Date Type Detail Facility Tobacco smoking status [facility] Sex Assigned At Female [facility] Start: 12-29-2023 End: 04-05-2024 Tobacco smoking status [facility] Never smoked tobacco (finding) Start: 1965 Sex Assigned At Female [facility] Goals Date Patient Goal Desired Activity /State Functional Status Date Assessment Result Facility 08-23-2023 Functional Status N/A [facility] Clinical Notes 08-23-2023 to 04-10-2024 Note Date & Type Note Facility 04-10-2024 Evaluation note Authored April 10, 2024 4:38p m Patient to call if she would like to move forward with imaging and referral. [facility] Work Phone: 1(399) 115-108606-19-2024 Evaluation note* Author Ventura German Authored March 22, 2024 5:06 pm Highest weight: 299+ lbs. Sh e is down 10.4 lbs. Start weight: 197.7 [...] alone. She moved back here recently from [place]. She had a remote history of paroxysmal [...] with her PCP and pain management. 8. Zleihbshzbd-buhvp-bsfj treatment with long-term healthy lifestyle change, decreased simple sweets and refined starches, increased exercise and activity and long-term weight loss. Consider metformin. Treat with GLP-1 agonist. She needs close long-term follow-up for this condition to prevent diabetes. She had a past A1c of 5.7. Monitor with treatment. 9. Snorer/Garrison of 3-doubt sleep apnea. Treat with good [...] work with her PCP. Author Ventura German Authored February 01, 2024 11: 04am Assessment: [...] alone. She moved back here recently from [place]. She had a remote history of paroxysmal [...] with her PCP and pain management. 8. Jfjkhlzipdx-xvlsu-llwt treatment with long-term healthy lifestyle change, decreased simple sweets and refined starches, increased exercise and activity and long-term weight loss. Consider metformin. Treat with GLP-1 agonist. She needs close long-term follow-up for this condition to prevent diabetes. She notes she had a past A1c of 5.7. Monitor with treatment. 9. Snorer/Garrison of 3-doubt sleep apnea. Treat with good [...] Our exercise program was recommended with our obstetrics tech/obesity exercise group. Handout given. Our free weekly [...] and benefits of prescribed meds discussed. Initial hssy-fl-iipp interview/evaluation. The patient was counseled in detail on the options for weight loss in an individual setting. 55 minutes was spent caring for the patient, counseling/educating patient on the options for the treatment of obesity and related healthcare issues. The program's treatment goals were reviewed with the patient. Each aspect of the program was discussed with the patient. [facility] Work Phone: 1(151) 407-458904-30-2024 Evaluation note* Author Ventura German Authored February 01, 2024 11: 04am Assessment: [...] alone. She moved back here recently from [place]. She had a remote history of paroxysmal [...] with her PCP and pain management. 8. Nquenywaqzr-syhcg-eugr treatment with long-term healthy lifestyle change, decreased simple sweets and refined starches, increased exercise and activity and long-term weight loss. Consider metformin. Treat with GLP-1 agonist. She needs close long-term follow-up for this condition to prevent diabetes. She notes she had a past A1c of 5.7. Monitor with treatment. 9. Snorer/Garrison of 3-doubt sleep apnea. Treat with good [...] Our exercise program was recommended with our obstetrics tech/obesity exercise group. Handout given. Our free weekly [...] and benefits of prescribed meds discussed. Initial vowh-mm-gjkn interview/evaluation. The patient was counseled in detail on the options for weight loss in an individual setting. 55 minutes was spent caring for the patient, counseling/educating patient on the options for the treatment of obesity and related healthcare issues. The program's treatment goals were reviewed with the patient. Each aspect of the program was discussed with the patient. [facility] Work Phone: 1(397) 349-682111-20-2023 Evaluation + Plan noteExtracted from: Title:ED Note Author:Gregg Baxter DO Date: Bronchospasm (J98.01: Acute bronchospasm) COVID (U07.1: COVID-19) Palpitations (R00.2: Palpitations) Orders: albuterol, 2 puff(s), Inhalation, q6hr for 7 day(s), 6.7 gm, Refill(s) 0, [facility]/pharmacy #[id number], 165, cm, 08/23/23 9:07:00 EST, Height/Length Dosing, 88, kg, 08/23/23 9:07:00 EST, Weight Dosing dexamethasone, 6 mg = 1 tab(s), Oral, Daily, X 7 day(s), # 7 tab(s), Refills(s) 0, Pharmacy: [facility]/pharmacy #[id number], 165, cm, 08/23/23 9:07:00 EST, Height/Length [...] Troponin 9 Hr. XR Chest Single View [facility]11-20-2023 Hospital Discharge instructions Follow Up Care 08/23/2023 08:50:48 With:Jessica Carbajal Address: [address] [place] [address], [address] [address] Business (1) When:08/26/2023 10:33:24 With:XXXX NONE Address: [place] When:Within 3 Day(s) [facility]Reason for visit Narrative* Chief Complaint Amb Documentation Amb Documentation chronic a-fib medication management, no acute Reason for Visit HLD (hyperlipidemia) Paroxysmal atrial fibrillation [facility] Work Phone: chief complaint+Reason for visit Narrative* Chief Complaint Amb Documentation Amb Documentation chronic a-fib medication management, no acute Screening Reason for Visit HLD (hyperlipidemia) Paroxysmal atrial fibrillation [facility] Work Phone: Chief complaint+Reason for visit Narrative* Chief Complaint Amb Documentation Amb Documentation chronic a-fib medication management, no acute Screening E78.5 I48.0 Reason for Visit HLD (hyperlipidemia) Paroxysmal atrial fibrillation [facility] Work Phone: chief complaint+Reason for visit Narrative* Chief Complaint Amb Documentation Amb Documentation chronic a-fib medication management, no acute Screening E78.5 I48.0 Amb Documentation I48.0 Reason for Visit HLD (hyperlipidemia) Paroxysmal atrial fibrillation [facility] Work Phone: [place] complaint+Reason for visit Narrative* Chief Complaint Amb Documentation Amb Documentation chronic a-fib medication management, no acute Screening E78.5 I48.0 Amb Documentation I48.0 Wellness visit Reason for Visit HLD (hyperlipidemia) Paroxysmal atrial fibrillation Screening for metabolic disorder Well adult exam [facility] Work Phone: chief complaint+Reason for visit Narrative* Chief Complaint Amb Documentation Amb Documentation chronic a-fib medication management, no acute Screening E78.5 I48.0 Amb Documentation I48.0 Wellness visit [facility] Reason for Visit HLD (hyperlipidemia) Paroxysmal atrial fibrillation Screening for metabolic disorder Well adult exam [facility] Work Phone: chief complaint+Reason for visit Narrative* Chief Complaint Amb Documentation Amb Documentation chronic a-fib medication management, no acute Screening E78.5 I48.0 Amb Documentation I48.0 Wellness visit [facility] R73.03;R63.5 Reason for Visit HLD (hyperlipidemia) Paroxysmal atrial fibrillation Screening for metabolic disorder Well adult exam [facility] Work Phone: [place] complaint+Reason for visit Narrative* Chief Complaint Amb Documentation Amb Documentation chronic a-fib medication management, no acute Screening E78.5 I48.0 Amb Documentation I48.0 Wellness visit [facility] [place] R73.03;R63.5 Macromastia Reason for Visit HLD (hyperlipidemia) Paroxysmal atrial fibrillation Screening for metabolic disorder Well adult exam [facility] Work Phone: chief complaint+Reason for visit Narrative* Chief Complaint Amb Documentation Amb Documentation chronic a-fib medication management, no acute Screening E78.5 I48.0 Amb Documentation I48.0 Wellness visit [facility] [place] R73.03;R63.5 Macromastia Macromastia Reason for Visit HLD (hyperlipidemia) Paroxysmal atrial fibrillation Screening for metabolic disorder Well adult exam [facility] Work Phone: Chief complaint+Reason for visit Narrative* Chief Complaint chronic a-fib medica tion management, no acute Screening E78.5 I48.0 Amb Documentation I48.0 Wellness visit [facility] [place] R73.03;R63.5 Macromastia Macromastia Reason for Visit HLD (hyperlipidemia) Paroxysmal atrial fibrillation Screening for metabolic disorder Well adult exam HLD (hyperlipidemia) HTN (hypertension) Obesity (BMI 30.0-34.9) Pre-diabetes [facility] Work Phone: Evaluation note* Diagnosis Onset Date Resolution Status HLD (hyperlipidemia) acute Paroxysmal atrial fibrillation acute [facility] Work Phone: Evaluation note* Diagnosis Onset Date Resolution Status HLD (hyperlipidemia) acute Paroxysmal atrial fibrillation acute Screening for metabolic disorder noneactive Well adult exam noneactive [facility] Work Phone: Evaluation note* Author Katelyn Can Authored February 01, 2024 9:1 8am Assessment: [...] Our exercise program was recommended with our obstetrics tech/obesity exercise group. Handout given. Our free weekly [...] and benefits of prescribed meds discussed. Initial aoff-wi-iinz interview/evaluation. The patient was counseled in detail on the options for weight loss in an individual setting. [ ] minutes was spent caring for the patient, counseling/educating patient on the options for the treatment of obesity and related healthcare issues. The program's treatment goals were reviewed with the patient. Each aspect of the program was discussed with the patient. [facility] Work Phone: Hospital course Narrative No data available for this section [facility] Additional Instructions DISCHARGE INSTRUCTIONS FOR [...] the incision. PLEASE NOTIFY OUR OFFICE at [phone] if you: -Develop a fever of 101 [...] rate. FOLLOW UP -Call the office at [phone] for a follow up appointment 1 week. * AFTER HOURS PHONE NUMBER [phone] *[facility] Work Phone: Hospital Discharge instructionsAmbulatory Orders* Referral to Neurology Location: None Selected [facility] Work Phone: Progress note No data available for this section [facility] Summary Purpose Family History Relationship Condition Age at Onset Recorded Date/T [...] of breast Unknown mother Myocardial infarction Unknown Rheumatoid arthritis Unknown father Non-Hodgkin's lymphoma Unknown brother Heart disease Unknown sister Pulmonary hypertension Unknown Leaky heart valve Unknown Osteoarthritis Unknown Advance Directives Advance Directive Response Recorded Date/ Time Advance Directives No November 03, 2023 4:39pm Chief Complaint and Reason for Visit Chief Complaint E78.5 I48.0 Amb Documentation I48.0 Wellness visit [facility] R73.03;R63.5 Macromastia Macromastia left ankle and foot swelling Reason for Visit Screening for metabo lic disorder Well adult exam HLD (hyperlipidemia) HTN (hypertension) Obesity (BMI 30.0-34.9) Pre-diabetes Chief Complaint left ankle and foot swelling Right side shoulder, neck and back pain Reason for Visit Edema of left ankle Varicose vein of leg Chief Complaint left ankle and foot swelling Right side shoulder, neck and back pain Reason for Visit Edema of left ankle Varicose vein of leg Chronic migraine Fibromyalgia Osteoarthritis Additional Source Comments INFORMATION SOURCE (unrecogn ized section and content) DATE CREATED AUTHOR 05/27/2020 [facility] DATE CREATED AUTHOR AUTHOR'S ORGANIZ ATION 08/24/2023 [facility] DATE CREATED AUTHOR AUTHOR'S ORGANIZ ATION 04/10/2024 [facility] Care Teams (unrecognized sec [...] December 29, 2023 End: December 29, 2023 Livna Silver MD Attending Provider Activ e Start: [...] BE BASED ON THE PRIMARY CLINICAL RECORDS. [facility] [employer] [facility]. provides no warranty or guarantee of the accuracy or completeness of information in this document.
== END 2024-07-13 15:40 | disposition home or self-care (01) ==
LOC: VC 14:57
PROVIDERS: PCP Radiology Diagnostic Radiology; Visit Provider Radiology Diagnostic Radiology
DX: I83.813 Varicose veins of bilateral lower extremities with pain (principal)
CPT/HCPCS: 36478

== ENCOUNTER 2024-07-18 11:10 | Outpatient (OUT) | payer BC, SELFPAY ==
[2024-07-18 10:19] VITALS: BMI 31.9
--- NOTE | 2024-07-18 10:19 | VEINCLINIC_ITS ---
Vital Signs 07/18/24 10:19 Height 5 ft 5 in Weight 87 kg BMI 31.9 Varicose Veins Patient in today for follow up ultrasound post EVLT of left AASV. Brett Washington MD personally performed the services described in this documentation, as scribed by Kasandra Bragg RVT, RDMS in my presence and it is both accurate and complete. Kasandra Washington RVT, RDMS, am scribing for, and in the presence of, Dr. Brett Ocasio and in the presence of the patient. knee: bilateral (most notable to right leg), calf: bilateral, ankle: bilateral and dobbs: bilateral aching, cramping and tender 7 10 years Worsened in recent months: Yes standing, sitting and walking analgesics (Ibuprofen), elevating extremities, compression stockings and exercise Reports fatigue, heaviness, limb pain and edema History of lower extremity trauma: No Superficial thrombophlebitis: No Family history of varicose veins: yes (mother) Has patient had previous lower extremity venous surgery: No Patient has previously received the following treatment(s) for lower extremity varicose veins: Reports none Does patient have a history of : yes Does patient intend to have future pregnancies: no Has patient had lower extremity venous scan with relux testing: No Support hose used: Yes Problems walking or doing physical activity: Yes How does it affect you: often has to sit and elevate bilateral legs/feet Do you walk much: Yes Do you stand much: No Review of Systems ROS Narrative Brett Washington MD personally performed the services described in this documentation, as scribed by Kasandra Bragg RVT, RDMS in my presence and it is both accurate and complete. I, Kasandra Bragg RVT, RDMS, am scribing for, and in the presence of, Dr. Brett Ocasio and in the presence of the patient. Status of ROS 10 or more systems reviewed and unremark able except as noted in history and below Cardiovascular Reports: edema Integumentary/Breast Reports: redness, skin pain, skin tenderness and changes in skin color Hematologic/Lymphatic Reports: easy bruising and easy bleeding [facility] Medical History (Updated 06/28/24 @ 14:09 by Lucia Larsen) Phlebitis and thrombophlebitis of superficial vessels of right lower extremity ?I80.01 - Phlebitis and thrombophlebitis of superficial vessels of right lower extremity (ICD-10) Phlebitis of superficial vein of right lower extremity ?I80.01 - Phlebitis and thrombophlebitis of superficial vessels of right lower extremity (ICD-10) Phlebitis and thrombophlebitis of superficial vessels of left lower extremity ?I80.02 - Phlebitis and thrombophlebitis of superficial vessels of left lower extremity (ICD-10) Diverticulosis ?K57.90 - Diverticulosis of intestine, part unspecified, without perforation or abscess without bleeding (ICD-10) 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 - Primary osteoarthritis, unspecified hand (ICD-10) Varicose veins of bilateral lower extremities with pain ?I83.813 - Varicose veins of bilateral lower extremities with pain (ICD-10) Arthritis ?M19.90 - Unspecified osteoarthritis, unspecified site (ICD-10) Spinal stenosis ?M48.00 - Spinal stenosis, site unspecified (ICD-10) Atrial fibrillation ?I48.91 - Unspecified atrial fibrillation (ICD-10) Obesity ?E66.9 - Obesity, unspecified (ICD-10) Fibromyalgia ?M79.7 - Fibromyalgia (ICD-10) Surgical History (Updated 06/20/24 @ 15:07 by Henri Higgins) Status post laser ablation of incompetent vein ?Z98.890 - Other specified postprocedural states (ICD-10) H/O colectomy ?Z90.49 - Acquired absence of other specified parts of digestive tract (ICD- 10) Hx of breast reduction, elective ?Z98.890 - Other specified postprocedural states (ICD-10) H/O abdominoplasty ?Z98.890 - Other specified postprocedural states (ICD-10) History of cholecystectomy ?Z90.49 - Acquired absence of other specified parts of digestive tract (ICD- 10) H/O: hysterectomy ?Z90.710 - Acquired absence of both cervix and uterus (ICD-10) Family History (Updated 04/26/24 @ 14:42 by Henri Higgins) Mother Varicose veins of bilateral lower extremities with pain Heart disease Age related osteoporosis Sister Age related osteoporosis Other Family history of cancer Family history of diabetes mellitus Family history of hypertension Pulmonary hypertension Social History (Updated 04/26/24 @ 14:43 by Henri Higgins) Within the past year, how often did you have six or more drinks on one occasion: less than monthly Smoking status: Never smoker Non-prescribed substance use: denies use Meds Home Medications and Allergies Home Medications ?Medication ?Instructions ?Recorded ?Confirmed ?Type aspirin 81 mg capsule 81 mg PO DAILY 04/26/24 04/26/24 History diltiazem HCl PO 04/26/24 History duloxetine PO 04/26/24 History montelukast 10 mg tablet 10 mg PO QPM 04/26/24 04/26/24 History (Singulair) pantoprazole 40 mg granules 40 mg PO DAILY 04/26/24 04/26/24 History delayed-release for susp in packet (Protonix) tramadol .ROUTE 04/26/24 History Allergies Allergy/AdvReac Type Severity Reaction Status Date / Time codeine Allergy Mild Agitated Verified 04/26/24 15:32 dermaplast glue Allergy Intermediate Rash Uncoded 04/26/24 15:32 Exam Narrative Exam Narrative: IBrett MD personally performed the services described in this documentation, as scribed by Kasandra Bragg RVT, RDMS in my presence and it is both accurate and complete. Kasandra Washington RVT, RDMS, am scribing for, and in the presence of, Dr. Brett Ocasio and in the presence of the patient. Results Imaging Venous US: Radiologist's impression: The ultrasound demonstrates Heat induced thrombus visualized in AASV from proximal thigh to mid thigh. Assessment and Plan Assessment and Plan (1) Phlebitis and thrombophlebitis of superficial vessels of left lower extremi ty: Plan Patient in today for follow up ultrasound of lower extremity following treatment of EVLT of left leg AASV completed on 07/13/24.
--- NOTE | 2024-07-18 11:27 | VEIN_ITS ---
Patient Name: JACQUES RIVERA MR#: [id number] : 1965 Exam Date: 07/18/2024 Ordering Doctor: DR ALYSIA COOL M.D. RADIOLOGY REPORT PROCEDURE: VC EXT VENOUS LT LIMITED COMPARISON: VC EXT VENOUS LT LIMITED, 05/29/2024. INDICATIONS: I80.02 - Phlebitis and thrombophlebitis of superficial ve... TECHNIQUE: Lower extremity vargas scale and Duplex Doppler evaluation of the deep venous system from the inguinal ligament through the calf veins. FINDINGS: REGION: Left lower extremity. THROMBI: Negative for DVT. Heat induced thrombus visualized in AASV from proximal thigh to mid thigh. COMPRESSIBILITY: Non-compressible segments corresponding to thrombus FLOW: Areas of no flow corresponding to thrombus CONCLUSION: Post ablation occlusion of the treated left anterior accessory saphenous vein Dictated by: Brett Ocasio MD on 07/18/2024 at 12:56 Approved by: Brett Ocasio MD on 07/18/2024 at 12:57
--- OUTSIDE RECORDS SUMMARY | 2024-07-18 11:40 | XMS_ITS | CCD ---
Author Organization [facility] Care Team Providers Care Coping Machine Operator Name Role Phone NONE, XXXX Primary Care Physician Unavailab Gregg Edwards Attending Unavailable AQUILES Perez Primary Care Provider MD Livan Silver Attending Provider Self, Referral Attending Provider Unavailable MD Herbie Vila Referring Provider AQUILES Perez Referring Provider [phone] MD Ventura German Attending Provider MD Herbie Vila Attending Provider AQUILES Perez Primary Care Provider [phone] MD Livan Silver Attending Provider Herbie Vila [...] Agents (2 sources) gabapentin Drug Allergy 4 [facility] Nitrofurantoin (2 sources) Nitrofurantoin Drug Allergy 4 Chest Pain [facility] NSAIDs (2 sources) Ketorolac Drug Allergy 4 Anaphylaxis [facility] Opioid Agonists (2 sources) Codeine Drug Allergy 4 [facility] (12 sources) Codeine; Translations: [codeine] Drug Allergy 4 [facility] (12 sources) gabapentin; Translations: [gabapentin] Drug Allergy 4 [facility] (12 sources) Ketorolac; Translations: [ketorolac] Drug Allergy 4 Anaphylaxis [facility] (12 sources) Nitrofurantoin; Translations: [nitrofurantoin] Drug Allergy 4 Chest Pain [facility] (1 source) Codeine Drug Allergy 4 [facility] Repository Medications Current Medications Medication Drug Class(es) Dates Sig (Normalized) Sig (Original) Albuterol (Eqv-ProAir HFA) 90 mcg/inh inhalation aerosol (1 source) Start: 08-23-2023 End: 08-30-2023 take 2 puff(s) by inhalation every six hours Albuterol (Eqv-ProAir HFA) 90 mcg/inh inhalation aerosol 2 puff(s), Inhalation, q6hr for 7 day(s), 6.7 gm, Refill(s) 0, [facility]pharmacy #[id number], 165, cm, 08/23/23 9:07:00 EST, [...] day(s), # 7 tab(s), Refills(s) 0, Pharmacy: [facility] #[id number], 165, cm, 08/23/23 9:07:00 EST, [...] Test Name Value Interpretation Reference Range Facility [facility] 02-24-2024 L Specimen: [id number] Received: 02/24/24 Status: SOU Re Num: [id number] Spec Type: Surgical Subm Dr: Herbie Vila MD Tissues: A Breast Reduction - Mammoplasty (SRT) B Breast Reduction - Mammoplasty (LT) Procedures: HE/6, Gross/Micro L4/2 Age/ Patient Sex Location Account Attending Physician Etelvina Luciano 58/F [place] [id number] Herbie Vila MD SPEC NUM: [id number] RECD: 02/24/24 STATUS: RACHEL RAMÍREZJessica NUM: [id number] JESSICA: 02/24/[address]: Herbie Vila MD ENTERED: 02/24/[address] [facility] [address]: SPEC TYPE: Surgical [...] No discrete masses or lesions are present. 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 -------- Specimen: [id number] Received: 02/24/24 Status: PAOLABeti Carlson Num: [id number] Spec Type: Surgical Subm Dr: Herbie Vila MD Tissues: A Breast Reduction - Mammoplasty (SRT) B Breast Reduction - Mammoplasty (LT) Procedures: HE/6, Gross/Micro L4/2 -------- Patient: Etelvina Luciano [id number] (Continued) -------- Specimen: [id number] Received: 02/24/24 (Continued) Gross Description (Continued) Signed (signature on file) Jun Benavides MD 02/28/241955 -------- Specimen: [id number] Received: 02/24/24 Status: RACHEL Carlson Num: [id number] Spec Type: Surgical Subm Dr: Herbie Vila MD Tissues: A Breast Reduction - Mammoplasty (SRT) B Breast Reduction - Mammoplasty (LT) Procedures: ELLE/[place]/Lily L4/2 -------- Patient: Etelvina Luciano [id number] (Continued) -------- Specimen: [id number] Received: 02/24/24 (Continued) Gross Description (Continued) B. [...] No discrete masses or lesions are present. [employer] Manager sections are submitted in B1 (skin); B2?B3 (parenchyma). CPT Codes 61297Z8 -------- -------- Specimen: [id number] Received: 02/24/24 Status: RACHEL Carlson Num: [id number] Spec Type: Surgical Subm Dr: Herbie Vila MD Tissues: A Breast Reduction - Mammoplasty (SRT) B Breast Reduction - Mammoplasty (LT) Procedures: HE/6, Gross/Micro L4/2 -------- Patient: Etelvina Luciano [id number] (Continued) -------- Signed (signature on file) Chin-Audi Benavides MD 02/28/241955 Normal [facility] Alanine aminotransferase [En zymatic activity/volume] in Serum or PlasmaOrdered By: Tameka Perez on 02-03-2024 ALT [Catalytic activity/Vol] 11 U/L Normal 7-52 [facility] Comment on above: Performed By: #### C MP wRFX A1C #### [facility] [address] Albumin [Mass/volume] in Ser um or Plasma by Bromocresol green (BCG) dye binding methoOrdered By: Tameka Perez on 02-03-2024 Albumin BCG dye [Mass/Vol] 3.9 g/dL 3.5-5.7 [facility] Alkaline phosphatase [Enzyma tic activity/volume] in Serum or PlasmaOrdered By: Tameka Perez on 02-03-2024 ALP [Catalytic activity/Vol] 80 U/L Normal 34-104 [facility] Comment on above: Result Comment: PERF ORMED BY: [facility] [address] [place] [place] [id number] PATHOLOGIST CIRCUIT MANAGER FERMIN MARTINEZ M.D. Performed By: #### C MP wRFX A1C #### [address] Aspartate aminotransferase [ Enzymatic activity/volume] in Serum or PlasmaOrdered By: Tameka Perez on 02-03-2024 AST [Catalytic activity/Vol] 14 U/L Normal 13-39 [facility] Comment on above: Performed By: #### C MP wRFX A1C #### [address] Bilirubin.total [Mass/volume ] in Serum or PlasmaOrdered By: Tameka Perez on 02-03-2024 Bilirubin [Mass/Vol] 0.3 mg/dL Normal 0.3-1.0 [facility] Comment on above: Performed By: #### C MP wRFX A1C #### [address] CMP with reflex to A1Con Albumin [Mass/Vol] 3.9 g/dL Normal 3.5-5.7 [facility] Comment on above: Performed By: #### C MP wRFX A1C #### [address] GFR/1.73 sq M.predicted MDRD (S/P/Bld) [Vol rate/Area] mL/min/{1.73_m2} Normal [facility] Comment on above: Performed By: #### C MP wRFX A1C #### [address] Calcium [Mass/volume] in Ser um or PlasmaOrdered By: Tameka Perez on 02-03-2024 Calcium [Mass/Vol] 8.8 mg/dL Normal 8.6-10.3 [facility] Comment on above: Performed By: #### C MP wRFX A1C #### [address] Carbon dioxide, total [Moles /volume] in Serum or PlasmaOrdered By: Tameka Perez on 02-03-2024 CO2 [Moles/Vol] 28.7 mmol/L Normal 21.0-31.0 [facility] Comment on above: Performed By: #### C MP wRFX A1C #### [facility] [address] [place] [address] [place] Chloride [Moles/volume] in S sanjay or PlasmaOrdered By: Tameka Perez on 02-03-2024 Chloride [Moles/Vol] 110 mmol/L High 98-107 [facility] Comment on above: Performed By: #### C MP wRFX A1C #### [facility] [address] Creatinine [Mass/volume] in Serum or PlasmaOrdered By: Tameka Perez on 02-03-2024 Creatinine [Mass/Vol] 0.61 mg/dL Normal 0.60-1.20 [facility] Comment on above: Performed By: #### C MP wRFX A1C #### [facility] [address] [place] [address] [place] Glucose [Mass/volume] in Ser um or PlasmaOrdered By: Tameka Perez on 02-03-2024 Glucose [Mass/Vol] 95 mg/dL Normal 70-100 [facility] Comment on above: Performed By: #### C MP wRFX A1C #### [facility] [address] No Panel InformationOrdered By: Tameka Perez on 02-03-2024 Estimated GFR (CKD-EPI) > 60.0 mL/Min [facility] Creatinine Clearance (Chem N/A [facility] Potassium [Moles/volume] in Serum or PlasmaOrdered By: Tameka Perez on 02-03-2024 Potassium [Moles/Vol] 4.0 mmol/L Normal 3.5-5.1 [facility] Comment on above: Performed By: #### C MP wRFX A1C #### [facility] [address] [place] [address] [place] Protein [Mass/volume] in Ser um or PlasmaOrdered By: Tameka Perez on 02-03-2024 Protein [Mass/Vol] 5.9 g/dL Low 6.4-8.9 [facility] Comment on above: Performed By: #### C MP wRFX A1C #### [address] Serum globulin measurement b y calculation (mass/volume)Ordered By: Tameka Perez on 02-03-2024 Globulin (S) [Mass/Vol] 2.0 g/dL Normal F [facility] Comment on above: Performed By: #### C MP wRFX A1C #### [address] Serum or plasma albumin/glob ulin mass ratioOrdered By: Tameka Perez on 02-03-2024 Albumin/Globulin [Mass ratio] 2.0 {ratio} Normal [facility] Comment on above: Performed By: #### C MP wRFX A1C #### [address] Serum or plasma anion gap de terminationOrdered By: Tameka Perez on 02-03-2024 Anion gap [Moles/Vol] 9.3 mmol/L Normal 6.0-15.0 [facility] Comment on above: Performed By: #### C MP wRFX A1C #### [address] Sodium [Moles/volume] in Ser um or PlasmaOrdered By: Tameka Perez on 02-03-2024 Sodium [Moles/Vol] 144 mmol/L Normal 136-145 [facility] Comment on above: Performed By: #### C MP wRFX A1C #### [address] Thyrotropin [Units/volume] i n Serum or PlasmaOrdered By: Ventura German on 02-03-2024 TSH Qn 0.97 m[IU]/L Normal 0.45-5.33 [facility] Comment on above: Result Comment: PERF ORMED BY: [address] [place] [address] PATHOLOGIST CIRCUIT MANAGER FERMIN MARTINEZ M.D. Performed By: #### T SH3 #### [facility] [address] [place] [address] Urea nitrogen [Mass/volume] in Serum or PlasmaOrdered By: Tameka Perez on 02-03-2024 Urea nitrogen [Mass/Vol] 16 mg/dL Normal 7-25 [facility] Comment on above: Performed By: #### C MP wRFX A1C #### [facility] [address] [place] [id number] [facility] MM screening mammo BI w/CADo n 01-19-2024 MM screening mammo BI w/CAD [facility] [place] [address] [place] [address] Mammography Report Signed Patient: Etelvina Luciano MR#: [id number] 5 : 1965 Acct:[id number] Age/Sex: 58 / F ADM Date: 01/01/24 Loc: [place] Room: Type: [facility] Attending Dr: Referral Self Copies [...] Chelsea Chinchilla Jr.StevenOSteven01/19/2024 8:48 AM Dictation Location: [facility] Transcribed By: [facility] 01/19/2448 Dictated By: Low Ibarra Jr, DO 01/19/2447 Signed By: 01/19/2448 Normal [facility] echo transthoracicon [facility] echo transthoracic [facility] [place] [address] [place] [address] Echocardiogram Signed Patient: Etelvina Luciano MR#: [id number] 5 : 1965 Acct:[id number] Age/Sex: 58 / F ADM Date: 01/18/24 Loc: Room: Type: [facility] Attending Dr: Livan Silver MD Ordering Provider: Livan Silver MD Date of Service: 01/18/24 [facility] echo transthoracic: I48.0 - Paroxysmal [...] Livan Silver MD 01/18/24 1708 Normal [facility] Cholesterol [Mass/volume] in Serum or PlasmaOrdered By: Livan Silver on 01-12-2024 Cholesterol [Mass/Vol] 144 mg/dL Normal 140-200 [facility] Comment on above: Chol less than 200 m g/dl low riskChol 201-239 mg/dl borderline riskChol 240 mg/dl and greater high risk Result Comment: Chol less than 200 mg/dl low risk Chol 201-239 mg/dl borderline risk Chol 240 mg/dl and greater high risk Performed By: #### L IPID #### [facility] [address] [place] [id number] [place] Cholesterol in LDL Calc [Mas s/Vol]Ordered By: Livan Silver on 01-12-2024 Cholesterol in LDL [Mass/Vol] 59 mg/dL 0-100 [facility] Comment on above: LDL ATP III CLASSIFI CATIONLDL less than 100 mg/dL OptimalLDL 100-129 mg/dL Near or above optimalLDL 130-159 mg/dL Borderline highLDL 160-189 mg/dL HighLDL greater than 189 mg/dL Very high Cholesterol in VLDL Calc [Ma ss/Vol]Ordered By: Livan Silver on 01-12-2024 Cholesterol in VLDL [Mass/Vol] 14 mg/dL [facility] Lipid Panelon 01-12-2024 LDL Cholesterol,Calculated 59 mg/dL Normal 0-100 [facility] Comment on above: Result Comment: LDL ATP III CLASSIFICATION LDL less than 100 mg/dL Optimal LDL 100-129 mg/dL Near or above optimal LDL 130-159 mg/dL Borderline high LDL 160-189 mg/dL High LDL greater than 189 mg/dL Very high Performed By: #### L IPID #### [facility] [address] [place] [id number] [place] Triglyceride w/Reflex 70 mg/dL Normal 0-149 [facility] Comment on above: Result Comment: TRIG ATP III CLASSIFICATION TRIG less than 150 mg/dL Normal TRIG 150-199 mg/dL Borderline high TRIG 200-500 mg/dL High TRIG greater than 500 mg/dL Very high Standard traceable to the Center for Disease Conrtrol and Prevention (CDC) test method. Performed By: #### L IPID #### [facility] [address] [place] [phone] [place] VLDL CHOLESTEROL 14 mg/dL Normal [facility] Comment on above: Performed By: #### L IPID #### [facility] [address] [place] [phone] [place] Serum or plasma high density lipoprotein (HDL) cholesterol measurementOrdered By: Livan Silver on 01-12-2024 Cholesterol in HDL [Mass/Vol] 71 mg/dL Normal 23-92 [facility] Comment on above: HDL CHOL ATP-III CLA SSIFICATION Cardiovascular RiskHDL > or equal to 60 mg/dL LOWHDL < 40 mg/dL HIGH Result Comment: HDL CHOL ATP-III CLASSIFICATION Cardiovascular Risk HDL > or equal to 60 mg/dL LOW HDL < 40 mg/dL HIGH Performed By: #### L IPID #### [facility] [address] Serum or plasma total choles terol/high density lipoprotein (HDL) cholesterol mass ratOrdered By: Livan Silver on 01-12-2024 Cholesterol.total/Cristina sterol in HDL [Mass ratio] 2.0 {ratio} Normal <5.0 [facility] Comment on above: Result Comment: PERF ORMED BY: [place] [address] PATHOLOGIST CIRCUIT MANAGER FERMIN MARTINEZ M.D. Performed By: #### L IPID #### [facility] [address] [place] [address] Triglyceride [Mass/volume] i n Serum or PlasmaOrdered By: Livan Silver on 01-12-2024 Triglyceride [Mass/Vol] 70 mg/dL 0-149 [facility] Comment on above: TRIG ATP III CLASSIF ICATIONTRIG less than 150 mg/dL NormalTRIG 150-199 mg/dL Borderline highTRIG 200-500 mg/dL High TRIG greater than 500 mg/dL Very highStandard traceable to the Center for Disease Conrtrol and Prevention (CDC) test method. [facility] ECG *OFFICE ONLY*on 12-03 [facility] ECG *OFFICE ONLY* [facility] [place] [address] [place] [address] Electrocardiograph Report Signed Patient: Etelvina Luciano MR#: [id number] 5 : 1965 Acct:[id number] Age/Sex: 58 / F ADM Date: 12/29/23 Loc: EKGCARDIO Room: Type: [facility] CLI Attending Dr: Livan Silver MD [...] previous ECGs available Confirmed by Livan Silver ([id number]) on 01/12/2024 5:44:25 PM Referred By: Electronically Signed By:Livan Silver Transcribed By: MUS Signed By Livan Silver MD 01/12/24 8318 Normal [facility] Auto Diffon 08-23-2023 Basophils/100 WBC (Bld) 0.7 % Normal 0.0-2.0 [facility] Comment on above: Order Comment: Order Added by Discern Expert. Performed By: #### 2 042178, 69102940, 19722494, 75357311, 9083384, 50729161, 7738837 #### [facility] [address] [place] [address] Basophils/Leukocytes Auto (Bld) [Pure # fraction] 0.1 E9/L Normal 0.0-0.2 [facility] Comment on above: Order Comment: Order Added by Discern Expert. Performed By: #### 2 693438, 98378508, 04004491, 34880311, 0979338, 78611675, 6294188 #### [facility] [address] [place] [address] Eosinophils/100 WBC (Bld) 1.2 % Normal 0.0-8.0 [facility] Comment on above: Order Comment: Order Added by Discern Expert. Performed By: #### 2 045250, 21647274, 72653967, 49350470, 9320442, 85705624, 6287434 #### [facility] [address] [place] [address] Eosinophils/Leukocytes Auto (Bld) [Pure # fraction] 0.1 E9/L Normal 0.0-0.5 [facility] Comment on above: Order Comment: Order Added by Discern Expert. Performed By: #### 2 875023, 60725821, 50887272, 83236223, 8767501, 49894620, 1804501 #### [facility] [address] [place] [address] Lymphocytes/100 WBC (Bld) 18.3 % Normal 14.0-50.0 [facility] Comment on above: Order Comment: Order Added by Discern Expert. Performed By: #### 2 289795, 21193456, 52382127, 30206850, 9127749, 95416050, 8931524 #### [facility] [address] [place] [address] Lymphocytes/Leukocytes Auto (Bld) [Pure # fraction] 1.3 E9/L Normal 1.0-4.0 [facility] Comment on above: Order Comment: Order Added by Discern Expert. Performed By: #### 2 941084, 00120925, 55493124, 46034356, 7408989, 61229257, 3404072 #### [facility] [address] [place] [address] Monocytes/100 WBC (Bld) 11.9 % Normal 4.0-14.0 [facility] Comment on above: Order Comment: Order Added by Discern Expert. Performed By: #### 2 906575, 80965183, 76493834, 31469973, 7385282, 24626874, 2534681 #### [facility] [address] [place] [address] Monocytes/Leukocytes Auto (Bld) [Pure # fraction] 0.9 E9/L Normal 0.2-1.0 [facility] Comment on above: Order Comment: Order Added by Discern Expert. Performed By: #### 2 208957, 15610330, 33439065, 06116019, 6351196, 24331680, 9685762 #### [facility] [address] [place] [address] Neutrophils/100 WBC (Bld) 67.9 % Normal 36.0-75.0 [facility] Comment on above: Order Comment: Order Added by Discern Expert. Performed By: #### 2 970019, 03418684, 95174116, 79141289, 5464919, 67312834, 3483811 #### [facility] [address] [place] [address] Neutrophils/Leukocytes Auto (Bld) [Pure # fraction] 4.9 E9/L Normal 2.0-7.5 [facility] Comment on above: Order Comment: Order Added by Discern Expert. Performed By: #### 2 971874, 80088689, 83049439, 69605369, 9804606, 04852444, 1895341 #### [facility] [address] [place] [address] [facility] 08-23-2023 Creatinine [Mass/Vol] 0.7 mg/dL Normal 0.5-1.3 [facility] Comment on above: Performed By: #### 2 687285, 37651714, 36964415, 12749158, 8721218, 64522632, 0502632 #### [facility] [address] [place] [address] Urea nitrogen [Mass/Vol] 12 mg/dL Normal 5- [facility] Comment on above: Performed By: #### 2 782656, 99005977, 09685154, 65652192, 7338489, 03809935, 6616583 #### [facility] [address] [place] [address] Urea nitrogen/Creatinine [Mass ratio] 17 No Units Normal - [facility] Comment on above: Performed By: #### 2 586971, 95403047, 37309202, 35246507, 6769357, 29343472, 7104966 #### [facility] [address] [place] [address] Anion gap [Moles/Vol] 12 mmol/L Normal 6-16 [facility] Comment on above: Performed By: #### 2 141474, 72112299, 92589140, 16267438, 6880856, 97987991, 0184918 #### [facility] [address] [place] [address] Calcium [Mass/Vol] 9.1 mg/dL Normal 8.9-11.1 [facility] Comment on above: Performed By: #### 2 458096, 02066417, 04851878, 17086124, 8155372, 59312520, 9837943 #### [facility] [address] [place] [address] Chloride [Moles/Vol] 108 mmol/L Normal 101-111 [facility] Comment on above: Performed By: #### 2 434177, 56425994, 83565372, 20592660, 9631701, 70567164, 4217523 #### [facility] [address] [place] [address] CO2 [Moles/Vol] 24 mmol/L Normal 21-31 [facility] Comment on above: Performed By: #### 2 402384, 44632437, 21147624, 05050871, 8913406, 73430769, 5025570 #### [facility] [address] [place] [address] Glucose [Mass/Vol] 103 mg/dL Normal 55-199 [facility] Comment on above: Result Comment: If t his glucose result represents a fasting glucose, interpretation should refer to the following reference range: 55-99 mg/dL Performed By: #### 2 471757, 15045496, 24139857, 07881962, 4283180, 40674687, 6462992 #### [facility] [address] [place] [address] Potassium [Moles/Vol] 3.6 mmol/L Normal 3.5-5.3 [facility] Comment on above: Performed By: #### 2 949216, 49771604, 93049780, 21592173, 6623846, 77420982, 8949305 #### [facility] [address] [place] [address] Sodium [Moles/Vol] 140 mmol/L Normal 135-145 [facility] Comment on above: Performed By: #### 2 461271, 09995428, 40270791, 53303061, 4794392, 87997063, 9394467 #### [facility] [address] [place] [address] BNPon 08-23-2023 Int Ctr BNP Pass Normal [facility] Comment on above: Performed By: #### 2 595711, 31585763, 32608669, 73123181, 0675656, 41253865, 8961747 #### [facility] [address] [place] [address] Natriuretic peptide B (Bld) [Mass/Vol] 72 pg/mL Normal 5-80 [facility] Comment on above: Performed By: #### 2 254946, 21433693, 24130171, 76103081, 3670793, 90168762, 2974610 #### [facility] [address] [place] [address] CBC w/ Auto Diffon 3 Erythrocyte distribution width (RBC) [Ratio] 13.0 % Normal 10.9-14.2 [facility] Comment on above: Performed By: #### 2 521035, 49990035, 00029333, 68452528, 7306570, 79016508, 0059507 #### [facility] [address] [place] [address] Hematocrit (Bld) [Volume fraction] 42.4 % Normal 34.0-46.0 [facility] Comment on above: Performed By: #### 2 447974, 78444272, 25155943, 57775411, 8815129, 05231480, 1829615 #### [facility] [address] [place] [address] Hemoglobin (Bld) [Mass/Vol] 14.3 g/dL Normal 12.0-16.0 [facility] Comment on above: Performed By: #### 2 213374, 17750519, 03100113, 79180187, 9190429, 38471166, 9113175 #### [facility] [address] [place] [address] MCH (RBC) [Entitic mass] 29.5 pg Normal 27.0-34.0 [facility] Comment on above: Performed By: #### 2 146450, 91228953, 70600329, 57574400, 1376170, 89202899, 6116146 #### [facility] [address] [place] [address] MCHC (RBC) [Mass/Vol] 33.6 g/dL Normal 31.4-36.0 [facility] Comment on above: Performed By: #### 2 048426, 31698268, 80586829, 13107313, 5595166, 63441906, 5543796 #### [facility] [address] [place] [address] MCV (RBC) [Entitic vol] 87.8 fL Normal 80.0-100.0 [facility] Comment on above: Performed By: #### 2 [id number], [id number], [id number], [id number], [id number], [id number], [id number] #### [facility] [address] [place] [address] Platelet mean volume (Bld) [Entitic vol] 8.5 fL Normal 6.4-10.8 [facility] Comment on above: Performed By: #### 2 [id number], [id number], [id number], [id number], 7379189, [id number], [id number] #### [facility] [address] [place] [address] Platelets (Bld) [#/Vol] 245.0 E9/L Normal 150.0-500.0 [facility] Comment on above: Performed By: #### 2 [id number], [id number], [id number], 08603495, 8464694, 82054502, 8556245 #### [facility] [address] [place] [address] RBC (Bld) [#/Vol] 4.8 E12/L Normal 4.3-5.9 [facility] Comment on above: Performed By: #### 2 [id number], [id number], [id number], 97621721, 9362021, 94247330, 8407143 #### [facility] [address] [place] [address] WBC corrected for nucl RBC Auto (Bld) [#/Vol] 7.2 E9/L Normal 4.0-11.0 [facility] Comment on above: Performed By: #### 2 955670, [id number], 34414825, 09591441, 1754234, 14634518, [id number] #### [facility] [address] [place] [address] CHEMISTRYOrdered By: SYSTEM SYSTEM on 08-23-2023 Anion gap [Moles/Vol] 12 mmol/L Normal 6 - 16 mEq/L [facility] Remisol Calcium [Mass/Vol] 9.1 mg/dL Normal 8.9 - 11. 1 mg/dL [facility] Remisol Chloride [Moles/Vol] 108 mmol/L Normal 101 - 1 11 mmol/L [facility] Remisol CO2 [Moles/Vol] 24 mmol/L Normal 21 - 31 mmol/L [facility] Remisol Creatinine [Mass/Vol] 0.7 mg/dL Normal 0.5 - 1.3 mg/dL [facility] Remisol GFR/1.73 sq M.predicted among non-blacks MDRD (S/P/Bld) [Vol rate/Area] 100 mL/min/1.73 m2 Normal >=59mL/min/1 .73 m2 [facility] Chem S Comment on above: Interpretive Data: C hronic kidney disease could be indicated at eGFR's of less than 60 mL/min/1.73m2. Kidney failure is indicated at less than 15 mL/min/1.73m2. Glucose [Mass/Vol] 103 mg/dL Normal 55 - 199 mg/dL [facility] Comment on above: Interpretive Data: I f this glucose result represents a fasting glucose, interpretation should refer to the following reference range: 55-99 mg/dL Potassium [Moles/Vol] 3.6 mmol/L Normal 3.5 - 5.3 mmol/L [facility] Remisol Sodium [Moles/Vol] 140 mmol/L Normal 135 - 145 mmol/L [facility] Troponin I.cardiac [Mass/Vol] 6.00 pg/mL Low 10.10 - 27.10 pg/mL [facility] Comment on above: Interpretive Data: T he 95% CI (Confidence Interval) PPV (Positive Predictive Value) for myocardial infarction in females is 38 pg/mL, in males 51 pg/mL. The results should be used in conjunction with clinical conditions of myocardial infarction. (Access High Sensitivity Troponin I Instructions For Use, Julian Payson, May 2018) Urea nitrogen [Mass/Vol] 12 mg/dL Normal 5 - 21 mg/dL [facility] Urea nitrogen/Creatinine [Mass ratio] 17 mg/mg Normal 10 - 20 [facility] CHEMISTRYOrdered By: Kerry shannon on 08-23-2023 Natriuretic peptide B (Bld) [Mass/Vol] 72 pg/mL Normal 5 - 80 pg/mL [facility] [employer]Man COAGULATIONOrdered By: Juana Aggarwal on 08-23-2023 aPTT Coag (PPP) [Time] 28.9 s Normal 25.1 - 36.5 second(s) [facility] Auto Coag Comment on above: Interpretive Data: [...] the same coagulation reagent and instrumentation as [facility]. Currently there are no coagulation studies available worldwide for children to 14 days, and no normal ranges. Heparin therapeutic range (represented by Anti-Factor Xa activity of 0.2 - 0.4 U/mL) corresponds to PTT of 56.6 - 109.0 sec. INR Coag (PPP) [Relative time] 1.2 {INR} Invalid Interpretation Code [facility] Auto Coag Comment on above: Interpretive Data: I NR results are specifically intended to assess patients stabilized on long-term Anticoagulation therapy suggested INR s Less Intensive Anticoagulation 2.0 3.0 Conventional Range 3.0 4.5 PT Coag (PPP) [Time] 12.8 s High 9.4 - 1 2.5 second(s) [facility] Auto Coag Comment on above: Interpretive Data: [...] the same coagulation reagent and instrumentation as [facility]. Currently there are no coagulation studies available worldwide for children to 14 days, and no normal ranges. Consent for Treatmenton 08-05 Consent for Treatment [id number] .00TIFF Normal [facility] Discharge Instructionson Discharge Instructions [id number]# 1.00TIFF Normal [facility] ED Clinical Summaryon 2022 ED Clinical Summary [address] [address] ED Clinical Summary Person Information Name: ETELVINA LUCIANO/[facility] Age: 58 Years : 1965 Sex: Female Language: Albanian PCP: NONE, XXXX Marital Status: Phone: [phone] Visit Id: Visit Reason: Palpitations; Throat pain [...] 08/23/2023 10:42:57 08/23/2023 10:42:57 08/23/2023 10:42:57 ADDRESS: [address] [place] [address] [phone] PHYS DOC NOTES: MEDICAL INFORMATION: Prescriptions Given: New Medications [id number], [address] [place] [id number], [phone] albuterol (Albuterol (Eqv-ProAir HFA) 90 mcg/inh inhalation aerosol) 2 Puffs Inhalation every 6 hours for 7 Days. Refills: 0. dexamethasone (dexamethasone 6 mg oral tablet) 1 Tablets By Mouth every day for 7 Days. Refills: 0. PATIENT EDUCATION INFORMATION: Instructions: Follow up: With: Address: When: Jessica Carbajal [address] [place] [address] Business (1) In 3 days 08/26/2023 With: Address: When: XXXX NONE , [place] In 3 days DIAGNOSIS: Bronchospasm; COVID; Palpitations Normal [facility] ED Note-Physicianon 08-23-20 ED Note-Physician [...] day(s), # 7 tab(s), Refills(s) 0, Pharmacy: [id number], 165, cm, 08/23/23 9:07:00 EST, [...] Carbajal In 3 days 08/26/2023 EST [address] [place] [address]- Business (1) Additional Instructions: XXXX NONE In [...] fL (11 (more content not included)... Normal [facility] Comment on above: Result Comment: Elec tronically Signed By: Gregg Baxter DO\.br\Date and Time Signed: 08/23/23 10:37 EST ED Patient Education Noteon 08-23-2023 ED Patient Education Note Normal [facility] ED Patient Summaryon 023 ED Patient Summary [address] [address] Patient Discharge Instructions Person Information Name: ETELVINA LUCIANO Age: 58 Years Arrival Date: 08/23/2023 08:48:24 Discharge Diagnosis: Bronchospasm; COVID; Palpitations Primary Care Physician: NONE, XXXX Provider Information Primary Provider: Gregg Baxter DO Advanced Can Capper:None The exam and treatment you received in the Emergency Department were for an urgent problem and are not intended as complete care. It is important that you follow up with a doctor, nurse practitioner, or physician?s event marketing assistant for ongoing care. If your symptoms [...] Follow-up Instructions: With: Address: When: Jessica Carbajal [address] [place] [address], [facility], [facility] [address] [place] [address] [facility] () In 3 days 08/26/2023 With: Address: When: XXXX [facility] , [place] In 3 days In the event that this physician does not participate in your insurance network, please consult with your insurance company to find a nearby participating provider. Patient Education Materials: A MESSAGE TO ALL PATIENTS REGARDING OPIOIDS PRESCRIPTION OPIOIDS: WHAT YOU NEED TO KNOW Prescription opioids can be used to help relieve cwasadbr-ux-mtupmj pain and are often prescribed following a [...] be struggling with addiction, tell your health post anesthesia care unit nurse and ask for guidance or call [employer]?S National Helpline at 2-406-861-CLYA. (more content not included)... [facility] HEMATOLOGYOrdered By: SYSTEM SYSTEM on 08-23-2023 Basophils/100 [...] 8.5 fL Normal 6.4 - 10.8 fL [facility] HemeAutoSS Platelets (Bld) [#/Vol] 245.0 E9/L Normal 150. 0 - 500.0 E9/L [facility] HemeAutoSS RBC (Bld) [#/Vol] 4.8 E12/L Normal 4.3 - 5.9 E12/L [facility] HemeAutoSS WBC corrected for nucl RBC Auto (Bld) [#/Vol] 7.2 E9/L Normal 4.0 - 11.0 E9/L [facility] HemeAutoSS Monitor Recordon 08-23-2023 Monitor Record [id number]# 1.00TIFF Normal [facility] PT & PTTon 08-23-2023 aPTT Coag (PPP) [Time] 28.9 second(s) Normal 25.1-36.5 [facility] Comment on above: Result Comment: [...] the same coagulation reagent and instrumentation as [facility]. Currently there are no coagulation studies available worldwide for children to 14 days, and no normal ranges. Heparin therapeutic range (represented by Anti-Factor Xa activity of 0.2 - 0.4 U/mL) corresponds to PTT of 56.6 - 109.0 sec. Performed By: #### 2 [id number], [id number], [id number], 89112208, 8348605, [id number], [id number] #### [facility] Laboratory [address] [place] [address] INR Coag (PPP) [Relative time] 1.2 {INR} Invalid Interpretation Code [facility] Comment on above: Result Comment: INR results are specifically intended to assess patients stabilized on long-term Anticoagulation therapy suggested INR?s ?Less Intensive Anticoagulation? 2.0 ? 3.0 Conventional Range 3.0 ? 4.5 Performed By: #### 2 285416, [id number], 94944612, 54031657, 3778138, 52717206, 4677709 #### [facility] [address] [place] [address] PT Coag (PPP) [Time] 12.8 second(s) High 9.4-12.5 [facility] Comment on above: Result Comment: [...] the same coagulation reagent and instrumentation as [facility]. Currently there are no coagulation studies available worldwide for children to 14 days, and no normal ranges. Performed By: #### 2 138518, 65039306, 41243379, 73838230, 8319326, 41759089, [id number] #### [facility] [address] [place] [address] Troponin 0 Hr.on 08-23-2023 Troponin I.cardiac [Mass/Vol] 6.00 pg/mL Low 10.10-27.10 [facility] Comment on above: Result Comment: The 95% CI (Confidence Interval) PPV (Positive Predictive Value) for myocardial infarction in females is 38 pg/mL, in males 51 pg/mL. The results should be used in conjunction with clinical conditions of myocardial infarction. (Access High Sensitivity Troponin I Instructions For Use, Julian Payson, May 2018) Performed By: #### 2 665883, [id number], 66875949, 03880114, [id number], 15851255, [id number] #### [facility] [address] [place] [address] XR Chest Single Viewon 08-23 XR Chest [...] mGy = na DAP = na Normal [facility] eGFRon 08-23-2023 GFR/1.73 sq M.predicted among non-blacks MDRD (S/P/Bld) [Vol rate/Area] 100 mL/min/1.73 m2 Normal >=59 [facility] Comment on above: Order Comment: Order added by Discern Expert. Result Comment: Monitoring Specialist crow kidney disease could be indicated at eGFR's of less than 60 mL/min/1.73m2. Kidney failure is indicated at less than 15 mL/min/1.73m2. Performed By: #### 2 968327, [id number], 82233961, [id number], 3331349, 38647074, [id number] #### [facility] [address] [place] [address] KNEE CMPLT, 4 OR MORE VIEWSo n 05-20-2020 KNEE CMPLT, 4 OR MORE VIEWS Patient Name: ETLEVINA LUCIANO STUDY: KNEE; COMPLT, 4 OR MORE VIEWS; Left; 05/20/2020 6:33 pm INDICATION: pain, (L) anterior knee s/p plant and twist injury. COMPARISON: None. ACCESSION NUMBER(S): [id number] ORDERING CLINICIAN: CAMILA CHERRY FINDINGS: No displaced fracture or rosario dislocation. Mild degenerative change-left knee with mild medial compartment narrowing/mild chondromalacia patella and mild elongation tibial eminences. Suprapatellar effusion-present. IMPRESSION: Mild osseous degenerative changes with suprapatellar effusion. Electronically signed by: DALLIN MENDOZA [facility] RADIOLOGIST [facility] Provider Note - ED v2on 05-04 Provider [...] Past Surgical History Description:Cholecyst ectomy Description:Hysterect carlotta IT TRAINER: Is : no Is : no REVIEW [...] Updated: 21-May-2020 09: by Camila Cherry (RENETTA) [facility] Vital Signs Date Time Vital Sign Value Performing Clinician Facility 06-29-2024 16:30-0400 Body height 165.1 cm [facility] 06-29-2024 16:30-0400 Body mass index (BMI) [Ratio] 32.4 kg/m2 [facility] 06-29-2024 16:30-0400 Body temperature 97.8 [degF] [facility] 06-29-2024 16:30-0400 Body weight 88.45 kg [facility] 06-29-2024 16:30-0400 Diastolic blood pressure 76 mm[Hg] [facility] 06-29-2024 16:30-0400 Heart rate 60 /min [facility] 06-29-2024 16:30-0400 Respiratory rate 20 /min [facility] 06-29-2024 16:30-0400 SaO2% (BldA) [Mass fraction] 94 % [facility] 06-29-2024 16:30-0400 Systolic blood pressure 124 mm[Hg] [facility] 04-05-2024 16:29-0400 Body height 165.1 cm [employer] Tameka Easterwood Work Phone: [facility] 04-05-2024 16:29-0400 Body mass index (BMI) [Ratio] 32.4 kg/m2 [employer] Tameka Easterwood Work Phone: [facility] 04-05-2024 16:29-0400 Body temperature 97.4 [degF] [employer] Tameka Easterwood Work Phone: [facility] 04-05-2024 16:29-0400 Body weight 88.45 kg [employer] Tameka Easterwood Work Phone: [facility] 04-05-2024 16:29-0400 Diastolic blood pressure 82 mm[Hg] [employer] Tameka Easterwood Work Phone: [facility] 04-05-2024 16:29-0400 Heart rate 71 /min [employer] Tameka Easterwood Work Phone: [facility] 04-05-2024 16:29-0400 Respiratory rate 20 /min [employer] Tameka Easterwood Work Phone: [facility] 04-05-2024 16:29-0400 SaO2% (BldA) [Mass fraction] 99 % [employer] Tameka Easterwood Work Phone: [facility] 04-05-2024 16:29-0400 Systolic blood pressure 120 mm[Hg] [employer] Tameka Easterwood Work Phone: [facility] 03-22-2024 16:40-0400 Body height 165.1 cm [employer] Tameka Easterwood Work Phone: [facility] 03-22-2024 16:40-0400 Body mass index (BMI) [Ratio] 32.3 kg/m2 [employer] Tameka Easterwood Work Phone: [facility] 03-22-2024 16:40-0400 Body weight 88.11 kg [employer] Tameka Easterwood Work Phone: [facility] 03-22-2024 16:40-0400 Diastolic blood pressure 75 mm[Hg] [employer] Tameka Easterwood Work Phone: [facility] 03-22-2024 16:40-0400 Heart rate 61 /min [employer] Tameka Easterwood Work Phone: [facility] 03-22-2024 16:40-0400 Respiratory rate 18 /min [employer] Tameka Easterwood Work Phone: [facility] 03-22-2024 16:40-0400 SaO2% (BldA) [Mass fraction] 93 % [employer] Tameka Easterwood Work Phone: [facility] 03-22-2024 16:40-0400 Systolic blood pressure 134 mm[Hg] [employer] Tameka Easterwood Work Phone: [facility] 02-24-2024 12:20-0400 Diastolic blood pressure 87 mm[Hg] [employer] Tameka Easterwood Work Phone: [facility] 02-24-2024 12:20-0400 Heart rate 86 /min [employer] Tameka Easterwood Work Phone: [facility] 02-24-2024 12:20-0400 Respiratory rate 16 /min [employer] Tameka Easterwood Work Phone: [facility] 02-24-2024 12:20-0400 SaO2% (BldA) [Mass fraction] 94 % [employer] Tameka Easterwood Work Phone: [facility] 02-24-2024 12:20-0400 Systolic blood pressure 144 mm[Hg] [employer] Tameka Easterwood Work Phone: [facility] 02-24-2024 11:25-0400 Body temperature 97.4 [degF] [employer] Tameka Easterwood Work Phone: [facility] 02-24-2024 10:55-0400 Inhaled oxygen flow rate 8 L/min [employer] Tameka Easterwood Work Phone: [facility] 02-24-2024 09:26-0400 Body height 165.1 cm [employer] Tameka Easterwood Work Phone: [facility] 02-24-2024 09:26-0400 Body mass index (BMI) [Ratio] 33 kg/m2 [employer] Tameka Easterwood Work Phone: [facility] 02-24-2024 09:26-0400 Body weight 90 kg [employer] Tameka Easterwood Work Phone: [facility] 02-01-2024 08:43-0400 Body height 165.1 cm [employer] Tameka Easterwood Work Phone: [facility] 02-01-2024 08:43-0400 Body mass index (BMI) [Ratio] 32.8 kg/m2 [employer] Tameka Easterwood Work Phone: [facility] 02-01-2024 08:43-0400 Body weight 89.55 kg [employer] Tameka Easterwood Work Phone: [facility] 02-01-2024 08:43-0400 Diastolic blood pressure 71 mm[Hg] [employer] Tameka Easterwood Work Phone: [facility] 02-01-2024 08:43-0400 Heart rate 57 /min [employer] English Easterwood Work Phone: [facility] 02-01-2024 08:43-0400 Respiratory rate 16 /min [employer] Sapperirene Work Phone: [facility] 02-01-2024 08:43-0400 SaO2% (BldA) [Mass fraction] 98 % [employer] Sapperirene Work Phone: [facility] 02-01-2024 08:43-0400 Systolic blood pressure 121 mm[Hg] [employer] Tameka Easterwood Work Phone: [facility] 01-19-2024 16:37-0400 Body height 165.1 cm [employer] Sapperirene Work Phone: [facility] 01-19-2024 16:37-0400 Body mass index (BMI) [Ratio] 32.1 kg/m2 [employer] Sapperi[employer] Work Phone: [facility] 01-19-2024 16:37-0400 Body temperature 97.9 [degF] [employer] S[employer] Work Phone: [facility] 01-19-2024 16:37-0400 Body weight 87.54 kg [employer] Sapperi[employer] Work Phone: [facility] 01-19-2024 16:37-0400 Diastolic blood pressure 88 mm[Hg] [employer] Tameka Easterwood Work Phone: [facility] 01-19-2024 16:37-0400 Heart rate 72 /min [employer] Tameka Easterirene Work Phone: [facility] 01-19-2024 16:37-0400 Respiratory rate 20 /min [employer] Escamillaa Easterwood Work Phone: [facility] 01-19-2024 16:37-0400 SaO2% (BldA) [Mass fraction] 95 % [employer] Escamillaa Easterwood Work Phone: [facility] 01-19-2024 16:37-0400 Systolic blood pressure 130 mm[Hg] [employer] Tameka Easterwood Work Phone: [facility] 12-29-2023 14:33-0400 Body height 165.1 cm [employer] Tameka Easterwood Work Phone: [facility] 12-29-2023 14:33-0400 Body mass index (BMI) [Ratio] 31.4 kg/m2 [employer] Tameka Easterwood Work Phone: [facility] 12-29-2023 14:33-0400 Body weight 85.72 kg [employer] Tameka Easterirene Work Phone: [facility] 12-29-2023 14:33-0400 Diastolic blood pressure 80 mm[Hg] [employer] Tameka Easterwood Work Phone: [facility] 12-29-2023 14:33-0400 Heart rate 63 /min [employer] Tameka Easterwood Work Phone: [facility] 12-29-2023 14:33-0400 Respiratory rate 18 /min [employer] Tameka Easterwood Work Phone: [facility] 12-29-2023 14:33-0400 SaO2% (BldA) [Mass fraction] 96 % [employer] Tameka Easterwood Work Phone: [facility] 12-29-2023 14:33-0400 Systolic blood pressure 124 mm[Hg] [employer] Tameka Easterwood Work Phone: [facility] 08-23-2023 10:00-0500 Diastolic blood pressure 80 mm[Hg] Gregg Sahil [facility] 08-23-2023 10:00-0500 Heart rate 69 /min Gregg Baxter [facility] 08-23-2023 10:00-0500 SaO2% (BldA) [Mass fraction] 95 % Gregg Baxter [facility] 08-23-2023 10:00-0500 Systolic blood pressure 136 mm[Hg] Gregg Baxter [facility] 08-23-2023 08:59-0500 Body temperature 98.06 [degF] Gregg Baxter [facility] 08-23-2023 08:59-0500 Diastolic blood pressure 74 mm[Hg] Gregg Baxter [facility] 08-23-2023 08:59-0500 Heart rate 71 /min Gregg Baxter [facility] 08-23-2023 08:59-0500 Respiratory rate 18 /min Gregg Baxter [facility] 08-23-2023 08:59-0500 SaO2% (BldA) [Mass fraction] 96 % Gregg Baxter [facility] 08-23-2023 08:59-0500 Systolic blood pressure 122 mm[Hg] Gregg Baxter [facility] Encounters Encounter Date Encounter Type Care Provider Facility Start: 06-29-2024 End: 06-29-2024 ambulatory [facility] Work Phone: Start: 06-29-2024 End: 06-29-2024 Patient encounter procedure [facility] Physician [facility] [place] Work Phone: Start: 04-05-2024 End: 04-05-2024 ambulatory [employer] Tameka Perez Work Phone: [facility] Work Phone: Start: 04-05-2024 End: 04-05-2024 Patient encounter procedure AQUILES Perez Work Phone: [facility] Work Phone: Start: 03-22-2024 End: 03-22-2024 ambulatory [employer] Tameka Sapperirene Work Phone: [facility] Work Phone: Start: 03-22-2024 End: 03-22-2024 Patient encounter procedure [employer] Tameka Jimenezwood Work Phone: [facility] Physician [facility] Work Phone: Start: 02-24-2024 End: 02-24-2024 Admission to same day surgery center [employer] Perez Work Phone: [facility] [place] Start: 02-24-2024 End: 02-24-2024 ambulatory [employer] Tameka Sapperwood Work Phone: [facility] Work Phone: Start: 02-15-2024 End: 02-15-2024 Patient encounter procedure [employer] Tameka Jimenezwood Work Phone: [facility] Work Phone: Start: 02-10-2024 End: 02-10-2024 Departed Referred AQUILES Jimenezwood Work Phone: [facility] Work Phone: Start: 02-10-2024 End: 02-10-2024 Patient encounter procedure [employer] Tameka Perez Work Phone: [facility] Work Phone: Start: 02-10-2024 End: 02-10-2024 ambulatory [employer] Tameka Sapperwood Work Phone: [facility] Work Phone: Start: 02-03-2024 End: 02-03-2024 Patient encounter procedure [employer] Tameka Sapperwood Work Phone: [facility] [place] Work Phone: Start: 02-03-2024 End: 02-03-2024 ambulatory MODEL PHOTOGRAPHERS'Live Sapperirene Work Phone: [facility] Work Phone: Start: 02-01-2024 End: 02-01-2024 ambulatory MODEL PHOTOGRAPHERS' Tameka Sapperwood Work Phone: [facility] Work Phone: Start: 02-01-2024 End: 02-01-2024 Patient encounter procedure AQUILES Jimenezwood Work Phone: [facility] Work Phone: Start: 01-19-2024 End: 01-19-2024 ambulatory MODEL PHOTOGRAPHERS' Tameka Sapperhazleton Work Phone: [facility] Work Phone: Start: 01-19-2024 End: 01-19-2024 Encounter for general adult medical examination without abnormal findings MODEL PHOTOGRAPHERS' Tameka Perez Work Phone: [facility] Start: 01-19-2024 End: 01-19-2024 Patient encounter procedure AQUILES Perez Work Phone: [facility] Work Phone: Start: 01-18-2024 End: 01-18-2024 Patient encounter procedure AQUILES Perez Work Phone: [facility] Work Phone: Start: 01-18-2024 End: 01-18-2024 ambulatory MODEL PHOTOGRAPHERS' Tameka Sapperirene Work Phone: [facility] Work Phone: Start: 01-18-2024 Non-patient / Non-visit AQUILES snider Chris Work Phone: [facility] Cardiology Work Phone: Start: 01-13-2024 Non-patient / Non-visit MODEL PHOTOGRAPHERS' D tylor Sapperwood Work Phone: [facility] Family Medicine [place] Work Phone: Start: 01-12-2024 End: 01-12-2024 Patient encounter procedure MODEL PHOTOGRAPHERS' Tameka Sapperwood Work Phone: [facility] [place] Work Phone: Start: 01-12-2024 End: 01-12-2024 ambulatory MODEL PHOTOGRAPHERS' Tameka Robbins Easter[place] Work Phone: [facility] Work Phone: Start: 01-01-2024 End: 01-01-2024 Patient encounter procedure MODEL PHOTOGRAPHERS' Tameka Easterwood Work Phone: [facility] Work Phone: Start: 01-01-2024 End: 01-01-2024 ambulatory MODEL PHOTOGRAPHERS' Tameka Robbins [place] Work Phone: [facility] Work Phone: Start: 12-29-2023 End: 12-29-2023 ambulatory MODEL PHOTOGRAPHERS' Tameka Robbins [place] Work Phone: [facility] Work Phone: Start: 12-29-2023 End: 12-29-2023 Patient encounter procedure MODEL PHOTOGRAPHERS' Tameka Sapperwood Work Phone: [facility] Cardiology Work Phone: Start: 12-16-2023 Non-patient / Non-visit MODEL PHOTOGRAPHERS' Chelsea tylor Sapperwood Work Phone: [facility] Work Phone: Start: 11-29-2023 Non-patient / Non-visit MODEL PHOTOGRAPHERS' D tylor Sekouerwood Work Phone: [facility] Work Phone: Start: 11-04-2023 Patient encounter procedure AQUILES Perez Work Phone: [facility]- Start: 08-23-2023 End: 08-23-2023 Emergency department patient visit Gregg Baxter Facility:[facility] Start: 08-23-2023 End: 08-23-2023 Emergency department patient visit Gregg Baxter [facility] Procedures Date Procedure Procedure Detail Performing Clinician Start: 02-24-2024 Reduction mammoplast y, bilateral AQUILES Perez Work Phone: Start: 01-01-2024 Screening mammograph y of bilateral breasts AQUILES Perez Work Phone: Plan of Treatment Date Care Activity Detail Author Start: 06-30-2024 Patient referral [facility] Work Phone: Start: 02-24-2024 [facility] Start: 02-24-2024 [facility] Start: 01-01-2024 MG Breast - bilatera l Screening [facility] Start: 01-01-2024 Screening mammograph y of bilateral breasts MM screening mammo BI w/CAD [facility] Start: 12-29-2023 [facility] Patient Education Know your Meds [facility] Work Phone: Patient referral [facility] Work Phone: US Heart Transthoracic [facility] Payers Date Payer Category Payer Self-pay 2023 Unknown [id number] 2023 Private Health Insurance [id number] 1965 Unknown [id number] 2.16.8 [id number] Unknown [id number] 2.16.8 [id number] Unknown [id number] 2.16.8 [id number] Unknown [id number] 2.16.8 [id number] Unknown [id number] 2.16.8 [id number] Unknown [id number] 2.16.8 [id number] Unknown [id number] 2.16.8 [id number] Unknown [id number] 2.16.8 [id number] Social History Date Type Detail Facility Tobacco smoking status [facility] Sex Assigned At Female [facility] Start: 12-29-2023 End: 04-05-2024 Tobacco smoking status UTIS Never smoked tobacco (finding) [facility] Start: 1965 Sex Assigned At Female F [facility] Goals Date Patient Goal Desired Activity /State Functional Status Date Assessment Result Facility 08-23-2023 Functional Status N/A [facility] Clinical Notes 08-23-2023 to 04-10-2024 Note Date & Type Note Facility 04-10-2024 Evaluation note Authored April 10, 2024 4:38p m Patient to call if she would like to move forward with imaging and referral. [facility] Work Phone: 1(556) 721-898606-19-2024 Evaluation note* Author Ventura German [facility] Authored March 22, 2024 5:06 pm Highest [...] alone. She moved back here recently from [place]. She had a remote history of paroxysmal [...] with her PCP and pain management. 8. Wpviufrnqkc-crrxs-wowx treatment with long-term healthy lifestyle change, decreased simple sweets and refined starches, increased exercise and activity and long-term weight loss. Consider metformin. Treat with GLP-1 agonist. She needs close long-term follow-up for this condition to prevent diabetes. She had a past A1c of 5.7. Monitor with treatment. 9. Snorer/Hunker of 3-doubt sleep apnea. Treat with good [...] her PCP. Author Ventura German [facility] Authored February 01, 2024 11: 04am [...] alone. She moved back here recently from [place]. She had a remote history of paroxysmal [...] with her PCP and pain management. 8. Plnywetevui-dqtlf-cpzu treatment with long-term healthy lifestyle change, decreased simple sweets and refined starches, increased exercise and activity and long-term weight loss. Consider metformin. Treat with GLP-1 agonist. She needs close long-term follow-up for this condition to prevent diabetes. She notes she had a past A1c of 5.7. Monitor with treatment. 9. Snorer/Hunker of 3-doubt sleep apnea. Treat with good [...] Our exercise program was recommended with our sagger preparer/obesity exercise group. Handout given. Our free weekly [...] and benefits of prescribed meds discussed. Initial dpit-ie-wwbk interview/evaluation. The patient was counseled in detail on the options for weight loss in an individual setting. 55 minutes was spent caring for the patient, counseling/educating patient on the options for the treatment of obesity and related healthcare issues. The program's treatment goals were reviewed with the patient. Each aspect of the program was discussed with the patient. [facility] Work Phone: 1(631) 895-158404-30-2024 Evaluation note* Author Ventura German [facility] Authored February 01, 2024 11: 04am [...] alone. She moved back here recently from [place]. She had a remote history of paroxysmal [...] with her PCP and pain management. 8. Czchskmcnsu-fwuee-qfla treatment with long-term healthy lifestyle change, decreased simple sweets and refined starches, increased exercise and activity and long-term weight loss. Consider metformin. Treat with GLP-1 agonist. She needs close long-term follow-up for this condition to prevent diabetes. She notes she had a past A1c of 5.7. Monitor with treatment. 9. Snorer/Hunker of 3-doubt sleep apnea. Treat with good [...] Our exercise program was recommended with our sagger preparer/obesity exercise group. Handout given. Our free weekly [...] and benefits of prescribed meds discussed. Initial fkaa-zj-srzu interview/evaluation. The patient was counseled in detail on the options for weight loss in an individual setting. 55 minutes was spent caring for the patient, counseling/educating patient on the options for the treatment of obesity and related healthcare issues. The program's treatment goals were reviewed with the patient. Each aspect of the program was discussed with the patient. [facility] Work Phone: 1(451) 319-421411-20-2023 Evaluation + Plan noteExtracted from: Title:ED Note Author:Gregg Baxter DO Date: Bronchospasm (J98.01: Acute bronchospasm) COVID (U07.1: COVID-19) Palpitations (R00.2: Palpitations) Orders: albuterol, 2 puff(s), Inhalation, q6hr for 7 day(s), 6.7 gm, Refill(s) 0, [facility]/pharmacy #[id number], 165, cm, 08/23/23 9:07:00 EST, Height/Length Dosing, 88, kg, 08/23/23 9:07:00 EST, Weight Dosing dexamethasone, 6 mg = 1 tab(s), Oral, Daily, X 7 day(s), # 7 tab(s), Refills(s) 0, Pharmacy: [facility]/pharmacy #[id number], 165, cm, 08/23/23 9:07:00 EST, [...] Troponin 9 Hr. XR Chest Single View [facility]11-20-2023 Hospital Discharge instructions Follow Up Care 08/23/2023 08:50:48 With:Jessica Carbajal Address: [address] [place] [address], [address] [address] Business (1) When:08/26/2023 10:33:24 With:XXXX NONE Address: [place] When:Within 3 Day(s) [facility]Reason for visit Narrative* Chief Complaint Amb Documentation Amb Documentation chronic a-fib medication management, no acute Reason for Visit HLD (hyperlipidemia) Paroxysmal atrial fibrillation [facility] Work Phone: chief complaint+Reason for visit Narrative* Chief Complaint Amb Documentation Amb Documentation chronic a-fib medication management, no acute Screening Reason for Visit HLD (hyperlipidemia) Paroxysmal atrial fibrillation [facility] Work Phone: Chief complaint+Reason for visit Narrative* Chief Complaint Amb Documentation Amb Documentation chronic a-fib medication management, no acute Screening E78.5 I48.0 Reason for Visit HLD (hyperlipidemia) Paroxysmal atrial fibrillation [facility] Work Phone: chief complaint+Reason for visit Narrative* Chief Complaint Amb Documentation Amb Documentation chronic a-fib medication management, no acute Screening E78.5 I48.0 Amb Documentation I48.0 Reason for Visit HLD (hyperlipidemia) Paroxysmal atrial fibrillation [facility] Work Phone: Chibt complaint+Reason for visit Narrative* Chief Complaint Amb Documentation Amb Documentation chronic a-fib medication management, no acute Screening E78.5 I48.0 Amb Documentation I48.0 Wellness visit Reason for Visit HLD (hyperlipidemia) Paroxysmal atrial fibrillation Screening for metabolic disorder Well adult exam [facility] Work Phone: chief complaint+Reason for visit Narrative* Chief Complaint Amb Documentation Amb Documentation chronic a-fib medication management, no acute Screening E78.5 I48.0 Amb Documentation I48.0 Wellness visit [facility] Reason for Visit HLD (hyperlipidemia) Paroxysmal atrial fibrillation Screening for metabolic disorder Well adult exam [facility] Work Phone: chief complaint+Reason for visit Narrative* Chief Complaint Amb Documentation Amb Documentation chronic a-fib medication management, no acute Screening E78.5 I48.0 Amb Documentation I48.0 Wellness visit [facility] R73.03;R63.5 Reason for Visit HLD (hyperlipidemia) Paroxysmal atrial fibrillation Screening for metabolic disorder Well adult exam [facility] Work Phone: Chihz complaint+Reason for visit Narrative* Chief Complaint Amb Documentation Amb Documentation chronic a-fib medication management, no acute Screening E78.5 I48.0 Amb Documentation I48.0 Wellness visit [facility] [place] R73.03;R63.5 Macromastia Reason for Visit HLD (hyperlipidemia) Paroxysmal atrial fibrillation Screening for metabolic disorder Well adult exam [facility] Work Phone: chief complaint+Reason for visit Narrative* Chief Complaint Amb Documentation Amb Documentation chronic a-fib medication management, no acute Screening E78.5 I48.0 Amb Documentation I48.0 Wellness visit [facility] [place] R73.03;R63.5 Macromastia Macromastia Reason for Visit HLD (hyperlipidemia) Paroxysmal atrial fibrillation Screening for metabolic disorder Well adult exam [facility] Work Phone: Chief complaint+Reason for visit Narrative* Chief Complaint chronic a-fib medica tion management, no acute Screening E78.5 I48.0 Amb Documentation I48.0 Wellness visit [place] R73.03;R63.5 Macromastia Macromastia Reason for Visit HLD (hyperlipidemia) Paroxysmal atrial fibrillation Screening for metabolic disorder Well adult exam HLD (hyperlipidemia) HTN (hypertension) Obesity (BMI 30.0-34.9) Pre-diabetes [facility] Work Phone: Evaluation note* Diagnosis Onset Date Resolution Status HLD (hyperlipidemia) acute Paroxysmal atrial fibrillation acute [facility] Work Phone: Evaluation note* Diagnosis Onset Date Resolution Status HLD (hyperlipidemia) acute Paroxysmal atrial fibrillation acute Screening for metabolic disorder noneactive Well adult exam noneactive [facility] Work Phone: Evaluation note* Author Katelyn Can [facility] Authored February 01, 2024 9:1 8am [...] Our exercise program was recommended with our sagger preparer/obesity exercise group. Handout given. Our free weekly [...] and benefits of prescribed meds discussed. Initial jfeb-dm-dgzs interview/evaluation. The patient was counseled in detail on the options for weight loss in an individual setting. [ ] minutes was spent caring for the patient, counseling/educating patient on the options for the treatment of obesity and related healthcare issues. The program's treatment goals were reviewed with the patient. Each aspect of the program was discussed with the patient. [facility] Work Phone: Hospital course Narrative No data available for this section [facility] Additional Instructions DISCHARGE INSTRUCTIONS [...] the incision. PLEASE NOTIFY OUR OFFICE at [phone] if you: -Develop a fever of 101 [...] rate. FOLLOW UP -Call the office at [phone] for a follow up appointment 1 week. * AFTER HOURS PHONE NUMBER [phone] *[facility] Work Phone: Hospital Discharge instructionsAmbulatory Orders* Referral to Neurology Location: None Selected [facility] Work Phone: Progress note No data available for this section [facility] Summary Purpose Family History Relationship Condition Age [...] section and content) DATE CREATED AUTHOR 05/27/2020 [facility] DATE CREATED AUTHOR AUTHOR'S ORGANIZ ATION 08/24/2023 [facility] DATE CREATED AUTHOR AUTHOR'S ORGANIZ ATION 04/10/2024 [facility] ysician Group Care Teams (unrecognized sec [...] 18, 2024 End: January 18, 2024 Livan Sliver MD Attending Provider Activ e Start: January [...] BE BASED ON THE PRIMARY CLINICAL RECORDS. [facility]. provides no warranty or guarantee of the accuracy or completeness of information in this document.
--- NOTE | 2024-07-18 11:47 | W.VEIN ---
Discharge Plan Discharge Disposition: Home, Self-Care Outpatient Diagnostics: VC INJ Foam Sclerosant [place]ille CLINICAL DOCUMENT IMPROVEMENT EDUCATOR (Routine) Timeframe: 2 Weeks Facility: [facility] - Location: [facility] Ordered By: Brett Ocasio Plan of Treatment: Varithena/microfoam chemical ablation right leg. Print Language: Kinyarwanda Discharge Date/Time: 07/18/24 14:49
== END 2024-07-18 14:49 | disposition home or self-care (01) ==
PROVIDERS: PCP Radiology Diagnostic Radiology; Visit Provider Radiology Diagnostic Radiology
DX: I80.02 Phlebitis and thrombophlebitis of superficial vessels of left lower extremity (principal)
CPT/HCPCS: 93971; G0463

== ENCOUNTER 2024-08-07 14:45 | Outpatient (OUT) | payer BC, SELFPAY ==
--- NOTE | 2024-08-04 07:41 | VEINCLINIC_ITS ---
Vital Signs 08/07/24 15:51 BP 120/60 BP Location Right Brachial BP Position Sitting BP Cuff Size Adult BP Source Manual Cuff Respiration 16 Pulse 71 Pulse Source Monitor Pulse Oximetry (%) 99 Comment The patient's blood pressure is elevated. Varicose Veins Patient in today for microfoam chemical ablation right leg Brett Washington MD personally performed the services described in this d ocumentation, as scribed by Henri Higgins RN in my presence and it is both accurate and complete. IHenri RN, am scribing for, and in the presence of, Dr. Brett Ocasio and in the presence of the patient. knee: bilateral (most notable to right leg), calf: bilateral, ankle: bilateral and dobbs: bilateral aching, cramping and tender 7 10 years Worsened in recent months: Yes standing, sitting and walking analgesics (Ibuprofen), elevating extremities, compression stockings and exercise Reports fatigue, heaviness, limb pain and edema History of lower extremity trauma: No Superficial thrombophlebitis: No Family history of varicose veins: yes (mother) Has patient had previous lower extremity venous surgery: No Patient has previously received the following treatment(s) for lower extremity varicose veins: Reports none Does patient have a history of : yes Does patient intend to have future pregnancies: no Has patient had lower extremity venous scan with relux testing: No Support hose used: Yes Problems walking or doing physical activity: Yes How does it affect you: often has to sit and elevate bilateral legs/feet Do you walk much: Yes Do you stand much: No Review of Systems ROS Narrative Brett Washington MD personally performed the services described in this documentation, as scribed by Henri Higgins RN in my presence and it is both accurate and complete. Henri Washington RN, am scribing for, and in the presence of, Dr. Brett Ocasio and in the presence of the patient.. Status of ROS 10 or more systems reviewed and unremark able except as noted in history and below Cardiovascular Reports: edema Integumentary/Breast Reports: redness, skin pain, skin tenderness and changes in skin color Hematologic/Lymphatic Reports: easy bruising and easy bleeding [facility] Medical History (Updated 06/28/24 @ 14:09 by Lucia Larsen) Phlebitis and thrombophlebitis of superficial vessels of right lower extremity ?I80.01 - Phlebitis and thrombophlebitis of superficial vessels of right lower extremity (ICD-10) Phlebitis of superficial vein of right lower extremity ?I80.01 - Phlebitis and thrombophlebitis of superficial vessels of right lower extremity (ICD-10) Phlebitis and thrombophlebitis of superficial vessels of left lower extremity ?I80.02 - Phlebitis and thrombophlebitis of superficial vessels of left lower extremity (ICD-10) Diverticulosis ?K57.90 - Diverticulosis of intestine, part unspecified, without perforation or abscess without bleeding (ICD-10) 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 - Primary osteoarthritis, unspecified hand (ICD-10) Varicose veins of bilateral lower extremities with pain ?I83.813 - Varicose veins of bilateral lower extremities with pain (ICD-10) Arthritis ?M19.90 - Unspecified osteoarthritis, unspecified site (ICD-10) Spinal stenosis ?M48.00 - Spinal stenosis, site unspecified (ICD-10) Atrial fibrillation ?I48.91 - Unspecified atrial fibrillation (ICD-10) Obesity ?E66.9 - Obesity, unspecified (ICD-10) Fibromyalgia ?M79.7 - Fibromyalgia (ICD-10) Surgical History (Updated 08/07/24 @ 15:52 by Henri Higgins) S/P sclerotherapy of varicose veins ?Z98.890 - Other specified postprocedural states (ICD-10) ?Z86.79 - Personal history of other diseases of the circulatory system (ICD- 10) Status post laser ablation of incompetent vein ?Z98.890 - Other specified postprocedural states (ICD-10) H/O colectomy ?Z90.49 - Acquired absence of other specified parts of digestive tract (ICD- 10) Hx of breast reduction, elective ?Z98.890 - Other specified postprocedural states (ICD-10) H/O abdominoplasty ?Z98.890 - Other specified postprocedural states (ICD-10) History of cholecystectomy ?Z90.49 - Acquired absence of other specified parts of digestive tract (ICD- 10) H/O: hysterectomy ?Z90.710 - Acquired absence of both cervix and uterus (ICD-10) Family History (Updated 04/26/24 @ 14:42 by Henri Higgins) Mother Varicose veins of bilateral lower extremities with pain Heart disease Age related osteoporosis Sister Age related osteoporosis Other Family history of cancer Family history of diabetes mellitus Family history of hypertension Pulmonary hypertension Social History (Updated 04/26/24 @ 14:43 by Henri Higgins) Within the past year, how often did you have six or more drinks on one occasion: less than monthly Smoking status: Never smoker Non-prescribed substance use: denies use Meds Home Medications and Allergies Home Medications ?Medication ?Instructions ?Recorded ?Confirmed ?Type aspirin 81 mg capsule 81 mg PO DAILY 04/26/24 04/26/24 History diltiazem HCl PO 04/26/24 History duloxetine PO 04/26/24 History montelukast 10 mg tablet 10 mg PO QPM 04/26/24 04/26/24 History (Singulair) pantoprazole 40 mg granules 40 mg PO DAILY 04/26/24 04/26/24 History delayed-release for susp in packet (Protonix) tramadol .ROUTE 04/26/24 History Allergies Allergy/AdvReac Type Severity Reaction Status Date / Time codeine Allergy Mild Agitated Verified 04/26/24 15:32 dermaplast glue Allergy Intermediate Rash Uncoded 04/26/24 15:32 Exam Narrative Exam Narrative: Brett Washington MD personally performed the services described in this documentation, as scribed by Henri Higgins RN in my presence and it is both accurate and complete. IHenri RN, am scribing for, and in the presence of, Dr. Brett Ocasio and in the presence of the patient. Assessment and Plan Assessment and Plan (1) Varicose veins of bilateral lower extremities with pain: Plan f/u evaluation with physician along with right leg limited u/s Brett Washington MD personally performed the services described in this documentation, as scribed by Henri Higgins RN in my presence and it is both accurate and complete. Henri Washington RN, am scribing for, and in the presence of, Dr. rBett Ocasio and in the presence of the patient. Procedures Procedure Instructions Procedures Right leg microfoam chemical ablation/Varithena: Risks and benefits of the procedure were discussed at length and informed written consent was obtained.? Time-out procedure was performed and the correct patient and procedure were confirmed.? Staff present during time-out: Henri Higgins RN and Brett Ocasio MD.? Patient prepped and procedure performed in usual sterile fashion.? Patient was placed in Trendelenburg prior to Polidocanol/Varithena injections. Sclerosing Agent:??15 cc 1% Polidocanol/Varithena Site Injected: right leg Number of Injections:? 5cc varithena administered in to a 4mm varicose vein right lateral lower leg 5cc varithena administered in to a 4mm varicose vein right laeral distal thigh 5cc varithena administered in to a 4mm varicose vein right distal medial lower leg The patient tolerated the procedure well without complication.? Hemostasis was obtained and thigh-high compression stocking was applied with foam pads.? Instructed patient to wear stocking for at least 96 hours and sleep with it and only remove for showering.? The patient was instructed to? wear stocking for 2 weeks.? Patient verbalizes understanding and states they will comply.? Patient was given post-procedure instructions. Patient was discharged in good condition.? Scheduled to undergo limited venous ultrasound and? exam on 08/14/2024. IBrett MD personally performed the services described in this documen tation, as scribed by Henri Higgins RN in my presence and it is both accurate and complete. I, Henri Higgins RN, am scribing for, and in the presence of, Dr. Brett Ocasio and in the presence of the patient.
--- NOTE | 2024-08-04 07:44 | P.DS_ITS ---
Discharge Plan Discharge Disposition: Home, Self-Care Outpatient Diagnostics: VC Facility EST LMTD (Routine) Timeframe: 2 Weeks Facility: [facility] - Location: [facility] Center Ordered By: Brett Ocasio VC EXT Venous RT LMTD (Routine) Timeframe: 2 Weeks Facility: [facility] - Location: Vein Center Ordered By: Brett cOasio Follow Up Appointments: 08/14/2024 Plan of Treatment: f/u evaluation along with right leg limited u/s Patient Instructions: Endovenous Ablation (DC) Print Language: Danish Discharge Date/Time: 08/07/24 15:59
--- NOTE | 2024-08-07 14:55 | VEIN_ITS ---
[address] [address] Patient Name: JACQUES RIVERA MRN: [id number] date: 1965 Sex: F Assigned Patient Location: Current Patient Location: Accession/Order Number: [id number] Exam Date: 08/07/2024 14:55 Report Date: 08/07/2024 15:42 At the request of: BAO PINEDO Procedure: VC INJ Foam Sclerosant WUS MASTER MECHANIC PROCEDURE: VC INJ Foam Sclerosant WUS MASTER MECHANIC COMPARISON: None. HISTORY: I83.813 - Varicose veins of bilateral lower extremities w... Pre-operative Diagnosis: CEAP class C3 venous insufficiency with pain, tenderness, edema and incompetent right saphenous and varicose vein(s), chronic venous insufficiency right leg secondary to venous incompetence Post-operative Diagnosis: CEAP class C3 venous insufficiency with pain, tenderness, edema and incompetent right saphenous and varicose vein(s), chronic venous insufficiency right leg secondary to venous incompetence Procedure Performed: 1. Ultrasound-guided microfoam chemical ablation with Varithenaregistered 2. Intraoperative ultrasound guidance Anesthesia: None Indications for Procedure: 59-year-old female who presents with a long history of lower extremity varicose veins with pain and swelling. The patient failed conservative medical therapy including medical compression stockings, exercise and analgesics. Prior procedures include a venous laser ablation. Multiple incompetent varicosities of the right leg. Duplex scan showed reflux and enlarged diameters up to 4 mm. The patient underwent informed consent including management options where the complications of infection, bleeding, pain, and skin injury were discussed. Particular attention was spent discussing thrombus extension and deep vein thrombosis as well as the possibility of pulmonary embolus and treatment with oral or injectable blood thinners. Procedure: The patient walked to the procedure room. All applicable staff donned appropriate apparel. A procedure timeout was performed to confirm correct patient, correct extremity, correct procedure, and correct room set-up including presence of all applicable supplies, devices, and drugs. A duplex ultrasound, performed by myself confirmed the location and incompetence of branch saphenous varicosities and their course was marked on the skin together with the dilated tributaries. The extent of treatment of the vein and the associated varicosities was determined through ultrasound mapping. The skin was prepped and then punctured with a butterfly needle and advanced under ultrasound guidance. The Varithenaregistered canister was activated and the canister was primed and purged as required in the instructions for use. Varithenaregistered was drawn into a sterile syringe. The following injections were made: 5 cc injected into a 4 mm varicose vein right lateral lower leg 5 cc injected into a 4 mm varicose vein right lateral distal thigh 5 cc injected into a 4 mm varicose vein right distal medial lower leg Varithenaregistered was slowly administered at 0.5-1.0 cc/second with close observation by ultrasound of its course in the vessels. Total volume utilized was: 15 cc. Following administration of Varithenaregistered the leg was elevated and the patient was asked to repeatedly dorsiflex the ankle to limit flow of Varithenaregistered into perforating veins. Once appropriate spasm had been confirmed in the treated veins, the vascular catheter was removed from the leg and light pressure was applied over the puncture site for hemostasis. The common femoral and deep superficial veins were then evaluated for flow and compressibility prior to dressing placement. The lower extremity was kept elevated at 45 degrees above the horizontal and cording material was applied over the saphenous segments and tributaries to allow for eccentric compression over the target vessels including the targeted saphenous vein(s). A multilayer dressing was applied consisting of foam pads, coban and thigh-high 20-30 mm Hg compression elastic support hose were placed on the patient. The leg was lowered only after compression had been applied and the patient was immediately ambulatory. The patient ambulated 10 minutes under supervision and was without apparent concerns at time of release. Post-care instructions include advising patient to keep post-treatment bandages in place and dry for 48 hours, avoid extended periods of inactivity, avoid heavy exercise for one week, wear compression stockings on the treated leg continuously for two weeks, to walk daily for 10 minutes over the next month. The patient was instructed to take an anti-inflammatory medicine as needed and to follow up for color duplex scan of the Saphenous veins, the treated branch saphenous varicosities, the adjacent deep veins, and additional treatment within 7 days. PERSONNEL: Henri Higgins RN Electronically authenticated by: BAO PINEDO Date: 08/07/2024 15:42
[2024-08-07 15:51] VITALS: BP 120/60; PULSE 71; O2SAT 99
== END 2024-08-07 15:59 | disposition home or self-care (01) ==
LOC: VC 14:53
PROVIDERS: PCP Radiology Diagnostic Radiology; Visit Provider Radiology Diagnostic Radiology
DX: I83.813 Varicose veins of bilateral lower extremities with pain (principal)
CPT/HCPCS: 36466

== ENCOUNTER 2024-08-14 07:52 | Outpatient (OUT) | payer BC, SELFPAY ==
--- NOTE | 2024-08-14 07:52 | VEIN_ITS ---
Patient Name: JACQUES RIVERA MR#: [id number] : 1965 Exam Date: 08/14/2024 Ordering Doctor: DR BRETT PINEDO M.D. RADIOLOGY REPORT PROCEDURE: VC EXT VENOUS RT LMTD COMPARISON: VC EXT VENOUS RT LMTD, 06/28/2024. INDICATIONS: I80.01 - Phlebitis and thrombophlebitis of superficial veins right leg TECHNIQUE: Lower extremity vargas scale and Duplex Doppler evaluation of the deep venous system from the inguinal ligament through the calf veins. FINDINGS: REGION: Right lower extremity. THROMBI: Positive for DVT. Chemically induced thrombus in multiple varicose veins in right leg. Thrombus extends through herbologist into PTV mid calf in a 4 cm segment. COMPRESSIBILITY: Non-compressible segments corresponding to thrombus FLOW: Areas of no flow corresponding to thrombus OTHER: Two varicose veins remain. Largest is distal anterior thigh and measures 4.1 mm. CONCLUSION: Post ablation occlusion of treated varicose veins with a small deep vein thrombus measuring 4 cm in a single posterior tibial vein Dictated by: Brett Pinedo MD on 08/14/2024 at 08:15 Approved by: Brett Pinedo MD on 08/14/2024 at 08:15
--- NOTE | 2024-08-14 07:52 | VEIN_ITS ---
Patient Name: JACQUES RIVERA MR#: [id number] : 1965 Exam Date: 08/14/2024 Ordering Doctor: DR BRETT PINEDO M.D. RADIOLOGY REPORT PROCEDURE: [facility] EST LMTD [facility] - OFFICE VISIT FOLLOW UP COMPARISON: [facility] EST TD, 06/28/2024. [facility] EST TD, 05/29/2024. PROGRESS NOTES: The patient reports moderate tenderness along the right lateral leg in the area of a large treated varicosity. Patient has worn a compression stocking and exercised. The patient did not require oral analgesics. Patient reports the discomfort is improving. No erythema or warmth to suggest cellulitis or thrombophlebitis. No active ulceration. Review of the ultrasound performed the same day demonstrates occlusive thrombus extending throughout the treated right leg varicose veins. There is a 4 cm segment of deep vein thrombus in a single posterior tibial vein, far removed from popliteal vein. No treatment was recommended to patient. The patient expressed a desire to proceed with treatment of incompetent left leg varicose veins with micro chemical ablation. VEIN/[facility] EST TD IMPRESSION: 1. Successful ablation of treated right leg varicose veins 2. Persistent incompetent left leg varicose veins. PLAN: Micro foam chemical ablation left leg incompetent varicose veins Nurse notes, history and physical were reviewed and confirmed, see attached forms. The nurse was present throughout the physical exam and consultation Dictated by: Brett Pinedo MD on 08/14/2024 at 08:50 Approved by: Brett Pinedo MD on 08/14/2024 at 08:52
--- OUTSIDE RECORDS SUMMARY | 2024-08-14 08:12 | XMS_ITS | CCD ---
Author Organization [facility] Care Team Providers Care Medicaid Plan Compliance Director Name Role Phone NONE, XXXX Primary Care Physician Unavailab Gregg Edwards Attending Unavailable AQUILES Perez Primary Care Provider MD Livan Silver Attending Provider Self, Referral Attending Provider Unavailable MD Herbie Vila Referring Provider [phone] AQUILES Perez Referring Provider [phone] MD Ventura German Attending Provider MD Herbie Vila Attending Provider [phone] AQUILES Perez Primary Care Provider MD Livan Silver Attending Provider Livan Silver Attending Tameka Campos Primary Care Unavailable Livan Silver Admitting Tameka Campos Primary Care Unavailable Tameka Perez Referring Unavailable Ventura German Admitting Unavailable Ventura German Attending Unavailable Herbie Vila Admitting Unavailable Herbie Vila Attending Unavailable Tameka Perez Primary Care Unavailable Herbie Vila Admitting Unavailable Herbie Vila Attending Unavailable Tameka Perez Primary Care Unavailable Livan Silver Admitting Livan Lamb Attending Tameka Campos Primary Care Unavailable Tameka Perez Attending Unavailable Tameka Perez Admitting Unavailable Tameka Perez Primary Care Unavailable Herbie Vila Referring Unavailable Self, Referral Admitting Unavailable Self, Referral Attending Unavailable Tameka Perez Primary Care Unavailable Livan Silver Attending Tameka Campos Primary Care Unavailable iLvan Silver Admitting AQUILES Campos Primary Care Provider AQUILES Perez Attending Provider Allergies Allergy Classification Reported Allergen(s) Allergy Type Date of Onset Reaction(s) Facility Anti-Epileptic Agents (2 sources) gabapentin Drug Allergy 4 [facility] Nitrofurantoin (2 sources) Nitrofurantoin Drug Allergy 4 Chest Pain [facility] NSAIDs (2 sources) Ketorolac Drug Allergy 4 [facility] Opioid Agonists (2 sources) Codeine Drug Allergy 4 [facility] (14 sources) Codeine; Translations: [codeine] Drug Allergy [address] [facility] (14 sources) gabapentin; Translations: [gabapentin] Drug Allergy 4 [facility] (14 sources) Ketorolac; Translations: [ketorolac] Drug Allergy 4 [facility] (14 sources) Nitrofurantoin; Translations: [nitrofurantoin] Drug Allergy 4 Chest [facility] (1 source) Codeine Drug Allergy 4 [facility] Repository Medications Current Medications Medication Drug Class(es) Dates Sig (Normalized) Sig (Original) Albuterol (Eqv-ProAir HFA) 90 mcg/inh inhalation aerosol (1 source) Start: 08-23-2023 End: 08-30-2023 take 2 puff(s) by inhalation every six hours Albuterol (Eqv-ProAir HFA) 90 mcg/inh inhalation aerosol 2 puff(s), Inhalation, q6hr for 7 day(s), 6.7 gm, Refill(s) 0, [id number], 165, cm, 08/23/23 9:07:00 EST, Height/Length Dosing, [...] tartrate 1 mg/actuat metered dose nasal spray (18 sources) Opioid Agonist/Antagonist Start: 06-29-2024 take 1 [...] day(s), # 7 tab(s), Refills(s) 0, Pharmacy: [id number], 165, cm, 08/23/23 9:07:00 EST, Height/Length Dosing, 88, kg, 08/23/23 9:07:00 EST, Weight Dosing Start Date: 08/23/23 Stop Date: 08/30/23 Status: Ordered DULoxetine 60 mg delayed release oral capsule (15 sources) Serotonin and Norepinephrine Reuptake Inhibitor Start: 11-15-2023 take 1 capsule by mouth twice daily Duloxetine (Cymbalta) 60 mg capsule,delayed release(DR/EC) Active 60 MG PO Twice daily November 15, 2023 1:00am pantoprazole 40 mg delayed release oral tablet (19 sources) Proton Pump Inhibitor Start: 11-15-2023 End: 06-12-2024 take 1 tablet by mouth once daily in the morning Pantoprazole (Protonix) 40 mg tablet,delayed release (DR/EC) Active 40 MG PO Daily 90 June 12, 2024 8:25am in the morning pregabalin 50 mg oral capsule (4 sources) Start: 06-29-2024 End: 07-24-2024 take 1 capsule by mouth twice daily Pregabalin (Lyrica) 50 mg capsule Active 50 MG PO Twice daily 60 30 July 24, 2024 3:57pm rosuvastatin calcium 20 mg oral tablet (19 sources) HMG-CoA Reductase Inhibitor Start: 11-15-2023 End: 05-11-2024 take 20 mg by mouth once daily at bedtime Rosuvastatin Active 20 MG PO Daily at bedtime 90 May 11, 2024 5:22pm at bedtime traMADol hydrochloride 50 mg oral tablet (20 sources) Opioid Agonist Start: 01-19-2024 End: 06-27-2024 take 50 mg by mouth every eight hours Tramadol Active 50 MG PO Every 8 hours June 27, 2024 9:22am Start: 11-15-2023 End: 01-19-2024 take 50 mg by mouth every six hours for pain Tramadol Discontinued 50 MG PO Every 6 hours November 15, 2023 1:00am January 19, 2024 5:57pm for pain Completed/Discontinued Medications Medication Drug Class(es) Dates Sig (Normalized) Sig (Original) acetaminophen 325 mg / HYDROcodone bitartrate 5 mg oral tablet (7 sources) Opioid Agonist Start: 02-24-2024 End: 03-22-2024 [...] mg tablet Discontinued 120 MG PO Once December 29, 2023 3:01pm February 10, 2024 7:25am once daily in the morning 1.5 ml fremanezumab-vfrm 150 mg/ml prefilled syringe (12 sources) Start: 01-13-2024 End: 03-22-2024 Fremanezumab-Vfrm (Ajovy [...] 4:34pm June 27, 2024 9:21am Semaglutide Base (9 sources) Start: 02-01-2024 End: 06-29-2024 inject 1 [...] Onset: 08-23-2023 Episodic Diabetes mellitus without complication (11 sources) Prediabetes; Translations: [Prediabetes] 02-01-2024 Episodic Disorders of lipid metabolism (20 sources) Hyperlipidemia; Translations: [Hyperlipidemia, unspecified] Onset: 01-18-2024 11-15-2023 Chronic Diverticulosis and diverticulitis (20 sources) Diverticular disease; Translations: [Diverticulosis of intestine, part unspecified, without perforation or abscess without bleeding] 11-15-2023 Chronic Esophageal disorders (15 sources) Gastroesophageal reflux disease; Translations: [Gastro-esophageal reflux disease without esophagitis] 11-15-2023 Chronic Essential hypertension (18 sources) Hypertensive disorder; Translations: [Essential (primary) hypertension] Onset: 01-18-2024 12-29-2023 Chronic Headache; including migraine (3 sources) Transformed migraine; 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] 06-29-2024 Chronic Hemorrhoids (15 sources) Internal hemorrhoids; Translations: [Other hemorrhoids] 11-15-2023 Episodic Nonmalignant breast conditions (16 sources) Large breast; Translations: [Hypertrophy of breast] Onset: 02-24-2024 11-15-2023 Episodic Osteoarthritis (20 sources) Arthritis of finger of left hand; Translations: [Primary osteoarthritis, left hand] 11-15-2023 Chronic Other connective tissue disease (15 sources) Fibromyalgia; Translations: [Fibromyalgia] 11-15-2023 Episodic Other connective tissue disease (3 sources) Fibromyalgia; Translations: [Myalgia and myositis, unspecified] 06-29-2024 Episodic Other diseases of kidney and ureters (15 sources) Cyst of kidney; Translations: [Cyst of kidney, acquired] 11-15-2023 Episodic Other diseases of kidney and ureters (15 sources) Kidney lesion; Translations: [Disorder of kidney and ureter, unspecified] 12-29-2023 Episodic Other non-traumatic joint disorders (4 sources) Ankle edema; Translations: [Effusion, left ankle] 04-10-2024 Episodic Other non-traumatic joint disorders (4 sources) Swelling of ankle joint; Translations: [Effusion, left ankle] 04-10-2024 Episodic Other non-traumatic joint disorders (2 sources) Effusion, left ankle; Translations: [Effusion of joint, ankle and foot] 04-05-2024 Episodic Other non-traumatic joint disorders (1 source) Pain in right shoulder; Translations: [Pain in right shoulder] Onset: 07-17-2024 Episodic Other nutritional; endocrine; and metabolic disorders (6 sources) Obese class I; Translations: [Obesity, unspecified] 03-22-2024 Chronic Other nutritional; endocrine; and metabolic disorders (2 sources) Obesity, unspecified; Translations: [Obesity, unspecified] 03-22-2024 Chronic Other nutritional; endocrine; and metabolic disorders (3 sources) Abnormal weight gain; Translations: [Abnormal weight gain] 02-01-2024 Episodic Other upper respiratory disease (15 sources) Seasonal allergy; Translations: [Other seasonal allergic rhinitis] 11-15-2023 Chronic Other upper respiratory disease (1 source) Bronchospasm; Translations: [Acute bronchospasm] Onset: 08-23-2023 Episodic Residual codes; unclassified (15 sources) History of colectomy; Translations: [Acquired absence of other specified parts of digestive tract] 11-15-2023 Episodic Residual codes; unclassified (15 sources) Family history of breast cancer; Translations: [Family history of malignant neoplasm of breast] 11-15-2023 Episodic Spondylosis; intervertebral disc disorders; other back problems (15 sources) Lumbar spondylosis; Translations: [Spondylosis without myelopathy or radiculopathy, lumbar region] 11-15-2023 Chronic Spondylosis; intervertebral disc disorders; other back problems (15 sources) Spinal stenosis; Translations: [Spinal stenosis, site unspecified] 11-15-2023 Episodic Unclassified (18 sources) Transformed migraine; Translations: [Chronic migraine] 11-15-2023 Varicose veins of lower extremity (6 sources) Varicose veins of lower extremity; Translations: [Asymptomatic varicose veins of unspecified lower extremity] 04-10-2024 Episodic Past or Other Problems Problem Classification Problem Date Documented Da te Episodic/Chronic Other nutritional; endocrine; and metabolic disorders (1 source) Abnormal weight gain; Translations: [Abnormal weight gain] Onset: 02-03-2024 Episodic Other screening for suspected conditions (not mental [...] Test Name Value Interpretation Reference Range Facility XR shoulder RT min 2V*on XR shoulder RT min 2V* [facility] [place] [address] [place] [address] XRay Report Signed Patient: Etelvina Luciano MR#: [id number] 5 : 1965 Acct:[id number] Age/Sex: 59 / F ADM Date: 07/17/24 Loc: XD Room: Type: [facility] Attending Dr: Tameka Perez APRN Copies to: Tameka Perez APRN Ordering Provider: Tameka Perez APRN Date of Service: 07/17/24 XR/XR shoulder RT min 2V*: M25.511 - Pain in right shoulder RIGHT SHOULDER - - 3 views CLINICAL HISTORY: Injured shoulder Wednesday. Now with superior shoulder pain. COMPARISON: None FINDINGS: Moderate degenerative changes of the AC joint. Mild degenerative changes of the glenohumeral joint. No acute bony process. XR/XR shoulder RT min 2V* IMPRESSION: DEGENERATIVE CHANGES INVOLVING THE RIGHT SHOULDER WITHOUT ACUTE BONY PROCESS. Impression dictated by: Low Ibarra Jr., D.O.07/17/2024 9:21 PM Dictation Location: [facility] Transcribed By: [facility] 07/17/242120 Dictated By: Low Ibarra Jr, DO 07/17/242119 Signed By: 07/17/242120 [place] [facility] 02-24-2024 L Specimen: [id number] Received: 02/24/24 Status: RACHEL Carlson Num: [id number] Spec Type: Surgical Subm Dr: Herbie Vila MD Tissues: A Breast Reduction - Mammoplasty (SRT) B Breast Reduction - Mammoplasty (LT) Procedures: HE/6, Gross/Micro L4/2 Age/ Patient Sex Location Account Attending Physician Etelvina Luciano 58/F [place] [id number] Herbie Vila MD SPEC NUM: [id number] RECD: 02/24/24 STATUS: RACHEL CARLSON NUM: [id number] JESSICA: 02/24/[address]: Herbie Vila MD ENTERED: 02/24/[address]: SPEC TYPE: Surgical DEPT: S ORDERED: HE/, Gross/Micro L4/2 ORDERED: HE, Gross/Micro L4/2 Pathological Diagnosis A, right breast [...] No discrete masses or lesions are present. Central Station Operator sections are submitted in A1 (skin); A2-A3 (parenchyma). -------- Specimen: [id number] Received: 02/24/24 Status: RACHEL Robyn Num: [id number] Spec Type: Surgical Subm Dr: Herbie Vila MD Tissues: A Breast Reduction - Mammoplasty (SRT) B Breast Reduction - Mammoplasty (LT) Procedures: , Gross/Micro L4/2 -------- Patient: Etelvina Luciano [id number] (Continued) -------- Specimen: [id number] Received: 02/24/24 (Continued) Gross Description (Continued) Signed (signature on file) Jun Benavides MD 02/28/241955 -------- Specimen: [id number] Received: 02/24/24 Status: RACHEL Carlson Num: [id number] Spec Type: Surgical Subm Dr: Herbie Vila MD Tissues: A Breast Reduction - Mammoplasty (SRT) B Breast Reduction - Mammoplasty (LT) Procedures: Priscila CURIEL/Lily L4/2 -------- Patient: Etelvina Luciano [id number] (Continued) -------- Specimen: [id number] Received: 02/24/24 (Continued) Gross Description (Continued) B. [...] No discrete masses or lesions are present. Central Station Operator sections are submitted in B1 (skin); B2?B3 (parenchyma). TW CPT Codes 23803N4 -------- -------- Specimen: [id number] Received: 02/24/24 Status: RACHEL Carlson Num: [id number] Spec Type: Surgical Subm Dr: Herbie Vila MD Tissues: A Breast Reduction - Mammoplasty (SRT) B Breast Reduction - Mammoplasty (LT) Procedures: HE/6, Gross/Micro L4/2 -------- Patient: Etelvina Luciano [id number] (Continued) -------- Signed (signature on file) Jun Benavides MD 02/28/241955 Normal [facility] Alanine aminotransferase [En zymatic activity/volume] in Serum or PlasmaOrdered By: Tameka Perez on 02-03-2024 ALT [Catalytic activity/Vol] 11 U/L Normal 7-52 [facility] Comment on above: Performed By: #### C MP wRFX A1C #### [facility] [address] Albumin [Mass/volume] in Ser um or Plasma by Bromocresol green (BCG) dye binding methoOrdered By: Tameka Perez on 02-03-2024 Albumin BCG dye [Mass/Vol] 3.9 g/dL 3.5-5.7 [facility] Alkaline phosphatase [Enzyma tic activity/volume] in Serum or PlasmaOrdered By: Tameka Perez on 02-03-2024 ALP [Catalytic activity/Vol] 80 U/L Normal 34-104 [facility] Comment on above: Result Comment: PERF ORMED BY: [facility] [address] [place] [address] PATHOLOGIST SQL DATABASE ADMINISTRATOR FERMIN MARTINEZ M.D. Performed By: #### C MP wRFX A1C #### [facility] [address] Aspartate aminotransferase [ Enzymatic activity/volume] in Serum or PlasmaOrdered By: Tameka Perez on 02-03-2024 AST [Catalytic activity/Vol] 14 U/L Normal 13-39 [facility] Comment on above: Performed By: #### C MP wRFX A1C #### [facility] [address] Bilirubin.total [Mass/volume ] in Serum or PlasmaOrdered By: Tameka Perez on 02-03-2024 Bilirubin [Mass/Vol] 0.3 mg/dL Normal 0.3-1.0 [facility] Comment on above: Performed By: #### C MP wRFX A1C #### [facility] [address] CMP with reflex to A1Con Albumin [Mass/Vol] 3.9 g/dL Normal 3.5-5.7 [facility] Comment on above: Performed By: #### C MP wRFX A1C #### [address] GFR/1.73 sq M.predicted MDRD (S/P/Bld) [Vol rate/Area] mL/min/{1.73_m2} Normal [facility] Comment on above: Performed By: #### C MP wRFX A1C #### [address] Calcium [Mass/volume] in Ser um or PlasmaOrdered By: Tameka Perez on 02-03-2024 Calcium [Mass/Vol] 8.8 mg/dL Normal 8.6-10.3 [facility] Comment on above: Performed By: #### C MP wRFX A1C #### [address] Carbon dioxide, total [Moles /volume] in Serum or PlasmaOrdered By: Tameka Perez on 02-03-2024 CO2 [Moles/Vol] 28.7 mmol/L Normal 21.0-31.0 [facility] Comment on above: Performed By: #### C MP wRFX A1C #### [address] [address] [place] Chloride [Moles/volume] in S sanjay or PlasmaOrdered By: Tameka Perez on 02-03-2024 Chloride [Moles/Vol] 110 mmol/L High 98-107 [facility] Comment on above: Performed By: #### C MP wRFX A1C #### [facility] [address] Creatinine [Mass/volume] in Serum or PlasmaOrdered By: Tameka Perez on 02-03-2024 Creatinine [Mass/Vol] 0.61 mg/dL Normal 0.60-1.20 [facility] Comment on above: Performed By: #### C MP wRFX A1C #### [facility] [address] [place] [address] Glucose [Mass/volume] in Ser um or PlasmaOrdered By: Tameka Perez on 02-03-2024 Glucose [Mass/Vol] 95 mg/dL Normal 70-100 [facility] Comment on above: Performed By: #### C MP wRFX A1C #### [facility] [address] [place] [address] No Panel InformationOrdered By: Tameka Perez on 02-03-2024 Estimated GFR (CKD-EPI) > 60.0 mL/Min [facility] Creatinine Clearance (Chem N/A [facility] Potassium [Moles/volume] in Serum or PlasmaOrdered By: Tameka Perez on 02-03-2024 Potassium [Moles/Vol] 4.0 mmol/L Normal 3.5-5.1 [facility] Comment on above: Performed By: #### C MP wRFX A1C #### [facility] [address] [place] [address] [place] Protein [Mass/volume] in Ser um or PlasmaOrdered By: Tameka Perez on 02-03-2024 Protein [Mass/Vol] 5.9 g/dL Low 6.4-8.9 [facility] Comment on above: Performed By: #### C MP wRFX A1C #### [facility] [address] [place] [address] [place] Serum globulin measurement b y calculation (mass/volume)Ordered By: Tameka Perez on 02-03-2024 Globulin (S) [Mass/Vol] 2.0 g/dL Normal [facility] Comment on above: Performed By: #### C MP wRFX A1C #### [facility] [address] Serum or plasma albumin/glob ulin mass ratioOrdered By: Tameka Perez on 02-03-2024 Albumin/Globulin [Mass ratio] 2.0 {ratio} Normal [facility] Comment on above: Performed By: #### C MP wRFX A1C #### [address] Serum or plasma anion gap de terminationOrdered By: Tameka Perez on 02-03-2024 Anion gap [Moles/Vol] 9.3 mmol/L Normal 6.0-15.0 [facility] Comment on above: Performed By: #### C MP wRFX A1C #### [address] Sodium [Moles/volume] in Ser um or PlasmaOrdered By: Tameka Perez on 02-03-2024 Sodium [Moles/Vol] 144 mmol/L Normal 136-145 [facility] Comment on above: Performed By: #### C MP wRFX A1C #### [address] Thyrotropin [Units/volume] i n Serum or PlasmaOrdered By: Ventura German on 02-03-2024 TSH Qn 0.97 m[IU]/L Normal 0.45-5.33 [facility] Comment on above: Result Comment: PERF ORMED BY: [place] [address] PATHOLOGIST SQL DATABASE ADMINISTRATOR FERMIN MARTINEZ M.D. Performed By: #### T SH3 #### [address] Urea nitrogen [Mass/volume] in Serum or PlasmaOrdered By: Tameka Perez on 02-03-2024 Urea nitrogen [Mass/Vol] 16 mg/dL Normal 7-25 [facility] Comment on above: Performed By: #### C MP wRFX A1C #### [place] [id number] [place] MM screening mammo BI w/CADo n 01-19-2024 MM screening mammo BI w/CAD [facility] [place] [address] [place] [address] Mammography Report Signed Patient: Etelvina Luciano MR#: [id number] 5 : 1965 Acct:[id number] Age/Sex: 58 / F ADM Date: 01/01/24 Loc: [place] Room: Type: [facility] Attending Dr: Referral Self Copies to: AQUILES [...] mammogram. Impression dictated by: Low Ibarra Jr., D.O.01/19/2024 8:48 AM Dictation Location: [facility] Transcribed By: ASHWINI 01/19/24 0848 Dictated By: Low Ibarra Jr, DO 01/19/24 0847 Signed By: 01/19/24 0848 Normal [facility] echo transthoracicon [facility] echo transthoracic [facility] Main [place] [address] [place] [address] Echocardiogram Signed Patient: Etelvina Luciano MR#: [id number] 5 : 1965 Acct:[id number] Age/Sex: 58 / F ADM Date: 01/18/24 Loc: Room: Type: [facility] Attending Dr: Livan Silver MD Ordering Provider: Livan Silver MD Date of Service: 01/18/24 [facility] echo transthoracic: I48.0 - Paroxysmal atrial fibrillation [...] Livan Silver MD 01/18/24 1708 Normal [facility] Cholesterol [Mass/volume] in Serum or PlasmaOrdered By: Livan Silver on 01-12-2024 Cholesterol [Mass/Vol] 144 mg/dL Normal 140-200 [facility] Comment on above: Chol less than 200 m g/dl low riskChol 201-239 mg/dl borderline riskChol 240 mg/dl and greater high risk Result Comment: Chol less than 200 mg/dl low risk Chol 201-239 mg/dl borderline risk Chol 240 mg/dl and greater high risk Performed By: #### L IPID #### [facility] [address] [place] [id number] [place] Cholesterol in LDL Calc [Mas s/Vol]Ordered By: Livan Silver on 01-12-2024 Cholesterol in LDL [Mass/Vol] 59 mg/dL 0-100 [facility] Comment on above: LDL ATP III CLASSIFI CATIONLDL less than 100 mg/dL OptimalLDL 100-129 mg/dL Near or above optimalLDL 130-159 mg/dL Borderline highLDL 160-189 mg/dL HighLDL greater than 189 mg/dL Very high Cholesterol in VLDL Calc [Ma ss/Vol]Ordered By: Livan Silver on 01-12-2024 Cholesterol in VLDL [Mass/Vol] 14 mg/dL [facility] Lipid Panelon 01-12-2024 LDL Cholesterol,Calculated 59 mg/dL Normal 0-100 [facility] Comment on above: Result Comment: LDL ATP III CLASSIFICATION LDL less than 100 mg/dL Optimal LDL 100-129 mg/dL Near or above optimal LDL 130-159 mg/dL Borderline high LDL 160-189 mg/dL High LDL greater than 189 mg/dL Very high Performed By: #### L IPID #### [facility] [address] [place] [address] [place] Triglyceride w/Reflex 70 mg/dL Normal 0-149 [facility] Comment on above: Result Comment: TRIG ATP III CLASSIFICATION TRIG less than 150 mg/dL Normal TRIG 150-199 mg/dL Borderline high TRIG 200-500 mg/dL High TRIG greater than 500 mg/dL Very high Standard traceable to the Center for Disease Conrtrol and Prevention (CDC) test method. Performed By: #### L IPID #### [facility] [address] [place] [id number] [place] VLDL CHOLESTEROL 14 mg/dL Normal [facility] Comment on above: Performed By: #### L IPID #### [facility] [address] [place] [id number] [place] Serum or plasma high density lipoprotein (HDL) cholesterol measurementOrdered By: Livan Silver on 01-12-2024 Cholesterol in HDL [Mass/Vol] 71 mg/dL Normal 23-92 [facility] Comment on above: HDL CHOL ATP-III CLA SSIFICATION Cardiovascular RiskHDL > or equal to 60 mg/dL LOWHDL < 40 mg/dL HIGH Result Comment: HDL CHOL ATP-III CLASSIFICATION Cardiovascular Risk HDL > or equal to 60 mg/dL LOW HDL < 40 mg/dL HIGH Performed By: #### L IPID #### [facility] [address] Serum or plasma total choles terol/high density lipoprotein (HDL) cholesterol mass ratOrdered By: Livan Silver on 01-12-2024 Cholesterol.total/Cristina sterol in HDL [Mass ratio] 2.0 {ratio} Normal <5.0 [facility] Comment on above: Result Comment: PERF ORMED BY: [place] [address] PATHOLOGIST SQL DATABASE ADMINISTRATOR FERMIN MARTINEZ M.D. Performed By: #### L IPID #### [facility] [address] Triglyceride [Mass/volume] i n Serum or PlasmaOrdered By: Livan Silver on 01-12-2024 Triglyceride [Mass/Vol] 70 mg/dL 0-149 [facility] Comment on above: TRIG ATP III CLASSIF ICATIONTRIG less than 150 mg/dL NormalTRIG 150-199 mg/dL Borderline highTRIG 200-500 mg/dL High TRIG greater than 500 mg/dL Very highStandard traceable to the Center for Disease Conrtrol and Prevention (CDC) test method. [facility] ECG *OFFICE ONLY*on 12-03 [facility] ECG *OFFICE ONLY* [facility] [place] [address] [place] [address] Electrocardiograph Report Signed Patient: Etelvina Luciano MR#: [id number] 5 : 1965 Acct:[id number] Age/Sex: 58 / F ADM Date: 12/29/23 Loc: EKGCARDIO Room: Type: [facility] Attending Dr: Livan Silver MD Ordering Provider: [...] previous ECGs available Confirmed by Livan Silver ([id number]) on 01/12/2024 5:44:25 PM Referred By: Electronically Signed By:Livan Silver Transcribed By: MUS Signed By Livan Silver MD 01/12/24 1744 Normal [facility] Auto Diffon 08-23-2023 Basophils/100 WBC (Bld) 0.7 % Normal 0.0-2.0 [facility] Comment on above: Order Comment: Order Added by Discern Expert. Performed By: #### 2 426455, [id number], 12381905, 85763705, 7539321, 73985515, 1516911 #### [facility] [address] [place] [address] Basophils/Leukocytes Auto (Bld) [Pure # fraction] 0.1 E9/L Normal 0.0-0.2 [facility] Comment on above: Order Comment: Order Added by Discern Expert. Performed By: #### 2 095107, 60088724, 45151420, 67785064, 4387575, 31188804, 1333916 #### [facility] [address] [place] [address] Eosinophils/100 WBC (Bld) 1.2 % Normal 0.0-8.0 [facility] Comment on above: Order Comment: Order Added by Discern Expert. Performed By: #### 2 982433, 64666288, 99651461, 31349996, 5853811, 90798650, 2280631 #### [facility] [address] [place] [address] Eosinophils/Leukocytes Auto (Bld) [Pure # fraction] 0.1 E9/L Normal 0.0-0.5 [facility] Comment on above: Order Comment: Order Added by Discern Expert. Performed By: #### 2 771009, 97592391, 03794608, 85047310, 9039887, 19197996, 3182043 #### [facility] [address] [place] [address] Lymphocytes/100 WBC (Bld) 18.3 % Normal 14.0-50.0 [facility] Comment on above: Order Comment: Order Added by Discern Expert. Performed By: #### 2 529532, 29924592, 61926342, 62285776, 0773556, 99937292, 9886849 #### [facility] [address] [place] [address] Lymphocytes/Leukocytes Auto (Bld) [Pure # fraction] 1.3 E9/L Normal 1.0-4.0 [facility] Comment on above: Order Comment: Order Added by Jori Expert. Performed By: #### 2 602322, 87959173, 14596042, 30834764, 6189706, 38753977, 8737274 #### [facility] [address] [place] [address] Monocytes/100 WBC (Bld) 11.9 % Normal 4.0-14.0 [facility] Comment on above: Order Comment: Order Added by Jori Expert. Performed By: #### 2 888682, 09741621, 23288949, 93155753, 8464642, 25897948, 6159383 #### [facility] [address] [place] [address] Monocytes/Leukocytes Auto (Bld) [Pure # fraction] 0.9 E9/L Normal 0.2-1.0 [facility] Comment on above: Order Comment: Order Added by Jori Expert. Performed By: #### 2 448972, 26986405, 36581281, 27512542, 8045624, 33244133, 1217297 #### [facility] [address] [place] [address] Neutrophils/100 WBC (Bld) 67.9 % Normal 36.0-75.0 [facility] Comment on above: Order Comment: Order Added by Discern Expert. Performed By: #### 2 665361, 77899972, 44690969, 70750787, 8157963, 26659457, 2300147 #### [facility] [address] [place] [address] Neutrophils/Leukocytes Auto (Bld) [Pure # fraction] 4.9 E9/L Normal 2.0-7.5 [facility] Comment on above: Order Comment: Order Added by Discern Expert. Performed By: #### 2 644465, 07577025, 26616795, 04156055, 3886195, 02810576, 2708462 #### [facility] [address] [place] [address] [facility] 08-23-2023 Creatinine [Mass/Vol] 0.7 mg/dL Normal 0.5-1.3 [facility] Comment on above: Performed By: #### 2 097281, 45811485, 11673134, 98335437, 0945857, 77620188, 3618790 #### [facility] [address] [place] [address] Urea nitrogen [Mass/Vol] 12 mg/dL Normal 5-21 [facility] Comment on above: Performed By: #### 2 437124, 16955976, 32174994, 81725219, 3774164, 42385443, 7512955 #### [facility] [address] [place] [address] Urea nitrogen/Creatinine [Mass ratio] 17 No Units Normal 10-20 [facility] Comment on above: Performed By: #### 2 017855, 42629903, 31176358, 09053872, 7995889, 48838577, 9008774 #### [facility] [address] [place] [address] Anion gap [Moles/Vol] 12 mmol/L Normal 6-16 [facility] Comment on above: Performed By: #### 2 297210, 83055519, 57148323, 85043609, 6785085, 97192877, 5588151 #### [facility] [address] [place] [address] Calcium [Mass/Vol] 9.1 mg/dL Normal 8.9-11.1 [facility] Comment on above: Performed By: #### 2 638993, 51619755, 73471941, 23011498, 3782799, 74658990, 5294680 #### [facility] [address] [place] [address] Chloride [Moles/Vol] 108 mmol/L Normal 101-111 [facility] Comment on above: Performed By: #### 2 427385, 80730495, 92715463, 82959615, 4031997, 48213307, 6364345 #### [facility] [address] [place] [address] CO2 [Moles/Vol] 24 mmol/L Normal 21-31 [facility] Comment on above: Performed By: #### 2 990979, 22797618, 57616122, 27216798, 2227709, 19222272, 7584792 #### [facility] [address] [place] [address] Glucose [Mass/Vol] 103 mg/dL Normal 55-199 [facility] Comment on above: Result Comment: If t his glucose result represents a fasting glucose, interpretation should refer to the following reference range: 55-99 mg/dL Performed By: #### 2 115264, 93768275, 93566897, 79883137, 1838317, 81119101, 7769071 #### [facility] [address] [place] [address] Potassium [Moles/Vol] 3.6 mmol/L Normal 3.5-5.3 [facility] Comment on above: Performed By: #### 2 944960, 17984103, 67101374, 25136027, 1320522, 13793894, 7714817 #### [facility] [address] [place] [address] Sodium [Moles/Vol] 140 mmol/L Normal 135-145 [facility] Comment on above: Performed By: #### 2 672337, 10166253, 56365798, 99474045, 0256727, 27963285, 1643963 #### [facility] [address] [place] [address] BNPon 3 Int Ctr BNP Pass Normal [facility] Comment on above: Performed By: #### 2 914152, 97264445, 83424789, 44099735, 5690104, 72363583, 3684697 #### [facility] [address] [address] Natriuretic peptide B (Bld) [Mass/Vol] 72 pg/mL Normal 5-80 [facility] Comment on above: Performed By: #### 2 662810, 99756262, 01249615, 56114223, 5437503, 05629303, 8947585 #### [facility] [address] [address] CBC w/ Auto Diffon 3 Erythrocyte distribution width (RBC) [Ratio] 13.0 % Normal 10.9-14.2 [facility] Comment on above: Performed By: #### 2 802934, 04138652, 40232366, 94333980, 5936291, 41528870, 7478906 #### [facility] [address] [place], [place] [address] Hematocrit (Bld) [Volume fraction] 42.4 % Normal 34.0-46.0 [facility] Comment on above: Performed By: #### 2 197257, 24415706, 83578458, 04002225, 0112224, 75920926, 9147276 #### [facility] [address] [place] [address] Hemoglobin (Bld) [Mass/Vol] 14.3 g/dL Normal 12.0-16.0 [facility] Comment on above: Performed By: #### 2 085379, 45841137, 33171203, 62538462, 1988743, 54477941, 1606036 #### [facility] [address] [place] [address] MCH (RBC) [Entitic mass] 29.5 pg Normal 27.0-34.0 [facility] Comment on above: Performed By: #### 2 186952, 47454778, 39920466, 81873871, 0001123, 91422279, 4506389 #### [facility] [address] [place] [address] MCHC (RBC) [Mass/Vol] 33.6 g/dL Normal 31.4-36.0 [facility] Comment on above: Performed By: #### 2 694700, 91652711, 10328744, 18241227, 3391037, 31625569, 7939726 #### [facility] [address] [place] [address] MCV (RBC) [Entitic vol] 87.8 fL Normal 80.0-100.0 F [facility] Comment on above: Performed By: #### 2 764311, 85542991, 14029303, 89046010, 6458680, 98029249, 5473388 #### [facility] [address] [place] [address] Platelet mean volume (Bld) [Entitic vol] 8.5 fL Normal 6.4-10.8 [facility] Comment on above: Performed By: #### 2 562925, 12122828, 36881130, 17012073, 7047659, 62910379, 8015148 #### [facility] [address] [place] [address] Platelets (Bld) [#/Vol] 245.0 E9/L Normal 150.0-500.0 [facility] Comment on above: Performed By: #### 2 349192, 56782996, 76536274, 18664951, 1870480, 22054556, 7321594 #### [facility] [address] [place] [address] RBC (Bld) [#/Vol] 4.8 E12/L Normal 4.3-5.9 [facility] Comment on above: Performed By: #### 2 052815, 40046873, 57174741, 25402813, 7930402, 01906713, 6910945 #### [facility] [address] [place] [address] WBC corrected for nucl RBC Auto (Bld) [#/Vol] 7.2 E9/L Normal 4.0-11.0 [facility] Comment on above: Performed By: #### 2 439644, 40877303, 45806611, 17592104, 7741781, 11035503, 4144365 #### [facility] [address] [place] [address] CHEMISTRYOrdered By: SYSTEM SYSTEM on 08-23-2023 Anion gap [Moles/Vol] 12 mmol/L Normal 6 - 16 mEq/L [place] [facility] Remisol Calcium [Mass/Vol] 9.1 mg/dL Normal 8.9 - 11. 1 mg/dL [facility] Remisol Chloride [Moles/Vol] 108 mmol/L Normal 101 - 1 11 mmol/L [facility] Remisol CO2 [Moles/Vol] 24 mmol/L Normal 21 - 31 mmol/L [facility] Remisol Creatinine [Mass/Vol] 0.7 mg/dL Normal 0.5 - 1.3 mg/dL [facility] Remisol GFR/1.73 sq M.predicted among non-blacks MDRD (S/P/Bld) [Vol rate/Area] 100 mL/min/1.73 m2 Normal >=59mL/min/1 .73 m2 [facility] Chem S Comment on above: Interpretive Data: C hronic kidney disease could be indicated at eGFR's of less than 60 mL/min/1.73m2. Kidney failure is indicated at less than 15 mL/min/1.73m2. Glucose [Mass/Vol] 103 mg/dL Normal 55 - 199 mg/dL [facility] Remisol Comment on above: Interpretive Data: I f this glucose result represents a fasting glucose, interpretation should refer to the following reference range: 55-99 mg/dL Potassium [Moles/Vol] 3.6 mmol/L Normal 3.5 - 5.3 mmol/L [facility] Remisol Sodium [Moles/Vol] 140 mmol/L Normal 135 - 145 mmol/L [facility] Remisol Troponin I.cardiac [Mass/Vol] 6.00 pg/mL Low 10.10 - 27.10 pg/mL [facility] Remisol Comment on above: Interpretive Data: T he 95% CI (Confidence Interval) PPV (Positive Predictive Value) for myocardial infarction in females is 38 pg/mL, in males 51 pg/mL. The results should be used in conjunction with clinical conditions of myocardial infarction. (Access High Sensitivity Troponin I Instructions For Use, Julian [place], May 2018) Urea nitrogen [Mass/Vol] 12 mg/dL Normal 5 - 21 mg/dL [facility] Remisol Urea nitrogen/Creatinine [Mass ratio] 17 mg/mg Normal 10 - 20 [facility] CHEMISTRYOrdered By: Kerry shannon on 08-23-2023 Natriuretic peptide B (Bld) [Mass/Vol] 72 pg/mL Normal 5 - 80 pg/mL [facility] HemeMasticSS COAGULATIONOrdered By: Juana Aggarwal on 08-23-2023 aPTT Coag (PPP) [Time] 28.9 s Normal 25.1 - 36.5 second(s) [facility] Auto Coag Comment on above: Interpretive Data: P arameter 15 days - 4 weeks 1 - [...] the same coagulation reagent and instrumentation as [facility]. Currently there are no coagulation studies available worldwide for children to 14 days, and no normal ranges. Heparin therapeutic range (represented by Anti-Factor Xa activity of 0.2 - 0.4 U/mL) corresponds to PTT of 56.6 - 109.0 sec. INR Coag (PPP) [Relative time] 1.2 {INR} Invalid Interpretation Code [facility] Auto Coag Comment on above: Interpretive Data: I NR results are specifically intended to assess patients stabilized on long-term Anticoagulation therapy suggested INR s Less Intensive Anticoagulation 2.0 3.0 Conventional Range 3.0 4.5 PT Coag (PPP) [Time] 12.8 s High 9.4 - 1 2.5 second(s) [facility] Auto Coag Comment on above: Interpretive Data: [...] the same coagulation reagent and instrumentation as [facility]. Currently there are no coagulation studies available worldwide for children to 14 days, and no normal ranges. Consent for Treatmenton 08-05 Consent for Treatment [id number]#1 .00TIFF Normal [facility] Discharge Instructionson Discharge Instructions [id number]# 1.00TIFF Normal [facility] ED Clinical Summaryon 2022 ED Clinical Summary [address] [address] ED Clinical Summary Person Information Name: ETELVINA LUCIANO [place] Age: 58 Years : 1965 Sex: Female Language: Japanese PCP: NONE, XXXX Marital Status: Phone: [phone] Visit Id: Visit Reason: Palpitations; Throat pain [...] 08/23/2023 10:42:57 08/23/2023 10:42:57 08/23/2023 10:42:57 ADDRESS: [address] [place] [address] [facility] [id number] PHYS DOC NOTES: MEDICAL INFORMATION: Prescriptions Given: New Medications [facility]/pharmacy #[id number], [address], [place] [id number], [phone] albuterol (Albuterol (Eqv-ProAir HFA) 90 mcg/inh inhalation aerosol) 2 Puffs Inhalation every 6 hours for 7 Days. Refills: 0. dexamethasone (dexamethasone 6 mg oral tablet) 1 Tablets By Mouth every day for 7 Days. Refills: 0. PATIENT EDUCATION INFORMATION: Instructions: Follow up: With: Address: When: Jessica Donah[address] [place] [address] Business (1) In 3 days 08/26/2023 With: Address: When: XXXX NONE , [place] In 3 days DIAGNOSIS: Bronchospasm; COVID; Palpitations Normal [facility] ED Note-Physicianon 08-23-20 ED Note-Physician Basic [...] for 7 day(s), 6.7 gm, Refill(s) 0, [facility]/pharmacy #[id number], 165, cm, 08/23/23 9:07:00 EST, Height/Length Dosing, 88, kg, 08/23/23 9:07:00 EST, Weight Dosing dexamethasone, 6 mg = 1 tab(s), Oral, Daily, X 7 day(s), # 7 tab(s), Refills(s) 0, Pharmacy: [facility]/pharmacy #[id number], 165, cm, 08/23/23 [...] [address], [address] [place] [address]- Business (1) Additional Instructions: XXXX NONE In [...] fL (11 (more content not included)... Normal [facility] Comment on above: Result Comment: Elec tronically Signed By: Gregg Baxter DO\.br\Date and Time Signed: 08/23/23 10:37 EST ED Patient Education Noteon 08-23-2023 ED Patient Education Note Normal [facility] ED Patient Summaryon 023 ED Patient Summary [address] [address] Patient Discharge Instructions Person Information Name: ETELVINA LUCIANO Age: 58 Years Arrival Date: 08/23/2023 08:48:24 Discharge Diagnosis: Bronchospasm; COVID; Palpitations Primary Care Physician: NONE, XXXX Provider Information Primary Provider: Gregg Baxter DO Advanced Hand Chain Maker:None The exam and treatment you received in the Emergency Department were for an urgent problem and are not intended as complete care. It is important that you follow up with a doctor, nurse practitioner, or physician?s parts room assistant for ongoing care. If your symptoms [...] Follow-up Instructions: With: Address: When: Jessica Carbajal [address], [facility] C, [facility] [address] [place] [address] [facility] (1) In 3 days 08/26/2023 With: Address: When: XXXX [facility] , [place] In 3 days In the event that this physician does not participate in your insurance network, please consult with your insurance company to find a nearby participating provider. Patient Education Materials: A MESSAGE TO ALL PATIENTS REGARDING OPIOIDS PRESCRIPTION OPIOIDS: WHAT YOU NEED TO KNOW Prescription opioids can be used to help relieve xlwxwrxg-hd-srbvkz pain and are often prescribed following a [...] be struggling with addiction, tell your health critical care paramedic and ask for guidance or call [facility] National Helpline at 3-346-136-GYZA. (more content not included)... Normal [facility] HEMATOLOGYOrdered By: SYSTEM SYSTEM on 08-23-2023 Basophils/100 WBC (Bld) 0.7 % Normal 0.0 - 2.0 % [facility] HemeAutoSS Basophils/Leukocytes Auto (Bld) [Pure # fraction] [...] 8.5 fL Normal 6.4 - 10.8 fL [facility] HemeAutoSS Platelets (Bld) [#/Vol] 245.0 E9/L Normal 150. 0 - 500.0 E9/L [facility] HemeAutoSS RBC (Bld) [#/Vol] 4.8 E12/L Normal 4.3 - 5.9 E12/L [facility] HemeAutoSS WBC corrected for nucl RBC Auto (Bld) [#/Vol] 7.2 E9/L Normal 4.0 - 11.0 E9/L [facility] HemeAutoSS Monitor Recordon 08-23-2023 Monitor Record [id number]# 1.00TIFF Normal [facility] PT & PTTon 08-23-2023 aPTT Coag (PPP) [Time] 28.9 second(s) Normal 25.1-36.5 [facility] Comment on above: Result Comment: Para [...] the same coagulation reagent and instrumentation as [facility]. Currently there are no coagulation studies available worldwide for children to 14 days, and no normal ranges. Heparin therapeutic range (represented by Anti-Factor Xa activity of 0.2 - 0.4 U/mL) corresponds to PTT of 56.6 - 109.0 sec. Performed By: #### 2 321939, 45161803, 29549201, 10933692, 8053945, 00895615, 5535686 #### [facility] [address] [place] [address] INR Coag (PPP) [Relative time] 1.2 {INR} Invalid Interpretation Code [facility] Comment on above: Result Comment: INR results are specifically intended to assess patients stabilized on long-term Anticoagulation therapy suggested INR?s ?Less Intensive Anticoagulation? 2.0 ? 3.0 Conventional Range 3.0 ? 4.5 Performed By: #### 2 069985, 56180911, 50347564, 74559666, 4999736, 00434619, 0690291 #### [facility] [address] [place] [address] PT Coag (PPP) [Time] 12.8 second(s) High 9.4-12.5 [facility] Comment on above: Result Comment: 15 [...] the same coagulation reagent and instrumentation as [facility]. Currently there are no coagulation studies available worldwide for children to 14 days, and no normal ranges. Performed By: #### 2 802458, 53300809, 14818920, 76574568, 9683099, 44640165, 5318882 #### [facility] [address] [place] [address] Troponin 0 Hr.on 08-23-2023 Troponin I.cardiac [Mass/Vol] 6.00 pg/mL Low 10.10-27.10 [facility] Comment on above: Result Comment: The 95% CI (Confidence Interval) PPV (Positive Predictive Value) for myocardial infarction in females is 38 pg/mL, in males 51 pg/mL. The results should be used in conjunction with clinical conditions of myocardial infarction. (Access High Sensitivity Troponin I Instructions For Use, Julian [place], May 2018) Performed By: #### 2 429426, 33127282, 36885185, 12759704, 0027958, 11562254, 3192596 #### [facility] [address] [place] [address] XR Chest Single Viewon 08-23 XR Chest [...] mGy = na DAP = na Normal [facility] eGFRon 08-23-2023 GFR/1.73 sq M.predicted among non-blacks MDRD (S/P/Bld) [Vol rate/Area] 100 mL/min/1.73 m2 Normal >=59 [facility] Comment on above: Order Comment: Order added by Discern Expert. Result Comment: Production Support Engineer crow kidney disease could be indicated at eGFR's of less than 60 mL/min/1.73m2. Kidney failure is indicated at less than 15 mL/min/1.73m2. Performed By: #### 2 519980, 57752506, 10682475, 39387325, 2738443, 91611018, 5067658 #### [facility] [address] [place] [address] KNEE CMPLT, 4 OR MORE VIEWSo n 05-20-2020 KNEE CMPLT, 4 OR MORE VIEWS Patient Name: ETELVINA LUCIANO STUDY: KNEE; COMPLT, 4 OR MORE VIEWS; Left; 05/20/2020 6:33 pm INDICATION: pain, (L) anterior knee s/p plant and twist injury. COMPARISON: None. ACCESSION NUMBER(S): [id number] ORDERING CLINICIAN: CAMILA CHERRY FINDINGS: No displaced fracture or rosario dislocation. Mild degenerative change-left knee with mild medial compartment narrowing/mild chondromalacia patella and mild elongation tibial eminences. Suprapatellar effusion-present. IMPRESSION: Mild osseous degenerative changes with suprapatellar effusion. Electronically signed by: DALLIN MENDOZA [facility] RADIOLOGIST [facility] Provider Note - ED v2on [...] Past Surgical History Description:Cholecyst ectomy Description:Hysterect carlotta SOCIAL ECONOMIST: Is : no Is : no REVIEW [...] 21-May-2020 09:26 by Camila Cherry (RENETTA) Normal [facility] Vital Signs Date Time Vital Sign Value Performing Clinician Facility 07-24-2024 15:54-0400 Body height 165.1 cm AQUILES Jimenezgwynn Work Phone: [facility] 07-24-2024 15:54-0400 Body mass index (BMI) [Ratio] 33.7 kg/m2 AQUILES Jimenezgwynn Work Phone: [facility] 07-24-2024 15:54-0400 Body weight 92.07 kg AQUILES Jimenezgwynn Work Phone: [facility] 07-24-2024 15:54-0400 Diastolic blood pressure 84 mm[Hg] AQUILES Jimenezgwynn Work Phone: [facility] 07-24-2024 15:54-0400 Heart rate 63 /min COREMAKER BENCHLive Sapperirene Work Phone: [facility] 07-24-2024 15:54-0400 Respiratory rate 18 /min COREMAKER BENCH Tameka Easterirene Work Phone: [facility] 07-24-2024 15:54-0400 SaO2% (BldA) [Mass fraction] 96 % COREMAKER BENCHLive Sapperirene Work Phone: [facility] 07-24-2024 15:54-0400 Systolic blood pressure 128 mm[Hg] COREMAKER BENCHLive Sapperirene Work Phone: [facility] 06-29-2024 16:30-0400 Body height 165.1 cm [facility] 06-29-2024 16:30-0400 Body mass index (BMI) [Ratio] 32.4 kg/m2 [facility] 06-29-2024 16:30-0400 Body temperature 97.8 [degF] [facility] 06-29-2024 16:30-0400 Body weight 88.45 kg [facility] 06-29-2024 16:30-0400 Diastolic blood pressure 76 mm[Hg] [facility] 06-29-2024 16:30-0400 Heart rate 60 /min [facility] 06-29-2024 16:30-0400 Respiratory rate 20 /min [facility] 06-29-2024 16:30-0400 SaO2% (BldA) [Mass fraction] 94 % [facility] 06-29-2024 16:30-0400 Systolic blood pressure 124 mm[Hg] [facility] 04-05-2024 16:29-0400 Body height 165.1 cm COREMAKER BENCHLive Sapperirene Work Phone: [facility] 04-05-2024 16:29-0400 Body mass index (BMI) [Ratio] 32.4 kg/m2 COREMAKER BENCH Tameka Easterwood Work Phone: [facility] 04-05-2024 16:29-0400 Body temperature 97.4 [degF] COREMAKER BENCH Tameka Easterwood Work Phone: [facility] 04-05-2024 16:29-0400 Body weight 88.45 kg COREMAKER BENCH Tameka Easterwood Work Phone: [facility] 04-05-2024 16:29-0400 Diastolic blood pressure 82 mm[Hg] COREMAKER BENCH Tameka Easterwood Work Phone: [facility] 04-05-2024 16:29-0400 Heart rate 71 /min COREMAKER BENCH Tameka Easterwood Work Phone: [facility] 04-05-2024 16:29-0400 Respiratory rate 20 /min COREMAKER BENCH Tameka Easterwood Work Phone: [facility] 04-05-2024 16:29-0400 SaO2% (BldA) [Mass fraction] 99 % COREMAKER BENCH Tameka Easterwood Work Phone: [facility] 04-05-2024 16:29-0400 Systolic blood pressure 120 mm[Hg] COREMAKER BENCH Tameka Easterwood Work Phone: [facility] 03-22-2024 16:40-0400 Body height 165.1 cm COREMAKER BENCH Tameka Easterwood Work Phone: [facility] 03-22-2024 16:40-0400 Body mass index (BMI) [Ratio] 32.3 kg/m2 COREMAKER BENCH Tameka Easterwood Work Phone: [facility] 03-22-2024 16:40-0400 Body weight 88.11 kg COREMAKER BENCH Tameka Easterwood Work Phone: [facility] 03-22-2024 16:40-0400 Diastolic blood pressure 75 mm[Hg] COREMAKER BENCH Tameka Easterwood Work Phone: [facility] 03-22-2024 16:40-0400 Heart rate 61 /min COREMAKER BENCH Tameka Easterwood Work Phone: [facility] 03-22-2024 16:40-0400 Respiratory rate 18 /min COREMAKER BENCH Tameka Easterwood Work Phone: [facility] 03-22-2024 16:40-0400 SaO2% (BldA) [Mass fraction] 93 % COREMAKER BENCH Tameka Easterwood Work Phone: [facility] [facility] 03-22-2024 16:40-0400 Systolic blood pressure 134 mm[Hg] COREMAKER BENCH Tameka Easterwood Work Phone: [facility] 02-24-2024 12:20-0400 Diastolic blood pressure 87 mm[Hg] COREMAKER BENCH Tameka Easterwood Work Phone: [facility] 02-24-2024 12:20-0400 Heart rate 86 /min COREMAKER BENCH Tameka Easterwood Work Phone: [facility] 02-24-2024 12:20-0400 Respiratory rate 16 /min COREMAKER BENCH Tameka Easterwood Work Phone: [facility] 02-24-2024 12:20-0400 SaO2% (BldA) [Mass fraction] 94 % COREMAKER BENCH Tameka Easterwood Work Phone: [facility] 02-24-2024 12:20-0400 Systolic blood pressure 144 mm[Hg] COREMAKER BENCH Tameka Easterwood Work Phone: [facility] 02-24-2024 11:25-0400 Body temperature 97.4 [degF] COREMAKER BENCH Tameka Easterwood Work Phone: [facility] 02-24-2024 10:55-0400 Inhaled oxygen flow rate 8 L/min COREMAKER BENCH Tameka Easterwood Work Phone: [facility] 02-24-2024 09:26-0400 Body height 165.1 cm COREMAKER BENCH Tameka Easterwood Work Phone: [facility] 02-24-2024 09:26-0400 Body mass index (BMI) [Ratio] 33 kg/m2 COREMAKER BENCH Tameka Easterwood Work Phone: [facility] 02-24-2024 09:26-0400 Body weight 90 kg COREMAKER BENCH Tameka Easterwood Work Phone: [facility] 02-01-2024 08:43-0400 Body height 165.1 cm COREMAKER BENCH Tameka Easterwood Work Phone: [facility] 02-01-2024 08:43-0400 Body mass index (BMI) [Ratio] 32.8 kg/m2 COREMAKER BENCH Tameka Easterwood Work Phone: [facility] 02-01-2024 08:43-0400 Body weight 89.55 kg COREMAKER BENCH Tameka Easterwood Work Phone: [facility] 02-01-2024 08:43-0400 Diastolic blood pressure 71 mm[Hg] COREMAKER BENCH Tameka Easterwood Work Phone: [facility] 02-01-2024 08:43-0400 Heart rate 57 /min COREMAKER BENCH Tameka Easterwood Work Phone: [facility] 02-01-2024 08:43-0400 Respiratory rate 16 /min COREMAKER BENCH Tameka Easterwood Work Phone: [facility] 02-01-2024 08:43-0400 SaO2% (BldA) [Mass fraction] 98 % COREMAKER BENCH Tameka Easterwood Work Phone: [facility] 02-01-2024 08:43-0400 Systolic blood pressure 121 mm[Hg] COREMAKER BENCH Tameka Easterwood Work Phone: [facility] 01-19-2024 16:37-0400 Body height 165.1 cm COREMAKER BENCH Tameka Easterwood Work Phone: [facility] 01-19-2024 16:37-0400 Body mass index (BMI) [Ratio] 32.1 kg/m2 COREMAKER BENCH Tameka Easterwood Work Phone: [facility] 01-19-2024 16:37-0400 Body temperature 97.9 [degF] COREMAKER BENCH Tameka Easterwood Work Phone: [facility] 01-19-2024 16:37-0400 Body weight 87.54 kg COREMAKER BENCH Tameka Easterwood Work Phone: [facility] 01-19-2024 16:37-0400 Diastolic blood pressure 88 mm[Hg] COREMAKER BENCH Tameka Easterwood Work Phone: [facility] 01-19-2024 16:37-0400 Heart rate 72 /min COREMAKER BENCH Tameka Easterwood Work Phone: [facility] 01-19-2024 16:37-0400 Respiratory rate 20 /min COREMAKER BENCH Tameka Easterwood Work Phone: [facility] 01-19-2024 16:37-0400 SaO2% (BldA) [Mass fraction] 95 % COREMAKER BENCH Tameka Easterwood Work Phone: [facility] 01-19-2024 16:37-0400 Systolic blood pressure 130 mm[Hg] COREMAKER BENCH Tameka Easterwood Work Phone: [facility] 12-29-2023 14:33-0400 Body height 165.1 cm COREMAKER BENCH Tameka Easterwood Work Phone: [facility] 12-29-2023 14:33-0400 Body mass index (BMI) [Ratio] 31.4 kg/m2 COREMAKER BENCH Tameka Easterwood Work Phone: [facility] 12-29-2023 14:33-0400 Body weight 85.72 kg COREMAKER BENCH Tameka Easterwood Work Phone: [facility] 12-29-2023 14:33-0400 Diastolic blood pressure 80 mm[Hg] COREMAKER BENCH Tameka Easterwood Work Phone: [facility] 12-29-2023 14:33-0400 Heart rate 63 /min COREMAKER BENCH Tameka Easterwood Work Phone: [facility] 12-29-2023 14:33-0400 Respiratory rate 18 /min COREMAKER BENCH Tameka Sapperwood Work Phone: [facility] 12-29-2023 14:33-0400 SaO2% (BldA) [Mass fraction] 96 % COREMAKER BENCH Tameka Sekouerwood Work Phone: [facility] 12-29-2023 14:33-0400 Systolic blood pressure 124 mm[Hg] COREMAKER BENCH Tameka Easterwood Work Phone: [facility] 08-23-2023 10:00-0500 Diastolic blood pressure 80 mm[Hg] Gregg Baxter [facility] 08-23-2023 10:00-0500 Heart rate 69 /min Gregg Baxter [facility] 08-23-2023 10:00-0500 SaO2% (BldA) [Mass fraction] 95 % Gregg Baxter [facility] 08-23-2023 10:00-0500 Systolic blood pressure 136 mm[Hg] Gregg Turnere [facility] 08-23-2023 08:59-0500 Body temperature 98.06 [degF] Gregg Turnere [facility] 08-23-2023 08:59-0500 Diastolic blood pressure 74 mm[Hg] Gregg Turnere [facility] 08-23-2023 08:59-0500 Heart rate 71 /min Gregg Baxter [facility] 08-23-2023 08:59-0500 Respiratory rate 18 /min Gregg Baxter [facility] 08-23-2023 08:59-0500 SaO2% (BldA) [Mass fraction] 96 % Gregg Baxter [facility] 08-23-2023 08:59-0500 Systolic blood pressure 122 mm[Hg] Gregg Baxter [facility] Encounters Encounter Date Encounter Type Care Provider Facility Start: 07-24-2024 End: 07-24-2024 ambulatory AQUILES Robbins Easterwood Work Phone: [facility] Work Phone: Start: 07-24-2024 End: 07-24-2024 Patient encounter procedure AQUILES English Sekouerwood Work Phone: [facility] Work Phone: Start: 07-24-2024 Non-patient / Non-visit AQUILES snider Sekouerirene Work Phone: [facility] [place] Work Phone: Start: 07-17-2024 End: 07-17-2024 Patient encounter procedure AQUILES English Sekouerwood Work Phone: [facility] Work Phone: Start: 07-17-2024 End: 07-17-2024 ambulatory Tameka Robbins Easterwood Facility:[facility] Start: 06-29-2024 End: 06-29-2024 ambulatory [facility] Work Phone: Start: 06-29-2024 End: 06-29-2024 Patient encounter procedure [facility] [place] Work Phone: Start: 04-05-2024 End: 04-05-2024 ambulatory COREMAKER BENCH Tameka Robbins Easterwood Work Phone: [facility] Work Phone: Start: 04-05-2024 End: 04-05-2024 Patient encounter procedure COREMAKER BENCH Tameka Perez [facility] Work [facility]: Start: 03-22-2024 End: 03-22-2024 ambulatory COREMAKER BENCH Tameka Perez Work Phone: [facility] Work Phone: Start: 03-22-2024 End: 03-22-2024 Patient encounter procedure COREMAKER BENCH Tameka Jimenezwood Work Phone: [facility] Work Phone: Start: 02-24-2024 End: 02-24-2024 Admission to same day surgery center AQUILES Perez Work Phone: [facility] [place] Start: 02-24-2024 End: 02-24-2024 ambulatory COREMAKER BENCH Tameka Sapperwood Work Phone: [facility] Work Phone: Start: 02-15-2024 End: 02-15-2024 Patient encounter procedure COREMAKER BENCHLive Jimenezwood Work Phone: [facility] Work Phone: Start: 02-10-2024 End: 02-10-2024 Departed Referred COREMAKER BENCH Tameka Jimenezwood Work Phone: [facility] Work Phone: Start: 02-10-2024 End: 02-10-2024 Patient encounter procedure COREMAKER BENCH Tameka Jimenezwood Work Phone: [facility] Work Phone: Start: 02-10-2024 End: 02-10-2024 ambulatory COREMAKER BENCH Tameka J Easterwood Work Phone: [facility] Work Phone: Start: 02-03-2024 End: 02-03-2024 Patient encounter procedure COREMAKER BENCHLive Perez Work Phone: [facility] [place] Work Phone: Start: 02-03-2024 End: 02-03-2024 ambulatory COREMAKER BENCHLive Sapperirene Work Phone: [facility] Work Phone: Start: 02-01-2024 End: 02-01-2024 ambulatory COREMAKER BENCHLive Sapperwood Work Phone: [facility] Work Phone: Start: 02-01-2024 End: 02-01-2024 Patient encounter procedure COREMAKER BENCHLive Perez Work Phone: [facility] Work Phone: Start: 01-19-2024 End: 01-19-2024 ambulatory COREMAKER BENCHLive Sapperirene Work Phone: [facility] Work Phone: Start: 01-19-2024 End: 01-19-2024 Encounter for general adult medical examination without abnormal findings AQUILES Perez Work Phone: [facility] Start: 01-19-2024 End: 01-19-2024 Patient encounter procedure AQUILES Perez Work Phone: [facility] Work Phone: Start: 01-18-2024 End: 01-18-2024 Patient encounter procedure COREMAKER BENCHLive Perez Work Phone: [facility]ro[facility] Work Phone: Start: 01-18-2024 End: 01-18-2024 ambulatory COREMAKER BENCH Tameka J Easterwood Work Phone: [facility] Work Phone: Start: 01-18-2024 Non-patient / Non-visit COREMAKER BENCH Chelsea snider Chris Work Phone: [facility] Work Phone: Start: 01-13-2024 Non-patient / Non-visit COREMAKER BENCH Chelsea snider Sekouerirene Work Phone: [facility] [place] Work Phone: Start: 01-12-2024 End: 01-12-2024 Patient encounter procedure COREMAKER BENCH Tameka Sekouerwood Work Phone: [facility] [place] Work Phone: Start: 01-12-2024 End: 01-12-2024 ambulatory COREMAKER BENCH Tameka Robbins Easterwood Work Phone: [facility] Work Phone: Start: 01-01-2024 End: 01-01-2024 Patient encounter procedure COREMAKER BENCHLive English Sekouerwood Work Phone: [facility] Work Phone: Start: 01-01-2024 End: 01-01-2024 ambulatory COREMAKER BENCH Tameka Robbins Sekouerwood Work Phone: [facility] Work Phone: Start: 12-29-2023 End: 12-29-2023 ambulatory COREMAKER BENCH Tameka Robbins Easterwood Work Phone: [facility] Work Phone: Start: 12-29-2023 End: 12-29-2023 Patient encounter procedure COREMAKER BENCH Tameka Sekouerwood Work Phone: [facility] Work Phone: Start: 12-16-2023 Non-patient / Non-visit COREMAKER BENCH D tylor Easterwood Work Phone: [facility] Work Phone: Start: 11-29-2023 Non-patient / Non-visit AQUILES Perez Work Phone: [facility] Work Phone: Start: 11-04-2023 Patient encounter procedure AQUILES Perez Work Phone: [facility] Start: 08-23-2023 End: 08-23-2023 Emergency department patient visit Gregg Baxter Facility:[facility] Start: 08-23-2023 End: 08-23-2023 Emergency department patient visit Gregg Baxter [facility] Procedures Date Procedure Procedure Detail Performing Clinician Start: 07-17-2024 Plain X-ray of right shoulder AQUILES Perez Work Phone: Start: 02-24-2024 Reduction mammoplast y, bilateral AQUILES Perez Work Phone: Start: 01-01-2024 Screening mammograph y of bilateral breasts AQUILES Perez Work Phone: Plan of Treatment Date Care Activity Detail Author Start: 06-30-2024 Patient referral [facility] Work Phone: Start: 02-24-2024 [facility] Start: 02-24-2024 [facility] Start: 01-01-2024 MG Breast - bilatera l Screening [facility] Start: 01-01-2024 Screening mammograph y of bilateral breasts MM screening mammo BI w/CAD [facility] Start: 12-29-2023 [facility] Patient Education Know your Meds [facility] Work Phone: Patient referral [facility] Work Phone: [facility] Payers Date Payer Category Payer Self-pay 2023 Unknown [id number] 2023 Private Health Insurance [id number] 1965 Unknown [id number] 2.16.8 [id number] Unknown [id number] 2.16.8 [id number] Unknown [id number] 2.16.8 [id number] Unknown [id number] 2.16.8 [id number] Unknown [id number] 2.16.8 [id number] Unknown [id number] 2.16.8 [id number] Unknown [id number] 2.16.8 [id number] Unknown [id number] 2.16.8 [id number] Unknown [id number] 2.16.8 [id number] Social History Date Type Detail Facility Tobacco smoking status [facility] Sex Assigned At Female [facility] Start: 12-29-2023 End: 07-24-2024 Tobacco smoking status ARIS Never smoked tobacco (finding) [facility] Start: 1965 Sex Assigned At Female F [facility] Goals Date Patient Goal Desired Activity /State Functional Status Date Assessment Result Facility 08-23-2023 Functional Status N/A [facility] Clinical Notes 08-23-2023 to 06-30-2024 Note Date & Type Note Facility 06-30-2024 Evaluation note Authored June 30, 2024 12:24pm I have spent 45 minutes with /on this patient and over 50% of the visit was counseling done by myself, Tameka DEL CID-C. Also reviewed old progress notes as they applied to this visit. [facility] Work Phone: 1(435) 236-273107-08-2024 Evaluation note* Author Tameka Perez [facility] Authored April 10, 2024 4:38p m Patient to call if she would like to move forward with imaging and referral. [facility] Work Phone: [phone]) 658-834906-19-2024 Evaluation note* Author Ventura German [facility] Authored March 22, 2024 5:06 pm [...] alone. She moved back here recently from [place]. She had a remote history of paroxysmal [...] with her PCP and pain management. 8. Yppumqhrccf-koudn-wbng treatment with long-term healthy lifestyle change, decreased simple sweets and refined starches, increased exercise and activity and long-term weight loss. Consider metformin. Treat with GLP-1 agonist. She needs close long-term follow-up for this condition to prevent diabetes. She had a past A1c of 5.7. Monitor with treatment. 9. Snorer/[place] of 3-doubt sleep apnea. Treat with good [...] work with her PCP. Author Ventura German [facility] Authored February 01, 2024 11: 04am [...] alone. She moved back here recently from [place]. She had a remote history of paroxysmal [...] with her PCP and pain management. 8. Lxbdkwhtdyp-tiupz-ggmw treatment with long-term healthy lifestyle change, decreased simple sweets and refined starches, increased exercise and activity and long-term weight loss. Consider metformin. Treat with GLP-1 agonist. She needs close long-term follow-up for this condition to prevent diabetes. She notes she had a past A1c of 5.7. Monitor with treatment. 9. Snorer/[place] of 3-doubt sleep apnea. Treat with good [...] Our exercise program was recommended with our pen rider/obesity exercise group. Handout given. Our free weekly [...] and benefits of prescribed meds discussed. Initial bchv-bh-qxom interview/evaluation. The patient was counseled in detail on the options for weight loss in an individual setting. 55 minutes was spent caring for the patient, counseling/educating patient on the options for the treatment of obesity and related healthcare issues. The program's treatment goals were reviewed with the patient. Each aspect of the program was discussed with the patient. [facility] Work Phone: 1(457) 743-176804-30-2024 Evaluation note* Author Ventura German [facility] Authored February 01, 2024 11: 04am [...] alone. She moved back here recently from [place]. She had a remote history of paroxysmal [...] with her PCP and pain management. 8. Rpwjzcwjkpb-prvjb-ktan treatment with long-term healthy lifestyle change, decreased simple sweets and refined starches, increased exercise and activity and long-term weight loss. Consider metformin. Treat with GLP-1 agonist. She needs close long-term follow-up for this condition to prevent diabetes. She notes she had a past A1c of 5.7. Monitor with treatment. 9. Snorer/[place] of 3-doubt sleep apnea. Treat with good [...] Our exercise program was recommended with our pen rider/obesity exercise group. Handout given. Our free weekly [...] and benefits of prescribed meds discussed. Initial tikg-ah-gxnb interview/evaluation. The patient was counseled in detail on the options for weight loss in an individual setting. 55 minutes was spent caring for the patient, counseling/educating patient on the options for the treatment of obesity and related healthcare issues. The program's treatment goals were reviewed with the patient. Each aspect of the program was discussed with the patient. [facility] Work Phone: [phone] Evaluation + Plan noteExtracted from: Title:ED Note [...] day(s), # 7 tab(s), Refills(s) 0, Pharmacy: [facility]/pharmacy #[id number], 165, cm, 08/23/23 [...] Troponin 9 Hr. XR Chest Single View [facility]11-20-2023 Hospital Discharge instructions Follow Up Care 08/23/2023 08:50:48 With:Jessica Carbajal Address: [address], [facility], [facility] [address] [place] [address]- Business (1) When:08/26/2023 10:33:24 With:XXXX NONE Address: [place] When:Within 3 Day(s) [facility]Reason for visit Narrative* Chief Complaint Amb Documentation Amb Documentation chronic a-fib medication management, no acute Reason for Visit HLD (hyperlipidemia) Paroxysmal atrial fibrillation [facility] Work Phone: chief complaint+Reason for visit Narrative* Chief Complaint Amb Documentation Amb Documentation chronic a-fib medication management, no acute Screening Reason for Visit HLD (hyperlipidemia) Paroxysmal atrial fibrillation [facility] Work Phone: chief complaint+Reason for visit Narrative* Chief Complaint Amb Documentation Amb Documentation chronic a-fib medication management, no acute Screening E78.5 I48.0 Reason for Visit HLD (hyperlipidemia) Paroxysmal atrial fibrillation [facility] Work Phone: chief complaint+Reason for visit Narrative* Chief Complaint Amb Documentation Amb Documentation chronic a-fib medication management, no acute Screening E78.5 I48.0 Amb Documentation I48.0 Reason for Visit HLD (hyperlipidemia) Paroxysmal atrial fibrillation [facility] Work Phone: chief complaint+Reason for visit Narrative* Chief Complaint Amb Documentation Amb Documentation chronic a-fib medication management, no acute Screening E78.5 I48.0 Amb Documentation I48.0 Wellness visit Reason for Visit HLD (hyperlipidemia) Paroxysmal atrial fibrillation Screening for metabolic disorder Well adult exam [facility] Work Phone: chief complaint+Reason for visit Narrative* Chief Complaint Amb Documentation Amb Documentation chronic a-fib medication management, no acute Screening E78.5 I48.0 Amb Documentation I48.0 Wellness visit [facility] Reason for Visit HLD (hyperlipidemia) Paroxysmal atrial fibrillation Screening for metabolic disorder Well adult exam [facility] Work Phone: chief complaint+Reason for visit Narrative* Chief Complaint Amb Documentation Amb Documentation chronic a-fib medication management, no acute Screening E78.5 I48.0 Amb Documentation I48.0 Wellness visit [facility] R73.03;R63.5 Reason for Visit HLD (hyperlipidemia) Paroxysmal atrial fibrillation Screening for metabolic disorder Well adult exam [facility] Work Phone: chief complaint+Reason for visit Narrative* Chief Complaint Amb Documentation Amb Documentation chronic a-fib medication management, no acute Screening E78.5 I48.0 Amb Documentation I48.0 Wellness visit [facility] R73.03;R63.5 Macromastia Reason for Visit HLD (hyperlipidemia) Paroxysmal atrial fibrillation Screening for metabolic disorder Well adult exam [facility] Work Phone: chief complaint+Reason for visit Narrative* Chief Complaint Amb Documentation Amb Documentation chronic a-fib medication management, no acute Screening E78.5 I48.0 Amb Documentation I48.0 Wellness visit [facility] R73.03;R63.5 Macromastia Macromastia Reason for Visit HLD (hyperlipidemia) Paroxysmal atrial fibrillation Screening for metabolic disorder Well adult exam [facility] Work Phone: chief complaint+Reason for visit Narrative* Chief Complaint chronic a-fib medica tion management, no acute Screening E78.5 I48.0 Amb Documentation I48.0 Wellness visit [facility] R73.03;R63.5 Macromastia Macromastia Reason for Visit HLD (hyperlipidemia) Paroxysmal atrial fibrillation Screening for metabolic disorder Well adult exam HLD (hyperlipidemia) HTN (hypertension) Obesity (BMI 30.0-34.9) Pre-diabetes [facility] Work Phone: Evaluation note* Diagnosis Onset Date Resolution Status HLD (hyperlipidemia) acute Paroxysmal atrial fibrillation acute [facility] Work Phone: Evaluation note* Diagnosis Onset Date Resolution Status HLD (hyperlipidemia) acute Paroxysmal atrial fibrillation acute Screening for metabolic disorder noneactive Well adult exam noneactive [facility] Work Phone: Evaluation note* Author Katelyn Can [facility] Authored February 01, 2024 9:1 8am [...] Our exercise program was recommended with our pen rider/obesity exercise group. Handout given. Our free weekly [...] and benefits of prescribed meds discussed. Initial apgn-us-pskk interview/evaluation. The patient was counseled in detail on the options for weight loss in an individual setting. [ ] minutes was spent caring for the patient, counseling/educating patient on the options for the treatment of obesity and related healthcare issues. The program's treatment goals were reviewed with the patient. Each aspect of the program was discussed with the patient. [facility] Work Phone: Hospital course Narrative No data available for this section [facility] Additional Instructions DISCHARGE INSTRUCTIONS FOR [...] the incision. PLEASE NOTIFY OUR OFFICE at [phone] if you: -Develop a fever of 101 [...] rate. FOLLOW UP -Call the office at [phone] for a follow up appointment 1 week. * AFTER HOURS PHONE NUMBER [phone] *[facility] Work Phone: Hospital Discharge instructionsAmbulatory Orders* Referral to Neurology Location: None Selected [facility] Work Phone: Progress note No data available for this section [facility] Summary Purpose Family History Relationship Condition Age [...] E78.5 I48.0 Amb Documentation I48.0 Wellness visit [facility] R73.03;R63.5 Macromastia Macromastia left ankle and foot [...] vein of leg Chronic migraine Fibromyalgia Osteoarthritis Chief Complaint Right side shoulder, neck and back pain m25.511 Reason for Visit Chronic migraine Fibromyalgia Osteoarthritis Chief Complaint Right side shoulder, neck and back pain m25.511 Amb Documentation 6 months Reason for Visit Chronic migraine Fibromyalgia Osteoarthritis HLD (hyperlipidemia) Paroxysmal atrial fibrillation Additional Source Comments INFORMATION SOURCE (unrecogn ized section and content) DATE CREATED AUTHOR 05/27/2020 [facility] DATE CREATED AUTHOR AUTHOR'S ORGANIZ ATION 08/24/2023 [facility] DATE CREATED AUTHOR AUTHOR'S ORGANIZ ATION 07/19/2024 [facility] Care Teams (unrecognized sec tion and [...] Referral Self Attending Provider Active Start: Fernando 2023 End: January 01, 2024 Herbie Vila [...] BE BASED ON THE PRIMARY CLINICAL RECORDS. [facility] DNP [employer] [facility]. provides no warranty or guarantee of the accuracy or completeness of information in this document.
[2024-08-14 08:17] VITALS: BMI 31.9
--- NOTE | 2024-08-14 08:17 | V.VEINS.HP ---
Vital Signs 08/14/24 08:17 Height 5 ft 5 in Weight 87 kg BMI 31.9 Varicose Veins Patient in today for follow up ultrasound of right lower extremity following treatment of Varithena/microfoam completed on 08/07/24. Brett Washington MD personally performed the services described in this documentation, as scribed by Lucia Larsen RDMS in my presence and it is both accurate and complete. Lucia Washington RDMS, am scribing for, and in the presence of, Dr. Brett Ocasio and in the presence of the patient. knee: bilateral (most notable to right leg), calf: bilateral, ankle: bilateral and dobbs: bilateral aching, cramping and tender 7 10 years Worsened in recent months: Yes standing, sitting and walking analgesics (Ibuprofen), elevating extremities, compression stockings and exercise Reports fatigue, heaviness, limb pain and edema History of lower extremity trauma: No Superficial thrombophlebitis: No Family history of varicose veins: yes (mother) Has patient had previous lower extremity venous surgery: No Patient has previously received the following treatment(s) for lower extremity varicose veins: Reports none Does patient have a history of : yes Does patient intend to have future pregnancies: no Has patient had lower extremity venous scan with relux testing: No Support hose used: Yes Problems walking or doing physical activity: Yes How does it affect you: often has to sit and elevate bilateral legs/feet Do you walk much: Yes Do you stand much: No Review of Systems ROS Narrative Brett Washington MD personally performed the services described in this documentation, as scribed by Lucia Larsen RDMS in my presence and it is both accurate and complete. Lucia Washington RDMS, am scribing for, and in the presence of, Dr. Brett Ocasio and in the presence of the patient. Status of ROS 10 or more systems reviewed and unremarkable except as noted in history and below Cardiovascular Reports: edema Integumentary/Breast Reports: redness, skin pain, skin tenderness and changes in skin color Hematologic/Lymphatic Reports: easy bruising and easy bleeding [facility] Medical History (Updated 06/28/24 @ 14:09 by Lucia Larsen) Phlebitis and thrombophlebitis of superficial vessels of right lower extremity ?I80.01 - Phlebitis and thrombophlebitis of superficial vessels of right lower extremity (ICD-10) Phlebitis of superficial vein of right lower extremity ?I80.01 - Phlebitis and thrombophlebitis of superficial vessels of right lower extremity (ICD-10) Phlebitis and thrombophlebitis of superficial vessels of left lower extremity ?I80.02 - Phlebitis and thrombophlebitis of superficial vessels of left lower extremity (ICD-10) Diverticulosis ?K57.90 - Diverticulosis of intestine, part unspecified, without perforation or abscess without bleeding (ICD-10) 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 - Primary osteoarthritis, unspecified hand (ICD-10) Varicose veins of bilateral lower extremities with pain ?I83.813 - Varicose veins of bilateral lower extremities with pain (ICD-10) Arthritis ?M19.90 - Unspecified osteoarthritis, unspecified site (ICD-10) Spinal stenosis ?M48.00 - Spinal stenosis, site unspecified (ICD-10) Atrial fibrillation ?I48.91 - Unspecified atrial fibrillation (ICD-10) Obesity ?E66.9 - Obesity, unspecified (ICD-10) Fibromyalgia ?M79.7 - Fibromyalgia (ICD-10) Surgical History (Updated 08/07/24 @ 15:52 by Henri Higgins) S/P sclerotherapy of varicose veins ?Z98.890 - Other specified postprocedural states (ICD-10) ?Z86.79 - Personal history of other diseases of the circulatory system (ICD-10) Status post laser ablation of incompetent vein ?Z98.890 - Other specified postprocedural states (ICD-10) H/O colectomy ?Z90.49 - Acquired absence of other specified parts of digestive tract (ICD-10) Hx of breast reduction, elective ?Z98.890 - Other specified postprocedural states (ICD-10) H/O abdominoplasty ?Z98.890 - Other specified postprocedural states (ICD-10) History of cholecystectomy ?Z90.49 - Acquired absence of other specified parts of digestive tract (ICD-10) H/O: hysterectomy ?Z90.710 - Acquired absence of both cervix and uterus (ICD-10) Family History (Updated 04/26/24 @ 14:42 by Henri Higgins) Mother Varicose veins of bilateral lower extremities with pain Heart disease Age related osteoporosis Sister Age related osteoporosis Other Family history of cancer Family history of diabetes mellitus Family history of hypertension Pulmonary hypertension Social History (Updated 04/26/24 @ 14:43 by Henri Higgins) Within the past year, how often did you have six or more drinks on one occasion: less than monthly Smoking status: Never smoker Non-prescribed substance use: denies use Meds Home Medications and Allergies Home Medications ?Medication ?Instructions ?Recorded ?Confirmed ?Type aspirin 81 mg capsule 81 mg PO DAILY 04/26/24 04/26/24 History diltiazem HCl PO 04/26/24 History duloxetine PO 04/26/24 History montelukast 10 mg tablet 10 mg PO QPM 04/26/24 04/26/24 History (Singulair) pantoprazole 40 mg granules 40 mg PO DAILY 04/26/24 04/26/24 History delayed-release for susp in packet (Protonix) tramadol .ROUTE 04/26/24 History Allergies Allergy/AdvReac Type Severity Reaction Status Date / Time codeine Allergy Mild Agitated Verified 04/26/24 15:32 dermaplast glue Allergy Intermediate Rash Uncoded 04/26/24 15:32 Exam Narrative Exam Narrative: Brett Washington MD personally performed the services described in this documentation, as scribed by Lucia Larsen RDMS in my presence and it is both accurate and complete. Lucia Washington RDMS, am scribing for, and in the presence of, Dr. Brett Ocasio and in the presence of the patient. Results Imaging Venous US: Radiologist's impression: Chemically induced thrombus in right leg varicose veins. Thrombus extends into a 4 cm segment of one of the PTVs. Brett Washington MD personally performed the services described in this documentation, as scribed by Lucia Larsen RDMS in my presence and it is both accurate and complete. Lucia Washington RDMS, am scribing for, and in the presence of, Dr. Brett Ocasio and in the presence of the patient. Assessment and Plan Assessment and Plan (1) Phlebitis and thrombophlebitis of superficial vessels of right lower extremity: Plan Plan is for patient to return for Varithena/microfoam of left leg on 08/24/24. Brett Washington MD personally performed the services described in this documentation, as scribed by Lucia Larsen RDMS in my presence and it is both accurate and complete. I, Lucia Larsen RDMS, am scribing for, and in the presence of, Dr. Brett Ocasio and in the presence of the patient.
--- NOTE | 2024-08-14 08:20 | P.DS_ITS ---
Discharge Plan Discharge Disposition: Home, Self-Care Outpatient Diagnostics: VC INJ Foam Sclerosant WUS MANAGER PROVIDER RELATIONS (Routine) Timeframe: 3 Weeks Facility: [facility] - Location: [facility] Ordered By: Brett Ocasio Follow Up Appointments: 08/24/24 Plan of Treatment: Varithena/microfoam of left leg Print Language: German
--- NOTE | 2024-08-14 08:20 | W.VEIN ---
Discharge Plan Discharge Disposition: Home, Self-Care Outpatient Diagnostics: VC INJ Foam Sclerosant WUS TRANSPORTATION ENGINEERING TECHNICIAN (Routine) Timeframe: 3 Weeks Facility: [facility] - Location: [facility] Center Ordered By: Brett Ocasio Follow Up Appointments: 08/24/24 Plan of Treatment: Varithena/microfoam of left leg Print Language: Danish
== END 2024-08-14 07:53 | disposition home or self-care (01) ==
PROVIDERS: PCP Radiology Diagnostic Radiology; Visit Provider Radiology Diagnostic Radiology
DX: I80.01 Phlebitis and thrombophlebitis of superficial vessels of right lower extremity (principal)
CPT/HCPCS: 93971; G0463